=== PATIENT | female | born 1940 | race Caucasian/White ===

== ENCOUNTER 2020-09-10 12:27 | Outpatient (CLI) | payer OTHER, SELFPAY ==
--- NOTE | 2020-09-11 11:50 | WPDPFTINT ---
PFT Interpretation This is a pulmonary function test with pre and post-bronchodilator spirometry, plethysmography and diffusing capacity. The test was performed and results interpreted in accordance with the 2019 and 2005 ATS/ERS Task Force guidelines respectively using the Baron/Polzac reference equations. Findings: Spirometry: There is decreased maximal expiratory airflow at low lung volumes. The contour of the inspiratory flow tracing is normal. The pre bronchodilator FVC is 1.53 L, 70% predicted. The pre bronchodilator FEV1 is 1.11 L, 77% predicted. The FEV1: FVC ratio 73%. The post bronchodilator FVC is 1.55 L, representing 1% increase. The post bronchodilator FEV1 is 1.12 L, representing no change. Plethysmography the total lung capacity is 3.37 L, 82% predicted. Functional residual capacity is 2.03 L, 129% predicted. The residual volume is 1.77 L, 99% predicted. Diffusion capacity: The absolute diffusion capacity is 9.8, 43% predicted. The diffusing capacity corrected for alveolar volume is 4.02, 121% predicted. Impression: There is a mild obstructive abnormality with a normal FEV1 and without significant improvement after inhaling a single dose of albuterol. Hyperinflation is present is demonstrated by the increase in functional residual capacity and is consistent with an obstructive abnormality. The absolute diffusing capacity is moderately decreased but increased when corrected for alveolar volume. There are no prior studies for comparison
== END 2020-09-10 12:28 | disposition home or self-care (01) ==
PROVIDERS: PCP Family Medicine Adolescent Medicine; Visit Provider Family Medicine Adolescent Medicine
DX: R06.09 Other forms of dyspnea (principal); R06.02 Shortness of breath; R94.2 Abnormal results of pulmonary function studies
CPT/HCPCS: 94060; 94726; 94729

== ENCOUNTER → 2020-10-19 00:48 | Outpatient (CLI) | payer OTHER, SELFPAY ==
[2020-10-19 18:53] LABS: SARS-CoV-2 RNA PCR Negative
== END ==
PROVIDERS: PCP Family Medicine Adolescent Medicine; Visit Provider Specialist
DX: Z01.812 Encounter for preprocedural laboratory examination (principal); Z20.822 Contact with and (suspected) exposure to COVID-19
CPT/HCPCS: C9803; U0003; U0005

== ENCOUNTER 2020-10-23 00:50 | Day surgery (SDC) | payer OTHER, SELFPAY ==
[2020-10-22 16:30] VITALS: BMI 47.7
[2020-10-23] VITALS (12 sets, daily range): BP systolic 104–156; BP diastolic 47–78; PULSE 65–89; RESP 14–24; TEMP 36.1–36.5; O2SAT 92–98; BMI 49.4
--- NOTE | ~2020-10-23 | XR_ITS ---
EXAMINATION: XR chest 2V DATE: 10/24/2020 09:02 INDICATION: Pacer placement. TECHNIQUE: Frontal and lateral views of the chest were obtained. COMPARISON: Chest single view 10/23/2020 FINDINGS: The chest demonstrates clear lungs without pneumonia, pleural effusion, or pneumothorax. Th e heart size is normal. There is a left chest pacer with lead in right ventricle. IMPRESSION: 1. No acute cardiopulmonary disease. Reviewed, dictated and finalized at location A.
--- NOTE | ~2020-10-23 | XR_ITS ---
EXAMINATION: XR chest 1V portable EXAM DATE: 10/23/2020 11:50 INDICATION: Pacemaker insertion. TECHNIQUE: Portable AP frontal chest x-ray was obtained. Comparison is made to prior examination from 02/17/2019. FINDINGS: There is single lead pacemaker/AICD device seen with tip projecting over the expected locat ion of right ventricle. The cardiomediastinal silhouette is prominent but magnified on this AP techni que. There is aortic arteriosclerosis. No confluent consolidation, pneumothorax or pleural effusion s uspected. Left basilar granuloma. There are bony degenerative changes. IMPRESSION: No acute cardiopulmonary findings. Reviewed, dictated and finalized at location A.
--- NOTE | 2020-10-23 08:30 | ECG_ITS ---
Measurements Intervals [place] Rate: 82 P: ME: 0 QRS: -45 QRSD: 126 T: 82 QT: 405 QTc: 473 Interpretive Statements ATRIAL FIBRILLATION LEFT ANTERIOR FASCICULAR BLOCK NONSPECIFIC ST & T-WAVE ABNORMALITY- HIGH LATERAL LEADS BASELINE WANDER- I, AVR, AVL, AVF ABNORMAL ECG Electronically Signed On 10-23-2020 9:03:50 CDT by Eugene Rivas D.O.
[2020-10-23 09:00] LABS: Basophils Absolute Auto 0.1 K/mm3 (0.0-0.1); Basophils Percent Auto 0.7 % (0.2-1.2); Eosinophils Absolute Auto 0.2 K/mm3 (0-0.3); Eosinophils Percent Auto 2.3 % (0-4.4); Hematocrit 42.5 % (37.0-47.0); Hemoglobin 13.8 g/dL (12.0-15.0); Immature Granulocyte Absolute 0.02 K/mm3 (0.00-0.031); Immature Granulocyte Percent A 0.3 % (0-0.5); Lymphocytes Absolute Auto 2.53 K/mm3 (0.9-3.2); Lymphocytes Percent Auto 34.8 % (18.3-44.2); Mean Corpuscular HGB Conc 32.5 g/dl (32-36); Mean Corpuscular Hemoglobin 30.9 pg (26-34); Mean Corpuscular Volume 95.3 fl (80-100); Monocytes Absolute Auto 0.8 K/mm3 (0.1-0.6); Monocytes Percent Auto 10.3 % (2.6-8.5); Neutrophils Absolute Auto 3.7 K/mm3 (1.3-6.7); Neutrophils Percent Auto 51.6 % (45.5-73.1); Platelet Count Result 208 k/mm3 (150-375); Red Blood Count 4.46 M/mm3 (4.2-5.4); Red Cell Distribution Width 13.8 % (11.5-14.5); White Blood Count 7.3 K/mm3 (4.5-10.0)
[2020-10-23 09:10] LABS: INR 0.9; Prothrombin Time 13.1 Seconds (11.1-14.7)
[2020-10-23 09:11] LABS: Anion Gap 7 mmol/L (8-16); Blood Urea Nitrogen 23 mg/dL (7-17); Carbon Dioxide 26 mmol/L (22-30); Chloride 106 mmol/L (98-107); Estimated CRCL calculation 36 ml/min; Estimated Glomerular Filt Rate 39; Glucose 123 mg/dL (65-105); Potassium 4.4 mmol/L (3.4-5.0); Sodium 139 mmol/L (137-145)
--- NOTE | 2020-10-23 10:05 | WPDMODSED ---
Moderate Sedation Note-Pt Data Patient Data Diagnosis: Chronic atrial fibrillation with slow ventricular response Present Complaint: this is an 80-year-old woman with chronic atrial fibrillation who has been having intermittent syncopal episodes. She has been found on monitoring to have slow ventricular response with 5-6 second asystolic pauses corresponding with symptoms. Procedure to be performed/Plan: Permanent pacemaker implantation Allergies Allergy/AdvReac Type Severity Reaction Status Date / Time No Known Allergies Allergy Verified 10/22/20 16:56 Home Medications Medication Instructions Recorded Confirmed Type apixaban [Eliquis] 5 mg PO BID 10/22/20 10/22/20 History gabapentin 1,200 mg PO HS 10/22/20 10/22/20 History insulin glargine [Lantus Solostar 24 unit SUBCUT QA 10/22/20 10/22/20 History U-100 Insulin] losartan 100 mg PO DAILY 10/22/20 10/22/20 History pravastatin 20 mg PO QA 10/22/20 10/22/20 History tiotropium bromide [Spiriva 2.5 mcg INHALATION DAILY 10/22/20 10/22/20 History Respimat] zolpidem 10 mg PO HS 10/22/20 10/22/20 History Sedation/Anesthesia: No previous sedation/anesthesia problems (including family history). [facility] Social History Social History (Updated 10/22/20 @ 16:55 by Joanne Plata RN) Years smoked: 15 Smoking status: Former smoker Tobacco type: cigarettes Mod Sed Physical Exam Physical Exam Pre Procedural Exam: Normal: Neck, Throat, Airway, Lungs, Heart Rate, Neuro Exam and Extremities and Variation: Appearance ( anxious obese elderly lady), Heart Size ( PMI not palpable) and Heart Rhythm ( irregularly irregular) Hours since solid foods: 12 Hours since liquid intake: 12 Internal Medicine - PN: Obj Da Vital Signs Vital Signs: Vital Signs - 24 hr 10/23/20 08:58 Temperature 36.5 C Pulse Rate 74 Respiratory Rate 16 Blood Pressure 156/74 H Pulse Oximetry 95 Labs CBC & Chem 7: 10/23/20 08:55 10/23/20 08:55 Labs: Laboratory Results - last 24 hr 10/23/20 10/23/20 10/23/20 08:55 08:55 08:55 WBC 7.3 RBC 4.46 Hgb 13.8 Hct 42.5 MCV 95.3 MCH 30.9 MCHC 32.5 RDW 13.8 Plt Count 208 MPV 10.0 Immature Gran % (Auto) 0.3 Neut % (Auto) 51.6 Lymph % (Auto) 34.8 [place] % (Auto) 10.3 H Eos % (Auto) 2.3 Baso % (Auto) 0.7 Lymph # (Auto) 2.53 [place] # (Auto) 0.8 H Eos # (Auto) 0.2 Baso # (Auto) 0.1 Abs Immat Gran (auto) 0.02 Absolute Neuts (auto) 3.7 Absolute Nucleated RBC 0.0 Nucleated RBC % 0.0 PT 13.1 INR 0.9 Sodium 139 Potassium 4.4 Chloride 106 Carbon Dioxide 26 Anion Gap 7 L BUN 23 H Creatinine 1.30 H Estim Creat Clear Calc 36 Estimated GFR 39 L Glucose 123 H Calcium 9.0 ASA Classification/Sedation ASA Classification/Sedation ASA Class: II Emergent: No Risks: Risks, benefits and alternatives explained and patient/family accepted plan for sedation. Patient re-evaluated immediately prior to sedation.
[2020-10-23] MEDS: SODIUM CHLORIDE 0.9% IV 1,000 ML 50 ML IV CONT (11:10)
--- NOTE | 2020-10-23 11:10 | ECG_ITS ---
Measurements Intervals [place] Rate: 64 P: [place]: 0 QRS: -45 QRSD: 119 T: 67 QT: 412 QTc: 425 Interpretive Statements ELECTRONIC VENTRICULAR PACEMAKER WITH INHIBITION UNDERLYING ATRIAL FIBRILLATION LEFT ANTERIOR FASCICULAR BLOCK BASELINE ARTIFACT- I, II, III, AVR, AVL, AVF NO FURTHER INTERPRETATION IS POSSIBLE ABNORMAL ECG Electronically Signed On 10-23-2020 11:56:11 CDT by Eugene Rivas D.O.
--- NOTE | 2020-10-23 11:14 | WPDCARDPROC ---
Cardiac Cath Procedure Note Date of procedure:: 10/23/20 Performing physician:: Chilango Gunderson MD Indication:: symptomatic bradycardia with AFib and slow ventricular response Brief clinical history:: this is an 80-year-old woman who has chronic atrial fibrillation. She has a slow ventricular response and recent started to experience syncopal episodes. Monitoring as an outpatient has demonstrated asystolic pauses between 5 and 6 seconds. Pacemaker implantation was thusly recommended. Anticoagulation has been stopped 5 days ago. Procedure Procedure performed:: Implantation of permanent pacemaker Sedation/Medication given:: Versed 2 mg case start time 10:34 a.m. case end time 11:07 a.m. sedation provided by Nathalia Plata RN, trained observer Access site:: left subclavian vein Estimated blood loss:: 20 cc Procedure note:: patient was brought to the cardiac catheterization lab in postabsorptive state. The left anterior chest wall was prepped and draped in the usual fashion. Anesthesia was provided with 1% lidocaine infiltrated below the left clavicle. Following that an incision was made about 2 in long inferior to the clavicle. After this electrocautery was used to provide cutaneous hemostasis. The the subcutaneous tissue was then using sharp and blunt dissection and a blunt dissection was used to create a pacemaker pocket along the fascial plane inferior to the incision. After this attention was turned to venous access. Under fluoroscopic guidance the left subclavian vein was punctured and the guidewire was advanced into the venous circulation into the level right atrium. A 6 Y[place]ut pacemaker stay safe sheath device was used to access the vein the guidewire and dilator were removed. The pacemaker lead mentioned below is then advanced into the venous circulation to the level of the right atrium. The Sheath was peeled away. After this I removed the stylet from the lead and for used a 3 cc syringe to formed J-tip stylet. This was used then to steer the lead through the right ventricle out to the PA position. A straight stylet was placed into the lead was withdrawn and placed easily into the right ventricular apical position. Appropriate R-waves were sensed and after this the lead was fixed into position by deploying the fixation screw. After this pacing and sensing performance was documented using the analyzer. A 10 volts stimulus failed to show any evidence of extracardiac stimulation. After this the lead was sutured to the base of the pocket using the suture sleeve at 2 0 silk ties. After this the pacemaker generator was connected to the leads using the torque wrench the entire assembly was placed into the newly created pocket. Lastly the pocket was closed in layers using 3 0 Vicryl in an interrupted fashion for the subcutaneous tissue and I used 2 layers of 4 0 Vicryl for the subcutaneous subcuticular tissue. After this the wound was dressed with an Aquacel dressing the patient was taken to the holding area with the left arm in an immobilizer. Bed rest and postop antibiotics were ordered. Procedure was uncomplicated and well tolerated. Findings:: Patient received a Biotronik single-chamber VVI pacemaker model number [id number], [place] SR-T lower rate limit set at 60 upper rhythm at 1:20 a.m. pacing mode VVI / CLS. The ventricular lead is a Biotronik screw-in bipolar lead model 300261, Solia S 53. R-waves are sensed at 12.5 mV threshold 0.6 volts at 0.4 milliseconds pacing impedance 741 Ohms Conclusion:: 1. uncomplicated well tolerated implantation of permanent single-chamber cardiac pacing system for treatment of symptomatic bradycardia in this 80-year-old lady with chronic atrial fibrillation. Chilango Gunderson MD [facility]
--- NOTE | 2020-10-23 12:30 | ADMGEN ---
This patient, Eliza Dueñas, was admitted to [facility]. Patient/family oriented to hospital policies and general routines including ID bracelet, bed and alarms, visiting hours, pain management, procedures, bathroom and other care routines, personal items, smoking policy, room service/diet, and visiting hours. Information on how to activate the Rapid Response Team has been discussed. Patient/Family are encouraged to report perceived risks to care and to ask questions if they do not understand what they are told or what they should do.
--- NOTE | 2020-10-23 12:35 | SUR.PHASEII ---
1230-pt moved to PCS charting
[2020-10-23] MEDS: GABAPENTIN 400 MG CAPSULE 1200 MG PO (21:35)
[2020-10-23] MEDS: ZOLPIDEM TARTRATE (*CRX) 5 MG TABLET 10 MG PO (21:35)
[2020-10-24] VITALS (8 sets, daily range): BP systolic 137–147; BP diastolic 49–78; PULSE 68–93; RESP 18–20; TEMP 36.2–36.3; O2SAT 91–96
[2020-10-24 08:39] LABS: Glucose Point of Care 116 (65-105)
--- NOTE | 2020-10-24 08:45 | PC.NURSE ---
DR. HADLEY HERE TO SEE PT. OK TO GET 2 VIEW CXR MORNING POST PPM NOW. RADIOLOGY NOTIFIED.
--- NOTE | 2020-10-24 09:15 | PC.NURSE ---
RETURNS FROM 2 VIEW CXR NOW. VOIDED PER TOILET. STEADY GAIT W/ CANE. RETURNED TO CHAIR AT BEDSIDE. BREAKFAST SERVED. VOICES NO C/O. ARM IMMOBILIZER ON L. ARM. REVIEWED ACTIVITY/MOVEMENT RESTRICTIONS POST PPM W/ PT. VOICED UNDERSTANDING.
[2020-10-24] MEDS: INSULIN GLARGINE (*BKC) 100 UNITS/ML 24 UNITS SUB-Q (09:37)
--- NOTE | 2020-10-24 10:49 | PM.PNCARD ---
Progress Note: A&P Assessment and Plan (1) Sick sinus syndrome: Code(s): I49.5 - Sick sinus syndrome Status: Acute Assessment and Plan: Continue home medical therapy. Status post pacemaker (2) S/P cardiac pacemaker procedure: Code(s): Z95.0 - Presence of cardiac pacemaker Status: Acute Assessment and Plan: Normal device function on interrogation this morning. Chest x-ray with RV lead in satisfactory position, no pneumothorax or acute issue. Outpatient follow-up as scheduled. Post pacemaker precautions discussed. See discharge instructions. Discharge home today in stable and improved condition. 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 (4) Atrial fibrillation: Code(s): I48.91 - Unspecified atrial fibrillation Status: Acute Assessment and Plan: Persistent. Resume systemic anticoagulation per Dr. Gunderson recommendation post pacemaker implantation in 4-5 days to reduce bleeding complication risk. Subjective Date/time seen: Date of service: 10/24/20 10:49 Follow-up for status post pacemaker implantation for sick sinus syndrome, syncope Patient feels much better today. No complaints. Denies significant pain. No chest pain, palpitations, no shortness of breath. Chest x-ray stable, no pneumothorax, RV lead appropriate position, pacemaker interrogation normal device function no issues. She is intermittently V paced on telemetry, atrial fibrillation. Review of Systems Review of Systems: All systems reviewed & are unremarkable except as noted in HPI and below Constitutional: Constitutional: Reports as per HPI and Reports no additional constitutional complaints Eyes: Eyes: Reports as per HPI and Reports no additional eye complaints ENT: Reports system reviewed and no additional complaints, except as documented and Reports as per HPI Cardiovascular: Cardiovascular: Reports as per HPI and Reports no additional cardiovascular complaints Respiratory: Respiratory: Reports as per HPI and Reports no additional respiratory complaints Gastrointestinal: Gastrointestinal: Reports as per HPI and Reports no additional gastrointestinal complaints Genitourinary: Genitourinary: Reports no additional female genitourinary complaints and Reports as per HPI Musculoskeletal: Musculoskeletal: Reports no additional musculoskeletal complaints and Reports as per HPI Integumentary/Breasts: Skin/Breast: Reports system reviewed and no additional complaints, except as docu and Reports as per HPI Neurologic: Reports system reviewed and no additional complaints, except as documented and Reports as per HPI Psychiatric: Psychiatric: Reports no additional psychiatric complaints and Reports as per HPI Endocrine: Endocrine: Reports no additional endocrine complaints and Reports as per HPI Hematologic/Lymphatic: Hematologic/Lymphatic: Reports no additional hematologic/lymphatic complaints and Reports as per HPI Allergic/Immunologic: Allergic/Immunologic: Reports no additional allergic/immunologic complaints and Reports as per HPI Exam Narrative: Exam Narrative: General: Well developed, alert and oriented x3. No apparent distress, comfortable, pleasant, and cooperative. Head: atraumatic, normocephalic Eyes: EOM intact, sclerae anicteric, conjunctivae unremarkable Ears/Nose: external inspection of ears and nose were grossly normal Mouth/Throat: oral mucosa pink and moist Neck: supple, normal range of motion, no jugular venous distention or carotid bruits, thyroid nonpalpable, trachea midline. Cardiac: Irregular rate and rhythm, normal S1-S2, no murmurs, clicks, gallops, or rubs. Lungs: Clear to auscultation bilaterally, no rales, wheezes, or rhonchi. Abdomen: Soft, nontender, nondistended, positive bowel
--- NOTE | 2020-10-24 11:01 | PM.DS ---
DS: Admitting Diagnosis Admitting Diagnosis Admitting Diagnosis: Sick sinus syndrome, syncope, atrial fibrillation DS: Discharge Diagnosis Discharge Diagnosis (1) Sick sinus syndrome: Code(s): I49.5 - Sick sinus syndrome Status: Acute Assessment and Plan: Continue home medical therapy. Status post pacemaker (2) S/P cardiac pacemaker procedure: Code(s): Z95.0 - Presence of cardiac pacemaker Status: Acute Assessment and Plan: Normal device function on interrogation this morning. Chest x-ray with RV lead in satisfactory position, no pneumothorax or acute issue. Outpatient follow-up as scheduled. Post pacemaker precautions discussed. See discharge instructions. Discharge home today in stable and improved condition. 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 (4) Atrial fibrillation: Code(s): I48.91 - Unspecified atrial fibrillation Status: Acute Assessment and Plan: Persistent. Resume systemic anticoagulation per Dr. Gunderson recommendation post pacemaker implantation in 4-5 days to reduce bleeding complication risk. DS: Summary Hospital Course Reason for hospitalization: Pacemaker implantation, elective Hospital Course: Patient admitted as an outpatient with episodes of syncope and near-syncope associated with pathologic pauses, tachycardia bradycardia syndrome referred for pacemaker implantation. Patient was observed overnight with pacemaker interrogation and chest x-ray all revealing stable device function and stable lead placement without pneumothorax or other complication. Patient had no complaints was doing well at time of discharge. Status at Discharge Cognitive/behavioral status at discharge: Competent Functional status at discharge: independent ambulation Overall status at discharge: patient is progressing back to baseline Time Spent with Patient Time attestation: Total time spent providing and/or coordinating discharge services: 38 Time spent: Greater than 30 minutes Exam Narrative: Exam Narrative: General: Well developed, alert and oriented x3. No apparent distress, comfortable, pleasant, and cooperative. Head: atraumatic, normocephalic Eyes: EOM intact, sclerae anicteric, conjunctivae unremarkable Ears/Nose: external inspection of ears and nose were grossly normal Mouth/Throat: oral mucosa pink and moist Neck: supple, normal range of motion, no jugular venous distention or carotid bruits, thyroid nonpalpable, trachea midline. Cardiac: Irregular rate and rhythm, normal S1-S2, no murmurs, clicks, gallops, or rubs. Lungs: Clear to auscultation bilaterally, no rales, wheezes, or rhonchi. Abdomen: Soft, nontender, nondistended, positive bowel sounds throughout. No appreciable hepatosplenomegaly, no rebound guarding or rigidity noted. Abdominal aorta nonpalpable, no appreciable bruits. Extremities: Trace to 1+ LE edema, clubbing, and or cyanosis. Extremities warm and well perfused. Skin: Warm and dry without ecchymoses, rashes, and/or petechiae. -left anterior chest wall bandage in place. No obvious hematoma, tenderness or bleeding noted. Musculoskeletal: Muscle strength and tone intact throughout without obvious deformities. Vascular: Carotid upstrokes 2+ bilaterally, radial pulses 2+ bilaterally, dorsalis pedis pulses 2+ bilaterally, posterior tibialis pulses palpable bilaterally. Neurologic: Cranial nerves 2-12 grossly intact, examination grossly nonfocal Pscyhiatric: Mood calm and appropriate. DS: Data Data Completed and Pending Labs on day of discharge: Labs from last 24 hours 10/24/20 08:34 POC Capillary Glucose 116 H Discharge Plan Discharge Attending physician on discharge: Chilango Gunderson [facility]
[2020-10-24] MEDS: PRAVASTATIN SODIUM 20 MG TABLET PO (11:39)
[2020-10-24] MEDS: LOSARTAN POTASSIUM 100 MG TABLET PO (11:39)
--- NOTE | 2020-10-24 12:50 | PC.NURSE ---
REVIEWED DISCHARGE INSTRUCTIONS WITH PT. AND DAUGHTER IN LAW. QUESTIONS ANSWERED. VOICED UNDERSTANDING OF ALL. DISCHARGED HOME, OUT VIA WC TO TO FAMILY CAR W/ ALL PERSONAL BELONGINGS AND DISCHARGE PACKET AND ALL PACEMAKER INFORMATION AND BEDSIDE MONITOR. ARM IMMOBILIZER IS ON L. ARM. CANE IS IN HAND. DENIES PAIN. NO DISTRESS NOTED. NO C/O VOICED.
== END 2020-10-24 12:45 | disposition home or self-care (01) ==
LOC: ANHCATHLAB 08:35 → ANHCPC 13:50 → ANHIMU 10-24 13:07
PROVIDERS: PCP Family Medicine Adolescent Medicine; Visit Provider Specialist
PROC: 0JH604Z Insertion of Pacemaker, Single Chamber into Chest Subcutaneous Tissue and Fascia, Open Approach (ICD-10-PCS; CPT 33210; principal; 2020-10-23 10:00)
DX: I48.0 Paroxysmal atrial fibrillation (principal); I49.5 Sick sinus syndrome; Z79.01 Long term (current) use of anticoagulants; I10 Essential (primary) hypertension; E78.00 Pure hypercholesterolemia, unspecified; E66.01 Morbid (severe) obesity due to excess calories; Z68.42 Body mass index [BMI] 45.0-49.9, adult; R55 Syncope and collapse; E11.9 Type 2 diabetes mellitus without complications; R06.00 Dyspnea, unspecified; M19.90 Unspecified osteoarthritis, unspecified site; Z79.4 Long term (current) use of insulin; R53.81 Other malaise; R53.83 Other fatigue; I34.0 Nonrheumatic mitral (valve) insufficiency; G47.33 Obstructive sleep apnea (adult) (pediatric); I27.20 Pulmonary hypertension, unspecified; E78.5 Hyperlipidemia, unspecified
CPT/HCPCS: 33207; 36415; 71045; 71046; 80048; 82948; 85025; 85610; 93005; 94640; A9270; C1779; C1786; C9803; J0690; J1815; J2250; J3010; J7030; J7040; U0003; U0005

== ENCOUNTER → 2022-03-26 11:28 | Outpatient (CLI) | payer OTHER, SELFPAY ==
--- NOTE | ~2022-03-26 | XR_ITS ---
XR chest 2V 03/26/2022 11:52 Indication: Shortness of breath Procedure: PA and lateral views of the chest Comparison: 10/24/2020 Findings: Pacemaker lead in the right ventricle. Cardiomegaly. There is pulmonary vascular indistinct ness, compatible with mild interstitial edema. No significant effusion or pneumothorax. No acute osse ous abnormality. Impression: 1: Cardiomegaly with mild interstitial edema. Reviewed, dictated and finalized at location B. Impression: 1: Cardiomegaly with mild interstitial edema.
== END ==
PROVIDERS: Visit Provider Physician Assistant
DX: R06.02 Shortness of breath (principal); I51.7 Cardiomegaly; J84.9 Interstitial pulmonary disease, unspecified
CPT/HCPCS: 71046

== ENCOUNTER → 2022-05-20 09:46 | Outpatient (CLI) | payer OTHER, SELFPAY ==
--- NOTE | ~2022-05-20 | XR_ITS ---
EXAM: XR lumbar spine 2-3V DATE: 05/20/2022 10:02 HISTORY: no injury lbp for 2 weeks . COMPARISON: None available. FINDINGS: 5 nonrib-bearing lumbar-type vertebral bodies. Pedicles intact. 3 mm retrolisthesis at L2- 3 and L3-4. Vertebral body heights preserved. Multilevel severe disc space narrowing and osteophytosi s, including large bridging osteophytes. Vacuum phenomenon at L2-3 and L3-4. L5-S1 fusion.. Multileve l facet sclerosis and hypertrophy, with interspinous narrowing. No fracture or dislocation. IMPRESSION: Multilevel severe degenerative disc disease. Multilevel severe facet arthropathy and inte rspinous impingement. Reviewed, dictated and finalized at location K. IMPRESSION: Multilevel severe degenerative disc disease. Multilevel severe face t arthropathy and interspinous impingement.
== END ==
PROVIDERS: PCP Family Medicine Adolescent Medicine; Visit Provider Family Medicine Adolescent Medicine
DX: M51.36 Other intervertebral disc degeneration, lumbar region (principal)
CPT/HCPCS: 72100

== ENCOUNTER 2022-10-07 09:33 | Outpatient (CLI) | payer OTHER, SELFPAY ==
--- NOTE | 2022-10-07 11:00 | NEURO_ITS ---
Impression: Patient reports a history of numbness in both hands. # Bilateral Carpal Tunnel Syndrome. 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 # Needle/EMG exam not requested. # Clinical correlation recommended. Motor Nerve Conduction Upper Extremities Median Nerve Conduction Velocity (m/sec) Terminal Latency (msec) Response Voltage(mV) Elbow-Wrist Wrist Elbow Wrist Right 26 4.3 2 3 Left 41 8.1 3 3 Ulnar Nerve Conduction Velocity (m/sec) Terminal Latency (msec) Response Voltage(mV) Above Elbow Below Elbow Wrist Above Elbow Below Elbow Wrist Right 44 50 2.5 7 6 7 Left 46 54 2.6 6 6 7 F-Wave Latency Median (ms) Ulnar (ms) Right 28.3 28.7 Left 28.3 28.6 Sensory Nerve Conduction Upper Extremities Median Nerve Stimulation Terminal Latency (msec) Wrist/Digit Response Voltage (uV) Wrist Right 6.6/6.7 34/12 Left 7.2/6.2 6/16 Ulnar Nerve Stimulation Terminal Latency (msec) Wrist/Digit Response Voltage (uV) Wrist Right 2.4 39 Left 2.8 19 Radial Nerve Terminal Latency (msec) Response Voltage(mV) Right 1.8 39 Left 2.0 15 MTDD
== END 2022-10-07 09:34 | disposition home or self-care (01) ==
LOC: ANHNEURO 09:34
PROVIDERS: PCP Family Medicine Adolescent Medicine; Visit Provider Family Medicine Adolescent Medicine
DX: G56.03 Carpal tunnel syndrome, bilateral upper limbs (principal); G56.23 Lesion of ulnar nerve, bilateral upper limbs
CPT/HCPCS: 95911

== ENCOUNTER 2023-01-27 01:45 | Day surgery (SDC) | payer OTHER, SELFPAY ==
--- NOTE | 2023-01-14 12:48 | PC.NURSE ---
Report to the Outpatient Waiting Room, entrance under the green pavilion located off [facility], at time _1000 on date _01/27/23 . Planned Procedure Time: __1100 . Time changes happen often and if your time is changed the preop area will call you the afternoon before. - You and your visitor will be asked to self-screen and do not enter if you have any COVID symptoms. - A mask is optional within the hospital at this time. Patients may have clear liquids (water, carbonated beverages, clear teas, apple juice) until 3 hours prior to surgery with a maximum of 20 ounces. - No food from midnight until time of surgery - Infants may have breast milk until 4 hours before surgery, infant formula 6 hours prior to surgery. - Children will be allowed to drink immediately following surgery. If applicable, please bring a bottle or sippy cup to assist with drinking. Juice, water, soda, and popsicles are readily available. For infants on formula, please bring formula the day of surgery. Pacifiers are allowed. LIGHT BREAKFAST Take the following medications with a SIP of water the morning of surgery: ___ALL ROUTINE MORNING MEDICATIONS DO NOT STOP ANY OF YOUR OTHER PRESCRIPTION MEDICATIONS PRIOR TO SURGERY ?EXCEPT THE FOLLOWING Medications to discontinue per physician Date to take last dose Please no make-up, nail new zealander, hairspray, perfume, deodorant, or body powder the day of surgery. No jewelry (including any body piercings) or valuables the day of surgery, leave them at home. Please take a shower or bath the night before, or the morning of, surgery with an antibacterial soap. Wear comfortable, loose fitting clothing. Children are encouraged to wear pajamas. - Jewelry must be removed prior to entering the operating room. Rings and piercings that are not removed may be cut off. - The hospital will not accept responsibility for valuables. - Please leave all valuables, including medications, at home the day of surgery. If you are going home after surgery, a licensed petrol tanker driver must drive you home. - NO public transportation without another adult if you receive anesthesia. - We recommend that an adult stay with you for 24 hours following discharge. - We also recommend that you do not drive, make important decision, drink alcoholic beverages, or take any drugs that were not prescribed by your health care provider for at least 24 hours after your discharge time. For Pediatric surgeries, we recommend two adults accompany the child home. Follow any additional instructions given to you from your surgeon. If you or anyone in your household have experienced Covid symptoms in the past week, please notify your surgeon or the nurse liaison at the phone number below for possible testing. Telephone instructions given to ___PATIENT and asked if any additional questions and then verbalized understanding. Patient advised to call surgeon office or pre surgery nurse liaison [phone] if any additional questions.
[2023-01-14 12:55] VITALS: BMI 49.6
[2023-01-27 07:08] VITALS: BP 117/59; PULSE 66; RESP 18; TEMP 36.3; O2SAT 93
--- NOTE | 2023-01-27 07:13 | WPDHPUPDATE1 ---
History and Physical Update Update Date/Time: 01/27/23 07:13 History and Physical has been reviewed, including an updated exam of the patient. There are NO changes in the patient's condition. Risks, benefits, and alternatives have been discussed and questions answered. Patient agrees to proceed with procedure.
[2023-01-27 07:49] VITALS: BP 149/65; PULSE 69; RESP 18; O2SAT 92
[2023-01-27 08:00] VITALS: BP 135/64; PULSE 67; RESP 18; O2SAT 94
[2023-01-27] MEDS: LIDO 1%/EPINEPHRINE 1:100,000 50 ML VIAL INFILTRATE (08:04)
[2023-01-27 08:10] VITALS: BP 128/61; PULSE 65; RESP 18; O2SAT 93
[2023-01-27 08:20] VITALS: BP 143/63; PULSE 61; RESP 18; O2SAT 91
[2023-01-27 08:31] VITALS: BP 128/57; PULSE 71; RESP 20; O2SAT 92
--- NOTE | 2023-01-27 11:45 | PM.OP ---
Procedure Note - Brief Procedure Note - Brief Date of procedure: 01/27/23 Bilateral carpal tunnel syndrome Post-op diagnosis: Same Procedure performed: B open carpal tunnel release. Surgeon: Keyshawn Padilla MD Anesthesia: local
--- NOTE | 2023-01-27 20:01 | W.PM.PROC2 ---
Procedure Note - Detailed Date of Procedure 01/27/23 Pre-op Diagnosis Bilateral carpal tunnel syndrome Post-op Diagnosis Same Procedure Performed Bilateral open carpal tunnel release Surgeon Keyshawn Padilla MD Anesthesia Local Description of Procedure The sites were marked on the patient's wrists in the holding area and questions were answered. She was taken to the operating room where she was placed supine on the operating table. The 2 extremities were prepped on separate hand tables. Both sites were marked for incisions. Each was infiltrated with 1% lidocaine with epinephrine. Time was allowed for hemostatic effect. The left side was done 1st with an incision in the palm blunt dissection revealed the palmar aponeurosis and transverse retinaculum which were incised with a 15 blade.. Under 3 point retraction the ligament was divided distally and proximally for complete release. No unusual anatomy was noted. The skin was closed with interrupted 5 0 nylon suture. Attention was turned to the right side the incision was made again as marked the tourniquet was not utilized. The palmar aponeurosis was divided with a 15 blade revealing the transverse retinaculum. The retinaculum was incised opening the canal. The total width of the retinaculum was divided under direct vision. No unusual anatomy was noted. The skin was closed with interrupted 5 0 nylon. The usual bandages were applied to both sides and the patient was discharged home with instructions in wound care and follow-up. The patient was discharged home with a prescription for hydrocodone 5/325 which he family member picked up in my office. Estimated Blood Loss 3 Drains No Packing No Pathology None sent Complications No immediate complications Condition Stable Disposition Same day
== END 2023-01-27 09:21 | disposition home or self-care (01) ==
PROVIDERS: PCP Family Medicine Adolescent Medicine; Visit Provider Plastic Surgery
PROC: (CPT 64721; principal; 2023-01-27 07:30)
DX: G56.03 Carpal tunnel syndrome, bilateral upper limbs (principal); E11.9 Type 2 diabetes mellitus without complications; Z95.0 Presence of cardiac pacemaker
CPT/HCPCS: 64721; A9270

== ENCOUNTER 2023-06-14 12:03 | Inpatient (IN) | payer OTHER, SELFPAY ==
[2023-06-14] VITALS (45 sets, daily range): BP systolic 65–154; BP diastolic 32–128; PULSE 60–94; RESP 16–36; TEMP 36.4–38.1; O2SAT 88–100; BMI 52.4
--- NOTE | ~2023-06-14 | CT_ITS ---
EXAMINATION: CT abdomen pelvis wo con DATE: 06/14/2023 15:12 INDICATION: Hematuria TECHNIQUE: Computed tomography (CT) of the abdomen and pelvis was performed without intravenous contr ast. Automated exposure control and iterative reconstruction technique were employed. The dose-length product was 1631.04 mGy-cm. COMPARISON: None FINDINGS: Mild atelectasis in bilateral lower lobes and lingula. Cardiomegaly with prominent right atrial enlar gement. Cardiac pacemaker pacemaker lead tip near the apex of the right ventricle. Dense mitral annul ar calcification. No pericardial or pleural effusion. Several splenic calcific lesions consistent wit h old granulomatous disease. Diffuse hepatic steatosis with subjective mild hepatomegaly with right h epatic lobe measuring 23.0 cm craniocaudal length. Cholecystectomy clips at the gallbladder fossa. Pa ncreas and bilateral adrenal glands are normal. 3-4 mm at least partially obstructing stone at the ri ght ureterovesicular junction with mild right hydroureteronephrosis and mild periureteral stranding. 1.5 x 1.1 x 0.6 cm stone extending from a calyx of the lower pole of the left kidney to the renal pel vis. No left hydronephrosis or stones along the left ureter. There are few small foci of gas in the l eft renal collecting system and in the bladder. Normal appendix. Prominent diverticulosis with sigmoi d colon predominance. The uterus is not identified and has likely been surgically resected. 2.2 cm le ft adnexal cyst. No free intraperitoneal gas or fluid. No pathologically enlarged abdominal or pelvic lymphadenopathy. Asymmetric fatty atrophy of the right psoas and iliac is muscles. Severe upper lumb ar and moderate lower thoracic spondylosis with bridging osteophytes at multiple levels and fusion ac ross several of the facet joints consistent with diffuse idiopathic skeletal hyperostosis (DISH). IMPRESSION: 1. Bilateral nephrolithiasis with 304 mm at least partially obstructing stone at the right ureteroves icular junction with mild right hydroureteronephrosis and mild periureteral stranding. Correlate with urinalysis to exclude associated urinary tract infection. 2. Diverticulosis. 3. Mild cardiomegaly with right atrial enlargement. 4. Hepatomegaly with diffuse hepatic steatosis. Reviewed, dictated and finalized at location A. DIPPER IMPRESSION: 1. Bilateral nephrolithiasis with 304 mm at least partially obstructing stone a t the right ureterovesicular junction with mild right hydroureteronephrosis and mild periureteral stranding. Correlate with urinalysis to exclude associated u rinary tract infection. 2. Diverticulosis. 3. Mild cardiomegaly with right atrial enlargement. 4. Hepatomegaly with diffuse hepatic steatosis.
--- NOTE | ~2023-06-14 | XR_ITS ---
Portable chest x-ray Comparison: 06/17/2023 Clinical History: COPD exacerbation Findings: There is hazy bibasilar airspace disease, right worse than left, suggestive of pulmonary e baudilio. Cardiomediastinal silhouette is stable, with pacemaker device. Bones and soft tissues are unre markable. Impression: Mild to moderate probable pulmonary edema pattern. Correlate clinically for pneumonia. Reviewed, dictated and finalized at [facility]. FRAME TENDER Impression: Mild to moderate probable pulmonary edema pattern. Correlate clinically for pne umonia.
--- NOTE | ~2023-06-14 | XR_ITS ---
Portable chest x-ray Comparison: 06/14/2023 Clinical History: COPD exacerbation Findings: Possible minimal bibasilar interstitial pulmonary edema. Probable minimal right pleural ef fusion. Cardiomediastinal silhouette is stable, with pacemaker device. Bones and soft tissues are un remarkable. Impression: Suspected minimal bibasilar pulmonary edema and minimal right pleural effusion. Stable cardiomegaly with pacemaker device. Reviewed, dictated and finalized at location . PING OPERATOR Impression: Suspected minimal bibasilar pulmonary edema and minimal right pleural effusion. Stable cardiomegaly with pacemaker device.
--- NOTE | ~2023-06-14 | XR_ITS ---
Portable chest x-ray Comparison: 06/20/2023 Clinical History: CHF Findings: Minimal right pleural effusion present. Mild pulmonary edema pattern present. Cardiomedia stinal silhouette is stable, with pacemaker device. Bones and soft tissues are unremarkable. Impression: Mild pulmonary edema pattern with minimal right pleural effusion. Reviewed, dictated and finalized at [facility]. O CERTIFIED NETWORK PROFESSIONAL Impression: Mild pulmonary edema pattern with minimal right pleural effusion.
--- NOTE | ~2023-06-14 | CT_ITS ---
EXAMINATION: CT abdomen pelvis wo con DATE: 06/21/2023 17:54 INDICATION: Generalized abdominal pain TECHNIQUE: Computed tomography (CT) of the abdomen and pelvis was performed without intravenous contr ast. Automated exposure control and iterative reconstruction technique were employed. The dose-length product was 1474.61 mGy-cm. COMPARISON: 06/20/2023 FINDINGS: Small bilateral pleural effusions, right greater than left with dependent compressive atelectasis in bilateral lower lobes. There are some patchy groundglass opacities in the right middle and lower lobe s which could represent additional atelectasis, pulmonary edema or pneumonia. Mild thyromegaly. Ather osclerotic coronary artery calcification. Mitral annular calcification. Cardiac pacemaker lead tip at the right ventricular apex area no pericardial effusion. Cholecystectomy clips the gallbladder fossa . Liver, pancreas, bilateral adrenal glands are normal. A few splenic calcification consistent with o ld granulomatous disease. Likely age-related mild bilateral renal atrophy. Right internal ureteral st ent with loops formed in the right renal pelvis and in the bladder. The small stone previously seen a t the right ureterovesicular junction is no longer visualized and has likely been extracted. No green e in a stone present a lower pole calyx of the left kidney extending to the renal pelvis measuring 1. 7 cm maximal length. No hydronephrosis. There is sigmoid predominant diverticulosis without adjacent inflammatory change to suggest diverticulitis. No bowel obstruction. Normal appendix. Anteverted and bilateral adnexa are unremarkable. There is increased deep tendon body wall edema as well as mild anthony ma in the presacral/perirectal fat which is new since the prior study. No free intraperitoneal gas or fluid. No pathologically enlarged abdominal or pelvic lymphadenopathy. Asymmetric fatty atrophy of t he right psoas and iliac is muscles. Severe upper lumbar and moderate lower thoracic spondylosis with bridging osteophytes at multiple levels and fusion across several of the facet joints consistent wit h diffuse idiopathic skeletal hyperostosis (DISH). IMPRESSION: 1. Previously seen right ureterovesicular junction stone is no longer visualized and has likely passe d or been extracted with placement of a right internal ureteral stent which is in expected position. 2. Unchanged 1.7 cm nonobstructing left renal stone. 3. New small bilateral pleural effusions and increasing dependent body wall edema and edema in the pr esacral/perirectal fat. 4. A few patchy groundglass opacities in the right middle and lower lobes which could represent atele ctasis, mild pulmonary edema or pneumonia. 5. Cardiomegaly. 6. Diverticulosis. Reviewed, dictated and finalized at location A. NERY OPERATOR HELPER CRACKING UNIT IMPRESSION: 1. Previously seen right ureterovesicular junction stone is no longer visualize d and has likely passed or been extracted with placement of a right internal ur eteral stent which is in expected position. 2. Unchanged 1.7 cm nonobstructing left renal stone. 3. New small bilateral pleural effusions and increasing dependent body wall anthony ma and edema in the presacral/perirectal fat. 4. A few patchy groundglass opacities in the right middle and lower lobes which could represent atelectasis, mild pulmonary edema or pneumonia. 5. Cardiomegaly. 6. Diverticulosis.
--- NOTE | ~2023-06-14 | XR_ITS ---
EXAMINATION: XR abdomen obstructive series DATE: 06/20/2023 12:17 INDICATION: Abdominal distention. TECHNIQUE: Upright and supine views of the abdomen on 3 radiographs were obtained. COMPARISON: CT abdomen and pelvis 06/14/2023 FINDINGS: There are no dilated loops of bowel. No free intraperitoneal gas. There is a right internal ureteral stent in expected position. There is a pacer wire in ventricle. Cardiomegaly is noted. IMPRESSION: 1. Nonobstructive bowel gas pattern. Reviewed, dictated and finalized at location A. WARE MANAGER
--- NOTE | ~2023-06-14 | US_ITS ---
Renal-Bladder ultrasound Clinical History: Chronic kidney disease Technique: Real-time sonographic imaging of the kidneys was performed. Findings: The right kidney measures 13.3 cm in length and the left kidney measures 13.1 cm. There is no hydronephrosis or renal calculus identified. Renal cortical echogenicity is within normal limits. No renal mass lesion is identified. Urinary bladder is collapsed around a Figueredo catheter, limiting evaluation. Impression: Unremarkable ultrasound of the kidneys. Reviewed, dictated and finalized at location . POLISHER Impression: Unremarkable ultrasound of the kidneys.
--- NOTE | ~2023-06-14 | US_ITS ---
Limited Abdominal Sonogram: Real-time sonographic imaging of the right upper quadrant was performed. Clinical History: Abnormal LFTs Findings: The liver appears echogenic, with no evidence of mass lesion or bile duct dilatation. Main portal vein demonstrates normal direction of flow. The gallbladder is absent, compatible prior jose c cystectomy. The common bile duct measures 3 mm. The visualized pancreas, aorta, and IVC are unremark able. Visualized right kidney is unremarkable. Impression: Diffuse fatty infiltration of liver. Status post cholecystectomy. Reviewed, dictated and finalized at location M. LOPMENT COACH Impression: Diffuse fatty infiltration of liver. Status post cholecystectomy.
--- NOTE | ~2023-06-14 | XR_ITS ---
EXAMINATION: XR chest 1V portable Exam Date/Time: 06/14/2023 20:42 ERECTING CRANE OPERATOR HISTORY: hypoxia s/p cysto Comparison: 06/14/2023. RESULT: Lines, tubes, and devices: Left chest pacer with intact lead. Lungs and pleura: Mild diffuse reticular opacities. Cardiomediastinal silhouette: Stable. Mitral annulus calcification Other: No acute osseous or upper abdominal finding. IMPRESSION: Mild interstitial edema. Reviewed, dictated and finalized at location K. TING CRANE OPERATOR IMPRESSION: Mild interstitial edema.
--- NOTE | ~2023-06-14 | XR_ITS ---
Portable chest x-ray Comparison: 06/16/2023 Clinical History: COPD exacerbation Findings: Possible mild central congestive change. Probable minimal pleural effusions. Cardiomedias tinal silhouette is stable, with pacemaker device. Bones and soft tissues are unremarkable. Impression: Mild central congestive change and minimal pleural effusions. Stable cardiomegaly with pacemaker device. Reviewed, dictated and finalized at location . ITY CONTROL LAB TECHNICIAN Impression: Mild central congestive change and minimal pleural effusions. Stable cardiomegaly with pacemaker device.
--- NOTE | ~2023-06-14 | XR_ITS ---
EXAMINATION: XR retrograde pyelo w/stent RT DATE: 06/14/2023 18:10 MILL HAND PLATE MILL INDICATION: RT RETRO WITH STENT . TECHNIQUE: 3 fluoroscopic images of the right abdomen and pelvis were obtained during right retrograd e pyelography with stent placement performed by the surgeon. I was not present in the operating room. Fluoroscopy exposure time was 13.2 seconds. Air Kerma 9.85 mGy. DAP [id number] mGym2. COMPARISON: CT abdomen and pelvis, same date FINDINGS: Injected versus retained contrast in the right collecting system revealing mild right hydronephrosis. Post stent deployment the proximal coil projects over the right renal pelvis and the distal coil is excluded from the [id number]. IMPRESSION: Fluoroscopic documentation of right retrograde pyelography with stent placement. Please refer to the operative note for complete procedural details . Reviewed, dictated and finalized at location K. HAND PLATE MILL IMPRESSION: Fluoroscopic documentation of right retrograde pyelography with stent placement . Please refer to the operative note for complete procedural details .
--- NOTE | ~2023-06-14 | XR_ITS ---
EXAMINATION: XR chest 1V portable DATE: 06/20/2023 12:17 INDICATION: Hypoxia. TECHNIQUE: A single frontal view of the chest was obtained. COMPARISON: Chest single view at 5:34 AM FINDINGS: The patient is rotated to her left. There is a diffuse interstitial pattern, consistent mil d pulmonary edema. There is a small right pleural effusion. No pneumothorax. Cardiomegaly is noted. T here is a left chest pacer with lead in right ventricle. IMPRESSION: 1. Mild pulmonary edema. 2. Small right pleural effusion. 2. Cardiomegaly. Reviewed, dictated and finalized at location A. GY CONSERVATION ENGINEER
--- NOTE | ~2023-06-14 | XR_ITS ---
EXAMINATION: XR chest 1V portable DATE: 06/19/2023 06:13 INDICATION: Chronic obstructive pulmonary disease exacerbation. TECHNIQUE: A single frontal view of the chest was obtained. COMPARISON: Chest one view 06/18/2023, CT abdomen and pelvis 06/14/2023 FINDINGS: Tor B-lines are noted, consistent with mild pulmonary edema. No pleural effusion or pneu mothorax. Cardiomegaly is noted. There is a left chest pacer with lead in right ventricle. IMPRESSION: 1. Mild pulmonary edema. 2. Cardiomegaly. Reviewed, dictated and finalized at location A. NESS PROCESS ASSOCIATE
--- NOTE | ~2023-06-14 | XR_ITS ---
EXAMINATION: XR chest 1V portable DATE: 06/20/2023 05:54 INDICATION: Chronic obstructive pulmonary disease exacerbation. TECHNIQUE: A single frontal view of the chest was obtained. COMPARISON: Chest single view 06/19/2023, CT abdomen and pelvis 06/14/2023 FINDINGS: There are mild airspace opacities in the mid and lower lung zones. No pleural effusion or p neumothorax. Cardiomegaly is noted. There is a left chest pacer with lead in right ventricle. IMPRESSION: 1. Worsened airspace opacities in the mid and lower lung zones, consistent with pulmonary edema or le ss likely pneumonia. 2. Cardiomegaly. Reviewed, dictated and finalized at location E. HAUL CHAIN FEEDER IMPRESSION: 1. Worsened airspace opacities in the mid and lower lung zones, consistent with pulmonary edema or less likely pneumonia. 2. Cardiomegaly.
--- NOTE | ~2023-06-14 | XR_ITS ---
EXAMINATION: XR chest 2V DATE: 06/14/2023 12:41 INDICATION: Weakness and shortness of breath TECHNIQUE: Frontal and lateral views of the chest are obtained COMPARISON: 03/26/2022 FINDINGS: There are minimal airspace opacities of the lung bases. No pleural effusion or pneumothorax . Cardiomegaly is noted. There is calcification of the mitral annulus. A single lead cardiac pacemake r of the left chest wall ends with lead in expected position. There is moderate thoracic spondylosis. IMPRESSION: 1. Minimal bibasilar airspace opacities, consistent with atelectasis versus pneumonia. Reviewed, dictated and finalized at location B. TAL DEVELOPER IMPRESSION: 1. Minimal bibasilar airspace opacities, consistent with atelectasis versus pne umonia.
--- NOTE | 2023-06-14 12:07 | ECG_ITS ---
Measurements Intervals [place] Rate: 75 P: WI: 0 QRS: 263 QRSD: 173 T: 64 QT: 462 QTc: 518 Interpretive Statements ELECTRONIC VENTRICULAR PACEMAKER BASELINE ARTIFACT- I, II, AVR NO FURTHER INTERPRETATION IS POSSIBLE ATYPICAL ECG COMPARED TO ECG 10/23/2020 11:27:15 NO SIGNIFICANT CHANGES Electronically Signed On 06-14-2023 13:08:23 [employer] by Eugene Rivas D.O.
[2023-06-14 12:24] LABS: Hematocrit 42.3 % (37.0-47.0); Hemoglobin 13.1 g/dL (12.0-15.0); Mean Corpuscular Hemoglobin 31.6 pg (26-34); Mean Corpuscular Volume 101.9 fl (80-100); Mean Platelet Volume 11.2 fl (7.4-10.4); Platelet Count Result 200 k/mm3 (150-375); Red Blood Count 4.15 M/mm3 (4.2-5.4); Red Cell Distribution Width 14.3 % (11.5-14.5); White Blood Count 19.8 K/mm3 (4.5-10.0)
[2023-06-14 12:39] LABS: Albumin Level 3.5 g/dL (3.5-5.1); Alkaline Phosphatase 57 U/L (38-126); Anion Gap 13 mmol/L (8-16); Aspartate Amino Transferase 41 U/L (14-36); Band Neutrophils Percent 26 % (0-6); Bilirubin,Total 1.3 mg/dL (0.2-1.3); Blood Urea Nitrogen 33 mg/dL (7-17); Calcium 8.5 mg/dL (8.4-10.2); Carbon Dioxide 18 mmol/L (22-30); Chloride 104 mmol/L (98-107); Estimated CRCL calculation 16 ml/min; Estimated Glomerular Filt Rate 15; Glucose 127 mg/dL (65-110); Lymphocytes Absolute Manual 1.18 K/mm3 (1.1-4.5); Monocytes Absolute Manual 0.59 K/mm3 (0.1-0.90); Monocytes Percent Manual 3 % (3-9); Neutrophils Absolute Manual 18.01 K/mm3 (1.7-7.2); Neutrophils Percent Manual 65 % (46-73); Platelet Estimate Adequate (Adequate); Potassium 4.2 mmol/L (3.4-5.0); Sodium 135 mmol/L (137-145); Total Cells Counted 100
[2023-06-14 12:40] LABS: Anisocytosis 1+ (NORMAL); Ovalocytes 1+ (NORMAL); Schistocytes None Seen (NORMAL)
[2023-06-14 12:45] LABS: Alanine Aminotransferase 36 U/L (6-35)
[2023-06-14 13:32] LABS: INR 1.5; Lactic Acid Reflex 5.2 mmol/L (0.7-2.0); Prothrombin Time 19.2 Seconds (11.1-14.7)
[2023-06-14 13:33] LABS: Partial Thromboplastin Time 32.1 SECONDS (22.3-36.8)
[2023-06-14 13:34] LABS: CRP 7.3 mg/dL (<1.0)
--- NOTE | 2023-06-14 13:56 | ED.SOB ---
HPI - SOB/Dyspnea General Chief Complaint: Shortness of Breath/Dyspnea Stated Complaint: low o2 Time Seen by Provider: 06/14/23 12:18 History of Present Illness HPI Narrative: Today patient is a 83-year-old female who presents ER with weakness and low oxygen. Patient woke up this morning was too weak to get out of bed. EMS arrived and patient was hypoxic. Patient denies any prodrome of runny nose or sore throat or productive cough. She has had no dyspnea. She has been without urinary frequency urgency or dysuria. She has no abdominal pain or nausea or vomiting. She was surprised by her exhaustion when she called EMS. Related Data Allergies Allergy/AdvReac Type Severity Reaction Status Date / Time No Known Allergies Allergy Verified 06/14/23 12:14 Review of Systems Review of Systems: All systems reviewed & are unremarkable except as noted in HPI and below Constitutional: Constitutional: Denies chills, Reports fatigue, Denies fever(s) and Reports weakness ENT: Reports system reviewed and no additional complaints, except as documented Cardiovascular: Cardiovascular: Reports no additional cardiovascular complaints Respiratory: Respiratory: Reports no additional respiratory complaints Gastrointestinal: Gastrointestinal: Reports no additional gastrointestinal complaints Genitourinary: Genitourinary: Reports no additional female genitourinary complaints Musculoskeletal: Musculoskeletal: Reports no additional musculoskeletal complaints FORMERLY [facility] Past Medical History Medical History (Updated 06/14/23 @ 19:31 by Cuong Grijalva MD) Chronic kidney disease, stage 3a Mixed hyperlipidemia Morbid (severe) obesity due to excess calories Pacemaker (~10/2020) Paroxysmal atrial fibrillation Pulmonary hypertension Sick sinus syndrome Type 2 diabetes mellitus with diabetic chronic kidney disease Surgical History Surgical History History of cholecystectomy History of total knee arthroplasty 2010 Left, 2014 right Family History Family History Father Hepatic cancer Mother Acute myocardial infarction Heart disease Sibling Asthma Grandparent Carcinoma of colon Colon polyp Son Heart disease Other Diabetes mellitus Social History Social History Smoking packs per day: 2 Smoking cigarettes per day: 40.0 Years smoked: 10 Smoking pack-years: 20.00 Smoking status: Former smoker Tobacco type: cigarettes Second hand tobacco smoke exposure: No Smoking end date: 08/09/89 Alcohol intake: never Substance use: never Substance use type: does not use Lack of Transportation: No Lack of Food: Never True Current Housing: I Have Housing Concerned About Future Housing: No Difficulty Paying Gas/Electric Bills: No Difficulty Paying for Meds: No Currently Unemployed: No Education: High School Diploma/GED Difficulty w/ Childcare or Family Care: No Living arrangements: alone Occupation/Education: retired Gender identity (if verbalized by the patient): Female Spiritual care concerns: No Agree to blood products: Yes Exam Narrative: GENERAL: Well-appearing, morbidly obese, and in no acute distress. HEAD: Normocephalic, atraumatic. ENT: Mucous membranes moist. NECK: Supple. CHEST: Clear to auscultation. No respiratory distress. HEART: Regular rate and rhythm. Normal peripheral pulses. ABDOMEN: Soft, nontender, nondistended. EXTREMITIES: Normal range of motion. 2+ edema. SKIN: Warm, dry, no rash. NEURO: Alert and oriented x3. PSYCH: Normal mood and affect. Course Course Emergency Course: Patient with severe sepsis. She is keenly alert and oriented and is in no distress. She has been reasonably fluid responsive. Urine with a lot of blood. Patient admitted to the hospitalist service. Discussed froilan
[2023-06-14 14:09] LABS: Appearance Urine Turbid (Clear); Bacteria Urine 4+ /hpf; Bilirubin Urine Negative (Negative); Color Urine Red (Yellow); Glucose Urine UA Negative (Negative); Ketones Urine Negative (Negative); Leukocyte Esterase Ur 3+ LEU/UL (Negative); Need Manual Microscopic Reviewed; Nitrate Urine Positive (Negative); Protein Urine 1+ mg/dL (Negative); RBC Urine >100 /hpf (0-2); Specific Grav Ur 1.019 (1.001-1.035); Squamous Epithelial Cell Urine Many /hpf (Few); Urobilinogen Urine 0.2 mg/dL (<2.0); WBC Urine >100 /hpf
[2023-06-14 14:11] LABS: Blood Urine 3+ (Negative)
[2023-06-14 14:12] LABS: Add Urine Microscopic? YES
[2023-06-14 14:13] LABS: Base Excess ABG -5.2 mEq/l (+/-2.0); Carboxyhemoglobin 0.7 % THb (0-2.0); Device NASAL CANNULA; Fractional Inspired Oxygen 36 %; HCO3 ABG 18.1 mEq/l (22.0-26.0); Methemoglobin ABG 0.2 %THb (0-1.5); Modified Allen's Test Pass; Oxygen Content ABG 17.4 %vol (16.0-22.0); Oxygen Saturation ABG 97.1 % (95.0-100.0); Oxyhemoglobin 95.5 % THb (90.0-100.0); PCO2 ABG 29.2 mmHg (35.0-45.0); PO2 ABG 89.8 mmHg (80.0-100.0); PO2 FiO2 Ratio Arterial Blood 2.49 %; Reduced Hemoglobin 3.6 %THb (0-5.0); Site Drawn RIGHT RADIAL; Total Hemoglobin 12.9 g/dL (12.0-18.0); pH ABG 7.411 (7.350-7.450)
[2023-06-14] MEDS: AZITHROMYCIN 500 MG/NS 250 ML 500 MG/250 ML BAG 250 MG IVPB (14:41)
[2023-06-14] MEDS: SODIUM CHLORIDE 0.9% IV 1,000 ML 125 ML IV CONT (15:55)
[2023-06-14 16:18] LABS: Reflex Lactic Acid Yes or No Add Lactic
--- NOTE | 2023-06-14 16:56 | WPDURCON ---
Assessment and Plan Assessment and plan (1) Ureteral stone: Code(s): N20.1 - Calculus of ureter Status: Acute (2) Sepsis: Code(s): A41.9 - Sepsis, unspecified organism Status: Acute Plan She be taken to the operating room tonight for cystoscopy and right ureteral stent placement. My partner will do this procedure. I have discussed with her and her daughter. She understands risks of bleeding, infection, inability to place the stent. She understands we will not be manipulating the stone. She will be admitted postoperatively for broad-spectrum antibiotics. This can be tailored based on urine culture. She will need 14 days of antibiotics. She will need outpatient definitive stone management. Urology Consult Note HPI Date Seen: 06/14/23 Primary Care Provider: Pako Munson MD Consult Narrative Narrative: Eliza Dueñas is a 83 year old female with no prior history of stone disease. She states she has been feeling not herself and been feeling weak for several days now. This morning she was unable to get out of bed because of weakness. This prompted a trip to the emergency room. She was found to have an elevated lactate of 5.2. She was found have an elevated white blood cell count over 19. She was found have an abnormal urinalysis. Her creatinine is 3. she has had low blood pressure while in the emergency room. It is now improved. She had a CT scan which shows a distal right ureteral stone. The nurses tell me her urine is quite cloudy. She has no symptoms of dysuria. She has no fevers. She has no particular flank pain. She does show sides of early sepsis with an obstructing ureteral stone. We will plan on placing a stent tonight Review of Systems Review of Systems: All systems reviewed & are unremarkable except as noted in HPI and below PMFSH Past Medical History Medical History Pacemaker (~10/2020) Surgical History Surgical History History of cholecystectomy History of total knee arthroplasty 2010 Left, 2013 right Family History Family History Father Hepatic cancer Mother Acute myocardial infarction Heart disease Sibling Asthma Grandparent Carcinoma of colon Colon polyp Son Heart disease Other Diabetes mellitus Social History Social History Smoking packs per day: 2 Smoking cigarettes per day: 40.0 Years smoked: 10 Smoking pack-years: 20.00 Smoking status: Former smoker Tobacco type: cigarettes Second hand tobacco smoke exposure: No Smoking end date: 08/09/89 Alcohol intake: never Substance use: never Substance use type: does not use Lack of Transportation: No Lack of Food: Never True Current Housing: I Have Housing Concerned About Future Housing: No Difficulty Paying Gas/Electric Bills: No Difficulty Paying for Meds: No Currently Unemployed: No Education: High School Diploma/GED Difficulty w/ Childcare or Family Care: No Living arrangements: alone Occupation/Education: retired Gender identity (if verbalized by the patient): Female Spiritual care concerns: No Agree to blood products: Yes Meds Home Medications and Allergies Home Medications Medication Instructions Recorded Confirmed Type blood sugar diagnostic #100 ea 04/08/22 04/22/23 Rx lancets (Microlet Lancet) #100 ea 04/08/22 04/22/23 Rx blood sugar diagnostic (Contour #100 ea 10/25/22 04/22/23 Rx Next Test Strips) blood-glucose meter #1 ea 12/16/22 04/22/23 Rx apixaban 5 mg tablet (Eliquis) 5 mg PO BID #60 tabs 01/04/23 04/22/23 Rx furosemide 40 mg tablet 40 mg PO QAM #90 tabs 01/17/23 04/22/23 Rx insulin glargine-yfgn 100 unit/mL 30 unit (0.3 mL) subcut DAILY #27 01/21/23 04/22/23 Rx (3 mL) subcutaneous pe
--- NOTE | 2023-06-14 17:32 | WPDANESEPPF ---
Anes - Initial Pre Proc Eval Procedure: Operation Date: 06/14/23 17:15 Proposed Procedures p Cysto, RPG, Stone Ext, Stent Placement(Right) - Carlos Manuel Coronel MD Date/Time: 06/14/23 17:32 Pre Op Diagnosis: low o2 Patient Data Age: 83 Gender: F Height: 1.57 m Weight: 123.2 kg Last Vital Signs Temp 36.4 C 06/14/23 11:57 Pulse 69 06/14/23 15:39 Resp 23 H 06/14/23 15:39 BP 95/46 L 06/14/23 15:39 Pulse Ox 100 06/14/23 15:39 O2 Del Method Nasal Cannula 06/14/23 12:13 O2 Flow Rate 4 06/14/23 12:13 Allergies Allergy/AdvReac Type Severity Reaction Status Date / Time No Known Allergies Allergy Verified 06/14/23 12:14 Home Medications Medication Instructions Recorded Confirmed Type blood sugar diagnostic #100 ea 04/08/22 04/22/23 Rx lancets (Microlet Lancet) #100 ea 04/08/22 04/22/23 Rx blood sugar diagnostic (Contour #100 ea 10/25/22 04/22/23 Rx Next Test Strips) blood-glucose meter #1 ea 12/16/22 04/22/23 Rx apixaban 5 mg tablet (Eliquis) 5 mg PO BID #60 tabs 01/04/23 04/22/23 Rx furosemide 40 mg tablet 40 mg PO QAM #90 tabs 01/17/23 04/22/23 Rx insulin glargine-yfgn 100 unit/mL 30 unit (0.3 mL) subcut DAILY #27 01/21/23 04/22/23 Rx (3 mL) subcutaneous pen (Semglee mL (insulin glargine-yfgn) Pen) losartan 100 mg tablet See Rx Instructions .Route 01/22/23 04/22/23 Rx .COMPLEX #90 tabs tiotropium 2.5 mcg-olodaterol 2.5 2 puff inhalation DAILY #4 grams 02/08/23 04/22/23 Rx mcg/actuation mist for inhalation (Stiolto Respimat) linagliptin 5 mg tablet (Tradjenta) See Rx Instructions .Route 02/17/23 04/22/23 Rx .COMPLEX #30 tabs pen needle, diabetic 31 gauge x #100 ea 04/05/23 04/22/23 Rx 3/16 (BD Ultra-Fine Mini Pen Needle) gabapentin 300 mg capsule 1,200 mg PO HS #120 caps 05/03/23 Rx zolpidem 10 mg tablet 10 mg PO QHS #30 tabs 05/03/23 Rx sertraline 50 mg tablet 50 mg PO DAILY #90 tabs 05/17/23 Rx pravastatin 20 mg tablet 20 mg PO QAM #90 tabs 06/11/23 Rx Laboratory Tests 06/14/23 06/14/23 06/14/23 12:12 13:13 13:39 WBC 19.8 H K/mm3 (4.5-10.0) RBC 4.15 L M/mm3 (4.2-5.4) Hgb 13.1 g/dL (12.0-15.0) Hct 42.3 % (37.0-47.0) MCV 101.9 H fl (80-100) MCH 31.6 pg (26-34) MCHC 31.0 L g/dl (32-36) RDW 14.3 % (11.5-14.5) Plt Count 200 k/mm3 (150-375) MPV 11.2 H fl (7.4-10.4) Immature Gran % (Auto) Not Reportable Neut % (Auto) Not Reportable Lymph % (Auto) Not Reportable [place] % (Auto) Not Reportable Eos % (Auto) Not Reportable Baso % (Auto) Not Reportable Lymph # (Auto) Not Reportable [place] # (Auto) Not Reportable Eos # (Auto) Not Reportable Baso # (Auto) Not Reportable Abs Immat Gran (auto) Not Reportable Absolute Neuts (auto) Not Reportable Absolute Nucleated RBC Not Reportable Total Counted 100 Neutrophils % (Manual) 65 % (46-73) Band Neutrophils % 26 H % (0-6) Lymphocytes % (Manual) 6.0 L % (18-44) Monocytes % (Manual) 3 % (3-9) Nucleated RBC % Not Reportable Abs Neuts (Manual) 18.01 H K/mm3 (1.7-7.2) Abs Lymphs (Manual) 1.18 K/mm3 (1.1-4.5) Abs Monocytes (Manual) 0.59 K/mm3 (0.1-0.90) Platelet Estimate Adequate (Adequate) Anisocytosis 1+ (NORMAL) Ovalocytes 1+ (NORMAL) Schistocytes None seen (NORMAL) PT 19.2 H Seconds (11.1-14.7) INR 1.5 APTT 32.1 SECONDS (22.3-36.8) Puncture Site ABG pH ABG pCO2 ABG pO2 ABG PO2/FiO2 Ratio ABG HCO3 ABG O2 Saturation ABG O2 Content ABG Base Excess
--- NOTE | 2023-06-14 18:02 | WPDHPUPDATE1 ---
History and Physical Update Update Date/Time: 06/14/23 18:02 History and Physical has been reviewed, including an updated exam of the patient. There are NO changes in the patient's condition. Risks, benefits, and alternatives have been discussed and questions answered. Patient agrees to proceed with procedure.
--- NOTE | 2023-06-14 18:03 | W.PM.PROC2 ---
Procedure Note - Detailed Date of Procedure 06/14/23 Pre-op Diagnosis Right ureteral calculus Post-op Diagnosis Same Procedure Performed Cystoscopy, right retrograde pyelogram, right ureteral stent Surgeon Marcello Andrade MD Anesthesia General Indications 5mm right distal ureteral stone in setting of sepsis Findings 5mm right distal ureteral stone 4.8Fr variable length stent placed, no string Return of pus after stent placement 16Fr valle placed Description of Procedure Prior to the operation an informed consent was obtained.? The patient was brought back to the operative suite and a detailed timeout was performed.? Anesthesia was induced without complication.? The patient was administered IV antibiotics in the prophylactic form.? The patient was positioned in the dorsal lithotomy position with close attention to all pressure points and was prepped and draped in sterile fashion. We began the case using a rigid cystoscope to gain access into the bladder under direct visualization per urethra. Cystoscopy was unremarkable. We turned our attention to the right ureteral orifice and cannulated it using a 5 Polish open-ended ureteral catheter and sensor wire.? We radiologically confirmed the wire to pass up into the renal pelvis before advancing the ureteral catheter up to get an estimated measurement for our stent size as well as performing a retrograde pyelogram to better delineate the renal pelvis. With our wire in place, we placed a 4.8Fr variable length double-J ureteral stent with no string. Copious pus drained upon stent placement We confirmed excellent position fluoroscopically.? The patient's bladder was emptied by placing an indwelling valle at the conclusion of the case and he tolerated the procedure well. PLAN: -PACU, floor -Continue valle until no fevers >101 for 24h -Patient will eventually need outpatient stone treatment This note was created with the assistance of voice-recognition software and may contain phonetic errors. Complications No immediate complications Condition Stable Disposition PACU
[2023-06-14 18:44] LABS: Glucose Point of Care 108 mg/dl (65-105)
[2023-06-14 19:23] LABS: Alveolar/Arterial O2 Gradient 627.5 mmHg; Base Excess ABG -14.9 mEq/l (+/-2.0); Fractional Inspired Oxygen 100 %; Oxygen Content ABG 12.1 %vol (16.0-22.0); PCO2 ABG 43.9 mmHg (35.0-45.0); PO2 FiO2 Ratio Arterial Blood 0.42 %; Total Hemoglobin 14.2 g/dL (12.0-18.0)
[2023-06-14 19:24] LABS: PO2 ABG 41.6 mmHg (80.0-100.0); pH ABG 7.122 (7.350-7.450)
[2023-06-14 19:25] LABS: Device NON-REBREATHER MASK; Modified Allen's Test Pass; Oxygen Saturation ABG 61.4 % (95.0-100.0); Oxyhemoglobin 60.7 % THb (90.0-100.0); Site Drawn LEFT RADIAL
[2023-06-14] MEDS: LACTATED RINGERS 1,000 ML 30 ML IV CONT (19:41)
[2023-06-14 20:12] LABS: Hematocrit 43.3 % (37.0-47.0); Hemoglobin 12.8 g/dL (12.0-15.0); Mean Corpuscular HGB Conc 29.6 g/dl (32-36); Mean Corpuscular Hemoglobin 31.1 pg (26-34); Mean Corpuscular Volume 105.4 fl (80-100); Mean Platelet Volume 11.7 fl (7.4-10.4); Platelet Count Result 179 k/mm3 (150-375); Red Blood Count 4.11 M/mm3 (4.2-5.4); Red Cell Distribution Width 14.6 % (11.5-14.5)
[2023-06-14 20:45] LABS: Band Neutrophils Percent 23 % (0-6); Lymphocytes Absolute Manual 0.84 K/mm3 (1.1-4.5); Monocytes Absolute Manual 0.12 K/mm3 (0.1-0.90); Monocytes Percent Manual 2 % (3-9); Neutrophils Absolute Manual 5.04 K/mm3 (1.7-7.2); Neutrophils Percent Manual 61 % (46-73); Platelet Estimate Adequate (Adequate); Schistocytes None Seen (NORMAL); Total Cells Counted 100
[2023-06-14 20:46] LABS: Hypochromasia 1+ (NORMAL)
[2023-06-14 20:47] LABS: Anisocytosis 1+ (NORMAL)
--- NOTE | 2023-06-14 20:56 | PM.IMHP ---
H&P: HPI History of Present Illness Date/Time: 06/14/23 19:45 Chief Complaint: Weakness. Narrative: This is a pleasant 83-year-old female with history of type 2 diabetes mellitus, chronic kidney disease, hypertension, hyperlipidemia, paroxysmal atrial fibrillation, sick sinus syndrome status post permanent pacemaker insertion, and obstructive sleep apnea on CPAP who presented to the emergency department via EMS from home for evaluation of weakness. The patient provides the following history; her sister provides additional information with the patient's permission. She had take it with her sister the other day and yesterday complained of an upset stomach for which she was taking Pepto-Bismol. She also mentioned having some mild back pain at that time but nothing significant. The patient called her sister this morning and told her that she was very weak and was having a hard time even getting herself up to the side of the bed. Sister came over to check on her at which time she seemed to be more short of breath from baseline, generally weak, and unwell. Emergency services were summoned and on EMS arrival her SpO2 was 88% on room air. She did not really have any other complaints on arrival to the ER and remarks that her symptoms seem to come on quite suddenly. She denies fever, chills, sweats, headache, sinus congestion, sore throat, cough, chest pain, cough, vomiting, diarrhea, and dysuria. In the ED: She was afebrile on arrival with blood pressures as low as 74/61. She was given 30 mL/kg bolus of normal saline with improvement in her blood pressures. Her labs were significant for WBC count of 19.8 with 26% bands, sodium 135, carbon dioxide 18, BUN 33, creatinine 3.00, lactic acid 5.2, AST 41, ALT 36, CRP 7.3. Urine was grossly bloody with positive nitrates, 3+ leukocyte esterase, greater than 100 RBC and WBC, and 4+ bacteria. Chest x-ray showed minimal bibasilar airspace opacities consistent with atelectasis versus pneumonia. CT of the abdomen and pelvis showed bilateral nephrolithiasis with a 3 to 4 mm at least partially obstructing stone at the right ureterovesicular junction with mild right hydroureteronephrosis and mild periureteral stranding. She was taken to the OR for cystoscopy and right ureteral stent placement. In PACU she developed a low-grade fever of 100.6? F and her blood pressures have been intermittently soft, in the 80s to 90s systolic. She seemed to be in respiratory distress and was tachypneic and she was started on BiPAP after an ABG showed a pH of 7.122, pCO2 43.9, bicarb 14.0. The patient was re-evaluated several times in PACU and the decision was made to send her to the ICU for close monitoring. Upon arrival to the ICU she looks much better and was more awake and following commands. Her respiratory rate has slowed down and her blood gas improved to a pH of 7.341, pCO2 30.7, bicarb 16.2. She has no pain at this time and in fact her only complaint is that of a dry mouth and she is asking to remove the BiPAP for a period of time in order to have some water. Review of Systems Review of Systems: Twelve systems were reviewed and are negative except for as per HPI. FORMERLY [facility] Past Medical History Medical History (Updated 06/14/23 @ 23:07 by Rocío Hickman PA-C) Chronic anticoagulation Chronic kidney disease, stage 3a Hepatic steatosis (06/2023) CT 07/01 Insulin dependent type 2 diabetes mellitus Mixed hyperlipidemia Morbid (severe) obesity due to excess calories Obstructive sleep apnea on CPAP Paroxysmal atrial fibrillation Pulmonary hypertension Sick sinus syndrome Surgical History Surgical History (Updated 06/14/23 @ 22:20 by Rocío Hickman PA-C) History of cholecystectomy History of permanent cardiac pacemaker placement (10/2020) History of total knee arthroplasty 2010 Left, 2013 right Family History Family History Father Hepatic cancer Mother Acute myocar
[2023-06-14 21:08] LABS: Albumin Level 3.3 g/dL (3.5-5.1); Alkaline Phosphatase 83 U/L (38-126); Anion Gap 14 mmol/L (8-16); Aspartate Amino Transferase 61 U/L (14-36); Bilirubin,Total 1.5 mg/dL (0.2-1.3); Blood Urea Nitrogen 32 mg/dL (7-17); Calcium 7.3 mg/dL (8.4-10.2); Carbon Dioxide 17 mmol/L (22-30); Chloride 108 mmol/L (98-107); Creatine Kinase 926 U/L (30-135); Estimated CRCL calculation 16 ml/min; Estimated Glomerular Filt Rate 15; Glucose 109 mg/dL (65-110); Lactic Acid Reflex 5.9 mmol/L (0.7-2.0); Potassium 5.2 mmol/L (3.4-5.0); Sodium 139 mmol/L (137-145)
[2023-06-14 21:11] LABS: NT Pro B Type Natriuretic Pept 13100 pg/mL (19.9-100)
[2023-06-14 21:16] LABS: Alanine Aminotransferase 43 U/L (6-35)
[2023-06-14 21:23] LABS: Alveolar/Arterial O2 Gradient 180.4 mmHg; Base Excess ABG -8.3 mEq/l (+/-2.0); Carboxyhemoglobin 0.3 % THb (0-2.0); Fractional Inspired Oxygen 100 %; HCO3 ABG 16.2 mEq/l (22.0-26.0); Methemoglobin ABG 0.6 %THb (0-1.5); Oxygen Content ABG 19.2 %vol (16.0-22.0); Oxygen Saturation ABG 99.9 % (95.0-100.0); Oxyhemoglobin 98.2 % THb (90.0-100.0); PCO2 ABG 30.7 mmHg (35.0-45.0); PO2 ABG 501.9 mmHg (80.0-100.0); PO2 FiO2 Ratio Arterial Blood 5.02 %; Reduced Hemoglobin 0.9 %THb (0-5.0); Total Hemoglobin 12.9 g/dL (12.0-18.0); pH ABG 7.341 (7.350-7.450)
[2023-06-14 21:25] LABS: Device NON-INVASIVE VENT; Non-Invasive Expiratory Pressure 6 CMH2O; Non-Invasive Inspiratory Pressure 12 CMH2O; Non-Invasive Vent Rate 18 /MIN; Site Drawn RIGHT BRACHIAL
--- NOTE | 2023-06-14 21:30 | ADMGEN ---
This patient, Eliza Dueñas, was admitted to Intensive Care Unit-5. Patient/family oriented to hospital policies and general routines including ID bracelet, bed and alarms, visiting hours, pain management, procedures, bathroom and other care routines, personal items, smoking policy, room service/diet, and visiting hours. Information on how to activate the Rapid Response Team has been discussed. Patient/Family are encouraged to report perceived risks to care and to ask questions if they do not understand what they are told or what they should do. brought from OR on continuous bipap pt able to respond to simple questions. place on monitor valle irrigasted pink and bloody fluid noted no clots
--- NOTE | 2023-06-14 23:21 | P.PCNBED_ITS ---
Procedures Central Line Placement Right Femoral: Central Line Date: 06/14/23 Central Line Time: 22:30 Consent: I have discussed with the patient and/or surrogate, the non-emergent placement of a central venous catheter, including its clinical necessity/indication and associated potential risks and complications. The patient and/or surrogate understand(s) and acknowledge(s) the need to proceed with central venous catheter insertion as an important element of the patient's clinical management. Time Out Performed: Yes Patient Position: supine Patient placed on monitor/pulse ox: Yes Provider Prep: mask, sterile gown, sterile gloves, Max. sterile barrier precautions, cap and hand hygiene with conventional soap/water or alcohol based hand rub Central line prep: 2% Chlorhexidine scrub Local anesthesia used: lidocaine 1% Amount of anesthesia used (ml): 5 Sterile US Technique with sterile gel/sterile probe covers: Yes Central line lumen inserted: triple Tanzanian: 7 Length (cm): 20 Post Procedure: sutured in place, good blood return, all ports aspirated, flushed, capped, transparent dressing, antimicrobial product and aseptic technique maintained throughout procedure Post procedure x-ray: other (n/a with femoral placement) Patient tolerated procedure: well Complications: none
[2023-06-15] VITALS (35 sets, daily range): BP systolic 75–125; BP diastolic 28–91; PULSE 66–82; RESP 15–30; TEMP 36.3–37.2; O2SAT 94–100
[2023-06-15 00:19] LABS: Hemoglobin A1C 6.8 % (<5.7)
[2023-06-15] MEDS: MEROPENEM 1 GM/NS 100 ML 1 GM/100 ML BAG IVPB ×2 (00:27→11:46)
[2023-06-15] MEDS: LACTATED RINGERS 1,000 ML 75 ML IV CONT (00:27)
[2023-06-15] MEDS: APIXABAN 5 MG TABLET PO ×3 (00:27→16:55)
[2023-06-15] MEDS: NOREPINEPHRINE 8 MG/D5W 250 ML 8 MG/250 ML BAG 9.38 MG IV CONT (01:35)
[2023-06-15 05:34] LABS: Alveolar/Arterial O2 Gradient 172.4 mmHg; Base Excess ABG -10.5 mEq/l (+/-2.0); Carboxyhemoglobin 0.3 % THb (0-2.0); Fractional Inspired Oxygen 50 %; Methemoglobin ABG 0.4 %THb (0-1.5); Oxygen Content ABG 18.6 %vol (16.0-22.0); Oxygen Saturation ABG 98.7 % (95.0-100.0); Oxyhemoglobin 97.6 % THb (90.0-100.0); PCO2 ABG 32.1 mmHg (35.0-45.0); PO2 FiO2 Ratio Arterial Blood 2.96 %; Reduced Hemoglobin 1.7 %THb (0-5.0); Total Hemoglobin 13.4 g/dL (12.0-18.0)
[2023-06-15 05:36] LABS: Device NON-INVASIVE VENT; Site Drawn RIGHT BRACHIAL; pH ABG 7.286 (7.350-7.450)
[2023-06-15 05:37] LABS: Non-Invasive Expiratory Pressure 6 CMH2O; Non-Invasive Inspiratory Pressure 12 CMH2O; Non-Invasive Vent Rate 18 /MIN
[2023-06-15 05:38] LABS: Hematocrit 40.9 % (37.0-47.0); Hemoglobin 12.2 g/dL (12.0-15.0); Mean Corpuscular HGB Conc 29.8 g/dl (32-36); Mean Corpuscular Hemoglobin 31.2 pg (26-34); Mean Corpuscular Volume 104.6 fl (80-100); Mean Platelet Volume 11.5 fl (7.4-10.4); Platelet Count Result 198 k/mm3 (150-375); Red Blood Count 3.91 M/mm3 (4.2-5.4); Red Cell Distribution Width 14.9 % (11.5-14.5); White Blood Count 32.6 K/mm3 (4.5-10.0)
[2023-06-15 05:54] LABS: Alanine Aminotransferase 53 U/L (6-35); Albumin Level 3.2 g/dL (3.5-5.1); Alkaline Phosphatase 56 U/L (38-126); Anion Gap 14 mmol/L (8-16); Aspartate Amino Transferase 83 U/L (14-36); Bilirubin,Total 1.6 mg/dL (0.2-1.3); Blood Urea Nitrogen 37 mg/dL (7-17); Calcium 7.5 mg/dL (8.4-10.2); Carbon Dioxide 16 mmol/L (22-30); Chloride 107 mmol/L (98-107); Creatine Kinase 878 U/L (30-135); Estimated CRCL calculation 14 ml/min; Estimated Glomerular Filt Rate 13; Glucose 121 mg/dL (65-110); Magnesium 1.2 mg/dL (1.6-2.3); Potassium 4.8 mmol/L (3.4-5.0); Sodium 137 mmol/L (137-145)
[2023-06-15 06:02] LABS: Lactic Acid Reflex 4.4 mmol/L (0.7-2.0)
[2023-06-15] MEDS: SODIUM BICARBONATE 8.4% 150 MEQ in DEXTROSE 5% 1,000 ML 950 ML 75 MEQ IV CONT ×2 (06:07→20:05)
[2023-06-15] MEDS: SODIUM BICARBONATE 8.4% 50 MEQ/50 ML SYRINGE (06:08)
[2023-06-15 06:25] LABS: Band Neutrophils Percent 37 % (0-6); Lymphocytes Percent Manual 4 % (18-44); Monocytes Percent Manual 4 % (3-9); Neutrophils Absolute Manual 29.01 K/mm3 (1.7-7.2); Neutrophils Percent Manual 52 % (46-73); Total Cells Counted 100
[2023-06-15 06:26] LABS: Metamyelocytes Percent 2 %; Myelocytes Percent 1 %; Platelet Estimate Adequate (Adequate)
[2023-06-15 06:27] LABS: Macrocytosis 1+ (NORMAL); Schistocytes None Seen (NORMAL)
[2023-06-15] MEDS: CENTRAL LINE FLUSH 10 ML IV PUSH ×3 (07:06→20:51)
[2023-06-15] MEDS: UMECLIDINIUM/VILANTEROL 62.5-25 MCG ELLIPTA 1 PUFF INHALATION (07:21)
--- NOTE | 2023-06-15 07:57 | WPDANESPN ---
Anes - Prog Note Post-Op Date/Time: 06/15/23 07:57 Cardiovascular status: other (Patient remains on Levophed gtt) Respiratory status: normal Airway patency: baseline Mental status: baseline Post-Op hydration status: normal Vital Signs: Last Vital Signs Temp 36.6 C 06/15/23 06:00 Pulse 70 06/15/23 07:20 Resp 27 H 06/15/23 07:20 BP 89/66 L 06/15/23 06:00 Pulse Ox 100 06/15/23 07:20 O2 Del Method BiPAP 06/15/23 07:20 O2 Flow Rate 15 06/14/23 19:15 FiO2 50 06/15/23 04:00 Pain Score (VAS): 0 I/O: Intake & Output 06/14/23 06/14/23 06/15/23 15:59 23:59 07:59 Intake Total 3300 900 200 Output Total 121 20 Balance 3300 779 180 Laboratory Tests 06/15/23 05:31 06/15/23 05:31 06/14/23 06/14/23 06/14/23 12:12 13:13 13:39 WBC 19.8 H RBC 4.15 L Hgb 13.1 Hct 42.3 MCV 101.9 H MCH 31.6 MCHC 31.0 L RDW 14.3 Plt Count 200 MPV 11.2 H Immature Gran % (Auto) Not Reportable Neut % (Auto) Not Reportable Lymph % (Auto) Not Reportable Garden % (Auto) Not Reportable Eos % (Auto) Not Reportable Baso % (Auto) Not Reportable Lymph # (Auto) Not Reportable Garden # (Auto) Not Reportable Eos # (Auto) Not Reportable Baso # (Auto) Not Reportable Abs Immat Gran (auto) Not Reportable Absolute Neuts (auto) Not Reportable Absolute Nucleated RBC Not Reportable Total Counted 100 Neutrophils % (Manual) 65 Band Neutrophils % 26 H Lymphocytes % (Manual) 6.0 L Monocytes % (Manual) 3 Metamyelocytes % Myelocytes % Nucleated RBC % Not Reportable Abs Neuts (Manual) 18.01 H Abs Lymphs (Manual) 1.18 Abs Monocytes (Manual) 0.59 Platelet Estimate Adequate Hypochromasia Anisocytosis 1+ Macrocytosis Ovalocytes 1+ Schistocytes None seen PT 19.2 H INR 1.5 APTT 32.1 Puncture Site ABG pH ABG pCO2 ABG pO2 ABG PO2/FiO2 Ratio ABG HCO3 ABG O2 Saturation ABG O2 Content ABG Base Excess A-a Gradient Oxyhemoglobin Carboxyhemoglobin Methemoglobin Reduced Hemoglobin Total Hemoglobin O2 Delivery Device O2 Liters/Min Vent Rate FiO2 Expiratory Pressure Inspiratory Pressure Sodium 135 L Potassium 4.2 Chloride 104 Carbon Dioxide 18 L Anion Gap 13 BUN 33 H D Creatinine 3.00 H Estim Creat Clear Calc 16 Estimated GFR 15 L Glucose 127 H POC Capillary Glucose Hemoglobin A1c Lactic Acid 5.2 H* Calcium 8.5 Magnesium Total Bilirubin 1.3 AST 41 H ALT 36 H Alkaline Phosphatase 57 Total Creatine Kinase C-Reactive Protein 7.3 H NT-Pro-B Natriuret Pep Total Protein 7.0 Albumin 3.5 TSH (Reflex) Urine Color Red H Urine Appearance Turbid H Urine pH 5.0 Ur Specific [place] 1.019 Urine Protein 1+ H Urine Glucose (UA) Negative Urine Ketones Negative Ur Blood (Man) 3+ H Urine Nitrate Positive H Urine Bilirubin Negative Urine Urobilinogen 0.2 Add Ur Microanalysis Reviewed Leukocyte Esterase Rfl 3+ H Urine RBC >100 H Urine WBC >100 H Ur Squamous Epith Cells Many H Urine Bacteria 4+ H Urine Casts 3-5 Urine Eosinophils Ur Random Creatinine Ur Random Sodium Ur Random Potassium Ur Random Chloride U Random Chloride/Creat Urine Creatinine 06/14/23 06/14/23 06/14/23 13:56 18:41 19:04 WBC RBC Hgb Hct MCV MCH MCHC RDW Plt Count MPV Immature Gran % (Auto) Neut % (Auto) Lymph % (Auto) Garden % (Auto) Eos % (Auto) Baso % (Auto) Lymph # (Auto) Garden # (Auto) Eos # (Auto) Baso # (Auto) Abs Immat Gran (auto) Absolute Neuts (auto) Absolute Nucleated RBC Total Counted Neutrophils % (Manual) Band Neutrophils % Lymphocytes % (Manual) Monocytes % (Manual) Metamyelocytes % Myelocytes %
[2023-06-15] MEDS: ALBUMIN HUMAN 25% 25 GM/100 ML 100 ML IVPB ×3 (08:30→19:56)
[2023-06-15] MEDS: MAGNESIUM SULF 2 GM/WATER 50ML 2 GM/50 ML BAG IVPB (08:30)
[2023-06-15] MEDS: FAMOTIDINE 20 MG/2 ML VIAL IV PUSH ×2 (08:31→20:05)
[2023-06-15 08:33] LABS: Creatinine Urine 66.5 mg/dL
[2023-06-15 08:34] LABS: Potassium Urine Random 16.5 meq/L; Sodium Urine Random 124 meq/L
[2023-06-15 08:34] LABS: Reflex Lactic Acid Yes or No Add Lactic
[2023-06-15 08:49] LABS: Eosinophil Urine None Seen % (None Seen); Urine Eos QC 2nd Tech Confirmed
--- NOTE | 2023-06-15 09:20 | P.CONNP_ITS ---
Assessment and Plan Assessment and plan (1) HARMONY (acute kidney injury): Code(s): N17.9 - Acute kidney failure, unspecified Status: Acute Assessment and Plan: * multifactorial ATN: * hypotension/hemodynamic instability/shock * obstruction * infection/sepsis (UTI/bacteremia...etc) * diuretic use + ARB therapy prior to admission * pre-renal factors * s/p adequate/aggressive IVFs * on vasopressor therapy * on bicarb fluids * remains at risk for GYM ATTENDANT/dialysis * follow repeat labs and UOP (2) Stage 3b chronic kidney disease: Code(s): N18.32 - Chronic kidney disease, stage 3b Status: Acute Assessment and Plan: * baseline creatinine ~ 1.25 - 1.3mg/dl for the last few years * presumably due to diabetes, hypertension, vascular disease, and age (3) Septic shock: Code(s): A41.9 - Sepsis, unspecified organism; R65.21 - Severe sepsis with septic shock Status: Acute Assessment and Plan: * as noted by fever, hypotension, leukocytosis, and HARMONY * central line in place - on vasopressor therapy * blood cultures with GNB * urine culture pending * on antibiotics * follow trend of hemodynamics (4) Ureteral stone: Code(s): N20.1 - Calculus of ureter Status: Acute Assessment and Plan: * CT scan on admission showed right ureteral stone with mild hydronephrosis * s/p rght retrograde pyelogram, right ureteral stent placement (on 06/14/23) * Urology following (5) Urinary tract infection: Code(s): N39.0 - Urinary tract infection, site not specified Status: Acute Assessment and Plan: * admission UA highly suggestive * urine culture pending * on antibiotics (6) Chronic obstructive pulmonary disease, unspecified: Code(s): J44.9 - Chronic obstructive pulmonary disease, unspecified Status: Chronic Assessment and Plan: * known history * complicated by known SUNNY as well * continue BiPAP intermittent with high-flow therapy (7) Insulin dependent type 2 diabetes mellitus: Code(s): E11.9 - Type 2 diabetes mellitus without complications; Z79.4 - prison (current) use of insulin Status: Chronic Assessment and Plan: * follow accu-cheks * glycemic control per hospitalists/intensivisits Long extensive discussion (> 20 minutes) with the patient as well as her extended family at bedside regarding the above acute medical issues and problems including her renal dysfunction/ renal failure and the hope that ongoing supportive therapy that has already be instituted will eventually improve her overall clinical condition including her renal dysfunction/ renal failure. The patient and her family appeared to voice understanding with regard to the current treatment plan/therapy. Case discussed with Dr. Triana as well. I will continue follow patient with you while she remains hospitalized make further recommendations as needed. Thank you for allowing me to participate in care this patient. History of Present Illness Reason for Consult Consult date: 06/15/23 Reason for consult: acute renal failure (on chronic kidney disease) Chief Complaint Chief complaint: low o2 History of Present Illness Narrative: The patient is an 83-year-old female with a past medical history as outlined below who presented to [facility] Emergency Room with complaints of shortness of breath and generalized weakness. A great majority of the history is obtained from review of the electronic medical records as well as discussion with
--- NOTE | 2023-06-15 09:20 | PM.CNNEP ---
Assessment and Plan Assessment and plan (1) HARMONY (acute kidney injury): Code(s): N17.9 - Acute kidney failure, unspecified Status: Acute Assessment and Plan: multifactorial ATN: hypotension/hemodynamic instability/shock obstruction infection/sepsis (UTI/bacteremia...etc) diuretic use + ARB therapy prior to admission pre-renal factors s/p adequate/aggressive IVFs on vasopressor therapy on bicarb fluids remains at risk for COUNTER CUTTER/dialysis follow repeat labs and UOP (2) Stage 3b chronic kidney disease: Code(s): N18.32 - Chronic kidney disease, stage 3b Status: Acute Assessment and Plan: baseline creatinine ~ 1.25 - 1.3mg/dl for the last few years presumably due to diabetes, hypertension, vascular disease, and age (3) Septic shock: Code(s): A41.9 - Sepsis, unspecified organism; R65.21 - Severe sepsis with septic shock Status: Acute Assessment and Plan: as noted by fever, hypotension, leukocytosis, and HARMONY central line in place - on vasopressor therapy blood cultures with GNB urine culture pending on antibiotics follow trend of hemodynamics (4) Ureteral stone: Code(s): N20.1 - Calculus of ureter Status: Acute Assessment and Plan: CT scan on admission showed right ureteral stone with mild hydronephrosis s/p rght retrograde pyelogram, right ureteral stent placement (on 06/14/23) Urology following (5) Urinary tract infection: Code(s): N39.0 - Urinary tract infection, site not specified Status: Acute Assessment and Plan: admission UA highly suggestive urine culture pending on antibiotics (6) Chronic obstructive pulmonary disease, unspecified: Code(s): J44.9 - Chronic obstructive pulmonary disease, unspecified Status: Chronic Assessment and Plan: known history complicated by known SUNNY as well continue BiPAP intermittent with high-flow therapy (7) Insulin dependent type 2 diabetes mellitus: Code(s): E11.9 - Type 2 diabetes mellitus without complications; Z79.4 - half-way (current) use of insulin Status: Chronic Assessment and Plan: follow accu-cheks glycemic control per hospitalists/intensivisits Long extensive discussion (> 20 minutes) with the patient as well as her extended family at bedside regarding the above acute medical issues and problems including her renal dysfunction/ renal failure and the hope that ongoing supportive therapy that has already be instituted will eventually improve her overall clinical condition including her renal dysfunction/ renal failure. The patient and her family appeared to voice understanding with regard to the current treatment plan/therapy. Case discussed with Dr. Triana as well. I will continue follow patient with you while she remains hospitalized make further recommendations as needed. Thank you for allowing me to participate in care this patient. History of Present Illness Reason for Consult Consult date: 06/15/23 Reason for consult: acute renal failure (on chronic kidney disease) Chief Complaint Chief complaint: low o2 History of Present Illness Narrative: The patient is an 83-year-old female with a past medical history as outlined below who presented to [facility] Emergency Room with complaints of shortness of breath and generalized weakness. A great majority of the history is obtained from review of the electronic medical records as well as discussion with the physician/nurses involved in the patient's care due the patient's current medical condition. The patient apparently called her sister on the day of admission as she reported that she was extremely weak and having a difficult time getting out of bed in general. Her sister came over to check on her at which time she noted the patient seen more short of breath than usual in association with her generalized weakness. As this was a sign
[2023-06-15 10:31] LABS: MRSA (PCR) NOT DETECTED (NOT DETECTE)
[2023-06-15 11:16] LABS: Lactic Acid 3.6 mmol/L (0.7-2.0)
[2023-06-15] MEDS: NOREPINEPHRINE 8 MG/D5W 250 ML 8 MG/250 ML BAG 22.5 MG IV CONT (11:45)
[2023-06-15 12:50] LABS: Glucose Point of Care 207 mg/dl (65-105)
[2023-06-15] MEDS: IPRATROPIUM BR 0.02% INH SOLN 0.5 MG/2.5 ML VIAL INHALATION ×2 (13:01→19:42)
[2023-06-15] MEDS: ALBUTEROL SULFATE NEB 2.5 MG/3 ML INH INHALATION ×2 (13:01→19:42)
--- NOTE | 2023-06-15 13:05 | WPDCNINT ---
Assessment and Plan Assessment and plan (1) Septic shock: Code(s): A41.9 - Sepsis, unspecified organism; R65.21 - Severe sepsis with septic shock Status: Acute Assessment and Plan: patient presented with generalized weakening, lethargy, was found to be febrile, hypotensive in the ER CT scan showed right ureteral stone with mild hydronephrosis, - 06/14: status post Right retrograde pyelogram, right ureteral stent secondary to distal right ureteral stone. - acute kidney injury, hypotension - central line was inserted in the ICU and patient was started on Levophed - maintain mean arterial pressures > 65 mmHg for adequate end organ perfusion - 06/14/2023 Blood cultures: Positive for Gram-negative bacilli / bottles - 06/14/2023 urine cultures: Pending - patient on meropenem and vancomycin (06/15) - in the ER patient received ceftriaxone and azithromycin x1 dose (2) Bacteremia: Code(s): R78.81 - Bacteremia Status: Acute Assessment and Plan: as above (3) Acute renal failure superimposed on stage 3a chronic kidney disease: Code(s): N17.9 - Acute kidney failure, unspecified; N18.31 - Chronic kidney disease, stage 3a Status: Acute Assessment and Plan: patient with acute on chronic renal failure, likely related hypotension, UTI, septic shock/infection, ATN, obstruction. Patient also Lasix, losartan at home which could also be a factor. - baseline creatinine 1.25-1.30 - Patient received adequate IV fluids - continue vasopressor - started on bicarb infusion - albumin for intravascular volume expansion - continue to monitor urine output, renal function electrolytes. - Nephrology has been consulted and appreciate their input - 06/15/2023: Renal ultrasound was unremarkable (4) Chronic obstructive pulmonary disease, unspecified: Code(s): J44.9 - Chronic obstructive pulmonary disease, unspecified Status: Acute Assessment and Plan: continue BiPAP intermittent with high-flow therapy (5) Obstructive sleep apnea (adult) (pediatric): Code(s): G47.33 - Obstructive sleep apnea (adult) (pediatric) Status: Acute Assessment and Plan: continue BiPAP at night, (6) Ureteral stone: Code(s): N20.1 - Calculus of ureter Status: Acute Assessment and Plan: 06/14: status post Right retrograde pyelogram, right ureteral stent secondary to distal right ureteral stone. 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 This critical care time included obtaining a history; examining the patient; pulse oximetry; ordering and review of studies; arranging urgent treatment with development of a management plan; evaluation of patient's response to treatment; frequent reassessment; and discussions with other providers. It was exclusive of separately billable procedures and treating other patients and teaching time. Please see Assessment and Plan section and the rest of the note for further information on patient assessment and treatment This dictation may have been done utilizing a voice recognition system. Attempts have been made to co
[2023-06-15] MEDS: PANTOPRAZOLE SODIUM IV 40 MG VIAL IV PUSH (14:14)
[2023-06-15 16:44] LABS: Glucose Point of Care 215 mg/dl (65-105)
[2023-06-15] MEDS: INSULIN ASPART (*BKC) 100 UNITS/ML SUB-Q (16:55)
[2023-06-15] MEDS: ACETAMINOPHEN 325 MG TABLET 650 MG PO (16:55)
[2023-06-15 20:58] LABS: Glucose Point of Care 197 mg/dl (65-105)
[2023-06-16] VITALS (33 sets, daily range): BP systolic 90–122; BP diastolic 56–75; PULSE 65–78; RESP 17–27; TEMP 36.2–37; O2SAT 95–100
--- NOTE | 2023-06-16 | ECHO_ITS ---
Patient Info Name: Eliza Dueñas Age: 83 years : 1940 Gender: Female Ht: 61 in Wt: 277 lbs BSA: 2.41 m2 HR: 66 bpm BP: 90 / 56 mmHg Heart Rhythm: Paced Technical Quality: Good Exam Date: 06/16/2023 9:02 AM Exam Location: Echo Lab Patient Status: Inpatient Admit Date: 06/14/2023 Staff Ordering Physician: Lisandra Nicole MD Gauge And Instrument Inspector: Velma Castro RDCS Attending Provider: Marcello Andrade MD Referring Physician: Bonnie CASTRO; Exam Type: CA echo dop color flow w con Study Info Indications - septic shock, pulmonary hypertension Complete two-dimensional, color flow and Doppler transthoracic echocardiogram is performed with contrast to opacify the left ventricle and to improve the deliniation of the left ventricle endocardial borders. Contrast/Agitated Saline Contrast/Ag. Saline: Definity Amount: 3.00 ml Summary 1. Left ventricular chamber dimension is normal. 2. Left ventricular systolic function is normal, estimated at 60-65%. 3. There is moderately increased left ventricular wall thickness. 4. Left ventricular septal wall motion is abnormal with septal motion related to pacing. 5. The left ventricular diastolic function is abnormal. 6. Left atrial chamber dimension is moderately enlarged. 7. Right atrial chamber dimension is severely enlarged. 8. There is borderline mild aortic valve stenosis with a peak velocity of 135.17 cm/s, mean gradient of 3 mmHg, and aortic valve area of 1.90 cm2. 9. There is mild aortic valve regurgitation. 10. There is mild to moderate mitral valve regurgitation. 11. There is severe tricuspid valve regurgitation. 12. Moderate pulmonary hypertension, estimated pulmonary arterial systolic pressure is 54 mmHg. 13. Normal inferior vena cava with no collapse upon inspiration consistent with elevated right atrial pressure, 10 mmHg. Left Ventricle Left ventricular chamber dimension is normal. Left ventricular systolic function is normal, estimated at 60-65%. There is moderately increased left ventricular wall thickness. Left ventricular septal wall motion is abnormal with septal motion related to pacing. The left ventricular diastolic function is abnormal. Right Ventricle Right ventricular chamber dimension is mildly enlarged. Right ventricular systolic function is normal. Linear artifact in right ventricle suggestive of catheter(s), pacemaker lead(s), or ICD lead(s). Left Atria Left atrial chamber dimension is moderately enlarged. Right Atria Right atrial chamber dimension is severely enlarged. Linear artifact in the right atrium suggestive of catheter(s), pacemaker lead(s), or ICD lead(s). Aortic Valve There is borderline mild aortic valve stenosis with a peak velocity of 135.17 cm/s, mean gradient of 3 mmHg, and aortic valve area of 1.90 cm2. The aortic valve is not well visualized. There is mild aortic valve regurgitation. Pulmonic Valve The pulmonic valve is not well visualized. There is mild pulmonic regurgitation. Mitral Valve The mitral valve has thickened leaflets. There is no mitral valve stenosis. There is mild to moderate mitral valve regurgitation. The mitral valve annulus is severely calcified. Tricuspid Valve The tricuspid valve leaflets are normal. There is severe tricuspid valve regurgitation. Moderate pulmonary hypertension, estimated pulmonary arterial systolic pressure is 54 mmHg. Pericardium/Pleural The pericardium appears normal. There is small pericardial effusion. Inferior Vena Cava Normal inferior vena cava with no collapse upon i
[2023-06-16] MEDS: MEROPENEM 1 GM/NS 100 ML 1 GM/100 ML BAG IVPB ×2 (00:13→12:09)
[2023-06-16] MEDS: IPRATROPIUM BR 0.02% INH SOLN 0.5 MG/2.5 ML VIAL INHALATION ×4 (01:23→20:16)
[2023-06-16] MEDS: ALBUTEROL SULFATE NEB 2.5 MG/3 ML INH INHALATION ×4 (01:24→20:16)
[2023-06-16] MEDS: ALBUMIN HUMAN 25% 25 GM/100 ML 100 ML IVPB ×4 (02:33→20:10)
[2023-06-16 05:33] LABS: Hematocrit 30.8 % (37.0-47.0); Hemoglobin 9.6 g/dL (12.0-15.0); Mean Corpuscular HGB Conc 31.2 g/dl (32-36); Mean Corpuscular Hemoglobin 31.7 pg (26-34); Mean Corpuscular Volume 101.7 fl (80-100); Mean Platelet Volume 11.6 fl (7.4-10.4); Platelet Count Result 111 k/mm3 (150-375); Red Blood Count 3.03 M/mm3 (4.2-5.4); Red Cell Distribution Width 14.9 % (11.5-14.5); White Blood Count 15.3 K/mm3 (4.5-10.0)
[2023-06-16] MEDS: ONDANSETRON INJ 4 MG/2 ML VIAL IV PUSH ×2 (05:49→08:10)
[2023-06-16] MEDS: CENTRAL LINE FLUSH 10 ML IV PUSH ×3 (05:49→20:14)
[2023-06-16 05:50] LABS: Alanine Aminotransferase 76 U/L (6-35); Albumin Level 3.6 g/dL (3.5-5.1); Alkaline Phosphatase 46 U/L (38-126); Anion Gap 10 mmol/L (8-16); Aspartate Amino Transferase 97 U/L (14-36); Bilirubin,Total 1.3 mg/dL (0.2-1.3); Blood Urea Nitrogen 45 mg/dL (7-17); Calcium 7.1 mg/dL (8.4-10.2); Carbon Dioxide 25 mmol/L (22-30); Chloride 100 mmol/L (98-107); Estimated CRCL calculation 13 ml/min; Estimated Glomerular Filt Rate 12; Glucose 199 mg/dL (65-110); Lipase 28 U/L (23-300); Magnesium 1.7 mg/dL (1.6-2.3); Phosphorus 4.5 mg/dL (2.5-4.5); Sodium 135 mmol/L (137-145)
[2023-06-16 05:55] LABS: Creatine Kinase 399 U/L (30-135)
[2023-06-16 06:36] LABS: CRP 34.6 mg/dL (<1.0)
[2023-06-16 07:43] LABS: Band Neutrophils Percent 17 % (0-6); Lymphocytes Absolute Manual 0.61 K/mm3 (1.1-4.5); Monocytes Absolute Manual 0.76 K/mm3 (0.1-0.90); Monocytes Percent Manual 5 % (3-9); Neutrophils Absolute Manual 13.92 K/mm3 (1.7-7.2); Neutrophils Percent Manual 74 % (46-73); Total Cells Counted 100
[2023-06-16 07:48] LABS: Ovalocytes 1+ (NORMAL)
[2023-06-16] MEDS: UMECLIDINIUM/VILANTEROL 62.5-25 MCG ELLIPTA 1 PUFF INHALATION (07:48)
[2023-06-16 07:49] LABS: Glucose Point of Care 183 mg/dl (65-105)
[2023-06-16 07:51] LABS: Burr Cells 1+ (NORMAL); Schistocytes None Seen (NORMAL)
[2023-06-16] MEDS: CALCIUM GLUC 2,000 MG/NS 100ML 2,000 MG/100 ML BAG 100 MG IVPB (08:02)
[2023-06-16] MEDS: APIXABAN 5 MG TABLET PO ×2 (08:03→18:21)
[2023-06-16] MEDS: MAGNESIUM SULF 2 GM/WATER 50ML 2 GM/50 ML BAG IVPB (08:03)
[2023-06-16] MEDS: PANTOPRAZOLE SODIUM IV 40 MG VIAL IV PUSH (08:03)
--- NOTE | 2023-06-16 08:38 | WPDINTPN ---
Progress Note: A&P Assessment and Plan (1) Septic shock: Code(s): A41.9 - Sepsis, unspecified organism; R65.21 - Severe sepsis with septic shock Status: Acute Assessment and Plan: patient presented with generalized weakening, lethargy, was found to be febrile, hypotensive in the ER CT scan showed right ureteral stone with mild hydronephrosis, - 06/14: status post Right retrograde pyelogram, right ureteral stent secondary to distal right ureteral stone. - acute kidney injury, hypotension - central line was inserted in the ICU and patient was started on Levophed -wean Levophed to maintain mean arterial pressures > 65 mmHg for adequate end organ perfusion - 06/14/2023 Blood cultures: Positive for Gram-negative bacilli 09/10 bottles - 06/14/2023 urine cultures: E coli with sensitivities pending - patient on meropenem and vancomycin (06/15) - in the ER patient received ceftriaxone and azithromycin x1 dose (2) Bacteremia: Code(s): R78.81 - Bacteremia Status: Acute Assessment and Plan: as above (3) Acute renal failure superimposed on stage 3a chronic kidney disease: Code(s): N17.9 - Acute kidney failure, unspecified; N18.31 - Chronic kidney disease, stage 3a Status: Acute Assessment and Plan: patient with acute on chronic renal failure, likely related hypotension, UTI, septic shock/infection, ATN, obstruction. Patient also Lasix, losartan at home which could also be a factor. - baseline creatinine 1.25-1.30 - Patient received adequate IV fluids - continue vasopressor -discontinue bicarb infusion - albumin for intravascular volume expansion - continue to monitor urine output, renal function electrolytes. - Nephrology has been consulted and appreciate their input - 06/15/2023: Renal ultrasound was unremarkable -minimal urine output, creatinine increasing, discussed with Nephrology, will try Lasix 60 mg IV x1 as patient is 6100 mL in positive fluid balance (4) Chronic obstructive pulmonary disease, unspecified: Code(s): J44.9 - Chronic obstructive pulmonary disease, unspecified Status: Acute Assessment and Plan: continue BiPAP intermittent with high-flow therapy (5) Obstructive sleep apnea (adult) (pediatric): Code(s): G47.33 - Obstructive sleep apnea (adult) (pediatric) Status: Acute Assessment and Plan: continue BiPAP at night, (6) Ureteral stone: Code(s): N20.1 - Calculus of ureter Status: Acute Assessment and Plan: 06/14: status post Right retrograde pyelogram, right ureteral stent secondary to distal right ureteral stone. - urology following the patient (7) Urinary tract infection: Code(s): N39.0 - Urinary tract infection, site not specified Status: Acute Assessment and Plan: treatment as above (8) Insulin dependent type 2 diabetes mellitus: Code(s): E11.9 - Type 2 diabetes mellitus without complications; Z79.4 - USP (current) use of insulin Status: Acute Assessment and Plan: continue sliding scale insulin and Accu-Cheks Plan DVT prophylaxis: Eliquis Stress ulcer prophylaxis: Protonix Nutrition: heart healthy diet Code Status: do not resuscitate Critical Care Time Spent: 35 minutes Due to a high probability of clinically significant, life threatening deterioration, the patient required my highest level of preparedness to intervene emergently and I personally spent this critical care time directly and personally managing the patient. This critical care time included obtaining a history; examining the patient; pulse oximetry; ordering and review of studies; arranging urgent treatment with development of a management plan; evaluation of patient's response to treatment; frequent reassessment; and discussions with other providers. It was exclusive of separately billable procedures and treating other patients and teaching time. Please see Assessment and Plan section
[2023-06-16] MEDS: FUROSEMIDE INJ 100 MG/10 ML VIAL 60 MG IV PUSH (09:10)
--- NOTE | 2023-06-16 09:15 | P.PNNP_ITS ---
Progress Note: A&P Assessment and Plan (1) HARMONY (acute kidney injury): Code(s): N17.9 - Acute kidney failure, unspecified Status: Acute Assessment and Plan: * due tomultifactorial ATN: * hypotension/hemodynamic instability/shock * obstruction * infection/sepsis (UTI/bacteremia...etc) * diuretic use + ARB therapy prior to admission * pre-renal factors * s/p adequate/aggressive IVFs * on vasopressor therapy * discussed with intensivisit -- trial of IV diuretics today given evidence of fluid overload * remains at risk for TRAFFIC OFFICER/dialysis * follow repeat labs and UOP (2) Stage 3b chronic kidney disease: Code(s): N18.32 - Chronic kidney disease, stage 3b Status: Acute Assessment and Plan: * baseline creatinine ~ 1.25 - 1.3mg/dl for the last few years * presumably due to diabetes, hypertension, vascular disease, and age (3) Septic shock: Code(s): A41.9 - Sepsis, unspecified organism; R65.21 - Severe sepsis with septic shock Status: Acute Assessment and Plan: * as noted by fever, hypotension, leukocytosis, and HARMONY * central line in place - on vasopressor therapy * blood cultures with GNB * urine culture pending * on antibiotics * follow trend of hemodynamics (4) Ureteral stone: Code(s): N20.1 - Calculus of ureter Status: Acute Assessment and Plan: * CT scan on admission showed right ureteral stone with mild hydronephrosis * s/p rght retrograde pyelogram, right ureteral stent placement (on 06/14/23) * Urology following (5) Urinary tract infection: Code(s): N39.0 - Urinary tract infection, site not specified Status: Acute Assessment and Plan: * admission UA highly suggestive * urine culture with E. 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 Subjective Date/time seen: 06/16/23 09:15 Interval history: Follow-up for acute kidney injury/acute renal failure on chronic kidney disease. Renal function without any significant improvement in association with decreased urine output; still requiring vasopressor support to maintain BP/MAP; respirat ory status relatively stable of BiPAP therapy; blood/urine culture results noted; no other issues/events overnight or earlier this morning. Exam Narrative: General: elderly but WD/WN female in NAD Heart: normal S1 and S2; no rub Lungs: coarse breath sounds Abdomen: soft, nontender, nondistended, positive bowel sounds Extremities: no cyanosis or clubbing; 1+ edema Skin: warm and dry Objective Data Vital Signs Vital Signs: Vital Signs Temp Pulse Resp BP Pulse Ox O2 Del Method O2 Flow Rate 06/16/23 08:00 74 23 H 98 BiPAP 06/16/23 08:00 67 06/16/23 08:34 74 23 H 98 BiPAP 06/16/23 08:00 98.3 F 67
--- NOTE | 2023-06-16 09:15 | PM.PNNEP ---
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 follow repeat labs and UOP (2) Stage 3b chronic kidney disease: Code(s): N18.32 - Chronic kidney disease, stage 3b Status: Acute Assessment and Plan: baseline creatinine ~ 1.25 - 1.3mg/dl for the last few years presumably due to diabetes, hypertension, vascular disease, and age (3) Septic shock: Code(s): A41.9 - Sepsis, unspecified organism; R65.21 - Severe sepsis with septic shock Status: Acute Assessment and Plan: as noted by fever, hypotension, leukocytosis, and HARMONY central line in place - on vasopressor therapy blood cultures with GNB urine culture pending on antibiotics follow trend of hemodynamics (4) Ureteral stone: Code(s): N20.1 - Calculus of ureter Status: Acute Assessment and Plan: CT scan on admission showed right ureteral stone with mild hydronephrosis s/p rght retrograde pyelogram, right ureteral stent placement (on 06/14/23) Urology following (5) Urinary tract infection: Code(s): N39.0 - Urinary tract infection, site not specified Status: Acute Assessment and Plan: admission UA highly suggestive urine culture with E. coli on antibiotics (6) Chronic obstructive pulmonary disease, unspecified: Code(s): J44.9 - Chronic obstructive pulmonary disease, unspecified Status: Chronic Assessment and Plan: known history complicated by known SUNNY as well continue BiPAP intermittent with high-flow therapy (7) Insulin dependent type 2 diabetes mellitus: Code(s): E11.9 - Type 2 diabetes mellitus without complications; Z79.4 - correction (current) use of insulin Status: Chronic Assessment and Plan: follow accu-cheks glycemic control per hospitalists/intensivisits Will continue to follow. Subjective Date/time seen: 06/16/23 09:15 Interval history: Follow-up for acute kidney injury/acute renal failure on chronic kidney disease. Renal function without any significant improvement in association with decreased urine output; still requiring vasopressor support to maintain BP/MAP; respiratory status relatively stable of BiPAP therapy; blood/urine culture results noted; no other issues/events overnight or earlier this morning. Exam Narrative: General: elderly but WD/WN female in NAD Heart: normal S1 and S2; no rub Lungs: coarse breath sounds Abdomen: soft, nontender, nondistended, positive bowel sounds Extremities: no cyanosis or clubbing; 1+ edema Skin: warm and dry Objective Data Vital Signs Vital Signs: Vital Signs Temp Pulse Resp BP Pulse Ox O2 Del Method O2 Flow Rate 06/16/23 08:00 74 23 H 98 BiPAP 06/16/23 08:00 67 06/16/23 08:34 74 23 H 98 BiPAP 06/16/23 08:00 98.3 F 67 25 H 100/65 97 06/16/23 08:04 67 18 06/16/23 07:55 66 20 99 High Flow Therapy with Na 40 06/16/23 07:48 66 20 06/16/23 06:00 65 06/16/23 06:00 65 20 90/56 L 97 06/16/23 05:00 74 24 H 100 BiPAP 06/16/23 05:04 68 105/58 L 06/16/23 04:00 67 06/16/23 04:30 68 115/71 06/16/23 01:00 99 High Flow Nasal Cannula 40 06/16/23 04:00 97.1 F L 69 20 115/71 99 06/16/23 04:00 98 BiPAP 06/16/23 04:36 98.6 F 70 22 H 105/67 99 06/16/23 04:00 98.6 F 78 22 H 115/71 98 06/16/23 04:00 68 115/71 11/0
[2023-06-16] MEDS: PERFLUTREN LIPID MICROSPHERES 1.5 ML VIAL DILUTED TO 10 ML TOTAL VOLUME IV PUSH (09:23)
--- NOTE | 2023-06-16 11:11 | PCFNICU ---
ICU Rounding Note: Pt current nutrition is DBCC/Heart Healthy. Nutrition recommendation: Ensure compact BID Last recorded weight is 126 kg Bowel Motility: +BM reported 06/14 Labs Reviewed: Glu 199, Cr 3.6,GFR 12, BUN 45, Na 135 Meds Noted:Lasix, Eliquis, Levophed Skin: WNL Additional Notes: Patient remains on a heart healthy diet. Oral intake has been poor, 10% reported. Spoke with patient today regarding diet supplements. Will recommend Ensure compact BID providing an additional 220 kcals and 9 gms protein. PO intake encouraged. Agree with diet orders. Following daily in ICU rounds.
[2023-06-16 11:55] LABS: Glucose Point of Care 183 mg/dl (65-105)
--- NOTE | 2023-06-16 15:33 | WPDUROPN2 ---
Progress Note: A&P Assessment and Plan (1) Bacteremia: Code(s): R78.81 - Bacteremia Status: Acute Assessment and Plan: Continue Meropenem (2) Septic shock: Code(s): A41.9 - Sepsis, unspecified organism; R65.21 - Severe sepsis with septic shock Status: Acute (3) Urinary tract infection: Code(s): N39.0 - Urinary tract infection, site not specified Status: Acute (4) Right ureteral stone: Code(s): N20.1 - Calculus of ureter Status: Acute Assessment and Plan: Will need ureteroscopy with stone removal and stent exchange once patient is more stable and infection has resolved. Tolerating stent at this time, keep valle in for I&O purposes and remove when no longer needed for a voiding trial. Subjective Subjective Date/Time Seen: 06/16/23 15:33 Post Op day: 2 Interval history: Patient is s/p Cystoscopy, right retrograde pyelogram, right ureteral stent She remains in ICU, but is slightly responsive to loud stimulus and to touch. Urine and blood cultures grew E-Coli, she is on cutlure sensitive MEropenem. Urine is dark but draining to gravity in valle. Review of Systems Review of Systems: ROS unobtainable: Yes unobtainable due to medical condition Exam Const: General: comfortable Resp: Effort & Inspection: respiratory distress GI: GI Palp: Yes Soft to palpation and No Tenderness to palpation present (GI) : General: Yes no CVA tenderness Urinary Catheter: Urinary Catheter: patent and draining and urine dark Extrem: Right lower extremity: no edema Left lower extremity: no edema Objective Data Vital Signs Vital Signs: Vital Signs - 24 hr 06/15/23 16:40 06/15/23 16:00 06/15/23 16:00 Temperature 98.5 F Pulse Rate 70 74 74 Respiratory Rate 26 H 28 H Blood Pressure 110/69 Pulse Oximetry 100 100 Oxygen Delivery BiPAP Oxygen Flow Rate Fraction of Inspired Oxygen 06/15/23 16:00 06/15/23 18:00 06/15/23 18:00 Temperature Pulse Rate 70 68 70 Respiratory Rate 26 H 26 H Blood Pressure 100/46 L Pulse Oximetry 100 98 Oxygen Delivery BiPAP Oxygen Flow Rate Fraction of Inspired Oxygen 40 06/15/23 17:00 06/15/23 18:00 06/15/23 19:42 Temperature Pulse Rate 70 70 70 Respiratory Rate 22 H Blood Pressure 100/46 L 100/46 L Pulse Oximetry Oxygen Delivery Oxygen Flow Rate Fraction of Inspired Oxygen 06/15/23 19:47 06/15/23 20:56 06/15/23 20:00 Temperature Pulse Rate 70 72 Respiratory Rate 18 22 H Blood Pressure 107/65 Pulse Oximetry 100 Oxygen Delivery High Flow Therapy with Na Oxygen Flow Rate 40 Fraction of Inspired Oxygen 40 06/15/23 20:00 06/15/23 22:00 06/15/23 20:00 Temperature Pulse Rate 67 69 67 Respiratory Rate 24 H 24 H 24 H Blood Pressure 106/52 L 97/74 L 106/52 L Pulse Oximetry 94 99 100 Oxygen Delivery Oxygen Flow Rate Fraction of Inspired Oxygen 06/15/23 22:00 06/15/23 20:00 06/15/23 22:00 Temperature Pulse Rate 69 66 69 Respiratory Rate 26 H Blood Pressure 118/72 Pulse Oximetry 96 Oxygen Delivery Oxygen Flow Rate Fraction of Inspired Oxygen 06/15/23 22:30 06/15/23 22:30 06/15/23 23:30 Temperature Pulse Rate 72 Respiratory Rate 22 H Blood Pressure 116/68 Pulse Oximetry 100 100 Oxygen Delivery BiPAP BiPAP Oxygen Flow Rate Fraction of Inspired Oxygen 40 06/16/23 00:00 06/16/23 00:00 06/16/23 00:45 Temperature 97.3 F L Pulse Rate 66 66 Respiratory Rate 18 Blood Pressure 97/70 L 110/64 Pulse Oximetry 100 100 Oxygen Delivery BiPAP Oxygen Flow Rate Fraction of Inspired Oxygen 35 06/16/23 01:24 06/16/23 01:48 06/16/23 02:00 Temperature Pulse Rate 68 70 69 Respiratory Rate 17 18 27 H Blood Pressure 114/67 Pulse Oximetry 99 Oxygen Delivery Oxygen Flow Rate Fraction of Inspired Oxygen 06/16/23 02:32 06/16/23 00:00 06/16/23 02:00 Temperature
[2023-06-16 17:06] LABS: Glucose Point of Care 150 mg/dl (65-105)
--- NOTE | 2023-06-16 20:01 | PM.IMPN ---
Progress Note: A&P Assessment and Plan (1) Septic shock: Code(s): A41.9 - Sepsis, unspecified organism; R65.21 - Severe sepsis with septic shock Status: Acute Assessment and Plan: Patient presented with generalized weakening, lethargy, was found to be febrile, hypotensive in the ER. UA c/w UTI. CT scan showed right ureteral stone with mild hydronephrosis. HARMONY. HoTN -06/14: status post Right retrograde pyelogram, right ureteral stent secondary to distal right ureteral stone. -central line was inserted in the ICU and patient was started on Levophed -BCx 06/14: EColi 2/2 bottles with sensitivities pending -UCx 06/14: E coli that is amaral-sensitive. WBC peaked at 33K, bands 37% but better today at 15K with bandemia of 17% - in the ER patient received ceftriaxone and azithromycin x1 dose but changed to meropenem and vancomycin (06/15) Continue IV abx and wean when able Pressors weaned off today. (2) Bacteremia: Code(s): R78.81 - Bacteremia Status: Acute Assessment and Plan: As above (3) Acute renal failure superimposed on stage 3a chronic kidney disease: Code(s): N17.9 - Acute kidney failure, unspecified; N18.31 - Chronic kidney disease, stage 3a Status: Acute Assessment and Plan: Patient with acute on chronic renal failure likely related to HoTN, UTI, obstructive process, ATN, septic shock/infection and medications. Patient on Lasix, losartan at home which could also be a factor. - baseline creatinine 1.25-1.30; Cr 3.0 on admission and worse today at 3.6 -06/15/2023: Renal ultrasound was unremarkable -Patient received adequate IV fluids -Was on bicarb infusion but weaned off now -Albumin for intravascular volume expansion -Lasix once on 06/16 - continue to monitor urine output, renal function electrolytes. - Nephrology has been consulted and appreciate their input Monitor urine output, renal function and electrolytes (4) Chronic obstructive pulmonary disease, unspecified: Code(s): J44.9 - Chronic obstructive pulmonary disease, unspecified Status: Acute Assessment and Plan: Stable. Continue BiPAP intermittent with high-flow therapy (5) Obstructive sleep apnea (adult) (pediatric): Code(s): G47.33 - Obstructive sleep apnea (adult) (pediatric) Status: Acute Assessment and Plan: Continue BiPAP at night (6) Ureteral stone: Code(s): N20.1 - Calculus of ureter Status: Acute Assessment and Plan: Patient presents with obstructing renal stone. -06/14: status post Right retrograde pyelogram, right ureteral stent secondary to distal right ureteral stone. - urology following and appreciate their input (7) Urinary tract infection: Code(s): N39.0 - Urinary tract infection, site not specified Status: Acute Assessment and Plan: As above. (8) Insulin dependent type 2 diabetes mellitus: Code(s): E11.9 - Type 2 diabetes mellitus without complications; Z79.4 - [facility] (current) use of insulin Status: Acute Assessment and Plan: A1c 6.8. The patient's blood glucose was reviewed on 06/16 Glucose remains well controlled. Continue AccuCheks covering with sliding scale. Hypoglycemia protocol available as needed. Continue current medications. Plan DVT prophylaxis: Eliquis Stress ulcer prophylaxis: Protonix Nutrition: heart healthy diet Code Status: do not resuscitate Subjective Date/time seen: 06/16/23 20:01 Interval history: 83yo female with DM, CKD, HTN, SUNNY, PM for SSS and pAFib here for weakness and found to have septic shock, HARMONY and infected obstructing renal stone s/p cystoscopy, right retrograde pyelogram, right ureteral stent secondary to distal right ureteral stone.? Assuming care. Chart reviewed. Slight nausea. Denies CP. Some SOB. Minimal cough. No back pain. Exam Narrative: AF 97.8 122/75 66 21 99% bipap Gen - NARD lying semirecumben
[2023-06-16 20:21] LABS: Glucose Point of Care 139 mg/dl (65-105)
[2023-06-17] VITALS (27 sets, daily range): BP systolic 113–132; BP diastolic 59–79; PULSE 64–81; RESP 19–25; TEMP 36.1–36.9; O2SAT 95–99
[2023-06-17] MEDS: MEROPENEM 1 GM/NS 100 ML 1 GM/100 ML BAG IVPB (00:24)
[2023-06-17] MEDS: ALBUTEROL SULFATE NEB 2.5 MG/3 ML INH INHALATION ×4 (01:52→20:28)
[2023-06-17] MEDS: IPRATROPIUM BR 0.02% INH SOLN 0.5 MG/2.5 ML VIAL INHALATION ×4 (01:53→20:28)
[2023-06-17 05:26] LABS: Basophils Percent Auto 0.4 % (0.2-1.2); Eosinophils Absolute Auto 0.1 K/mm3 (0-0.3); Hematocrit 31.5 % (37.0-47.0); Hemoglobin 9.7 g/dL (12.0-15.0); Immature Granulocyte Absolute 0.08 K/mm3 (0.00-0.031); Immature Granulocyte Percent A 0.8 % (0-0.5); Immature Platelet Fraction Pct 9.7 % (0.9-11.2); Lymphocytes Absolute Auto 0.69 K/mm3 (0.9-3.2); Lymphocytes Percent Auto 7.2 % (18.3-44.2); Mean Corpuscular HGB Conc 30.8 g/dl (32-36); Mean Corpuscular Hemoglobin 31.3 pg (26-34); Mean Corpuscular Volume 101.6 fl (80-100); Mean Platelet Volume 11.8 fl (7.4-10.4); Monocytes Absolute Auto 0.4 K/mm3 (0.1-0.6); Monocytes Percent Auto 4.6 % (2.6-8.5); Neutrophils Absolute Auto 8.2 K/mm3 (1.3-6.7); Platelet Count Result 96 k/mm3 (150-375); Red Cell Distribution Width 14.7 % (11.5-14.5); White Blood Count 9.6 K/mm3 (4.5-10.0)
[2023-06-17 05:31] LABS: Lactic Acid Reflex 1.8 mmol/L (0.7-2.0)
[2023-06-17 05:35] LABS: Alanine Aminotransferase 124 U/L (6-35); Albumin Level 3.7 g/dL (3.5-5.1); Alkaline Phosphatase 54 U/L (38-126); Anion Gap 10 mmol/L (8-16); Aspartate Amino Transferase 139 U/L (14-36); Bilirubin,Total 1.1 mg/dL (0.2-1.3); Blood Urea Nitrogen 54 mg/dL (7-17); Calcium 7.9 mg/dL (8.4-10.2); Carbon Dioxide 26 mmol/L (22-30); Chloride 99 mmol/L (98-107); Creatine Kinase 107 U/L (30-135); Estimated CRCL calculation 14 ml/min; Estimated Glomerular Filt Rate 13; Glucose 135 mg/dL (65-110); Potassium 4.1 mmol/L (3.4-5.0); Sodium 135 mmol/L (137-145)
[2023-06-17 05:46] LABS: CRP 23.6 mg/dL (<1.0)
[2023-06-17] MEDS: CENTRAL LINE FLUSH 10 ML IV PUSH ×3 (05:49→23:06)
[2023-06-17 06:20] LABS: Hepatitis B Surface Anti Res Negative
[2023-06-17] MEDS: UMECLIDINIUM/VILANTEROL 62.5-25 MCG ELLIPTA 1 PUFF INHALATION (07:52)
[2023-06-17 07:54] LABS: Glucose Point of Care 136 mg/dl (65-105)
[2023-06-17 08:32] LABS: Hepatitis B Surface Antigen Negative (Negative)
[2023-06-17 08:44] LABS: HAV RESULT Negative (Negative); Hepatitis B Core IgM Result Negative (Negative)
[2023-06-17 08:50] LABS: Hepatitis C Virus Antibody Negative (Negative)
[2023-06-17] MEDS: APIXABAN 5 MG TABLET PO ×2 (08:56→17:11)
[2023-06-17] MEDS: PANTOPRAZOLE SODIUM IV 40 MG VIAL IV PUSH (08:57)
--- NOTE | 2023-06-17 09:18 | P.PNNP_ITS ---
Progress Note: A&P Assessment and Plan (1) HARMONY (acute kidney injury): Code(s): N17.9 - Acute kidney failure, unspecified Status: Acute Assessment and Plan: * due tomultifactorial ATN: * hypotension/hemodynamic instability/shock * obstruction * infection/sepsis (UTI/bacteremia...etc) * diuretic use + ARB therapy prior to admission * pre-renal factors * s/p adequate/aggressive IVFs * off vasopressor therapy * discussed with bushwalking guide -- IV diuretics x 1 today again given evidence of fluid overload * follow repeat labs and UOP (2) Stage 3b chronic kidney disease: Code(s): N18.32 - Chronic kidney disease, stage 3b Status: Acute Assessment and Plan: * baseline creatinine ~ 1.25 - 1.3mg/dl for the last few years * presumably due to diabetes, hypertension, vascular disease, and age (3) Septic shock: Code(s): A41.9 - Sepsis, unspecified organism; R65.21 - Severe sepsis with septic shock Status: Acute Assessment and Plan: * as noted by fever, hypotension, leukocytosis, and HARMONY * off vasopressor therapy * suspect urosepsis: * blood and urine cultures with E.coli * on antibiotics * follow trend of hemodynamics (4) Ureteral stone: Code(s): N20.1 - Calculus of ureter Status: Acute Assessment and Plan: * CT scan on admission showed right ureteral stone with mild hydronephrosis * s/p rght retrograde pyelogram, right ureteral stent placement (on 06/14/23) * Urology following (5) Urinary tract infection: Code(s): N39.0 - Urinary tract infection, site not specified Status: Acute Assessment and Plan: * admission UA highly suggestive * urine culture with E. coli * on antibiotics (6) Chronic obstructive pulmonary disease, unspecified: Code(s): J44.9 - Chronic obstructive pulmonary disease, unspecified Status: Chronic Assessment and Plan: * known history * complicated by known SUNNY as well * continue BiPAP intermittent with high-flow therapy (7) Insulin dependent type 2 diabetes mellitus: Code(s): E11.9 - Type 2 diabetes mellitus without complications; Z79.4 - [facility] (current) use of insulin Status: Chronic Assessment and Plan: * follow accu-cheks * glycemic control per hospitalists/intensivisits Will continue to follow. Subjective Date/time seen: 06/17/23 09:18 Interval history: Follow-up for acute kidney injury/acute renal failure on chronic kidney disease. Reasonable response to IV diuretics yesterday with regard to urine output; respiratory status and mentation continue to be slowly improving as well; able to be weaned off vasopressor therapy with relative stability in hemodynamics; no apparent distress noted at the time of my visit. Exam Narrative: General: elderly but WD/WN female in NAD Heart: normal S1 and S2; no rub Lungs: coarse breath sounds Abdomen: soft, nontender, nondistended, positive bowel sounds Extremities: no cyanosis or clubbing; 1+ edema Skin: warm and intact Objective Data Vital Signs Vital Signs: Vital Signs Temp Pulse Resp BP Pulse Ox O2 Del Method O2 Flow Rate 06/17/23 08:00 66 25 H 98 High Flow Therapy with Na 35 06/17/23 08:00 98.2 F 67 25 H 125/71 98 06/17/23 08:00 67 06/17/23 08:12 66 25 H 06/17/23 07:55
--- NOTE | 2023-06-17 09:18 | PM.PNNEP ---
Progress Note: A&P Assessment and Plan (1) HARMONY (acute kidney injury): Code(s): N17.9 - Acute kidney failure, unspecified Status: Acute Assessment and Plan: due tomultifactorial ATN: hypotension/hemodynamic instability/shock obstruction infection/sepsis (UTI/bacteremia...etc) diuretic use + ARB therapy prior to admission pre-renal factors s/p adequate/aggressive IVFs off vasopressor therapy discussed with rock picker -- IV diuretics x 1 today again given evidence of fluid overload follow repeat labs and UOP (2) Stage 3b chronic kidney disease: Code(s): N18.32 - Chronic kidney disease, stage 3b Status: Acute Assessment and Plan: baseline creatinine ~ 1.25 - 1.3mg/dl for the last few years presumably due to diabetes, hypertension, vascular disease, and age (3) Septic shock: Code(s): A41.9 - Sepsis, unspecified organism; R65.21 - Severe sepsis with septic shock Status: Acute Assessment and Plan: as noted by fever, hypotension, leukocytosis, and HARMONY off vasopressor therapy suspect urosepsis: blood and urine cultures with E.coli on antibiotics follow trend of hemodynamics (4) Ureteral stone: Code(s): N20.1 - Calculus of ureter Status: Acute Assessment and Plan: CT scan on admission showed right ureteral stone with mild hydronephrosis s/p rght retrograde pyelogram, right ureteral stent placement (on 06/14/23) Urology following (5) Urinary tract infection: Code(s): N39.0 - Urinary tract infection, site not specified Status: Acute Assessment and Plan: admission UA highly suggestive urine culture with E. coli on antibiotics (6) Chronic obstructive pulmonary disease, unspecified: Code(s): J44.9 - Chronic obstructive pulmonary disease, unspecified Status: Chronic Assessment and Plan: known history complicated by known SUNNY as well continue BiPAP intermittent with high-flow therapy (7) Insulin dependent type 2 diabetes mellitus: Code(s): E11.9 - Type 2 diabetes mellitus without complications; Z79.4 - [employer] (current) use of insulin Status: Chronic Assessment and Plan: follow accu-cheks glycemic control per hospitalists/intensivisits Will continue to follow. Subjective Date/time seen: 06/17/23 09:18 Interval history: Follow-up for acute kidney injury/acute renal failure on chronic kidney disease. Reasonable response to IV diuretics yesterday with regard to urine output; respiratory status and mentation continue to be slowly improving as well; able to be weaned off vasopressor therapy with relative stability in hemodynamics; no apparent distress noted at the time of my visit. Exam Narrative: General: elderly but WD/WN female in NAD Heart: normal S1 and S2; no rub Lungs: coarse breath sounds Abdomen: soft, nontender, nondistended, positive bowel sounds Extremities: no cyanosis or clubbing; 1+ edema Skin: warm and intact Objective Data Vital Signs Vital Signs: Vital Signs Temp Pulse Resp BP Pulse Ox O2 Del Method O2 Flow Rate 06/17/23 08:00 66 25 H 98 High Flow Therapy with Na 35 06/17/23 08:00 98.2 F 67 25 H 125/71 98 06/17/23 08:00 67 06/17/23 08:12 66 25 H 06/17/23 07:55 70 23 H 06/17/23 07:53 70 23 H 95 High Flow Therapy with Na 40 06/17/23 06:00 67 06/17/23 06:00 97.0 F L 67 20 129/74 99 06/17/23 05:18 67 22 H 99 BiPAP 06/17/23 02:05 68 22 H 98 BiPAP 06/17/23 04:00 99 BiPAP 06/17/23 04:00 66 21 H 129/72 99 06/17/23 04:00 66 06/17/23 02:00 68 06/17/23 00:00 66 06/17/23 02:00 97.6 F 68 19 126/75 99 06/17/23 00:00 97.6 F 65 129/79 99 06/17/23 00:00 96 BiPAP 06/16/23 23:15 66 24 H 97 BiPAP 06/17/23 01:53 66 25 H 06/16/23 22:00 66 06/16/23 20
[2023-06-17 09:58] LABS: Hepatitis B Surface Antigen Negative (Negative)
[2023-06-17] MEDS: FUROSEMIDE INJ 100 MG/10 ML VIAL 60 MG IV PUSH (10:05)
--- NOTE | 2023-06-17 11:37 | PCFNICU ---
ICU Rounding Note: Pt current nutrition is Heart Healthy/DBCC with Ensure compact BID. Last recorded weight is 132 kg, down from 126 on admit. Bowel Motility: +BM reported 06/16 Labs Reviewed:Glu 135, Cr 3.3,BUN 54, GFR 13, Na 135 Meds Noted:Lasix, Eliquis, Meropenem, Protonix Skin: WNL Additional Notes: Patient remains on a heart healthy/DBCC diet. Oral Intake remains poor, 25% of meals. Diet supplements added 06/17 of Ensure Compact BID providing an additional 220 kcals and 9 gms protein. PO intake encouraged. Following daily in ICU rounds.
[2023-06-17 11:55] LABS: Glucose Point of Care 171 mg/dl (65-105)
--- NOTE | 2023-06-17 12:19 | WPDINTPN ---
Progress Note: A&P Assessment and Plan (1) Septic shock: Code(s): A41.9 - Sepsis, unspecified organism; R65.21 - Severe sepsis with septic shock Status: Acute Assessment and Plan: patient presented with generalized weakening, lethargy, was found to be febrile, hypotensive in the ER CT scan showed right ureteral stone with mild hydronephrosis, - 06/14: status post Right retrograde pyelogram, right ureteral stent secondary to distal right ureteral stone. - acute kidney injury, hypotension - central line was inserted in the ICU and patient was started on Levophed -wean Levophed to maintain mean arterial pressures > 65 mmHg for adequate end organ perfusion - 06/14/2023 Blood cultures: E coli, pansensitive - 06/14/2023 urine cultures: E coli, pansensitive -will switch meropenem to ceftriaxone (06/17) -DC meropenem (06/16). Vancomycin discontinued on (06/15) - 06/17: Chest x-ray this morning: Mild central congestive change and minimal pleural effusions. Stable cardiomegaly with pacemaker device. (2) Bacteremia: Code(s): R78.81 - Bacteremia Status: Acute Assessment and Plan: as above (3) Acute renal failure superimposed on stage 3a chronic kidney disease: Code(s): N17.9 - Acute kidney failure, unspecified; N18.31 - Chronic kidney disease, stage 3a Status: Acute Assessment and Plan: patient with acute on chronic renal failure, likely related hypotension, UTI, septic shock/infection, ATN, obstruction. Patient also Lasix, losartan at home which could also be a factor. - baseline creatinine 1.25-1.30 - Patient received adequate IV flui -Off vasopressor -discontinue bicarb infusion -status post albumin for intravascular volume expansion - continue to monitor urine output, renal function electrolytes. - Nephrology has been consulted and appreciate their input - 06/15/2023: Renal ultrasound was unremarkable -06/16: minimal urine output, creatinine increasing, discussed with Nephrology, will try Lasix 60 mg IV x1 as patient is 6100 mL in positive fluid balance 06/17: Urine output has picked up, discussed with Nephrology, will try Lasix 60 mg IV x1 again as patient still in positive fluid balance (4) Chronic obstructive pulmonary disease, unspecified: Code(s): J44.9 - Chronic obstructive pulmonary disease, unspecified Status: Acute Assessment and Plan: continue BiPAP intermittent with high-flow therapy -and through the (5) Obstructive sleep apnea (adult) (pediatric): Code(s): G47.33 - Obstructive sleep apnea (adult) (pediatric) Status: Acute Assessment and Plan: continue BiPAP at night, (6) Ureteral stone: Code(s): N20.1 - Calculus of ureter Status: Acute Assessment and Plan: 06/14: status post Right retrograde pyelogram, right ureteral stent secondary to distal right ureteral stone. - urology following the patient (7) Urinary tract infection: Code(s): N39.0 - Urinary tract infection, site not specified Status: Acute Assessment and Plan: treatment as above (8) Insulin dependent type 2 diabetes mellitus: Code(s): E11.9 - Type 2 diabetes mellitus without complications; Z79.4 - terminal carman (current) use of insulin Status: Acute Assessment and Plan: continue sliding scale insulin and Accu-Cheks Plan DVT prophylaxis: Eliquis Stress ulcer prophylaxis: Protonix Nutrition: heart healthy diet Code Status: do not resuscitate Critical Care Time Spent: 32 minutes Discussed with patient at the son at bedside and updated on patient's condition and plan of care. I also discussed with 2 daughters were yet during rounds. The aware that patient is off pressors, kidney functions have normalized, have ordered PT/OT, Due to a high probability of clinically significant, life threatening deterioration, the patient required my highest level of preparedness to intervene emergently and I pe
[2023-06-17] MEDS: cefTRIAXone 2 GM/NS 100 ML 2 GM/100 ML BAG IVPB (12:53)
[2023-06-17 16:15] LABS: Glucose Point of Care 184 mg/dl (65-105)
--- NOTE | 2023-06-17 17:36 | PM.IMPN ---
Progress Note: A&P Assessment and Plan (1) Septic shock: Code(s): A41.9 - Sepsis, unspecified organism; R65.21 - Severe sepsis with septic shock Status: Acute Assessment and Plan: Patient presented with generalized weakening, lethargy, was found to be febrile, hypotensive in the ER. UA c/w UTI. CT scan showed right ureteral stone with mild hydronephrosis. HARMONY. HoTN -06/14: status post Right retrograde pyelogram, right ureteral stent secondary to distal right ureteral stone. -central line was inserted in the ICU and patient was started on Levophed -BCx 06/14: EColi 2/2 bottles that are pansensitive -UCx 06/14: E coli that is pansensitive. Pressors weaned off 06/16 WBC peaked at 33K, bands 37% but better today with normal WBC - in the ER patient received ceftriaxone and azithromycin x1 dose but changed to meropenem and vancomycin (06/15) Abx changed to Rocephin today. Continue IV abx (2) Bacteremia: Code(s): R78.81 - Bacteremia Status: Acute Assessment and Plan: As above (3) Acute renal failure superimposed on stage 3a chronic kidney disease: Code(s): N17.9 - Acute kidney failure, unspecified; N18.31 - Chronic kidney disease, stage 3a Status: Acute Assessment and Plan: Patient with acute on chronic renal failure likely related to HoTN, UTI, obstructive process, ATN, septic shock/infection and medications. Patient was on Lasix, losartan at home which could also be a factor. - baseline creatinine 1.25-1.30; Cr 3.0 on admission and better today at 3.3 -06/15/2023: Renal ultrasound was unremarkable -Patient received adequate IV fluids -Was on bicarb infusion but weaned off now -Albumin was for intravascular volume expansion but off now -Lasix once on 06/16 and 06/17 -UOP better Nephrology consulted and appreciate their input Monitor urine output, renal function and electrolytes (4) Chronic obstructive pulmonary disease, unspecified: Code(s): J44.9 - Chronic obstructive pulmonary disease, unspecified Status: Acute Assessment and Plan: Stable. Continue BiPAP at night and with naps o/w O2 via nasal cannula. Wean off O2 as toelrated (5) Obstructive sleep apnea (adult) (pediatric): Code(s): G47.33 - Obstructive sleep apnea (adult) (pediatric) Status: Acute Assessment and Plan: Continue BiPAP at night and with naps (6) Ureteral stone: Code(s): N20.1 - Calculus of ureter Status: Acute Assessment and Plan: Patient presents with obstructing renal stone. -06/14: status post Right retrograde pyelogram, right ureteral stent secondary to distal right ureteral stone. Still having bloody urine Hgb dropping 13.1->12.2->9.6->9.7 Hold Eliquis if continues to drop Urology following and appreciate their input (7) Urinary tract infection: Code(s): N39.0 - Urinary tract infection, site not specified Status: Acute Assessment and Plan: As above. (8) Insulin dependent type 2 diabetes mellitus: Code(s): E11.9 - Type 2 diabetes mellitus without complications; Z79.4 - terminal operator (current) use of insulin Status: Acute Assessment and Plan: A1c 6.8. The patient's blood glucose was reviewed on 06/17 Glucose remains well controlled. Continue AccuCheks covering with sliding scale. Hypoglycemia protocol available as needed. Continue to follow Plan DVT prophylaxis: Eliquis Stress ulcer prophylaxis: Protonix Nutrition: heart healthy, diabetic diet Code Status: do not resuscitate Disp - PT/OT. okay to remove femoral line to allow for patient to be up Subjective Date/time seen: 06/17/23 17:36 Interval history: 83yo female with DM, CKD, HTN, SUNNY, PM for SSS and pAFib here for weakness and found to have septic shock, HARMONY and infected obstructing renal stone s/p cystoscopy, right retrograde pyelogram, right ureteral stent secondary to distal right ureteral stone.? No SOB o
[2023-06-17] MEDS: INSULIN ASPART (*BKC) 100 UNITS/ML SUB-Q (23:06)
[2023-06-17 23:13] LABS: Glucose Point of Care 213 mg/dl (65-105)
[2023-06-18] VITALS (21 sets, daily range): BP systolic 126–138; BP diastolic 52–78; PULSE 65–98; RESP 15–25; TEMP 36.2–36.8; O2SAT 90–99
[2023-06-18] MEDS: IPRATROPIUM BR 0.02% INH SOLN 0.5 MG/2.5 ML VIAL INHALATION ×4 (02:35→19:51)
[2023-06-18] MEDS: ALBUTEROL SULFATE NEB 2.5 MG/3 ML INH INHALATION ×4 (02:35→19:50)
[2023-06-18 03:34] LABS: Basophils Percent Auto 0.5 % (0.2-1.2); Eosinophils Absolute Auto 0.2 K/mm3 (0-0.3); Eosinophils Percent Auto 2.3 % (0-4.4); Hematocrit 34.2 % (37.0-47.0); Hemoglobin 10.6 g/dL (12.0-15.0); Immature Granulocyte Absolute 0.05 K/mm3 (0.00-0.031); Immature Granulocyte Percent A 0.6 % (0-0.5); Immature Platelet Fraction Pct 8.5 % (0.9-11.2); Lymphocytes Absolute Auto 1.17 K/mm3 (0.9-3.2); Lymphocytes Percent Auto 14.8 % (18.3-44.2); Mean Corpuscular Hemoglobin 30.9 pg (26-34); Mean Corpuscular Volume 99.7 fl (80-100); Mean Platelet Volume 11.8 fl (7.4-10.4); Monocytes Absolute Auto 0.8 K/mm3 (0.1-0.6); Monocytes Percent Auto 10.1 % (2.6-8.5); Neutrophils Absolute Auto 5.7 K/mm3 (1.3-6.7); Neutrophils Percent Auto 71.7 % (45.5-73.1); Platelet Count Result 97 k/mm3 (150-375); Red Blood Count 3.43 M/mm3 (4.2-5.4); Red Cell Distribution Width 14.6 % (11.5-14.5); White Blood Count 7.9 K/mm3 (4.5-10.0)
[2023-06-18 03:45] LABS: Lactic Acid Reflex 1.4 mmol/L (0.7-2.0)
[2023-06-18 03:52] LABS: Alanine Aminotransferase 97 U/L (6-35); Albumin Level 3.7 g/dL (3.5-5.1); Alkaline Phosphatase 57 U/L (38-126); Anion Gap 12 mmol/L (8-16); Aspartate Amino Transferase 59 U/L (14-36); Blood Urea Nitrogen 59 mg/dL (7-17); Calcium 8.3 mg/dL (8.4-10.2); Carbon Dioxide 25 mmol/L (22-30); Chloride 99 mmol/L (98-107); Creatine Kinase 49 U/L (30-135); Estimated CRCL calculation 18 ml/min; Estimated Glomerular Filt Rate 17; Glucose 188 mg/dL (65-110); Magnesium 1.9 mg/dL (1.6-2.3); Phosphorus 4.3 mg/dL (2.5-4.5); Potassium 3.8 mmol/L (3.4-5.0); Sodium 136 mmol/L (137-145)
[2023-06-18 04:12] LABS: Anisocytosis 1+ (NORMAL); Platelet Estimate Decreased (Adequate)
[2023-06-18 04:13] LABS: Poikilocytosis 1+ (NORMAL); Schistocytes None Seen (NORMAL)
[2023-06-18] MEDS: CENTRAL LINE FLUSH 10 ML IV PUSH (05:34)
[2023-06-18 07:59] LABS: Glucose Point of Care 148 mg/dl (65-105)
[2023-06-18] MEDS: APIXABAN 2.5 MG TABLET PO ×2 (08:43→20:53)
[2023-06-18] MEDS: cefTRIAXone 2 GM/NS 100 ML 2 GM/100 ML BAG IVPB (08:46)
[2023-06-18] MEDS: PANTOPRAZOLE SODIUM IV 40 MG VIAL IV PUSH (08:46)
[2023-06-18] MEDS: UMECLIDINIUM/VILANTEROL 62.5-25 MCG ELLIPTA 1 PUFF INHALATION (08:57)
--- NOTE | 2023-06-18 09:32 | P.PNNP_ITS ---
Progress Note: A&P Assessment and Plan (1) HARMONY (acute kidney injury): Code(s): N17.9 - Acute kidney failure, unspecified Status: Acute Assessment and Plan: * slow improvement * due to multifactorial ATN: * hypotension/hemodynamic instability/shock * obstruction * infection/sepsis (UTI/bacteremia...etc) * diuretic use + ARB therapy prior to admission * pre-renal factors * s/p adequate/aggressive IVFs * off vasopressor therapy * PRN IV diuretic therapy * follow repeat labs and UOP (2) Stage 3b chronic kidney disease: Code(s): N18.32 - Chronic kidney disease, stage 3b Status: Acute Assessment and Plan: * baseline creatinine ~ 1.25 - 1.3mg/dl for the last few years * presumably due to diabetes, hypertension, vascular disease, and age (3) Septic shock: Code(s): A41.9 - Sepsis, unspecified organism; R65.21 - Severe sepsis with septic shock Status: Acute Assessment and Plan: * as noted by fever, hypotension, leukocytosis, and HARMONY * off vasopressor therapy * suspect urosepsis: * blood and urine cultures with E.coli * on antibiotics * follow trend of hemodynamics (4) Ureteral stone: Code(s): N20.1 - Calculus of ureter Status: Acute Assessment and Plan: * CT scan on admission showed right ureteral stone with mild hydronephrosis * s/p rght retrograde pyelogram, right ureteral stent placement (on 06/14/23) * Urology following (5) Urinary tract infection: Code(s): N39.0 - Urinary tract infection, site not specified Status: Acute Assessment and Plan: * admission UA highly suggestive * urine culture with E. coli * on antibiotics (6) Chronic obstructive pulmonary disease, unspecified: Code(s): J44.9 - Chronic obstructive pulmonary disease, unspecified Status: Chronic Assessment and Plan: * known history * complicated by known SUNNY as well * continue BiPAP intermittent with high-flow therapy (7) Insulin dependent type 2 diabetes mellitus: Code(s): E11.9 - Type 2 diabetes mellitus without complications; Z79.4 - [facility] (current) use of insulin Status: Chronic Assessment and Plan: * follow accu-cheks * glycemic control per hospitalists Will continue to follow. Subjective Date/time seen: 06/18/23 09:32 Interval history: Follow-up for acute kidney injury/acute renal failure on chronic kidney disease. Transferred out of ICU yesterday; respiratory status as well as renal function appear to be improving; good urine output in response to IV lasix yesterday; no apparent distress noted; no issues/evetns overnight or earlier this morning. Exam Narrative: General: elderly but WD/WN female in NAD Heart: normal S1 and S2; no rub Lungs: coarse breath sounds Abdomen: soft, nontender, nondistended, positive bowel sounds Extremities: no cyanosis or clubbing; 1+ edema Skin: warm and intact Objective Data Vital Signs Vital Signs: Vital Signs Temp Pulse Resp BP Pulse Ox O2 Del Method O2 Flow Rate 06/18/23 09:23 95 Nasal Cannula 2 06/18/23 09:11 70 25 H 06/18/23 08:58 73 25 H 06/18/23 07:51 98.0 F 76 25 H 130/67 98 06/18/23 05:41 97.1 F L 71 21 H 134/78 99 06/18/23 02:50 71 23 H 06/18/23 02:35 68 23 H 98 BiPAP
--- NOTE | 2023-06-18 09:32 | PM.PNNEP ---
Progress Note: A&P Assessment and Plan (1) HARMONY (acute kidney injury): Code(s): N17.9 - Acute kidney failure, unspecified Status: Acute Assessment and Plan: slow improvement due to multifactorial ATN: hypotension/hemodynamic instability/shock obstruction infection/sepsis (UTI/bacteremia...etc) diuretic use + ARB therapy prior to admission pre-renal factors s/p adequate/aggressive IVFs off vasopressor therapy PRN IV diuretic therapy follow repeat labs and UOP (2) Stage 3b chronic kidney disease: Code(s): N18.32 - Chronic kidney disease, stage 3b Status: Acute Assessment and Plan: baseline creatinine ~ 1.25 - 1.3mg/dl for the last few years presumably due to diabetes, hypertension, vascular disease, and age (3) Septic shock: Code(s): A41.9 - Sepsis, unspecified organism; R65.21 - Severe sepsis with septic shock Status: Acute Assessment and Plan: as noted by fever, hypotension, leukocytosis, and HARMONY off vasopressor therapy suspect urosepsis: blood and urine cultures with E.coli on antibiotics follow trend of hemodynamics (4) Ureteral stone: Code(s): N20.1 - Calculus of ureter Status: Acute Assessment and Plan: CT scan on admission showed right ureteral stone with mild hydronephrosis s/p rght retrograde pyelogram, right ureteral stent placement (on 06/14/23) Urology following (5) Urinary tract infection: Code(s): N39.0 - Urinary tract infection, site not specified Status: Acute Assessment and Plan: admission UA highly suggestive urine culture with E. coli on antibiotics (6) Chronic obstructive pulmonary disease, unspecified: Code(s): J44.9 - Chronic obstructive pulmonary disease, unspecified Status: Chronic Assessment and Plan: known history complicated by known SUNNY as well continue BiPAP intermittent with high-flow therapy (7) Insulin dependent type 2 diabetes mellitus: Code(s): E11.9 - Type 2 diabetes mellitus without complications; Z79.4 - [facility] (current) use of insulin Status: Chronic Assessment and Plan: follow accu-cheks glycemic control per hospitalists Will continue to follow. Subjective Date/time seen: 06/18/23 09:32 Interval history: Follow-up for acute kidney injury/acute renal failure on chronic kidney disease. Transferred out of ICU yesterday; respiratory status as well as renal function appear to be improving; good urine output in response to IV lasix yesterday; no apparent distress noted; no issues/evetns overnight or earlier this morning. Exam Narrative: General: elderly but WD/WN female in NAD Heart: normal S1 and S2; no rub Lungs: coarse breath sounds Abdomen: soft, nontender, nondistended, positive bowel sounds Extremities: no cyanosis or clubbing; 1+ edema Skin: warm and intact Objective Data Vital Signs Vital Signs: Vital Signs Temp Pulse Resp BP Pulse Ox O2 Del Method O2 Flow Rate 06/18/23 09:23 95 Nasal Cannula 2 06/18/23 09:11 70 25 H 06/18/23 08:58 73 25 H 06/18/23 07:51 98.0 F 76 25 H 130/67 98 06/18/23 05:41 97.1 F L 71 21 H 134/78 99 06/18/23 02:50 71 23 H 06/18/23 02:35 68 23 H 98 BiPAP 06/17/23 20:44 81 24 H 06/17/23 23:30 73 22 H 99 BiPAP 06/18/23 02:36 68 23 H 06/17/23 20:00 96 Nasal Cannula 2 06/17/23 23:09 97.9 F 70 25 H 113/63 96 06/17/23 20:30 97 Nasal Cannula 2 06/17/23 20:30 79 24 H 06/17/23 18:00 69 06/17/23 16:00 67 22 H 99 Nasal Cannula 2 06/17/23 16:00 97.4 F L 67 22 H 116/70 99 06/17/23 16:00 67 06/17/23 14:00 72 24 H 132/78 96 06/17/23 14:00 72 06/17/23 13:34 67 22 H 06/17/23 12:00 65 24 H 96 Nasal Cannula 2 06/17/23 13:12 65 24 H 06/17/23 13:11 67 24 H 96 Nasal
[2023-06-18 11:44] LABS: Glucose Point of Care 169 mg/dl (65-105)
--- NOTE | 2023-06-18 11:58 | IVDEFINITY ---
Prior to administration of IV Definity the patient was educated on the risks and benefits of the imaging enhancing agent including potential adverse side effects. The patient verbalized understanding. Allergies were verified. No exclusion criteria were identified and at least one of the following inclusion criteria were met: 1) physician request, 2) patient technically difficult to image (per the [place] [employer] guidelines of two or more segments not discernable within the apical view), or 3) questionable left ventricular function. ?
--- NOTE | 2023-06-18 12:03 | PM.IMPN ---
Progress Note: A&P Assessment and Plan (1) Septic shock: Code(s): A41.9 - Sepsis, unspecified organism; R65.21 - Severe sepsis with septic shock Status: Acute Assessment and Plan: Patient presented with generalized weakening, lethargy, was found to be febrile, hypotensive in the ER. UA c/w UTI. CT scan showed right ureteral stone with mild hydronephrosis. HARMONY. HoTN -06/14: status post right retrograde pyelogram, right ureteral stent secondary to distal right ureteral stone. -central line was inserted in the ICU and patient was started on Levophed -BCx 06/14: EColi 2/2 bottles that are pansensitive -UCx 06/14: E coli that is pansensitive. Pressors weaned off 06/16 WBC peaked at 33K, bands 37% but WBC now normal - in the ER patient received ceftriaxone and azithromycin x1 dose but changed to meropenem and vancomycin (06/15) Abx changed to Rocephin 06/18 Continue abx but can downgrade to oral (2) Bacteremia: Code(s): R78.81 - Bacteremia Status: Acute Assessment and Plan: As above (3) Acute renal failure superimposed on stage 3a chronic kidney disease: Code(s): N17.9 - Acute kidney failure, unspecified; N18.31 - Chronic kidney disease, stage 3a Status: Acute Assessment and Plan: Patient with acute on chronic renal failure likely related to HoTN, UTI, obstructive process, ATN, septic shock/infection and medications. Patient was on Lasix, losartan at home which could also be a factor. - baseline creatinine 1.25-1.30; Cr 3.0 on admission and better today at 2.7 -06/15/2023: Renal ultrasound was unremarkable -Patient received adequate IV fluids -Was on bicarb infusion but weaned off now -Albumin was for intravascular volume expansion but off now -Lasix once on 06/16 and 06/17 -UOP: 1700mL yesterday and 900mL so far today. Nephrology consulted and appreciate their input Monitor urine output, renal function and electrolytes Rinse bladder (4) Chronic obstructive pulmonary disease, unspecified: Code(s): J44.9 - Chronic obstructive pulmonary disease, unspecified Status: Acute Assessment and Plan: Stable. Continue BiPAP at night and with naps o/w O2 via nasal cannula. Wean off O2 as tolerated (5) Obstructive sleep apnea (adult) (pediatric): Code(s): G47.33 - Obstructive sleep apnea (adult) (pediatric) Status: Acute Assessment and Plan: Continue BiPAP at night and with naps (6) Ureteral stone: Code(s): N20.1 - Calculus of ureter Status: Acute Assessment and Plan: Patient presents with obstructing renal stone. -06/14: status post Right retrograde pyelogram, right ureteral stent secondary to distal right ureteral stone. Still having bloody urine Hgb dropping 13.1->12.2->9.6->9.7->10.6 Figueredo rinsed with small clots but flowing well. Urology informed. Appreciate their input (7) Urinary tract infection: Code(s): N39.0 - Urinary tract infection, site not specified Status: Acute Assessment and Plan: As above. 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 The patient's blood glucose was reviewed on 06/18 Glucose remains well controlled. Continue AccuCheks covering with sliding scale. Hypoglycemia protocol available as needed. Continue to follow Plan DVT prophylaxis: Eliquis renally adjusted Stress ulcer prophylaxis: Protonix Nutrition: heart healthy, diabetic diet Code Status: do not resuscitate Disp - PT/OT. Subjective Date/time seen: 06/18/23 12:03 Interval history: 83yo female with DM, CKD, HTN, SUNNY, PM for SSS and pAFib here for weakness and found to have septic shock, HARMONY and infected obstructing renal stone s/p cystoscopy, right retrograde pyelogram, right ureteral stent secondary to distal rig
[2023-06-18 13:00] LABS: Chloride Rand Ur 103 mmol/L (32-290); Chloride/Creatinine Rand Ur 158 (38-318); Creatinine Random Urine 65 mg/dL (20-275)
--- NOTE | 2023-06-18 14:14 | WPDUROPN2 ---
Progress Note: A&P Assessment and Plan (1) Septic shock: Code(s): A41.9 - Sepsis, unspecified organism; R65.21 - Severe sepsis with septic shock Status: Acute (2) Urinary tract infection: Code(s): N39.0 - Urinary tract infection, site not specified Status: Acute (3) Right ureteral stone: Code(s): N20.1 - Calculus of ureter Status: Acute Plan -continue antibiotics. -plan repeat urine culture prior to discharge from the hospital -she will need ureteroscopy with stone removal and stent exchange when he clinically improved. This can be completed prior to discharge or likely as outpatient. -hematuria as expected. Keep valle in for I&O purposes and remove when no longer needed for a voiding trial. Subjective Subjective Date/Time Seen: 06/18/23 14:14 Interval history: No acute distress. Patient feeling better Exam Narrative: Patient is awake and alert. No acute distress. Breathing is unlabored. Her urine is pink the Valle catheter Objective Data Vital Signs Vital Signs: Vital Signs - 24 hr 06/17/23 16:00 06/17/23 16:00 06/17/23 16:00 Temperature 36.3 C L Pulse Rate 67 67 67 Respiratory Rate 22 H 22 H Blood Pressure 116/70 Pulse Oximetry 99 99 Oxygen Delivery Nasal Cannula Oxygen Flow Rate 2 06/17/23 18:00 06/17/23 20:30 06/17/23 20:30 Temperature Pulse Rate 69 79 Respiratory Rate 24 H Blood Pressure Pulse Oximetry 97 Oxygen Delivery Nasal Cannula Oxygen Flow Rate 2 06/17/23 23:09 06/17/23 20:00 06/18/23 02:36 Temperature 36.6 C Pulse Rate 70 68 Respiratory Rate 25 H 23 H Blood Pressure 113/63 Pulse Oximetry 96 96 Oxygen Delivery Nasal Cannula Oxygen Flow Rate 2 06/17/23 23:30 06/17/23 20:44 06/18/23 02:35 Temperature Pulse Rate 73 81 68 Respiratory Rate 22 H 24 H 23 H Blood Pressure Pulse Oximetry 99 98 Oxygen Delivery BiPAP BiPAP Oxygen Flow Rate 06/18/23 02:50 06/18/23 05:41 06/18/23 07:51 Temperature 36.2 C L 36.7 C Pulse Rate 71 71 76 Respiratory Rate 23 H 21 H 25 H Blood Pressure 134/78 130/67 Pulse Oximetry 99 98 Oxygen Delivery Oxygen Flow Rate 06/18/23 08:58 06/18/23 09:11 06/18/23 09:53 Temperature Pulse Rate 73 70 Respiratory Rate 25 H 25 H Blood Pressure Pulse Oximetry 95 Oxygen Delivery Nasal Cannula Oxygen Flow Rate 2 06/18/23 08:00 06/18/23 13:48 06/18/23 13:50 Temperature Pulse Rate 70 98 Respiratory Rate 15 22 H Blood Pressure Pulse Oximetry 96 95 Oxygen Delivery Nasal Cannula Nasal Cannula Oxygen Flow Rate 2 2 06/18/23 14:03 Temperature Pulse Rate 68 Respiratory Rate 20 Blood Pressure Pulse Oximetry Oxygen Delivery Oxygen Flow Rate Intake/Output Intake/Output: Intake & Output 06/15/23 06/16/23 06/17/23 06/18/23 23:59 23:59 23:59 23:59 Intake Total 2740 1010 520 720 Output Total 343 988 5952 900 Balance 2595 510 -1180 -180 Meds/Results Medications: Active Medications Generic Name Dose Route Start Last Admin Trade Name Freq PRN Reason Stop Dose Admin Acetaminophen 650 mg 06/14/23 14:40 06/15/23 16:55 Acetaminophen 325 Mg Tablet PO 650 mg Q4H PRN Administration Mild Pain (1-3) or Fever Albuterol 2.5 mg 06/15/23 14:00 06/18/23 13:48 Albuterol Sulfate Neb 2.5 Mg/3 Ml Inh INHALATION 2.5 mg Q6HRT HUNTER Administration Amoxicillin/Clavulanate Potassium 1 tablet 06/19/23 06:00 Amoxicillin/Clavulanate K 500-125 Mg Tab PO 06/27/23 22:01 Q8HR HUNTER Apixaban 2.5 mg 06/18/23 09:00 06/18/23 08:43 Apixaban 2.5 Mg Tablet PO 2.5 mg Q12HR HUNTER Administration Dextrose 12.5 gm 06/14/23 23:16 Dextrose 50% 25 Gm/50 Ml Syringe IV PUSH PRN PRN Hypoglycemia Protocol Glucagon 1 mg 06/14/23 23:16 Glucagon For Inj 1 Mg Vial IM PRN PRN Hypoglycemia Protocol Glucose 15 gm 06/14/23 23:16 Glucose Oral Gel 15 Gm Of Gl
[2023-06-18 16:48] LABS: Glucose Point of Care 168 mg/dl (65-105)
[2023-06-18] MEDS: ACETAMINOPHEN 325 MG TABLET 650 MG PO (19:41)
--- NOTE | 2023-06-18 20:15 | PC.NURSE ---
This patient, Eliza Dueñas, was transferred to [facility] on 06/18/23 at 2015. Personal belongings sent with patient. Report given to SYDNIE Pérez. Appropriate documentation sent with patient.
--- NOTE | 2023-06-18 20:41 | PC.NURSE ---
Patient arrived on unit at 2030 hrs from ICU with family and oriented to the room no signs of distress at this time and patient verbalized understanding.
[2023-06-18 21:18] LABS: Glucose Point of Care 171 mg/dl (65-105)
[2023-06-19] VITALS (14 sets, daily range): BP systolic 122–141; BP diastolic 60–69; PULSE 63–78; RESP 16–22; TEMP 36.4–36.6; O2SAT 92–97; BMI 10.0
[2023-06-19] MEDS: IPRATROPIUM BR 0.02% INH SOLN 0.5 MG/2.5 ML VIAL INHALATION ×4 (02:35→20:02)
[2023-06-19] MEDS: ALBUTEROL SULFATE NEB 2.5 MG/3 ML INH INHALATION ×4 (02:35→20:02)
[2023-06-19 05:13] LABS: Basophils Absolute Auto 0.1 K/mm3 (0.0-0.1); Basophils Percent Auto 0.7 % (0.2-1.2); Eosinophils Absolute Auto 0.3 K/mm3 (0-0.3); Eosinophils Percent Auto 4.1 % (0-4.4); Hematocrit 34.3 % (37.0-47.0); Hemoglobin 10.5 g/dL (12.0-15.0); Immature Granulocyte Absolute 0.16 K/mm3 (0.00-0.031); Immature Granulocyte Percent A 2.2 % (0-0.5); Immature Platelet Fraction Pct 7.7 % (0.9-11.2); Lymphocytes Absolute Auto 1.06 K/mm3 (0.9-3.2); Lymphocytes Percent Auto 14.4 % (18.3-44.2); Mean Corpuscular HGB Conc 30.6 g/dl (32-36); Mean Corpuscular Volume 101.2 fl (80-100); Mean Platelet Volume 11.9 fl (7.4-10.4); Monocytes Absolute Auto 0.8 K/mm3 (0.1-0.6); Monocytes Percent Auto 11.3 % (2.6-8.5); Neutrophils Percent Auto 67.3 % (45.5-73.1); Platelet Count Result 105 k/mm3 (150-375); Red Blood Count 3.39 M/mm3 (4.2-5.4); Red Cell Distribution Width 14.6 % (11.5-14.5); White Blood Count 7.4 K/mm3 (4.5-10.0)
[2023-06-19 05:29] LABS: Alanine Aminotransferase 67 U/L (6-35); Albumin Level 3.6 g/dL (3.5-5.1); Alkaline Phosphatase 55 U/L (38-126); Anion Gap 12 mmol/L (8-16); Aspartate Amino Transferase 39 U/L (14-36); Blood Urea Nitrogen 59 mg/dL (7-17); Calcium 8.4 mg/dL (8.4-10.2); Carbon Dioxide 26 mmol/L (22-30); Chloride 99 mmol/L (98-107); Creatine Kinase 45 U/L (30-135); Estimated CRCL calculation 22 ml/min; Estimated Glomerular Filt Rate 21; Glucose 182 mg/dL (65-110); Magnesium 1.8 mg/dL (1.6-2.3); Phosphorus 4.2 mg/dL (2.5-4.5); Potassium 3.5 mmol/L (3.4-5.0); Sodium 137 mmol/L (137-145)
[2023-06-19] MEDS: AMOXICILLIN/CLAVULANATE K 500-125 MG TAB 1 TABLET PO ×3 (06:03→20:22)
[2023-06-19] MEDS: UMECLIDINIUM/VILANTEROL 62.5-25 MCG ELLIPTA 1 PUFF INHALATION (06:21)
[2023-06-19 08:11] LABS: Glucose Point of Care 182 mg/dl (65-105)
[2023-06-19] MEDS: BUMETANIDE INJ 1 MG/4 ML VIAL 0.5 MG IV PUSH (11:03)
[2023-06-19] MEDS: PANTOPRAZOLE 40 MG TABLET PO (11:04)
[2023-06-19] MEDS: APIXABAN 2.5 MG TABLET PO ×2 (11:04→20:22)
[2023-06-19 11:54] LABS: Glucose Point of Care 187 mg/dl (65-105)
--- NOTE | 2023-06-19 12:37 | P.PNNP_ITS ---
Progress Note: A&P Assessment and Plan (1) HARMONY (acute kidney injury): Code(s): N17.9 - Acute kidney failure, unspecified Status: Acute Assessment and Plan: * slow and steady improvement * due to multifactorial ATN: * hypotension/hemodynamic instability/shock * obstruction * infection/sepsis (UTI/bacteremia...etc) * diuretic use + ARB therapy prior to admission * pre-renal factors * s/p adequate/aggressive IVFs * off vasopressor therapy * PRN IV diuretic therapy * follow repeat labs and UOP (2) Stage 3b chronic kidney disease: Code(s): N18.32 - Chronic kidney disease, stage 3b Status: Acute Assessment and Plan: * baseline creatinine ~ 1.25 - 1.3mg/dl for the last few years * presumably due to diabetes, hypertension, vascular disease, and age (3) Septic shock: Code(s): A41.9 - Sepsis, unspecified organism; R65.21 - Severe sepsis with septic shock Status: Acute Assessment and Plan: * as noted by fever, hypotension, leukocytosis, and HARMONY * off vasopressor therapy * suspect urosepsis: * blood and urine cultures with E.coli * on antibiotics * follow trend of hemodynamics (4) Ureteral stone: Code(s): N20.1 - Calculus of ureter Status: Acute Assessment and Plan: * CT scan on admission showed right ureteral stone with mild hydronephrosis * s/p rght retrograde pyelogram, right ureteral stent placement (on 06/14/23) * Urology following (5) Urinary tract infection: Code(s): N39.0 - Urinary tract infection, site not specified Status: Acute Assessment and Plan: * admission UA highly suggestive * urine culture with E. 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 Plan IV bumex today Subjective Date/time seen: 06/19/23 12:37 Interval history: Follow-up for acute kidney injury/acute renal failure on chronic kidney disease. Respiratory status continues to improve if not stabilize along with renal function as noted by good urine output (albeit in response to diuretics) with downtrending creatinine; only complaint is feeling bloated and denies any shortness of breath or chest pain; trying to ambulate/move around in the room to see if this helps her feel better; no issues/events overnight or earlier this morning. Exam Narrative: General: elderly but WD/WN female in NAD Heart: normal S1 and S2; no rub Lungs: coarse breath sounds Abdomen: soft, nontender, nondistended, positive bowel sounds Extremities: no cyanosis or clubbing; 1+ edema Skin: no rash Objective Data Vital Signs Vital Signs: Vital Signs Temp Pulse Resp BP Pulse Ox O2 Del Method O2 Flow Rate 06/19/23 12:00 97.9 F 70 20 130/68 93 06/19/23 10:55 Room Air 06/19/23 06:22 74 20 92 Room
--- NOTE | 2023-06-19 12:37 | PM.PNNEP ---
Progress Note: A&P Assessment and Plan (1) HARMONY (acute kidney injury): Code(s): N17.9 - Acute kidney failure, unspecified Status: Acute Assessment and Plan: slow and steady improvement due to multifactorial ATN: hypotension/hemodynamic instability/shock obstruction infection/sepsis (UTI/bacteremia...etc) diuretic use + ARB therapy prior to admission pre-renal factors s/p adequate/aggressive IVFs off vasopressor therapy PRN IV diuretic therapy follow repeat labs and UOP (2) Stage 3b chronic kidney disease: Code(s): N18.32 - Chronic kidney disease, stage 3b Status: Acute Assessment and Plan: baseline creatinine ~ 1.25 - 1.3mg/dl for the last few years presumably due to diabetes, hypertension, vascular disease, and age (3) Septic shock: Code(s): A41.9 - Sepsis, unspecified organism; R65.21 - Severe sepsis with septic shock Status: Acute Assessment and Plan: as noted by fever, hypotension, leukocytosis, and HARMONY off vasopressor therapy suspect urosepsis: blood and urine cultures with E.coli on antibiotics follow trend of hemodynamics (4) Ureteral stone: Code(s): N20.1 - Calculus of ureter Status: Acute Assessment and Plan: CT scan on admission showed right ureteral stone with mild hydronephrosis s/p rght retrograde pyelogram, right ureteral stent placement (on 06/14/23) Urology following (5) Urinary tract infection: Code(s): N39.0 - Urinary tract infection, site not specified Status: Acute Assessment and Plan: admission UA highly suggestive urine culture with E. coli on antibiotics (6) Chronic obstructive pulmonary disease, unspecified: Code(s): J44.9 - Chronic obstructive pulmonary disease, unspecified Status: Chronic Assessment and Plan: known history complicated by known SUNNY as well continue BiPAP intermittent with high-flow therapy (7) Insulin dependent type 2 diabetes mellitus: Code(s): E11.9 - Type 2 diabetes mellitus without complications; Z79.4 - [facility] (current) use of insulin Status: Chronic Assessment and Plan: follow accu-cheks glycemic control per hospitalists Will continue to follow. Plan IV bumex today Subjective Date/time seen: 06/19/23 12:37 Interval history: Follow-up for acute kidney injury/acute renal failure on chronic kidney disease. Respiratory status continues to improve if not stabilize along with renal function as noted by good urine output (albeit in response to diuretics) with downtrending creatinine; only complaint is feeling bloated and denies any shortness of breath or chest pain; trying to ambulate/move around in the room to see if this helps her feel better; no issues/events overnight or earlier this morning. Exam Narrative: General: elderly but WD/WN female in NAD Heart: normal S1 and S2; no rub Lungs: coarse breath sounds Abdomen: soft, nontender, nondistended, positive bowel sounds Extremities: no cyanosis or clubbing; 1+ edema Skin: no rash Objective Data Vital Signs Vital Signs: Vital Signs Temp Pulse Resp BP Pulse Ox O2 Del Method O2 Flow Rate 06/19/23 12:00 97.9 F 70 20 130/68 93 06/19/23 10:55 Room Air 06/19/23 06:22 74 20 92 Room Air 06/19/23 06:22 72 22 H 06/19/23 04:44 97.6 F 76 16 122/60 92 06/19/23 02:48 74 22 H 06/18/23 23:15 70 23 H 98 BiPAP 06/19/23 02:38 72 22 H 06/19/23 02:37 72 22 H 97 BiPAP 06/18/23 20:43 Room Air 06/18/23 20:56 97.8 F 66 16 138/52 L 90 06/18/23 20:08 70 20 06/18/23 19:45 95 Nasal Cannula 1 06/18/23 19:58 68 20 94 Room Air 06/18/23 19:57 69 20 06/18/23 19:56 65 20 95 Nasal Cannula 1 06/18/23 16:00 98.3 F 68 22 H 126/62 95 Intake/Output Intake/Output: Intake & Output 06/16/2306/17
--- NOTE | 2023-06-19 14:09 | PM.IMPN ---
Progress Note: A&P Assessment and Plan (1) Septic shock: Code(s): A41.9 - Sepsis, unspecified organism; R65.21 - Severe sepsis with septic shock Status: Acute Assessment and Plan: Patient presented with generalized weakening, lethargy, was found to be febrile, hypotensive in the ER. UA c/w UTI. CT scan showed right ureteral stone with mild hydronephrosis. HARMONY. HoTN -06/14: status post right retrograde pyelogram, right ureteral stent secondary to distal right ureteral stone. -central line was inserted in the ICU and patient was started on Levophed -BCx 06/14: EColi 2/2 bottles that are pansensitive -UCx 06/14: E coli that is pansensitive. Pressors weaned off 06/16 WBC peaked at 33K, bands 37% but WBC now normal - in the ER patient received ceftriaxone and azithromycin x1 dose but changed to meropenem and vancomycin (06/15) Abx changed to Rocephin 06/18 and now on oral Augmentin. Continue abx to complete a course (2) Bacteremia: Code(s): R78.81 - Bacteremia Status: Acute Assessment and Plan: As above (3) Acute renal failure superimposed on stage 3a chronic kidney disease: Code(s): N17.9 - Acute kidney failure, unspecified; N18.31 - Chronic kidney disease, stage 3a Status: Acute Assessment and Plan: Patient with acute on chronic renal failure likely related to HoTN, UTI, obstructive process, ATN, septic shock/infection and medications. Patient was on Lasix, losartan at home which could also be a factor. - baseline creatinine 1.25-1.30; Cr up to 3.6. -06/15/2023: Renal ultrasound was unremarkable -Patient received adequate IV fluids -Was on bicarb infusion but weaned off now -Albumin was for intravascular volume expansion but off now -Lasix once on 06/16 and 06/17 -UOP: 1650mL yesterday and 600mL so far today. Cr trending down 3.3->2.7->2.2 Nephrology consulted and appreciate their input Monitor urine output, renal function and electrolytes Bloating may be blader spasm vs constipation. Remove Figueredo tomorrow. Add miralax (4) Chronic obstructive pulmonary disease, unspecified: Code(s): J44.9 - Chronic obstructive pulmonary disease, unspecified Status: Acute Assessment and Plan: Stable. Continue BiPAP at night and with naps Wean off O2 as tolerated Add IS (5) Obstructive sleep apnea (adult) (pediatric): Code(s): G47.33 - Obstructive sleep apnea (adult) (pediatric) Status: Acute Assessment and Plan: Continue BiPAP at night and with naps (6) Ureteral stone: Code(s): N20.1 - Calculus of ureter Status: Acute Assessment and Plan: Patient presents with obstructing renal stone. -06/14: status post right retrograde pyelogram, right ureteral stent secondary to distal right ureteral stone. Urine clearing Hgb: 13.1->12.2->9.6->9.7->10.6->10.5 Urology following and appreciate their input Remove Figueredo in am (7) Urinary tract infection: Code(s): N39.0 - Urinary tract infection, site not specified Status: Acute Assessment and Plan: As above. 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 The patient's blood glucose was reviewed on 06/19 Glucose remains well controlled. Continue AccuCheks covering with sliding scale. Hypoglycemia protocol available as needed. Continue to follow Plan DVT prophylaxis: Eliquis renally adjusted Stress ulcer prophylaxis: Protonix Nutrition: heart healthy, diabetic diet Code Status: do not resuscitate Disp - PT/OT. Subjective Date/time seen: 06/19/23 14:09 Interval history: 83yo female with DM, CKD, HTN, SUNNY, PM for SSS and pAFib here for weakness and found to have septic shock, HARMONY and infected obstructing renal stone s/p cystoscopy, right retrograde pyelogram, right ur
[2023-06-19] MEDS: polyethylene glycoL 3350 17 GM POWD.PACK PO (15:54)
[2023-06-19 17:15] LABS: Glucose Point of Care 161 mg/dl (65-105)
[2023-06-19 20:42] LABS: Glucose Point of Care 168 mg/dl (65-105)
[2023-06-20] VITALS (13 sets, daily range): BP systolic 111–149; BP diastolic 46–89; PULSE 60–74; RESP 18–22; TEMP 36.2–36.5; O2SAT 92–96
[2023-06-20] MEDS: ALBUTEROL SULFATE NEB 2.5 MG/3 ML INH INHALATION ×3 (02:02→15:16)
[2023-06-20] MEDS: IPRATROPIUM BR 0.02% INH SOLN 0.5 MG/2.5 ML VIAL INHALATION ×3 (02:02→15:16)
[2023-06-20] MEDS: AMOXICILLIN/CLAVULANATE K 500-125 MG TAB 1 TABLET PO (05:22)
[2023-06-20 05:59] LABS: Basophils Absolute Auto 0.1 K/mm3 (0.0-0.1); Basophils Percent Auto 0.7 % (0.2-1.2); Eosinophils Absolute Auto 0.3 K/mm3 (0-0.3); Eosinophils Percent Auto 3.9 % (0-4.4); Hematocrit 34.4 % (37.0-47.0); Hemoglobin 10.5 g/dL (12.0-15.0); Immature Granulocyte Absolute 0.32 K/mm3 (0.00-0.031); Immature Granulocyte Percent A 4.6 % (0-0.5); Lymphocytes Absolute Auto 1.17 K/mm3 (0.9-3.2); Lymphocytes Percent Auto 16.8 % (18.3-44.2); Mean Corpuscular HGB Conc 30.5 g/dl (32-36); Mean Corpuscular Hemoglobin 30.8 pg (26-34); Mean Corpuscular Volume 100.9 fl (80-100); Mean Platelet Volume 11.6 fl (7.4-10.4); Monocytes Absolute Auto 0.7 K/mm3 (0.1-0.6); Monocytes Percent Auto 10.6 % (2.6-8.5); Neutrophils Absolute Auto 4.4 K/mm3 (1.3-6.7); Neutrophils Percent Auto 63.4 % (45.5-73.1); Platelet Count Result 132 k/mm3 (150-375); Red Blood Count 3.41 M/mm3 (4.2-5.4); Red Cell Distribution Width 14.6 % (11.5-14.5)
[2023-06-20 06:08] LABS: Albumin Level 3.7 g/dL (3.5-5.1); Anion Gap 11 mmol/L (8-16); Blood Urea Nitrogen 51 mg/dL (7-17); Calcium 8.8 mg/dL (8.4-10.2); Carbon Dioxide 27 mmol/L (22-30); Chloride 100 mmol/L (98-107); Estimated CRCL calculation 31 ml/min; Estimated Glomerular Filt Rate 33; Glucose 161 mg/dL (65-110); Magnesium 1.6 mg/dL (1.6-2.3); Phosphorus 3.7 mg/dL (2.5-4.5); Potassium 3.5 mmol/L (3.4-5.0); Sodium 138 mmol/L (137-145)
[2023-06-20 08:04] LABS: Glucose Point of Care 158 mg/dl (65-105)
[2023-06-20] MEDS: PRAVASTATIN SODIUM 20 MG TABLET PO (09:51)
[2023-06-20] MEDS: APIXABAN 5 MG TABLET PO ×2 (09:51→20:23)
[2023-06-20] MEDS: AMOXICILLIN/CLAVULANATE K 875-125 MG TAB 1 TABLET PO ×2 (09:51→20:23)
[2023-06-20] MEDS: polyethylene glycoL 3350 17 GM POWD.PACK PO (09:51)
[2023-06-20] MEDS: PANTOPRAZOLE 40 MG TABLET PO (09:51)
[2023-06-20] MEDS: POTASSIUM CHLORIDE 20 MEQ ER TABLET PO (09:52)
[2023-06-20] MEDS: FUROSEMIDE INJ 40 MG/4 ML VIAL IV PUSH (09:52)
[2023-06-20] MEDS: UMECLIDINIUM/VILANTEROL 62.5-25 MCG ELLIPTA 1 PUFF INHALATION (10:04)
--- NOTE | 2023-06-20 10:16 | PM.IMPN ---
Progress Note: A&P Assessment and Plan (1) Septic shock: Code(s): A41.9 - Sepsis, unspecified organism; R65.21 - Severe sepsis with septic shock Status: Acute Assessment and Plan: Patient presented with generalized weakening, lethargy, was found to be febrile, hypotensive in the ER. UA c/w UTI. CT scan showed right ureteral stone with mild hydronephrosis. HARMONY. HoTN -06/14: status post right retrograde pyelogram, right ureteral stent secondary to distal right ureteral stone. -central line was inserted in the ICU and patient was started on Levophed -BCx 06/14: EColi 2/2 bottles that are pansensitive -UCx 06/14: E coli that is pansensitive. Pressors weaned off 06/16 WBC peaked at 33K, bands 37% but WBC now normal - in the ER patient received ceftriaxone and azithromycin x1 dose but changed to meropenem and vancomycin (06/15) Abx changed to Rocephin 06/18 and now on oral Augmentin (advance dose since renal function better). Continue abx to complete a course (2) Bacteremia: Code(s): R78.81 - Bacteremia Status: Acute Assessment and Plan: As above (3) Acute renal failure superimposed on stage 3a chronic kidney disease: Code(s): N17.9 - Acute kidney failure, unspecified; N18.31 - Chronic kidney disease, stage 3a Status: Acute Assessment and Plan: Patient with acute on chronic renal failure likely related to HoTN, UTI, obstructive process, ATN, septic shock/infection and medications. Patient was on Lasix, losartan at home which could also be a factor. - baseline creatinine 1.25-1.30; Cr up to 3.6. -06/15/2023: Renal ultrasound was unremarkable -Patient received adequate IV fluids -Was on bicarb infusion but weaned off now -Albumin was for intravascular volume expansion but off now -Lasix once on 06/16 and 06/17 -UOP: 1650mL yesterday and 600mL so far today. Cr trending down 3.3->2.7->2.2->1.5 Nephrology consulted and appreciate their input Monitor urine output, renal function and electrolytes Bloating may be blader spasm vs constipation. Symptoms better and having BMs but more distended today. Check KUB (4) Chronic obstructive pulmonary disease, unspecified: Code(s): J44.9 - Chronic obstructive pulmonary disease, unspecified Status: Acute Assessment and Plan: Stable. Continue BiPAP at night and with naps CXR showing worsening airspace opacities in the mid and lower lung guzman c/w edema but consider atelectasis from distended abd Check KUB. Lasix IV once. Wean off O2 as tolerated (5) Obstructive sleep apnea (adult) (pediatric): Code(s): G47.33 - Obstructive sleep apnea (adult) (pediatric) Status: Acute Assessment and Plan: Continue BiPAP at night and with naps (6) Ureteral stone: Code(s): N20.1 - Calculus of ureter Status: Acute Assessment and Plan: Patient presents with obstructing renal stone. -06/14: status post right retrograde pyelogram, right ureteral stent secondary to distal right ureteral stone. Urine clearing Hgb: 13.1->10.6 and stable Urology following and appreciate their input Remove Figueredo today (7) Urinary tract infection: Code(s): N39.0 - Urinary tract infection, site not specified Status: Acute Assessment and Plan: As above. 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 The patient's blood glucose was reviewed on 06/20 Glucose remains well controlled. Continue AccuCheks covering with sliding scale. Hypoglycemia protocol available as needed. Continue to follow Plan DVT prophylaxis: Eliquis Stress ulcer prophylaxis: Protonix Nutrition: heart healthy, diabetic diet Code Status: do not resuscitate Disp - PT/OT. SNF planned Subjective Date/time seen: 06/20/23 10:16 Interv
[2023-06-20 11:52] LABS: Hepatitis B Core Ab Total Nonreactive (Nonreactive)
[2023-06-20 11:54] LABS: Glucose Point of Care 188 mg/dl (65-105)
--- NOTE | 2023-06-20 13:11 | PM.PNNEP ---
Progress Note: A&P Assessment and Plan (1) HARMONY (acute kidney injury): Code(s): N17.9 - Acute kidney failure, unspecified Status: Acute Assessment and Plan: slow and steady improvement due to multifactorial ATN: hypotension/hemodynamic instability/shock obstruction infection/sepsis (UTI/bacteremia...etc) diuretic use + ARB therapy prior to admission pre-renal factors s/p adequate/aggressive IVFs off vasopressor therapy PRN IV diuretic therapy follow repeat labs and UOP (2) Stage 3b chronic kidney disease: Code(s): N18.32 - Chronic kidney disease, stage 3b Status: Acute Assessment and Plan: baseline creatinine ~ 1.25 - 1.3mg/dl for the last few years presumably due to diabetes, hypertension, vascular disease, and age (3) Septic shock: Code(s): A41.9 - Sepsis, unspecified organism; R65.21 - Severe sepsis with septic shock Status: Acute Assessment and Plan: as noted by fever, hypotension, leukocytosis, and HARMONY off vasopressor therapy suspect urosepsis: blood and urine cultures with E.coli on antibiotics follow trend of hemodynamics (4) Ureteral stone: Code(s): N20.1 - Calculus of ureter Status: Acute Assessment and Plan: CT scan on admission showed right ureteral stone with mild hydronephrosis s/p rght retrograde pyelogram, right ureteral stent placement (on 06/14/23) Urology following (5) Urinary tract infection: Code(s): N39.0 - Urinary tract infection, site not specified Status: Acute Assessment and Plan: admission UA highly suggestive urine culture with E. coli on antibiotics (6) Chronic obstructive pulmonary disease, unspecified: Code(s): J44.9 - Chronic obstructive pulmonary disease, unspecified Status: Chronic Assessment and Plan: known history complicated by known SUNNY as well continue BiPAP intermittent with high-flow therapy (7) Insulin dependent type 2 diabetes mellitus: Code(s): E11.9 - Type 2 diabetes mellitus without complications; Z79.4 - skilled nursing (current) use of insulin Status: Chronic Assessment and Plan: follow accu-cheks glycemic control per hospitalists Will continue to follow. Plan IV bumex today Subjective Date/time seen: 06/20/23 13:11 Interval history: Follow-up for acute kidney injury/acute renal failure on chronic kidney disease. Reports feeling less bloated today; renal function continues to improve in association with good urine output as well; breathing/respiratory status slowly gettin better also; no acute distress noted; no other issues/events overnight or earlier today. Exam Narrative: General: elderly but WD/WN female in NAD Heart: normal S1 and S2; no rub Lungs: coarse breath sounds Abdomen: soft, nontender, nondistended, positive bowel sounds Extremities: no cyanosis or clubbing; trace - 1+ edema Skin: no nodules Objective Data Vital Signs Vital Signs: Vital Signs Temp Pulse Resp BP Pulse Ox O2 Del Method O2 Flow Rate 06/20/23 13:00 97.3 F L 71 22 H 149/73 H 96 06/20/23 10:06 74 20 93 Room Air 06/20/23 10:05 70 18 06/20/23 09:32 69 22 H 149/46 H 92 06/20/23 03:39 97.7 F 69 18 111/89 92 06/20/23 02:18 62 18 06/20/23 02:04 60 18 06/19/23 20:18 66 18 06/19/23 22:55 78 20 95 BiPAP 06/19/23 20:25 93 Nasal Cannula 1 06/19/23 20:24 97.6 F 65 20 141/69 H 95 06/19/23 20:06 93 Nasal Cannula 1 06/19/23 20:04 63 18 06/19/23 16:40 71 20 06/19/23 16:20 66 20 Intake/Output Intake/Output: Intake & Output 06/17/23 06/18/23 06/19/23 06/20/23 23:59 23:59 23:59 23:59 Intake Total 520 1420 880 570 Output Total 1700 1650 600 650 Balance -1180 -230 280 -80 Meds/Results Medications: Active Medications Generic Name Dose Route Start Last Admin
--- NOTE | 2023-06-20 13:11 | P.PNNP_ITS ---
Progress Note: A&P Assessment and Plan (1) HARMONY (acute kidney injury): Code(s): N17.9 - Acute kidney failure, unspecified Status: Acute Assessment and Plan: * slow and steady improvement * due to multifactorial ATN: * hypotension/hemodynamic instability/shock * obstruction * infection/sepsis (UTI/bacteremia...etc) * diuretic use + ARB therapy prior to admission * pre-renal factors * s/p adequate/aggressive IVFs * off vasopressor therapy * PRN IV diuretic therapy * follow repeat labs and UOP (2) Stage 3b chronic kidney disease: Code(s): N18.32 - Chronic kidney disease, stage 3b Status: Acute Assessment and Plan: * baseline creatinine ~ 1.25 - 1.3mg/dl for the last few years * presumably due to diabetes, hypertension, vascular disease, and age (3) Septic shock: Code(s): A41.9 - Sepsis, unspecified organism; R65.21 - Severe sepsis with septic shock Status: Acute Assessment and Plan: * as noted by fever, hypotension, leukocytosis, and HARMONY * off vasopressor therapy * suspect urosepsis: * blood and urine cultures with E.coli * on antibiotics * follow trend of hemodynamics (4) Ureteral stone: Code(s): N20.1 - Calculus of ureter Status: Acute Assessment and Plan: * CT scan on admission showed right ureteral stone with mild hydronephrosis * s/p rght retrograde pyelogram, right ureteral stent placement (on 06/14/23) * Urology following (5) Urinary tract infection: Code(s): N39.0 - Urinary tract infection, site not specified Status: Acute Assessment and Plan: * admission UA highly suggestive * urine culture with E. 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 Plan IV bumex today Subjective Date/time seen: 06/20/23 13:11 Interval history: Follow-up for acute kidney injury/acute renal failure on chronic kidney disease. Reports feeling less bloated today; renal function continues to improve in association with good urine output as well; breathing/respiratory status slowly gettin better also; no acute distress noted; no other issues/events overnight or earlier today. Exam Narrative: General: elderly but WD/WN female in NAD Heart: normal S1 and S2; no rub Lungs: coarse breath sounds Abdomen: soft, nontender, nondistended, positive bowel sounds Extremities: no cyanosis or clubbing; trace - 1+ edema Skin: no nodules Objective Data Vital Signs Vital Signs: Vital Signs Temp Pulse Resp BP Pulse Ox O2 Del Method O2 Flow Rate 06/20/23 13:00 97.3 F L 71 22 H 149/73 H 96 06/20/23 10:06 74 20 93 Room Air 06/20/23 10:05 70 18 06/20/23 09:32 69 22 H 149/46 H 92 06/20/23 03:39 97.7 F 69 18 111/89 92
[2023-06-20 16:55] LABS: Glucose Point of Care 161 mg/dl (65-105)
[2023-06-20] MEDS: ACETAMINOPHEN 325 MG TABLET 650 MG PO (20:23)
[2023-06-20] MEDS: GABAPENTIN 300 MG CAPSULE PO (20:23)
[2023-06-20 22:39] LABS: Glucose Point of Care 160 mg/dl (65-105)
[2023-06-21 05:01] VITALS: BP 145/49; PULSE 68; RESP 16; TEMP 36.7; O2SAT 97
--- NOTE | 2023-06-21 05:12 | PCRCNOTE ---
Patient refused her 1999 and 199 updraft treatments, along with the bipap due to her having severe abdominal pain. She stated, I just can not do it.
[2023-06-21 05:48] LABS: Basophils Absolute Auto 0.1 K/mm3 (0.0-0.1); Basophils Percent Auto 0.7 % (0.2-1.2); Eosinophils Absolute Auto 0.3 K/mm3 (0-0.3); Eosinophils Percent Auto 4.3 % (0-4.4); Hematocrit 35.8 % (37.0-47.0); Hemoglobin 10.9 g/dL (12.0-15.0); Immature Granulocyte Absolute 0.15 K/mm3 (0.00-0.031); Lymphocytes Absolute Auto 1.49 K/mm3 (0.9-3.2); Lymphocytes Percent Auto 19.5 % (18.3-44.2); Mean Corpuscular HGB Conc 30.4 g/dl (32-36); Mean Corpuscular Hemoglobin 30.6 pg (26-34); Mean Corpuscular Volume 100.6 fl (80-100); Monocytes Absolute Auto 0.6 K/mm3 (0.1-0.6); Monocytes Percent Auto 8.1 % (2.6-8.5); Neutrophils Percent Auto 65.4 % (45.5-73.1); Platelet Count Result 172 k/mm3 (150-375); Red Blood Count 3.56 M/mm3 (4.2-5.4); Red Cell Distribution Width 14.5 % (11.5-14.5); White Blood Count 7.6 K/mm3 (4.5-10.0)
[2023-06-21 06:02] LABS: Albumin Level 3.6 g/dL (3.5-5.1); Anion Gap 11 mmol/L (8-16); Blood Urea Nitrogen 42 mg/dL (7-17); Carbon Dioxide 30 mmol/L (22-30); Chloride 98 mmol/L (98-107); Estimated CRCL calculation 36 ml/min; Estimated Glomerular Filt Rate 39; Glucose 153 mg/dL (65-110); Magnesium 1.4 mg/dL (1.6-2.3); Phosphorus 3.3 mg/dL (2.5-4.5); Potassium 3.6 mmol/L (3.4-5.0); Sodium 139 mmol/L (137-145)
[2023-06-21 07:16] LABS: Platelet Estimate Adequate (Adequate)
[2023-06-21 07:19] LABS: Burr Cells 1+ (NORMAL); Hypochromasia 1+ (NORMAL)
[2023-06-21 07:20] LABS: Schistocytes None Seen (NORMAL); Target Cells 1+ (NORMAL)
[2023-06-21 08:00] VITALS: BP 124/54; PULSE 66; RESP 18; TEMP 36.5; O2SAT 94
[2023-06-21 08:08] LABS: Glucose Point of Care 161 mg/dl (65-105)
[2023-06-21] MEDS: MAGNESIUM SULF 2 GM/WATER 50ML 2 GM/50 ML BAG IVPB (08:58)
[2023-06-21] MEDS: AMOXICILLIN/CLAVULANATE K 875-125 MG TAB 1 TABLET PO ×2 (08:58→21:00)
[2023-06-21] MEDS: APIXABAN 5 MG TABLET PO ×2 (08:58→21:00)
[2023-06-21] MEDS: PRAVASTATIN SODIUM 20 MG TABLET PO (08:58)
[2023-06-21] MEDS: POTASSIUM CHLORIDE 20 MEQ ER TABLET PO (08:58)
[2023-06-21] MEDS: FUROSEMIDE 40 MG TABLET PO (08:58)
[2023-06-21] MEDS: PANTOPRAZOLE 40 MG TABLET PO (08:58)
[2023-06-21] MEDS: polyethylene glycoL 3350 17 GM POWD.PACK PO (08:58)
[2023-06-21 09:40] VITALS: PULSE 67; RESP 20; O2SAT 94
--- NOTE | 2023-06-21 11:04 | PM.PNNEP ---
Progress Note: A&P Assessment and Plan (1) HARMONY (acute kidney injury): Code(s): N17.9 - Acute kidney failure, unspecified Status: Acute Assessment and Plan: slow and steady improvement if not back to baseline due to multifactorial ATN: hypotension/hemodynamic instability/shock obstruction infection/sepsis (UTI/bacteremia...etc) diuretic use + ARB therapy prior to admission pre-renal factors s/p adequate/aggressive IVFs off vasopressor therapy PRN IV diuretic therapy based on volume status follow repeat labs and UOP (2) Stage 3b chronic kidney disease: Code(s): N18.32 - Chronic kidney disease, stage 3b Status: Acute Assessment and Plan: baseline creatinine ~ 1.25 - 1.3mg/dl for the last few years presumably due to diabetes, hypertension, vascular disease, and age (3) Septic shock: Code(s): A41.9 - Sepsis, unspecified organism; R65.21 - Severe sepsis with septic shock Status: Acute Assessment and Plan: as noted by fever, hypotension, leukocytosis, and HARMONY off vasopressor therapy suspect urosepsis: blood and urine cultures with E.coli on antibiotics follow trend of hemodynamics (4) Ureteral stone: Code(s): N20.1 - Calculus of ureter Status: Acute Assessment and Plan: CT scan on admission showed right ureteral stone with mild hydronephrosis s/p rght retrograde pyelogram, right ureteral stent placement (on 06/14/23) Urology following (5) Urinary tract infection: Code(s): N39.0 - Urinary tract infection, site not specified Status: Acute Assessment and Plan: admission UA highly suggestive urine culture with E. coli on antibiotics (6) Chronic obstructive pulmonary disease, unspecified: Code(s): J44.9 - Chronic obstructive pulmonary disease, unspecified Status: Chronic Assessment and Plan: known history complicated by known SUNNY as well continue BiPAP intermittent with high-flow therapy (7) Insulin dependent type 2 diabetes mellitus: Code(s): E11.9 - Type 2 diabetes mellitus without complications; Z79.4 - [facility] (current) use of insulin Status: Chronic Assessment and Plan: follow accu-cheks glycemic control per hospitalists Will continue to follow. Subjective Date/time seen: 06/21/23 11:04 Interval history: Follow-up for acute kidney injury/acute renal failure on chronic kidney disease. Feels bloated once again and does not feel as well as yesterday but difficult for her to elaborate more on this issue; urinating okay since valle removed; breathing appears stable as well; no issues/events overnight or earlier this morning. Exam Narrative: General: elderly but WD/WN female in NAD Heart: normal S1 and S2; no rub Lungs: coarse breath sounds Abdomen: soft, nontender, nondistended, positive bowel sounds Extremities: no cyanosis or clubbing; trace - 1+ edema Skin: warm and intact Objective Data Vital Signs Vital Signs: Vital Signs Temp Pulse Resp BP Pulse Ox O2 Del Method O2 Flow Rate 06/21/23 11:15 94 Nasal Cannula 3 06/21/23 09:40 67 20 94 Nasal Cannula 2 06/21/23 08:00 97.7 F 66 18 124/54 L 94 06/21/23 05:01 98.1 F 68 16 145/49 H 97 06/20/23 20:00 66 20 92 Room Air 06/20/23 20:13 97.2 F L 66 20 111/85 92 06/20/23 17:00 Room Air 06/20/23 15:27 71 18 06/20/23 15:15 68 18 Intake/Output Intake/Output: Intake & Output 06/18/23 06/19/23 06/20/23 06/21/23 23:59 23:59 23:59 23:59 Intake Total 1420 880 810 740 Output Total 0570 810 6971 850 Balance -230 280 -790 -110 Meds/Results Medications: Active Medications Generic Name Dose Route Start Last Admin Trade Name Carlosq PRN Reason Stop Dose Admin Acetaminophen 650 mg 06/14/23 14:40 06/20/23 20:23 Acetaminophen 325 Mg Tablet PO 650 mg Q4H PRN Administration Mi
--- NOTE | 2023-06-21 11:04 | P.PNNP_ITS ---
Progress Note: A&P Assessment and Plan (1) HARMONY (acute kidney injury): Code(s): N17.9 - Acute kidney failure, unspecified Status: Acute Assessment and Plan: * slow and steady improvement if not back to baseline * due to multifactorial ATN: * hypotension/hemodynamic instability/shock * obstruction * infection/sepsis (UTI/bacteremia...etc) * diuretic use + ARB therapy prior to admission * pre-renal factors * s/p adequate/aggressive IVFs * off vasopressor therapy * PRN IV diuretic therapy based on volume status * follow repeat labs and UOP (2) Stage 3b chronic kidney disease: Code(s): N18.32 - Chronic kidney disease, stage 3b Status: Acute Assessment and Plan: * baseline creatinine ~ 1.25 - 1.3mg/dl for the last few years * presumably due to diabetes, hypertension, vascular disease, and age (3) Septic shock: Code(s): A41.9 - Sepsis, unspecified organism; R65.21 - Severe sepsis with septic shock Status: Acute Assessment and Plan: * as noted by fever, hypotension, leukocytosis, and HARMONY * off vasopressor therapy * suspect urosepsis: * blood and urine cultures with E.coli * on antibiotics * follow trend of hemodynamics (4) Ureteral stone: Code(s): N20.1 - Calculus of ureter Status: Acute Assessment and Plan: * CT scan on admission showed right ureteral stone with mild hydronephrosis * s/p rght retrograde pyelogram, right ureteral stent placement (on 06/14/23) * Urology following (5) Urinary tract infection: Code(s): N39.0 - Urinary tract infection, site not specified Status: Acute Assessment and Plan: * admission UA highly suggestive * urine culture with E. 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 Subjective Date/time seen: 06/21/23 11:04 Interval history: Follow-up for acute kidney injury/acute renal failure on chronic kidney disease. Feels bloated once again and does not feel as well as yesterday but difficult for her to elaborate more on this issue; urinating okay since valle removed; breathing appears stable as well; no issues/events overnight or earlier this morning. Exam Narrative: General: elderly but WD/WN female in NAD Heart: normal S1 and S2; no rub Lungs: coarse breath sounds Abdomen: soft, nontender, nondistended, positive bowel sounds Extremities: no cyanosis or clubbing; trace - 1+ edema Skin: warm and intact Objective Data Vital Signs Vital Signs: Vital Signs Temp Pulse Resp BP Pulse Ox O2 Del Method O2 Flow Rate 06/21/23 11:15 94 Nasal Cannula 3 06/21/23 09:40 67 20 94 Nasal Cannula 2 06/21/23 08:00 97.7 F 66 18 124/54 L 94 06/21/23 05:01 98.1 F 68 16 145/49 H 97 06/20/23 20:00 66 20 92 Room
--- NOTE | 2023-06-21 11:12 | PCPTNOTE ---
Patient refused treatment this session due to just getting back to bed with nursing and wanted to rest at this time.
[2023-06-21 11:15] VITALS: O2SAT 94
--- NOTE | 2023-06-21 11:22 | PC.NURSE ---
Patient care and medication administration performed by Marisol Roberson Student Nurse/[facility] under direct supervision of [place] instructor or nursing staff. Patient assessment reviewed and agree with same.
[2023-06-21 12:17] LABS: Glucose Point of Care 181 mg/dl (65-105)
[2023-06-21 16:02] VITALS: BP 149/64; PULSE 78; RESP 18; TEMP 36.3; O2SAT 96
--- NOTE | 2023-06-21 16:26 | PM.IMPN ---
Progress Note: A&P Assessment and Plan (1) Abdominal pain: Code(s): R10.9 - Unspecified abdominal pain Status: Acute Assessment and Plan: Bloating may be blader spasm vs constipation. Having BMs now and Figueredo out. KUB showing normal bowel gas pattern. LFTs normal 06/19. Check lipase. Check CT A/P. Repeat LFTs in am (2) Septic shock: Code(s): A41.9 - Sepsis, unspecified organism; R65.21 - Severe sepsis with septic shock Status: Acute Assessment and Plan: Patient presented with generalized weakening, lethargy, was found to be febrile, hypotensive in the ER. UA c/w UTI. CT scan showed right ureteral stone with mild hydronephrosis. HARMONY. HoTN -06/14: status post right retrograde pyelogram, right ureteral stent secondary to distal right ureteral stone. -central line was inserted in the ICU and patient was started on Levophed -BCx 06/14: EColi 2/2 bottles that are pansensitive -UCx 06/14: E coli that is pansensitive. Pressors weaned off 06/16 WBC peaked at 33K, bands 37% but WBC now normal - in the ER patient received ceftriaxone and azithromycin x1 dose but changed to meropenem and vancomycin (06/15) Abx changed to Rocephin 06/18 and now on oral Augmentin (advance dose since renal function better). Continue abx to complete a course (3) Bacteremia: Code(s): R78.81 - Bacteremia Status: Acute Assessment and Plan: As above (4) Acute renal failure superimposed on stage 3a chronic kidney disease: Code(s): N17.9 - Acute kidney failure, unspecified; N18.31 - Chronic kidney disease, stage 3a Status: Acute Assessment and Plan: Patient with acute on chronic renal failure likely related to HoTN, UTI, obstructive process, ATN, septic shock/infection and medications. Patient was on Lasix, losartan at home which could also be a factor. - baseline creatinine 1.25-1.30; Cr up to 3.6. -06/15/2023: Renal ultrasound was unremarkable -Patient received adequate IV fluids -Was on bicarb infusion but weaned off now -Albumin was for intravascular volume expansion but off now -Lasix once on 06/16 and 11/9 -UOP: 1650mL yesterday and 600mL so far today. Cr trending down 3.3->1.3 Nephrology consulted and appreciate their input Monitor urine output, renal function and electrolytes (5) Chronic obstructive pulmonary disease, unspecified: Code(s): J44.9 - Chronic obstructive pulmonary disease, unspecified Status: Acute Assessment and Plan: Stable. Continue BiPAP at night and with naps CXR showing worsening airspace opacities in the mid and lower lung guzman c/w edema but consider atelectasis from distended abd Check KUB. Lasix IV once and then resumed on her oral lasix Wean off O2 as tolerated (6) Obstructive sleep apnea (adult) (pediatric): Code(s): G47.33 - Obstructive sleep apnea (adult) (pediatric) Status: Acute Assessment and Plan: Continue BiPAP at night and with naps (7) Ureteral stone: Code(s): N20.1 - Calculus of ureter Status: Acute Assessment and Plan: Patient presents with obstructing renal stone. -06/14: status post right retrograde pyelogram, right ureteral stent secondary to distal right ureteral stone. Urine clearing Hgb: 13.1->10.6 and stable Urology following and appreciate their input Figueredo out now (8) Urinary tract infection: Code(s): N39.0 - Urinary tract infection, site not specified Status: Acute Assessment and Plan: As above. (9) Insulin dependent type 2 diabetes mellitus: Code(s): E11.9 - Type 2 diabetes mellitus without complications; Z79.4 - long-term (current) use of insulin Status: Acute Assessment and Plan: A1c 6.8. The patient's blood glucose was reviewed on 06/21 Glucose remains well controlled. Continue AccuCheks covering with sliding scale. Hypoglycemia protocol available as needed. Continue to follow (10) Paroxysmal at
[2023-06-21 17:03] LABS: Glucose Point of Care 179 mg/dl (65-105)
[2023-06-21 17:17] LABS: Lipase 191 U/L (23-300)
[2023-06-21 20:21] VITALS: BP 164/66; PULSE 71; RESP 20; TEMP 36.6; O2SAT 97
[2023-06-21] MEDS: GABAPENTIN 300 MG CAPSULE PO (21:00)
[2023-06-21 21:06] LABS: Glucose Point of Care 154 mg/dl (65-105)
[2023-06-21 21:08] LABS: Glucose Point of Care 148 mg/dl (65-105)
[2023-06-22] VITALS (12 sets, daily range): BP systolic 119–153; BP diastolic 44–58; PULSE 70–79; RESP 18–24; TEMP 36.2–36.8; O2SAT 94–99
[2023-06-22 06:12] LABS: Basophils Absolute Auto 0.1 K/mm3 (0.0-0.1); Basophils Percent Auto 0.6 % (0.2-1.2); Eosinophils Absolute Auto 0.4 K/mm3 (0-0.3); Hematocrit 35.8 % (37.0-47.0); Hemoglobin 11.1 g/dL (12.0-15.0); Immature Granulocyte Absolute 0.08 K/mm3 (0.00-0.031); Immature Granulocyte Percent A 0.9 % (0-0.5); Lymphocytes Absolute Auto 1.39 K/mm3 (0.9-3.2); Mean Corpuscular Hemoglobin 31.2 pg (26-34); Mean Corpuscular Volume 100.6 fl (80-100); Mean Platelet Volume 11.1 fl (7.4-10.4); Monocytes Absolute Auto 0.6 K/mm3 (0.1-0.6); Monocytes Percent Auto 6.4 % (2.6-8.5); Neutrophils Absolute Auto 6.3 K/mm3 (1.3-6.7); Neutrophils Percent Auto 72.1 % (45.5-73.1); Platelet Count Result 210 k/mm3 (150-375); Red Blood Count 3.56 M/mm3 (4.2-5.4); Red Cell Distribution Width 14.4 % (11.5-14.5); White Blood Count 8.7 K/mm3 (4.5-10.0)
[2023-06-22 06:39] LABS: Alanine Aminotransferase 53 U/L (6-35); Albumin Level 3.5 g/dL (3.5-5.1); Alkaline Phosphatase 49 U/L (38-126); Anion Gap 9 mmol/L (8-16); Aspartate Amino Transferase 51 U/L (14-36); Bilirubin,Total 1.6 mg/dL (0.2-1.3); Blood Urea Nitrogen 37 mg/dL (7-17); Calcium 8.7 mg/dL (8.4-10.2); Carbon Dioxide 33 mmol/L (22-30); Chloride 96 mmol/L (98-107); Estimated CRCL calculation 42 ml/min; Estimated Glomerular Filt Rate 47; Glucose 168 mg/dL (65-110); Magnesium 1.7 mg/dL (1.6-2.3); Phosphorus 3.3 mg/dL (2.5-4.5); Potassium 4.1 mmol/L (3.4-5.0); Sodium 138 mmol/L (137-145)
[2023-06-22 07:58] LABS: Glucose Point of Care 153 mg/dl (65-105)
[2023-06-22] MEDS: IPRATROPIUM BR 0.02% INH SOLN 0.5 MG/2.5 ML VIAL INHALATION ×3 (08:10→20:16)
[2023-06-22] MEDS: ALBUTEROL SULFATE NEB 2.5 MG/3 ML INH INHALATION ×3 (08:10→20:15)
[2023-06-22] MEDS: UMECLIDINIUM/VILANTEROL 62.5-25 MCG ELLIPTA 1 PUFF INHALATION (08:11)
[2023-06-22] MEDS: polyethylene glycoL 3350 17 GM POWD.PACK PO (08:23)
[2023-06-22] MEDS: FUROSEMIDE INJ 40 MG/4 ML VIAL IV PUSH ×2 (08:23→17:22)
[2023-06-22] MEDS: APIXABAN 5 MG TABLET PO ×2 (08:23→20:47)
[2023-06-22] MEDS: PRAVASTATIN SODIUM 20 MG TABLET PO (08:23)
[2023-06-22] MEDS: PANTOPRAZOLE 40 MG TABLET PO (08:23)
[2023-06-22] MEDS: AMOXICILLIN/CLAVULANATE K 875-125 MG TAB 1 TABLET PO ×2 (08:23→20:47)
[2023-06-22 08:50] LABS: Platelet Estimate Adequate (Adequate)
[2023-06-22 08:51] LABS: Burr Cells 1+ (NORMAL); Ovalocytes 1+ (NORMAL); Schistocytes None Seen (NORMAL)
--- NOTE | 2023-06-22 10:59 | PM.IMPN ---
Progress Note: A&P Assessment and Plan (1) Abdominal pain: Code(s): R10.9 - Unspecified abdominal pain Status: Acute Assessment and Plan: Bloating may be blader spasm vs constipation. Having BMs now. Figueredo out and voiding well. KUB showing normal bowel gas pattern. LFTs about the same. Lipase normal. CT A/P Right UVJ stone not seen. She has small bilateral pleural effusions and increasing dependent body wall edema. Also with possible mild pulmonary edema. Suspect her bloating related to mild fluid overload. Lasix IV started with improvement. (2) Septic shock: Code(s): A41.9 - Sepsis, unspecified organism; R65.21 - Severe sepsis with septic shock Status: Acute Assessment and Plan: Patient presented with generalized weakening, lethargy, was found to be febrile, hypotensive in the ER. UA c/w UTI. CT scan showed right ureteral stone with mild hydronephrosis. HARMONY. HoTN -06/14: status post right retrograde pyelogram, right ureteral stent secondary to distal right ureteral stone. -central line was inserted in the ICU and patient was started on Levophed -BCx 06/14: EColi 2/2 bottles that are pansensitive -UCx 06/14: E coli that is pansensitive. Pressors weaned off 06/16 WBC peaked at 33K, bands 37% but WBC now normal - in the ER patient received ceftriaxone and azithromycin x1 dose but changed to meropenem and vancomycin (06/15) Abx changed to Rocephin 06/18 and now on oral Augmentin (advance dose since renal function better). Continue abx to complete a course (3) Bacteremia: Code(s): R78.81 - Bacteremia Status: Acute Assessment and Plan: As above (4) Acute renal failure superimposed on stage 3a chronic kidney disease: Code(s): N17.9 - Acute kidney failure, unspecified; N18.31 - Chronic kidney disease, stage 3a Status: Acute Assessment and Plan: Patient with acute on chronic renal failure likely related to HoTN, UTI, obstructive process, ATN, septic shock/infection and medications. Patient was on Lasix, losartan at home which could also be a factor. - baseline creatinine 1.25-1.30; Cr up to 3.6. -06/15/2023: Renal ultrasound was unremarkable -Patient received adequate IV fluids -Was on bicarb infusion but weaned off now -Albumin was for intravascular volume expansion but off now -Lasix once on 06/16 and 06/17 Cr trending down 3.3->1.1 Nephrology consulted and appreciate their input Monitor urine output, renal function and electrolytes (5) Chronic obstructive pulmonary disease, unspecified: Code(s): J44.9 - Chronic obstructive pulmonary disease, unspecified Status: Acute Assessment and Plan: Stable. Continue BiPAP at night and with naps CXR showing worsening airspace opacities in the mid and lower lung guzman c/w edema but consider atelectasis from distended abd As above. Lasix IV resumed Wean off O2 as tolerated (6) Obstructive sleep apnea (adult) (pediatric): Code(s): G47.33 - Obstructive sleep apnea (adult) (pediatric) Status: Acute Assessment and Plan: Continue BiPAP at night and with naps (7) Ureteral stone: Code(s): N20.1 - Calculus of ureter Status: Acute Assessment and Plan: Patient presents with obstructing renal stone. -06/14: status post right retrograde pyelogram, right ureteral stent secondary to distal right ureteral stone. Urine clearing CT scan showing right UVJ stone is no longer visualized and unchanged 1.7cm nonobstructing left renal stone Hgb: 13.1->11 and stable Urology following and appreciate their input Figueredo out now (8) Urinary tract infection: Code(s): N39.0 - Urinary tract infection, site not specified Status: Acute Assessment and Plan: As above. (9) Insulin dependent type 2 diabetes mellitus: Code(s): E11.9 - Type 2 diabetes mellitus without complications; Z79.4 - manager long term care (current) use of insulin Status: Acute
--- NOTE | 2023-06-22 11:19 | P.PNNP_ITS ---
Progress Note: A&P Assessment and Plan (1) HARMONY (acute kidney injury): Code(s): N17.9 - Acute kidney failure, unspecified Status: Acute Assessment and Plan: * slow and steady improvement if not back to baseline * due to multifactorial ATN: * hypotension/hemodynamic instability/shock * obstruction * infection/sepsis (UTI/bacteremia...etc) * diuretic use + ARB therapy prior to admission * pre-renal factors * s/p adequate/aggressive IVFs * off vasopressor therapy * diuretic therapy based on volume status * follow repeat labs and UOP (2) Stage 3b chronic kidney disease: Code(s): N18.32 - Chronic kidney disease, stage 3b Status: Acute Assessment and Plan: * baseline creatinine ~ 1.25 - 1.3mg/dl for the last few years * presumably due to diabetes, hypertension, vascular disease, and age (3) Septic shock: Code(s): A41.9 - Sepsis, unspecified organism; R65.21 - Severe sepsis with septic shock Status: Acute Assessment and Plan: * as noted by fever, hypotension, leukocytosis, and HARMONY * off vasopressor therapy * suspect urosepsis: * blood and urine cultures with E.coli * on antibiotics * follow trend of hemodynamics (4) Ureteral stone: Code(s): N20.1 - Calculus of ureter Status: Acute Assessment and Plan: * CT scan on admission showed right ureteral stone with mild hydronephrosis * s/p rght retrograde pyelogram, right ureteral stent placement (on 06/14/23) * Urology following (5) Urinary tract infection: Code(s): N39.0 - Urinary tract infection, site not specified Status: Acute Assessment and Plan: * admission UA highly suggestive * urine culture with E. 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 Subjective Date/time seen: 06/22/23 11:19 Interval history: Follow-up for acute kidney injury/acute renal failure on chronic kidney disease. Recent imaging with evidence of volume overload so switched to scheduled IV diuretic therapy with improvement in symptoms; no other acute issues/events overnight or earlier today; no apparent distress voiced at the time of my visit. Exam Narrative: General: elderly but WD/WN female in NAD Heart: normal S1 and S2; no rub Lungs: coarse breath sounds Abdomen: soft, nontender, nondistended, positive bowel sounds Extremities: no cyanosis or clubbing; trace edema Skin: no rash or nodules Objective Data Vital Signs Vital Signs: Vital Signs Temp Pulse Resp BP Pulse Ox O2 Del Method O2 Flow Rate 06/22/23 11:17 94 Nasal Cannula 2 06/22/23 09:59 94 Nasal Cannula 2 06/22/23 08:24 73 20 06/22/23 08:10 72 20 06/22/23 08:10 94 Nasal Cannula 2 06/22/23 04:07 98.2 F 75 20 153/58 H 97
--- NOTE | 2023-06-22 11:19 | PM.PNNEP ---
Progress Note: A&P Assessment and Plan (1) HARMONY (acute kidney injury): Code(s): N17.9 - Acute kidney failure, unspecified Status: Acute Assessment and Plan: slow and steady improvement if not back to baseline due to multifactorial ATN: hypotension/hemodynamic instability/shock obstruction infection/sepsis (UTI/bacteremia...etc) diuretic use + ARB therapy prior to admission pre-renal factors s/p adequate/aggressive IVFs off vasopressor therapy diuretic therapy based on volume status follow repeat labs and UOP (2) Stage 3b chronic kidney disease: Code(s): N18.32 - Chronic kidney disease, stage 3b Status: Acute Assessment and Plan: baseline creatinine ~ 1.25 - 1.3mg/dl for the last few years presumably due to diabetes, hypertension, vascular disease, and age (3) Septic shock: Code(s): A41.9 - Sepsis, unspecified organism; R65.21 - Severe sepsis with septic shock Status: Acute Assessment and Plan: as noted by fever, hypotension, leukocytosis, and HARMONY off vasopressor therapy suspect urosepsis: blood and urine cultures with E.coli on antibiotics follow trend of hemodynamics (4) Ureteral stone: Code(s): N20.1 - Calculus of ureter Status: Acute Assessment and Plan: CT scan on admission showed right ureteral stone with mild hydronephrosis s/p rght retrograde pyelogram, right ureteral stent placement (on 06/14/23) Urology following (5) Urinary tract infection: Code(s): N39.0 - Urinary tract infection, site not specified Status: Acute Assessment and Plan: admission UA highly suggestive urine culture with E. 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 Subjective Date/time seen: 06/22/23 11:19 Interval history: Follow-up for acute kidney injury/acute renal failure on chronic kidney disease. Recent imaging with evidence of volume overload so switched to scheduled IV diuretic therapy with improvement in symptoms; no other acute issues/events overnight or earlier today; no apparent distress voiced at the time of my visit. Exam Narrative: General: elderly but WD/WN female in NAD Heart: normal S1 and S2; no rub Lungs: coarse breath sounds Abdomen: soft, nontender, nondistended, positive bowel sounds Extremities: no cyanosis or clubbing; trace edema Skin: no rash or nodules Objective Data Vital Signs Vital Signs: Vital Signs Temp Pulse Resp BP Pulse Ox O2 Del Method O2 Flow Rate 06/22/23 11:17 94 Nasal Cannula 2 06/22/23 09:59 94 Nasal Cannula 2 06/22/23 08:24 73 20 06/22/23 08:10 72 20 06/22/23 08:10 94 Nasal Cannula 2 06/22/23 04:07 98.2 F 75 20 153/58 H 97 06/21/23 21:00 Nasal Cannula 2 06/21/23 20:21 97.8 F 71 20 164/66 H 97 06/21/23 16:02 97.3 F L 78 18 149/64 H 96 Intake/Output Intake/Output: Intake & Output 06/19/23 06/20/23 06/21/23 06/22/23 23:59 23:59 23:59 23:59 Intake Total 626 010 4243 1020 Output Total 600 1600 1450 600 Balance 280 -790 -160 420 Meds/Results Medications: Active Medications Generic Name Dose Route Start Last Admin Trade Name Freq PRN Reason Stop Dose Admin Acetaminophen 650 mg 06/14/23 14:40 06/20/23 20:23 Acetaminophen 325 Mg Tablet PO 650 mg Q4H PRN Administration Mild Pain (1-3) o
[2023-06-22 11:54] LABS: Glucose Point of Care 167 mg/dl (65-105)
--- NOTE | 2023-06-22 14:34 | PC.NURSE ---
On 06/22/23, the student, [Rubia Dumas], provided care and completed [facility] documentation on this patient. I have reviewed the student's documentation and agree with the findings.
[2023-06-22 17:17] LABS: Glucose Point of Care 212 mg/dl (65-105)
[2023-06-22] MEDS: INSULIN ASPART (*BKC) 100 UNITS/ML SUB-Q (17:24)
[2023-06-22 20:19] LABS: Glucose Point of Care 155 mg/dl (65-105)
[2023-06-22] MEDS: GABAPENTIN 300 MG CAPSULE PO (20:47)
[2023-06-23] VITALS (7 sets, daily range): BP systolic 171; BP diastolic 63; PULSE 69–81; RESP 18–20; TEMP 36.1; O2SAT 94–97
[2023-06-23] MEDS: IPRATROPIUM BR 0.02% INH SOLN 0.5 MG/2.5 ML VIAL INHALATION ×2 (01:25→08:32)
[2023-06-23] MEDS: ALBUTEROL SULFATE NEB 2.5 MG/3 ML INH INHALATION ×2 (01:25→08:32)
[2023-06-23 06:33] LABS: Anion Gap 11 mmol/L (8-16); Blood Urea Nitrogen 34 mg/dL (7-17); Calcium 8.4 mg/dL (8.4-10.2); Carbon Dioxide 33 mmol/L (22-30); Chloride 95 mmol/L (98-107); Estimated CRCL calculation 41 ml/min; Estimated Glomerular Filt Rate 47; Glucose 153 mg/dL (65-110); Potassium 3.5 mmol/L (3.4-5.0); Sodium 139 mmol/L (137-145)
[2023-06-23 08:01] LABS: Glucose Point of Care 151 mg/dl (65-105)
[2023-06-23] MEDS: UMECLIDINIUM/VILANTEROL 62.5-25 MCG ELLIPTA 1 PUFF INHALATION (08:32)
--- NOTE | 2023-06-23 09:30 | P.DS_ITS ---
DS: Admitting Diagnosis Discharge Date 06/23/23 Admitting Diagnosis weakness DS: Discharge Diagnosis Discharge Diagnosis (1) Abdominal pain: Code(s): R10.9 - Unspecified abdominal pain Status: Acute Assessment and Plan: Bloating may be blader spasm vs constipation. Having BMs now. Figueredo out and voiding well. KUB showing normal bowel gas pattern. LFTs about the same. Lipase normal. CT A/P Right UVJ stone not seen. She has small bilateral pleural effusions and increasing dependent body wall edema. Also with possible mild pulmonary edema. Suspect her bloating related to mild fluid overload. Lasix IV started with improvement. (2) Septic shock: Code(s): A41.9 - Sepsis, unspecified organism; R65.21 - Severe sepsis with septic shock Status: Acute Assessment and Plan: Patient presented with generalized weakening, lethargy, was found to be febrile, hypotensive in the ER. UA c/w UTI. CT scan showed right ureteral stone with mild hydronephrosis. HARMONY. HoTN -06/14: status post right retrograde pyelogram, right ureteral stent secondary to distal right ureteral stone. -central line was inserted in the ICU and patient was started on Levophed -BCx 06/14: EColi 2/2 bottles that are pansensitive -UCx 06/14: E coli that is pansensitive. Pressors weaned off 06/16 WBC peaked at 33K, bands 37% but WBC now normal - in the ER patient received ceftriaxone and azithromycin x1 dose but changed to meropenem and vancomycin (06/15) Abx changed to Rocephin 06/18 and now on oral Augmentin (advance dose since renal function better). Continue abx to complete a course (3) Bacteremia: Code(s): R78.81 - Bacteremia Status: Acute Assessment and Plan: As above (4) Acute renal failure superimposed on stage 3a chronic kidney disease: Code(s): N17.9 - Acute kidney failure, unspecified; N18.31 - Chronic kidney disease, stage 3a Status: Acute Assessment and Plan: Patient with acute on chronic renal failure likely related to HoTN, UTI, obstructive process, ATN, septic shock/infection and medications. Patient was on Lasix, losartan at home which could also be a factor. - baseline creatinine 1.25-1.30; Cr up to 3.6. -06/15/2023: Renal ultrasound was unremarkable -Patient received adequate IV fluids -Was on bicarb infusion but weaned off now -Albumin was for intravascular volume expansion but off now -Lasix once on 06/16 and 06/17 Cr trending down 3.3->1.1 Nephrology consulted and appreciate their input Monitor urine output, renal function and electrolytes (5) Chronic obstructive pulmonary disease, unspecified: Code(s): J44.9 - Chronic obstructive pulmonary disease, unspecified Status: Acute Assessment and Plan: Stable. Continue BiPAP at night and with naps CXR showing worsening airspace opacities in the mid and lower lung guzman c/w edema but consider atelectasis from distended abd As above. Lasix IV resumed Wean off O2 as tolerated (6) Obstructive sleep apnea (adult) (pediatric): Code(s): G47.33 - Obstructive sleep apnea (adult) (pediatric) Status: Acute Assessment and Plan: Continue BiPAP at night and with naps (7) Ureteral stone: Code(s): N20.1 - Calculus of ureter Status: Acute Assessment and Plan: Patient presents with obstructing renal stone. -06/14: status post right retrograde pyelogram, right ureteral stent secondary to distal right ureteral stone. Urine clearing CT scan showing right UVJ stone is no longer visualize
[2023-06-23] MEDS: AMOXICILLIN/CLAVULANATE K 875-125 MG TAB 1 TABLET PO (09:31)
[2023-06-23] MEDS: FUROSEMIDE INJ 40 MG/4 ML VIAL IV PUSH (09:32)
[2023-06-23] MEDS: PANTOPRAZOLE 40 MG TABLET PO (09:32)
[2023-06-23] MEDS: APIXABAN 5 MG TABLET PO (09:32)
[2023-06-23] MEDS: PRAVASTATIN SODIUM 20 MG TABLET PO (09:32)
[2023-06-23 11:26] LABS: Glucose Point of Care 196 mg/dl (65-105)
[2023-06-23 12:21] LABS: SARS-CoV-2 RNA PCR Negative (Negative)
== END 2023-06-23 13:40 | DRG 853 ==
LOC: ANHED 13:57 → ANHSURGERY 19:31 → ANHICU 06-15 01:23 → ANH2MED 06-23 09:29 → ANHED 06-24 10:53 → ANHSURGERY 06-24 10:53 → ANH2MED 06-24 10:53 → ANHICU 06-24 10:53
PROVIDERS: Internal Medicine; Internal Medicine Nephrology; Nurse Anesthetist, Certified Registered; Physician Assistant; Urology; Admitting Provider Student in an Organized Health Care Education/Training Program; Emergency Provider Emergency Medicine; PCP Family Medicine Adolescent Medicine; Visit Provider Student in an Organized Health Care Education/Training Program
PROC: 0T768DZ Dilation of Right Ureter with Intraluminal Device, Via Natural or Artificial Opening Endoscopic (ICD-10-PCS; CPT 52352; principal; 2023-06-14 17:15)
DX: A41.51 Sepsis due to Escherichia coli [E. coli] (principal); J96.01 Acute respiratory failure with hypoxia; R65.21 Severe sepsis with septic shock; N17.0 Acute kidney failure with tubular necrosis; N13.6 Pyonephrosis; Z68.43 Body mass index [BMI] 50.0-59.9, adult; N39.0 Urinary tract infection, site not specified; N20.1 Calculus of ureter; B96.20 Unspecified Escherichia coli [E. coli] as the cause of diseases classified elsewhere; R14.0 Abdominal distension (gaseous); D69.6 Thrombocytopenia, unspecified; E11.22 Type 2 diabetes mellitus with diabetic chronic kidney disease; E66.01 Morbid (severe) obesity due to excess calories; E78.2 Mixed hyperlipidemia; G47.33 Obstructive sleep apnea (adult) (pediatric); I48.0 Paroxysmal atrial fibrillation; I12.9 Hypertensive chronic kidney disease with stage 1 through stage 4 chronic kidney disease, or unspecified chronic kidney disease; I95.9 Hypotension, unspecified; I27.20 Pulmonary hypertension, unspecified; I49.5 Sick sinus syndrome; J44.9 Chronic obstructive pulmonary disease, unspecified; N18.31 Chronic kidney disease, stage 3a; Z95.0 Presence of cardiac pacemaker; Z11.52 Encounter for screening for COVID-19; Z79.01 Long term (current) use of anticoagulants; Z90.49 Acquired absence of other specified parts of digestive tract; Z96.653 Presence of artificial knee joint, bilateral; Z87.891 Personal history of nicotine dependence; Z99.89 Dependence on other enabling machines and devices; Z79.4 Long term (current) use of insulin; Z66 Do not resuscitate
CPT/HCPCS: 36415; 36600; 71045; 71046; 74019; 74176; 74420; 76705; 76775; 80048; 80053; 80069; 80074; 80076; 81001; 82375; 82436; 82550; 82570; 82805; 82948; 83036; 83050; 83605; 83690; 83735; 83880; 84100; 84133; 84300; 84443; 85025; 85055; 85610; 85730; 85999; 86140; 86704; 86706; 87040; 87077; 87086; 87088; 87186; 87340; 87635; 87641; 93005; 94002; 94003; 94640; 94660; 96365; 96367; 97110; 97116; 97161; 97165; 97530; 97535; 99285; A9270; C1751; C1758; C1769; C2617; C8929; C9113; J0456; J0613; J0696; J1815; J1940; J2185; J2371; J2405; J2704; J3370; J3475; J7030; J7070; J7120; P9047; Q9957; Q9966

== ENCOUNTER 2023-07-07 15:53 | Inpatient (IN) | payer OTHER, SELFPAY ==
[2023-07-07] VITALS (9 sets, daily range): BP systolic 99–143; BP diastolic 38–85; PULSE 66–77; RESP 18–32; TEMP 36.7–38.1; O2SAT 86–99; BMI 51.1
--- NOTE | ~2023-07-07 | XR_ITS ---
EXAMINATION: XR chest 1V portable DATE: 07/11/2023 06:24 INDICATION: Shortness of breath TECHNIQUE: frontal view of the chest was obtained. COMPARISON: Chest radiograph dated 07/07/2023 FINDINGS: Left lung is clear. Asymmetric diffuse hazy opacity throughout the right hemithorax relative to the l eft due to at least in part to artifact of some leftward rotation of the patient. Pulmonary vascular congestion with increased perihilar predominant opacities in the right lung which could represent asy mmetric pulmonary edema or pneumonia. Persistent blunting at the right costophrenic angle suggesting small right pleural effusion. No pneumothorax or left-sided pleural effusion. Mild cardiomegaly with dense mitral annular calcification. Tip of a single cardiac pacemaker lead at the apex of the right ventricle. IMPRESSION: 1. Perihilar predominant airspace opacities in the right lung are suspicious for pneumonia with diffe rential including asymmetric pulmonary edema. 2. Small right pleural effusion. Reviewed, dictated and finalized at location A. THCARE ASSOCIATE IMPRESSION: 1. Perihilar predominant airspace opacities in the right lung are suspicious fo r pneumonia with differential including asymmetric pulmonary edema. 2. Small right pleural effusion.
--- NOTE | ~2023-07-07 | XR_ITS ---
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 RESULT: Lines, tubes, and devices: Left chest pacer with intact lead. Lungs and pleura: Diffuse reticulonodular opacities. Minimal right costophrenic angle blunting. Cardiomediastinal silhouette: Stable. Mitral calcifications. Other: No acute osseous or upper abdominal finding. IMPRESSION: Pulmonary opacities may represent initial edema or respiratory bronchiolitis. Small right pleural eff usion versus chronic pleural blunting. Reviewed, dictated and finalized at location K. IN LOOSE END FINDER IMPRESSION: Pulmonary opacities may represent initial edema or respiratory bronchiolitis. S mall right pleural effusion versus chronic pleural blunting.
--- NOTE | ~2023-07-07 | US_ITS ---
US renal BI 07/10/2023 17:54 Procedure: High-resolution real-time ultrasound of the kidneys and bladder Indication: Hematuria Comparison: CT dated 06/21/2023 Findings: Right renal echotexture is normal without hydronephrosis, mass or stone. Right kidney measu res 11.9 cm. Left kidney is obscured by overlying bowel gas. There is an echogenic focus in the lower pole measuring 1.6 x 0.7 cm, consistent with stone seen on prior CT abdomen dated 06/21/2023. Diffic ult to evaluate for hydronephrosis. Bladder is unremarkable. Impression: 1: Left nephrolithiasis. Limited evaluation of left kidney. Reviewed, dictated and finalized at location A. NERSHIP MARKETING MANAGER Impression: 1: Left nephrolithiasis. Limited evaluation of left kidney.
--- NOTE | 2023-07-07 15:55 | ECG_ITS ---
Measurements Intervals [place] Rate: 73 P: [place]: 0 QRS: -85 QRSD: 170 T: 85 QT: 427 QTc: 472 Interpretive Statements ELECTRONIC VENTRICULAR PACEMAKER BASELINE ARTIFACT- I, II, III, AVR, V3 NO FURTHER INTERPRETATION IS POSSIBLE ATYPICAL ECG COMPARED TO ECG 06/14/2023 12:21:32 NO SIGNIFICANT CHANGES Electronically Signed On 07-07-2023 16:24:54 [employer]ACHER [employer]AMA by Eugene Rivas D.O.
--- NOTE | 2023-07-07 16:19 | ED.SOB ---
HPI - SOB/Dyspnea General Chief Complaint: Shortness of Breath/Dyspnea Stated Complaint: COVID +, Fever Time Seen by Provider: 07/07/23 16:03 History of Present Illness HPI Narrative: Patient is an 83-year-old female with history of pacemaker in place, heart failure, diabetes here with shortness of breath. Patient states that she began having symptoms yesterday. She notes that they are progressing, associated with a cough and fever. She is unsure of why she ended up in the hospital. She does not use any oxygen at home. She does note that she had had some ongoing chronic diarrhea but this seems to have improved after her doctor at the facility prescribe her something for the diarrhea. No nausea or vomiting, no chest pain. Related Data Home Medications Medication Instructions Recorded Confirmed linagliptin 5 mg tablet (Tradjenta) 5 mg PO DAILY 06/14/23 06/28/23 losartan 100 mg tablet 100 mg PO DAILY 06/14/23 06/28/23 tiotropium 2.5 mcg-olodaterol 2.5 2 puff inhalation DAILY 06/14/23 06/28/23 mcg/actuation mist for inhalation (Stiolto Respimat) zolpidem 10 mg tablet 5 mg PO HS 06/14/23 06/28/23 Allergies Allergy/AdvReac Type Severity Reaction Status Date / Time No Known Allergies Allergy Verified 07/07/23 16:24 Review of Systems Review of Systems: All systems reviewed & are unremarkable except as noted in HPI and below PMFSH Past Medical History Medical History (Updated 07/07/23 @ 17:50 by Yokasta Wilson MD) Chronic anticoagulation Chronic kidney disease, stage 3a Hepatic steatosis (06/2023) CT 07/01 Insulin dependent type 2 diabetes mellitus Mixed hyperlipidemia Morbid (severe) obesity due to excess calories Obstructive sleep apnea on CPAP Paroxysmal atrial fibrillation Pulmonary hypertension Sick sinus syndrome Surgical History Surgical History (Updated 06/14/23 @ 22:20 by Rocío Hickman PA-C) History of cholecystectomy History of permanent cardiac pacemaker placement (10/2020) History of total knee arthroplasty 2010 Left, 2013 right Family History Family History Father Hepatic cancer Mother Acute myocardial infarction Heart disease Sibling Asthma Grandparent Carcinoma of colon Colon polyp Son Heart disease Other Diabetes mellitus Social History Social History (Updated 06/14/23 @ 22:29 by Rocío Hickman PA-C) Social History: Surrogate medical decision maker: Bobbi Teran and Dave Dueñas, children. Code status: Do not resuscitate however patient would consider temporary mechanical ventilation or central line placement during the day (06/14/2023). Smoking packs per day: 2 Smoking cigarettes per day: 40.0 Years smoked: 10 Smoking pack-years: 20.00 Smoking status: Never smoker Tobacco type: cigarettes Second hand tobacco smoke exposure: No Smoking end date: 08/09/89 Alcohol intake: former Substance use: never Substance use type: does not use Lack of Transportation: No Lack of Food: Never True Current Housing: I Have Housing Concerned About Future Housing: No Difficulty Paying Gas/Electric Bills: No Difficulty Paying for Meds: No Currently Unemployed: No Education: High School Diploma/GED Difficulty w/ Childcare or Family Care: No Living arrangements: alone 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re concerns: No Agree to blood products: Yes Exam Narrative: GENERAL: Ill appearing, well-nourished, and in mild distress. HEAD: Normocephalic, atraumatic. EYES: PERRLA and EOMI. ENT: Nares clear. Mucous membranes dry. NECK: Supple. CHEST: Coarse rhonchi present bilaterally. Tachypneic. HEART: Regular rate and rhythm. Normal peripheral pulses. ABDOMEN: Soft, nontender, nondistended. EXTREMITIES: Normal range of motion. Bilateral lower extremity pitting edema appreciated. SKIN: Warm to touch, dry NEURO: No focal deficits. Alert and oriented x2.
[2023-07-07 16:21] LABS: Basophils Percent Auto 0.3 % (0.2-1.2); Eosinophils Absolute Auto 0.1 K/mm3 (0-0.3); Hematocrit 32.4 % (37.0-47.0); Hemoglobin 9.8 g/dL (12.0-15.0); Immature Granulocyte Absolute 0.04 K/mm3 (0.00-0.031); Immature Granulocyte Percent A 0.6 % (0-0.5); Lymphocytes Absolute Auto 0.87 K/mm3 (0.9-3.2); Lymphocytes Percent Auto 12.4 % (18.3-44.2); Mean Corpuscular HGB Conc 30.2 g/dl (32-36); Mean Corpuscular Hemoglobin 30.3 pg (26-34); Mean Corpuscular Volume 100.3 fl (80-100); Mean Platelet Volume 10.4 fl (7.4-10.4); Monocytes Absolute Auto 0.6 K/mm3 (0.1-0.6); Monocytes Percent Auto 8.2 % (2.6-8.5); Neutrophils Absolute Auto 5.4 K/mm3 (1.3-6.7); Neutrophils Percent Auto 76.5 % (45.5-73.1); Platelet Count Result 250 k/mm3 (150-375); Red Blood Count 3.23 M/mm3 (4.2-5.4); Red Cell Distribution Width 14.9 % (11.5-14.5)
[2023-07-07 16:29] LABS: Alanine Aminotransferase 17 U/L (6-35); Albumin Level 3.7 g/dL (3.5-5.1); Alkaline Phosphatase 53 U/L (38-126); Anion Gap 8 mmol/L (8-16); Aspartate Amino Transferase 27 U/L (14-36); Bilirubin,Total 0.9 mg/dL (0.2-1.3); Blood Urea Nitrogen 20 mg/dL (7-17); Calcium 8.7 mg/dL (8.4-10.2); Carbon Dioxide 33 mmol/L (22-30); Chloride 95 mmol/L (98-107); Estimated CRCL calculation 39 ml/min; Estimated Glomerular Filt Rate 43; Glucose 113 mg/dL (65-110); Potassium 4.6 mmol/L (3.4-5.0); Sodium 136 mmol/L (137-145)
[2023-07-07 16:48] LABS: INR 1.4; Prothrombin Time 18.2 Seconds (11.1-14.7)
[2023-07-07 16:49] LABS: Partial Thromboplastin Time 37.4 SECONDS (22.3-36.8)
[2023-07-07] MEDS: ACETAMINOPHEN 500 MG TABLET 1000 MG PO (16:58)
[2023-07-07 16:59] LABS: NT Pro B Type Natriuretic Pept 2820 pg/mL (19.9-100); Troponin I 0.018 ng/mL (0.000-0.034)
[2023-07-07 17:09] LABS: Influenza A QL RT-PCR Positive (Negative); Influenza B QL RT-PCR Negative (Negative); RSV RNA, RT-PCR Negative (Negative); SARS-CoV-2 RNA PCR Positive (Negative)
[2023-07-07 17:11] LABS: Appearance Urine Cloudy (Clear); Bacteria Urine 1+ /hpf; Bilirubin Urine Negative (Negative); Blood Urine 3+ (Negative); Color Urine Yellow (Yellow); Glucose Urine UA Negative (Negative); Ketones Urine Negative (Negative); Leukocyte Esterase Ur 3+ LEU/UL (Negative); Nitrate Urine Positive (Negative); Protein Urine 1+ mg/dL (Negative); RBC Urine >100 /hpf (0-2); Specific Grav Ur 1.011 (1.001-1.035); Squamous Epithelial Cell Urine None seen /hpf (Few); Urobilinogen Urine 0.2 mg/dL (<2.0); WBC Urine >100 /hpf; pH Urine 5.5 (5.0-9.0)
[2023-07-07] MEDS: ONDANSETRON INJ 4 MG/2 ML VIAL IV PUSH (17:11)
[2023-07-07 17:33] LABS: Add Urine Microscopic? YES
[2023-07-07] MEDS: cefTRIAXone 2 GM/NS 100 ML 2 GM/100 ML BAG IVPB (18:20)
--- NOTE | 2023-07-07 19:33 | PC.NURSE ---
Brigitte Dueñas's phone number [phone].
[2023-07-07 20:05] LABS: Troponin I 0.027 ng/mL (0.000-0.034)
--- NOTE | 2023-07-07 20:48 | PM.IMHP ---
H&P: HPI History of Present Illness Date/Time: 07/07/23 20:48 Chief Complaint: sob Narrative: This is an 83-year-old female past medical history significant for atrial fibrillation, rate controlled anticoagulated, insulin-dependent diabetes mellitus, peripheral diabetic neuropathy, dyslipidemia, heart failure with preserved ejection fraction, chronic kidney disease, hepatic steatosis, obstructive sleep apnea on CPAP, sick sinus syndrome status post pacemaker placement. Patient presents to the emergency room due to shortness of breath, body aches and pains, chills, fevers, poor appetite. Preliminary workup was significant for patient tested positive for COVID-19 A chest x-ray showed lung opacities. Patient has been admitted for further evaluation management and treatment. EXAMINATION:? XR chest 1V portable Exam Date/Time:? 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 Comparison:? 06/22/2023. RESULT: Lines, tubes, and devices:? Left chest pacer with intact lead. Lungs and pleura:? Diffuse reticulonodular opacities. Minimal right costophrenic angle blunting. Cardiomediastinal silhouette:? Stable. Mitral calcifications. Other:? No acute osseous or upper abdominal finding. ? IMPRESSION: Pulmonary opacities may represent initial edema or respiratory bronchiolitis. Small right pleural effusion versus chronic pleural blunting. Review of Systems Review of Systems: sob Constitutional: Constitutional: Reports chills, Reports malaise, Reports poor appetite and Reports weakness Eyes: Eyes: Denies change in vision ENT: Denies dysphagia and Denies odynophagia Cardiovascular: Cardiovascular: Denies chest pain, Denies radiating jaw, neck or arm pain and Denies palpitations Respiratory: Respiratory: Reports cough, Reports excessive phlegm production and Reports dyspnea Gastrointestinal: Gastrointestinal: Denies abdominal pain, Denies dyspepsia, Denies heartburn, Reports diarrhea, Denies nausea and Denies vomiting Genitourinary: Genitourinary: Denies dysuria Musculoskeletal: Musculoskeletal: Reports muscle weakness Integumentary/Breasts: Skin/Breast: Denies rash Neurologic: Denies focal weakness and Denies Sensory deficit (Neuro) Endocrine: Endocrine: Denies cold intolerance, Denies fatigue, Denies flushing, Denies heat intolerance, Denies polyphagia, Denies polydipsia and Denies palpitations Hematologic/Lymphatic: Hematologic/Lymphatic: Reports no additional hematologic/lymphatic complaints and Reports as per HPI Allergic/Immunologic: Allergic/Immunologic: Reports no additional allergic/immunologic complaints and Reports as per HPI [facility] Past Medical History Medical History (Updated 07/08/23 @ 15:37 by Sidney Patricia APRN) Chronic anticoagulation Chronic kidney disease, stage 3a Hepatic steatosis (06/2023) CT 07/01 Insulin dependent type 2 diabetes mellitus Mixed hyperlipidemia Morbid (severe) obesity due to excess calories Obstructive sleep apnea on CPAP Paroxysmal atrial fibrillation Pulmonary hypertension Sick sinus syndrome Surgical History Surgical History (Updated 06/14/23 @ 22:20 by Rocío Hickman PA-C) History of cholecystectomy History of permanent cardiac pacemaker placement (10/2020) History of total knee arthroplasty 2010 Left, 2014 right Family History Family History Father Hepatic cancer Mother Acute myocardial infarction Heart disease Sibling Asthma Grandparent Carcinoma of colon Colon polyp Son Heart disease Other Diabetes mellitus Social History Social History (Updated 06/14/23 @ 22:29 by Rocío Hickman PA-C) Social History: Surrogate medical decision maker: Bobbi Teran and Dave Dueñas, children. Code status: Do not resuscitate however patient would consider temporary mechanical ventilation or central line placement during the day (06/14/2023). Kit
--- NOTE | 2023-07-07 21:13 | ADMGEN ---
This patient, Eliza Dueñas, was admitted to Medical Room 253-01. Patient/family oriented to hospital policies and general routines including ID bracelet, bed and alarms, visiting hours, pain management, procedures, bathroom and other care routines, personal items, smoking policy, room service/diet, and visiting hours. Information on how to activate the Rapid Response Team has been discussed. Patient/Family are encouraged to report perceived risks to care and to ask questions if they do not understand what they are told or what they should do.
[2023-07-07 23:46] LABS: Troponin I 0.024 ng/mL (0.000-0.034)
[2023-07-08] VITALS (11 sets, daily range): BP systolic 119–142; BP diastolic 50–70; PULSE 64–80; RESP 14–22; TEMP 36.3–36.4; O2SAT 94–97
--- NOTE | 2023-07-08 07:28 | PM.IMPN ---
Progress Note: A&P Assessment and Plan (1) Influenza A: Code(s): J10.1 - Influenza due to other identified influenza virus with other respiratory manifestations Status: Acute Assessment and Plan: 07/08: Hypoxia 2/2 flu a - start tamiflu. Empirically continue cap abx - more concerned for atypical organisms as no discrete consolidation on xr - check procal in am - consider early discontinuation if warranted on abx therapy. Doxy instead of zithromycin 2/2 qtc 472 and concurrent zofran. (2) Hypoxia: Code(s): R09.02 - Hypoxemia Status: Acute Assessment and Plan: 07/08: Stable on 4L subjectively feeling improved. (3) Acute UTI: Code(s): N39.0 - Urinary tract infection, site not specified Status: Acute Assessment and Plan: 07/08: Markedly suspicious UA with recent urological intervention with stent. Culture is pending and will await those results, currently on rocephin. (4) Paroxysmal atrial fibrillation: Code(s): I48.0 - Paroxysmal atrial fibrillation Status: Acute Assessment and Plan: 07/08: Paced rhythm. Stable. (5) Nephrolithiasis: Code(s): N20.0 - Calculus of kidney Status: Acute Assessment and Plan: 07/08: Recent instrumentation - right ureteral stent - known 1.7cm left nephrolithiasis. Markedly infected appearing urine with notable leuks, rbc, bacteria, nitrites. Check renal u/s ensure no hydronephrosis - consider advanced imaging will defer to urology consultation d/t the recent interventions. (6) Chronic kidney disease due to diabetes mellitus: Code(s): E11.22 - Type 2 diabetes mellitus with diabetic chronic kidney disease Status: Acute Assessment and Plan: 07/08: GFR 41, improved from her last admission. (7) Type 2 diabetes mellitus with diabetic chronic kidney disease: Code(s): E11.22 - Type 2 diabetes mellitus with diabetic chronic kidney disease Status: Acute Assessment and Plan: 07/08: Cont. home regimen. Add in correction insulin. A1C in the am. 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 eliquis, hx atrial fibrillation. (9) Acute respiratory failure: Code(s): J96.00 - Acute respiratory failure, unspecified whether with hypoxia or hypercapnia Status: Acute (10) Pulmonary hypertension: Code(s): I27.20 - Pulmonary hypertension, unspecified Status: Acute Assessment and Plan: 07/08: Moderate pulm htn, 54mmhg. (11) Morbid (severe) obesity due to excess calories: Code(s): E66.01 - Morbid (severe) obesity due to excess calories Status: Acute (12) (HFpEF) heart failure with preserved ejection fraction: Code(s): I50.30 - Unspecified diastolic (congestive) heart failure Status: Acute Assessment and Plan: 07/08: Reviewed recent echo - diastolic hf, normal ef. Cont. lasix - noted elevation in bnp but does not appear markedly hypervolemic on exam. Plan Diet: CCDD. Activity: As tolerated. Analgesia: Tylenol VTE prophylaxis: Full anticoagulation. Glycemic control: Lantus, correction insulin. Disposition: Expect 24-48 hours of further management. Time Spent With Patient Time with patient: Greater than 35 minutes Subjective Date/time seen: 07/08/23 07:28 Interval history: Eliza Dueñas is an 83 year old female who presented with acute hypoxic respiratory failure secondary to influenza A infection. Symptoms started two days prior with fever and chills. She had vomiting, a small amount, x one on 07/07/23. She has hx of pulmonary hypertension. She recently had covid, about 12 days ago, and was cleared from that isolation prior to admission. She has hx atrial fib with pacemaker in place and is anticoagulated on eliquis. She was given a dose of rocephin in the ED and C
[2023-07-08 08:33] LABS: Glucose Point of Care 144 mg/dl (65-105)
[2023-07-08] MEDS: FLUTICASONE PROPIONATE 0.05% NA SPR 16 GM BTL (*BKC) 1 SPRAY NASAL ×2 (10:39→18:05)
[2023-07-08] MEDS: APIXABAN 5 MG TABLET PO ×2 (10:39→18:04)
[2023-07-08] MEDS: FUROSEMIDE 40 MG TABLET PO (10:39)
[2023-07-08] MEDS: DOXYCYCLINE HYCLATE 100 MG TABLET PO ×2 (10:39→21:22)
[2023-07-08] MEDS: SPIRONOLACTONE 25 MG TABLET PO ×2 (10:39→18:04)
[2023-07-08] MEDS: OSELTAMIVIR PHOSPHATE 75 MG CAPSULE PO ×2 (10:39→21:21)
[2023-07-08] MEDS: PRAVASTATIN SODIUM 20 MG TABLET PO (10:39)
[2023-07-08] MEDS: AZELASTINE HCL NASAL 0.1% 137 MCG/SPR 30 ML BTL 1 SPRAY NASAL ×2 (10:40→21:21)
[2023-07-08] MEDS: INSULIN GLARGINE (*BKC) 100 UNITS/ML 20 UNITS SUB-Q (10:51)
[2023-07-08 12:16] LABS: Glucose Point of Care 166 mg/dl (65-105)
[2023-07-08 17:21] LABS: Glucose Point of Care 159 mg/dl (65-105)
--- NOTE | 2023-07-08 17:34 | WPDURCON ---
Assessment and Plan Assessment and plan (1) Nephrolithiasis: Code(s): N20.0 - Calculus of kidney Status: Acute Assessment and Plan: We will plan left ESWL along with cysto and right stent removed simultaneously when she has recuperated sufficiently. There is no need for earlier intervention prior to that. Her indwelling stent should not be a cause for recurrent infections and attention to the left renal stone is not urgent given the fact it is nonobstructive Urology Consult Note HPI Date Seen: 07/08/23 Requesting Physician: Ruby Monae MD Primary Care Provider: Pako Munson MD Consult Narrative Narrative: Eliza Dueñas is a 83 year old female Known to our practice after presenting with a an obstructing right distal ureteral calculus and obstructive right pyelonephritis approximately 10 days ago. After stay in the critical care unit she was eventually discharged but readmitted with generalized weakness and shortness of breath. Urine suggest a recurrent urinary tract infection. Imaging demonstrates a right ureteral stent to be in position within unchanged 10 mm nonobstructing stone in her left renal pelvis. She denies fever or hematuria Review of Systems Review of Systems: All systems reviewed & are unremarkable except as noted in HPI and below PMFSH Past Medical History Medical History (Updated 07/08/23 @ 15:37 by Sidney Patricia APRN) Chronic anticoagulation Chronic kidney disease, stage 3a Hepatic steatosis (06/2023) CT 07/01 Insulin dependent type 2 diabetes mellitus Mixed hyperlipidemia Morbid (severe) obesity due to excess calories Obstructive sleep apnea on CPAP Paroxysmal atrial fibrillation Pulmonary hypertension Sick sinus syndrome Surgical History Surgical History (Updated 06/14/23 @ 22:20 by Roíco Hickman PA-C) History of cholecystectomy History of permanent cardiac pacemaker placement (10/2020) History of total knee arthroplasty 2010 Left, 2014 right Family History Family History Father Hepatic cancer Mother Acute myocardial infarction Heart disease Sibling Asthma Grandparent Carcinoma of colon Colon polyp Son Heart disease Other Diabetes mellitus Social History Social History (Updated 06/14/23 @ 22:29 by Rocío Hickman PA-C) Social History: Surrogate medical decision maker: Bobbi Teran and Dave Dueñas, ann-marie. Code status: Do not resuscitate however patient would consider temporary mechanical ventilation or central line placement during the day (06/14/2023). Smoking packs per day: 2 Smoking cigarettes per day: 40.0 Years smoked: 10 Smoking pack-years: 20.00 Smoking status: Former smoker Tobacco type: cigarettes Second hand tobacco smoke exposure: No Smoking end date: 08/09/89 Alcohol intake: never Substance use: never Substance use type: does not use Lack of Transportation: No Lack of Food: Never True Current Housing: I Have Housing Concerned About Future Housing: No Difficulty Paying Gas/Electric Bills: No Difficulty Paying for Meds: No Currently Unemployed: No Education: High School Diploma/GED Difficulty w/ Childcare or Family Care: No Living arrangements: alone 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re concerns: No Agree to blood products: Yes Meds Home Medications and Allergies Home Medications Medication Instructions Recorded Confirmed Type apixaban 5 mg tablet (Eliquis) 5 mg PO BID #60 tabs 01/04/23 07/07/23 Rx furosemide 40 mg tablet 40 mg PO QAM #90 tabs 01/17/23 07/07/23 Rx insulin glargine-yfgn 100 unit/mL 30 unit (0.3 mL) subcut DAILY #27 01/21/23 07/07/23 Rx (3 mL) subcutaneous pen (Semglee mL (insulin glargine-yfgn) Pen) gabapentin 300 mg capsule 1,200 mg PO HS #120 caps 05/03/23 07/07/23 Rx pravastatin 20 mg tablet 20 mg PO QAM #90 tabs 06/11/23 07/07/23 Rx tiot
[2023-07-08] MEDS: GABAPENTIN 400 MG CAPSULE 1200 MG PO (21:21)
[2023-07-08 23:00] LABS: Glucose Point of Care 167 mg/dl (65-105)
[2023-07-09] VITALS (10 sets, daily range): BP systolic 123–151; BP diastolic 65–88; PULSE 66–69; RESP 16–20; TEMP 35.5–36.4; O2SAT 95–100
[2023-07-09 06:01] LABS: Hemoglobin 9.5 g/dL (12.0-15.0); Mean Corpuscular HGB Conc 29.7 g/dl (32-36); Mean Corpuscular Volume 100.9 fl (80-100); Mean Platelet Volume 10.6 fl (7.4-10.4); Platelet Count Result 226 k/mm3 (150-375); Red Blood Count 3.17 M/mm3 (4.2-5.4); Red Cell Distribution Width 14.6 % (11.5-14.5); White Blood Count 8.3 K/mm3 (4.5-10.0)
[2023-07-09 06:21] LABS: Alanine Aminotransferase 28 U/L (6-35); Albumin Level 3.4 g/dL (3.5-5.1); Alkaline Phosphatase 52 U/L (38-126); Anion Gap 8 mmol/L (8-16); Aspartate Amino Transferase 39 U/L (14-36); Bilirubin,Total 0.6 mg/dL (0.2-1.3); Blood Urea Nitrogen 29 mg/dL (7-17); Calcium 8.6 mg/dL (8.4-10.2); Carbon Dioxide 32 mmol/L (22-30); Chloride 98 mmol/L (98-107); Estimated CRCL calculation 38 ml/min; Estimated Glomerular Filt Rate 43; Glucose 119 mg/dL (65-110); Magnesium 1.4 mg/dL (1.6-2.3); Potassium 4.3 mmol/L (3.4-5.0); Sodium 138 mmol/L (137-145)
[2023-07-09 06:33] LABS: Procalcitonin 0.1 ng/mL
[2023-07-09 08:37] LABS: Glucose Point of Care 105 mg/dl (65-105)
[2023-07-09] MEDS: DOXYCYCLINE HYCLATE 100 MG TABLET PO ×2 (08:40→20:51)
[2023-07-09] MEDS: APIXABAN 5 MG TABLET PO ×2 (08:40→16:31)
[2023-07-09] MEDS: FUROSEMIDE 40 MG TABLET PO (08:40)
[2023-07-09] MEDS: FLUTICASONE PROPIONATE 0.05% NA SPR 16 GM BTL (*BKC) 1 SPRAY NASAL ×2 (08:41→16:31)
[2023-07-09] MEDS: SPIRONOLACTONE 25 MG TABLET PO ×2 (08:41→16:31)
[2023-07-09] MEDS: AZELASTINE HCL NASAL 0.1% 137 MCG/SPR 30 ML BTL 1 SPRAY NASAL ×2 (08:41→20:50)
[2023-07-09] MEDS: OSELTAMIVIR PHOSPHATE 75 MG CAPSULE PO (08:41)
[2023-07-09] MEDS: PRAVASTATIN SODIUM 20 MG TABLET PO (08:41)
[2023-07-09] MEDS: INSULIN GLARGINE (*BKC) 100 UNITS/ML 20 UNITS SUB-Q (08:42)
[2023-07-09] MEDS: UMECLIDINIUM/VILANTEROL 62.5-25 MCG ELLIPTA 1 PUFF INHALATION (09:01)
[2023-07-09 09:19] LABS: Hemoglobin A1C 6.4 % (<5.7)
--- NOTE | 2023-07-09 11:54 | PM.IMPN ---
Progress Note: A&P Assessment and Plan (1) Urinary tract infection: Code(s): N39.0 - Urinary tract infection, site not specified Status: Acute (2) Chronic respiratory failure with hypoxia: Code(s): J96.11 - Chronic respiratory failure with hypoxia Status: Acute (3) Chronic kidney disease due to diabetes mellitus: Code(s): E11.22 - Type 2 diabetes mellitus with diabetic chronic kidney disease Status: Acute (4) Hepatic steatosis: Onset Date: 06/2023 Code(s): K76.0 - Fatty (change of) liver, not elsewhere classified Status: Acute (5) Paroxysmal atrial fibrillation: Code(s): I48.0 - Paroxysmal atrial fibrillation Status: Acute (6) COVID: Code(s): U07.1 - COVID-19 Status: Acute (7) Sick sinus syndrome: Code(s): I49.5 - Sick sinus syndrome Status: Acute (8) Chronic obstructive pulmonary disease, unspecified: Code(s): J44.9 - Chronic obstructive pulmonary disease, unspecified Status: Acute (9) Presence of cardiac pacemaker: Onset Date: ~10/2020 Code(s): Z95.0 - Presence of cardiac pacemaker Status: Acute Plan 83-year-old female with history of pacemaker for sick sinus syndrome heart failure SUNNY on CPAP paroxysmal atrial fibrillation hypertension hyperlipidemia diabetes presented with shortness of breath. Associated cough and fever. COVID positive influenza positive Hypoxic in low 80s in room air on presentation. Requiring oxygen supplementation. Recent admission for UTI and sepsis status post right ureteral stent placement COVID pneumonia/influenza plus minus bacterial pneumonia. On ceftriaxone and doxycycline. Will switch ceftriaxone to cefepime as urine culture is growing Pseudomonas. UTI with recent stent placement ureteral stent placement. Urine culture growing Pseudomonas. Will change antibiotic to cefepime. Acute hypoxic respiratory influenza and COVID. Her symptomatology has been ongoing for past 7-10 days. Will start Decadron due to hypoxia and COVID infection Acute influenza on Tamiflu Type 2 diabetes on insulin adjust insulin as needed Obstructive sleep apnea on CPAP Paroxysmal atrial fibrillation On chronic anticoagulation with Eliquis Moderate pulmonary hypertension Morbid obesity Congestive heart failure diastolic. Elevated BNP. On Lasix 40 mg daily CKD stage 3 DVT prophylaxis on apixaban Subjective Date/time seen: 07/09/23 11:54 Interval history: Eliza Dueñas is an 83 year old female who presented with acute hypoxic respiratory failure secondary to influenza A infection. Symptoms started two days prior with fever and chills. She had vomiting, a small amount, x one on 07/07/23. She has hx of pulmonary hypertension. She recently had covid, about 12 days ago, and was cleared from that isolation prior to admission. She has hx atrial fib with pacemaker in place and is anticoagulated on eliquis. She was given a dose of rocephin in the ED and CXR shows diffuse reticulonodular opacities which are suspected to be 2/2 bronchiolitis or interstitial edema. 07/08: Remains on 4L which is a new finding for her having not needed O2 in the past. She subjectively feels better. She is not distressed. 07/09; no overn ight events, sob on exertion. legs welling has imrpoved. remains on 4 l oxygen. Review of Systems Review of Systems: All systems reviewed & are unremarkable except as noted in HPI and below Exam Narrative: GENERAL APPEARANCE: Appears to be in no acute distress. HEAD: normocephalic atraumatic EYES: PERRL, EOMI. Vision grossly intact. ENT: Hearing grossly intact, no nasal discharge NECK: Neck supple, trachea midline. CARDIAC: Rhythm is regular. No murmurs, rubs, or gallops. No cyanosis or pallor. Extremities are warm and well perfused. LUNGS: Coarse breath sounds right midlung. Bilateral bases diminished with mild coarse sounds. Respirations even and unlabored. ABDOMEN: B
[2023-07-09] MEDS: CEFEPIME 1 GM/NS 50 ML 1 GM/50 ML BAG IVPB ×2 (12:07→20:51)
[2023-07-09] MEDS: DEXAMETHASONE 2 MG TABLET 6 MG PO (12:07)
[2023-07-09 12:09] LABS: Glucose Point of Care 109 mg/dl (65-105)
[2023-07-09] MEDS: MAGNESIUM SULF 2 GM/WATER 50ML 2 GM/50 ML BAG IVPB (14:28)
[2023-07-09 16:53] LABS: Glucose Point of Care 160 mg/dl (65-105)
[2023-07-09] MEDS: OSELTAMIVIR PHOSPHATE 30 MG CAPSULE PO (20:51)
[2023-07-09] MEDS: GABAPENTIN 400 MG CAPSULE 1200 MG PO (20:51)
[2023-07-10] VITALS (13 sets, daily range): BP systolic 151–152; BP diastolic 67–75; PULSE 66–80; RESP 18–22; TEMP 36.4–37.2; O2SAT 68–100
[2023-07-10 06:03] LABS: Hemoglobin 9.8 g/dL (12.0-15.0); Immature Granulocyte Absolute 0.03 K/mm3 (0.00-0.031); Immature Granulocyte Percent A 0.6 % (0-0.5); Lymphocytes Absolute Auto 0.62 K/mm3 (0.9-3.2); Lymphocytes Percent Auto 11.5 % (18.3-44.2); Mean Corpuscular HGB Conc 30.6 g/dl (32-36); Mean Corpuscular Hemoglobin 30.3 pg (26-34); Mean Corpuscular Volume 99.1 fl (80-100); Mean Platelet Volume 10.9 fl (7.4-10.4); Monocytes Absolute Auto 0.4 K/mm3 (0.1-0.6); Monocytes Percent Auto 8.2 % (2.6-8.5); Neutrophils Absolute Auto 4.3 K/mm3 (1.3-6.7); Neutrophils Percent Auto 79.7 % (45.5-73.1); Platelet Count Result 203 k/mm3 (150-375); Red Blood Count 3.23 M/mm3 (4.2-5.4); Red Cell Distribution Width 14.6 % (11.5-14.5); White Blood Count 5.4 K/mm3 (4.5-10.0)
[2023-07-10 06:19] LABS: Alanine Aminotransferase 25 U/L (6-35); Albumin Level 3.5 g/dL (3.5-5.1); Alkaline Phosphatase 48 U/L (38-126); Anion Gap 7 mmol/L (8-16); Aspartate Amino Transferase 31 U/L (14-36); Bilirubin,Total 0.8 mg/dL (0.2-1.3); Blood Urea Nitrogen 30 mg/dL (7-17); Calcium 8.9 mg/dL (8.4-10.2); Carbon Dioxide 36 mmol/L (22-30); Chloride 95 mmol/L (98-107); Estimated CRCL calculation 41 ml/min; Estimated Glomerular Filt Rate 47; Glucose 150 mg/dL (65-110); Magnesium 1.7 mg/dL (1.6-2.3); Potassium 4.7 mmol/L (3.4-5.0); Sodium 138 mmol/L (137-145)
[2023-07-10] MEDS: UMECLIDINIUM/VILANTEROL 62.5-25 MCG ELLIPTA 1 PUFF INHALATION (08:37)
[2023-07-10 08:50] LABS: Glucose Point of Care 135 mg/dl (65-105)
[2023-07-10] MEDS: DOXYCYCLINE HYCLATE 100 MG TABLET PO ×2 (08:52→20:39)
[2023-07-10] MEDS: SPIRONOLACTONE 25 MG TABLET PO ×2 (08:52→16:08)
[2023-07-10] MEDS: DEXAMETHASONE 2 MG TABLET 6 MG PO (08:52)
[2023-07-10] MEDS: OSELTAMIVIR PHOSPHATE 30 MG CAPSULE PO ×2 (08:52→20:39)
[2023-07-10] MEDS: FLUTICASONE PROPIONATE 0.05% NA SPR 16 GM BTL (*BKC) 1 SPRAY NASAL ×2 (08:53→16:07)
[2023-07-10] MEDS: FUROSEMIDE 40 MG TABLET PO (08:53)
[2023-07-10] MEDS: PRAVASTATIN SODIUM 20 MG TABLET PO (08:53)
[2023-07-10] MEDS: AZELASTINE HCL NASAL 0.1% 137 MCG/SPR 30 ML BTL 1 SPRAY NASAL ×2 (08:53→20:38)
[2023-07-10] MEDS: APIXABAN 5 MG TABLET PO ×2 (08:53→16:07)
[2023-07-10] MEDS: CEFEPIME 1 GM/NS 50 ML 1 GM/50 ML BAG IVPB ×2 (08:53→20:38)
[2023-07-10] MEDS: INSULIN GLARGINE (*BKC) 100 UNITS/ML 20 UNITS SUB-Q (08:53)
[2023-07-10 12:38] LABS: Glucose Point of Care 176 mg/dl (65-105)
--- NOTE | 2023-07-10 15:19 | PM.IMPN ---
Progress Note: A&P Assessment and Plan (1) Urinary tract infection: Code(s): N39.0 - Urinary tract infection, site not specified Status: Acute (2) Chronic respiratory failure with hypoxia: Code(s): J96.11 - Chronic respiratory failure with hypoxia Status: Acute (3) Chronic kidney disease due to diabetes mellitus: Code(s): E11.22 - Type 2 diabetes mellitus with diabetic chronic kidney disease Status: Acute (4) Hepatic steatosis: Onset Date: 06/2023 Code(s): K76.0 - Fatty (change of) liver, not elsewhere classified Status: Acute (5) Paroxysmal atrial fibrillation: Code(s): I48.0 - Paroxysmal atrial fibrillation Status: Acute (6) COVID: Code(s): U07.1 - COVID-19 Status: Acute (7) Sick sinus syndrome: Code(s): I49.5 - Sick sinus syndrome Status: Acute (8) Chronic obstructive pulmonary disease, unspecified: Code(s): J44.9 - Chronic obstructive pulmonary disease, unspecified Status: Acute (9) Presence of cardiac pacemaker: Onset Date: ~10/2020 Code(s): Z95.0 - Presence of cardiac pacemaker Status: Acute Plan 83-year-old female with history of pacemaker for sick sinus syndrome heart failure SUNNY on CPAP paroxysmal atrial fibrillation hypertension hyperlipidemia diabetes presented with shortness of breath. Associated cough and fever. COVID positive influenza positive Hypoxic in low 80s in room air on presentation. Requiring oxygen supplementation. Decadron started 07/09/2023, out of window for remdesivir treatment x1 Recent admission for UTI and sepsis status post right ureteral stent placement COVID pneumonia/influenza plus minus bacterial pneumonia. On ceftriaxone and doxycycline. Will switch ceftriaxone to cefepime as urine culture is growing Pseudomonas. UTI with recent stent placement ureteral stent placement. Urine culture growing Pseudomonas. Will change antibiotic to cefepime. Acute hypoxic respiratory influenza and COVID. Her symptomatology has been ongoing for past 7-10 days. Will start Decadron due to hypoxia and COVID infection Acute influenza on Tamiflu Type 2 diabetes on insulin adjust insulin as needed Obstructive sleep apnea on CPAP Paroxysmal atrial fibrillation On chronic anticoagulation with Eliquis Moderate pulmonary hypertension Morbid obesity Congestive heart failure diastolic. Elevated BNP. On Lasix 40 mg daily, will give a dose of Lasix 20 mg IV CKD stage 3 DVT prophylaxis on apixaban Subjective Date/time seen: 07/10/23 15:19 Interval history: Eliza Dueñas is an 83 year old female who presented with acute hypoxic respiratory failure secondary to influenza A infection. Symptoms started two days prior with fever and chills. She had vomiting, a small amount, x one on 07/07/23. She has hx of pulmonary hypertension. She recently had covid, about 12 days ago, and was cleared from that isolation prior to admission. She has hx atrial fib with pacemaker in place and is anticoagulated on eliquis. She was given a dose of rocephin in the ED and CXR shows diffuse reticulonodular opacities which are suspected to be 2/2 bronchiolitis or interstitial edema. 07/08: Remains on 4L which is a new finding for her having not needed O2 in the past. She subjectively feels better. She is not distressed. 07/09; no overn ight events, sob on exertion. legs welling has imrpoved. remains on 4 l oxygen. 07/10: No overnight events. Oxygen requirement down to 3. Discussed with nursing staff. Feels a bit better today. Still has cough. Review of Systems Review of Systems: All systems reviewed & are unremarkable except as noted in HPI and below Exam Narrative: GENERAL APPEARANCE: Appears to be in no acute distress. HEAD: normocephalic atraumatic EYES: PERRL, EOMI. Vision grossly intact. ENT: Hearing grossly intact, no nasal discharge NECK: Neck supple, trachea midline. CARDIAC: Rhythm
[2023-07-10] MEDS: FUROSEMIDE INJ 40 MG/4 ML VIAL 20 MG IV PUSH (16:07)
[2023-07-10 17:21] LABS: Glucose Point of Care 255 mg/dl (65-105)
[2023-07-10] MEDS: INSULIN ASPART (*BKC) 100 UNITS/ML SUB-Q ×2 (17:25→22:45)
[2023-07-10] MEDS: GABAPENTIN 400 MG CAPSULE 1200 MG PO (20:39)
[2023-07-10 21:36] LABS: Glucose Point of Care 294 mg/dl (65-105)
[2023-07-11] VITALS (12 sets, daily range): BP systolic 148–162; BP diastolic 68–95; PULSE 67–84; RESP 14–22; TEMP 36.2–37; O2SAT 93–99
[2023-07-11 05:37] LABS: Basophils Percent Auto 0.2 % (0.2-1.2); Hematocrit 33.6 % (37.0-47.0); Hemoglobin 10.3 g/dL (12.0-15.0); Immature Granulocyte Absolute 0.04 K/mm3 (0.00-0.031); Immature Granulocyte Percent A 0.8 % (0-0.5); Lymphocytes Absolute Auto 0.86 K/mm3 (0.9-3.2); Lymphocytes Percent Auto 17.3 % (18.3-44.2); Mean Corpuscular HGB Conc 30.7 g/dl (32-36); Mean Corpuscular Hemoglobin 29.9 pg (26-34); Mean Corpuscular Volume 97.4 fl (80-100); Mean Platelet Volume 10.5 fl (7.4-10.4); Monocytes Absolute Auto 0.6 K/mm3 (0.1-0.6); Monocytes Percent Auto 12.1 % (2.6-8.5); Neutrophils Absolute Auto 3.5 K/mm3 (1.3-6.7); Neutrophils Percent Auto 69.6 % (45.5-73.1); Platelet Count Result 203 k/mm3 (150-375); Red Blood Count 3.45 M/mm3 (4.2-5.4); Red Cell Distribution Width 14.3 % (11.5-14.5)
[2023-07-11 05:56] LABS: Alanine Aminotransferase 24 U/L (6-35); Albumin Level 3.6 g/dL (3.5-5.1); Alkaline Phosphatase 44 U/L (38-126); Anion Gap 9 mmol/L (8-16); Aspartate Amino Transferase 29 U/L (14-36); Bilirubin,Total 0.9 mg/dL (0.2-1.3); Blood Urea Nitrogen 41 mg/dL (7-17); Calcium 9.1 mg/dL (8.4-10.2); Carbon Dioxide 37 mmol/L (22-30); Chloride 92 mmol/L (98-107); Estimated CRCL calculation 45 ml/min; Estimated Glomerular Filt Rate 53; Glucose 150 mg/dL (65-110); Magnesium 1.6 mg/dL (1.6-2.3); Potassium 4.6 mmol/L (3.4-5.0); Sodium 138 mmol/L (137-145)
[2023-07-11] MEDS: PRAVASTATIN SODIUM 20 MG TABLET PO (08:47)
[2023-07-11] MEDS: DEXAMETHASONE 2 MG TABLET 6 MG PO (08:47)
[2023-07-11] MEDS: FUROSEMIDE 40 MG TABLET PO (08:47)
[2023-07-11] MEDS: SPIRONOLACTONE 25 MG TABLET PO ×2 (08:47→16:46)
[2023-07-11] MEDS: CEFEPIME 1 GM/NS 50 ML 1 GM/50 ML BAG IVPB ×2 (08:47→20:30)
[2023-07-11] MEDS: OSELTAMIVIR PHOSPHATE 30 MG CAPSULE PO ×2 (08:48→20:29)
[2023-07-11] MEDS: AZELASTINE HCL NASAL 0.1% 137 MCG/SPR 30 ML BTL 1 SPRAY NASAL ×2 (08:48→20:31)
[2023-07-11] MEDS: INSULIN GLARGINE (*BKC) 100 UNITS/ML 20 UNITS SUB-Q (08:48)
[2023-07-11] MEDS: APIXABAN 5 MG TABLET PO ×2 (08:48→16:46)
[2023-07-11] MEDS: DOXYCYCLINE HYCLATE 100 MG TABLET PO ×2 (08:48→20:29)
[2023-07-11] MEDS: FLUTICASONE PROPIONATE 0.05% NA SPR 16 GM BTL (*BKC) 1 SPRAY NASAL ×2 (08:48→16:46)
[2023-07-11 08:50] LABS: Glucose Point of Care 138 mg/dl (65-105)
[2023-07-11] MEDS: UMECLIDINIUM/VILANTEROL 62.5-25 MCG ELLIPTA 1 PUFF INHALATION (09:04)
--- NOTE | 2023-07-11 10:30 | PCPTNOTE ---
07/11 1031 MW - PT services not indicated. Patient PLOF.
[2023-07-11 11:42] LABS: Glucose Point of Care 171 mg/dl (65-105)
--- NOTE | 2023-07-11 16:00 | PM.IMPN ---
Progress Note: A&P Assessment and Plan (1) Urinary tract infection: Code(s): N39.0 - Urinary tract infection, site not specified Status: Acute (2) Chronic respiratory failure with hypoxia: Code(s): J96.11 - Chronic respiratory failure with hypoxia Status: Acute (3) Chronic kidney disease due to diabetes mellitus: Code(s): E11.22 - Type 2 diabetes mellitus with diabetic chronic kidney disease Status: Acute (4) Hepatic steatosis: Onset Date: 06/2023 Code(s): K76.0 - Fatty (change of) liver, not elsewhere classified Status: Acute (5) Paroxysmal atrial fibrillation: Code(s): I48.0 - Paroxysmal atrial fibrillation Status: Acute (6) COVID: Code(s): U07.1 - COVID-19 Status: Acute (7) Sick sinus syndrome: Code(s): I49.5 - Sick sinus syndrome Status: Acute (8) Chronic obstructive pulmonary disease, unspecified: Code(s): J44.9 - Chronic obstructive pulmonary disease, unspecified Status: Acute (9) Presence of cardiac pacemaker: Onset Date: ~10/2020 Code(s): Z95.0 - Presence of cardiac pacemaker Status: Acute Plan 83-year-old female with history of pacemaker for sick sinus syndrome heart failure SUNNY on CPAP paroxysmal atrial fibrillation hypertension hyperlipidemia diabetes presented with shortness of breath. Associated cough and fever. COVID positive influenza positive Hypoxic in low 80s in room air on presentation. Requiring oxygen supplementation. Decadron started 07/09/2023, out of window for remdesivir treatment. Recent admission for UTI and sepsis status post right ureteral stent placement COVID pneumonia/influenza plus minus bacterial pneumonia. On ceftriaxone and doxycycline. Will switch ceftriaxone to cefepime as urine culture is growing Pseudomonas. UTI with recent stent placement ureteral stent placement. Urine culture growing Pseudomonas. Will change antibiotic to cefepime. Acute hypoxic respiratory influenza and COVID. Her symptomatology has been ongoing for past 7-10 days. Started on decadron due to hypoxia and COVID infection Acute influenza on Tamiflu Type 2 diabetes on insulin adjust insulin as needed Obstructive sleep apnea on CPAP Paroxysmal atrial fibrillation On chronic anticoagulation with Eliquis Moderate pulmonary hypertension Morbid obesity Congestive heart failure diastolic. Elevated BNP. On Lasix 40 mg daily, will give a dose of Lasix 20 mg IV. Chest x-ray reviewed. Will give another dose of Lasix today CKD stage 3 DVT prophylaxis on apixaban Subjective Date/time seen: 07/11/23 16:00 Interval history: Eliza Dueñas is an 83 year old female who presented with acute hypoxic respiratory failure secondary to influenza A infection. Symptoms started two days prior with fever and chills. She had vomiting, a small amount, x one on 07/07/23. She has hx of pulmonary hypertension. She recently had covid, about 12 days ago, and was cleared from that isolation prior to admission. She has hx atrial fib with pacemaker in place and is anticoagulated on eliquis. She was given a dose of rocephin in the ED and CXR shows diffuse reticulonodular opacities which are suspected to be 2/2 bronchiolitis or interstitial edema. 07/08: Remains on 4L which is a new finding for her having not needed O2 in the past. She subjectively feels better. She is not distressed. 07/09; no overn ight events, sob on exertion. legs welling has imrpoved. remains on 4 l oxygen. 07/10: No overnight events. Oxygen requirement down to 3. Discussed with nursing staff. Feels a bit better today. Still has cough. 07/16/2023: Feeling much better. Oxygen requirement down to 2 L. Home O2. Chest x-ray reviewed. Review of Systems Review of Systems: All systems reviewed & are unremarkable except as noted in HPI and below Exam Narrative: GENERAL APPEARANCE: Appears to be in no acute distress. HEAD: normocep
[2023-07-11] MEDS: FUROSEMIDE INJ 40 MG/4 ML VIAL IV PUSH (16:46)
[2023-07-11] MEDS: INSULIN ASPART (*BKC) 100 UNITS/ML SUB-Q (16:46)
[2023-07-11 16:57] LABS: Glucose Point of Care 275 mg/dl (65-105)
[2023-07-11] MEDS: GABAPENTIN 400 MG CAPSULE 1200 MG PO (20:29)
[2023-07-11 22:57] LABS: Glucose Point of Care 270 mg/dl (65-105)
[2023-07-12] VITALS (12 sets, daily range): BP systolic 114–131; BP diastolic 53–56; PULSE 68–88; RESP 16–20; TEMP 36.1–37; O2SAT 87–97
[2023-07-12 06:14] LABS: Basophils Percent Auto 0.2 % (0.2-1.2); Hematocrit 33.2 % (37.0-47.0); Hemoglobin 10.3 g/dL (12.0-15.0); Immature Granulocyte Absolute 0.08 K/mm3 (0.00-0.031); Immature Granulocyte Percent A 1.3 % (0-0.5); Lymphocytes Absolute Auto 1.43 K/mm3 (0.9-3.2); Mean Corpuscular Hemoglobin 29.4 pg (26-34); Mean Corpuscular Volume 94.9 fl (80-100); Monocytes Absolute Auto 0.6 K/mm3 (0.1-0.6); Monocytes Percent Auto 10.1 % (2.6-8.5); Neutrophils Absolute Auto 4.1 K/mm3 (1.3-6.7); Neutrophils Percent Auto 65.4 % (45.5-73.1); Platelet Count Result 207 k/mm3 (150-375); White Blood Count 6.2 K/mm3 (4.5-10.0)
[2023-07-12 06:42] LABS: Alanine Aminotransferase 27 U/L (6-35); Albumin Level 3.7 g/dL (3.5-5.1); Alkaline Phosphatase 48 U/L (38-126); Anion Gap 9 mmol/L (8-16); Aspartate Amino Transferase 27 U/L (14-36); Bilirubin,Total 0.9 mg/dL (0.2-1.3); Blood Urea Nitrogen 44 mg/dL (7-17); Calcium 9.1 mg/dL (8.4-10.2); Carbon Dioxide 39 mmol/L (22-30); Chloride 89 mmol/L (98-107); Estimated CRCL calculation 45 ml/min; Estimated Glomerular Filt Rate 53; Glucose 170 mg/dL (65-110); Magnesium 1.4 mg/dL (1.6-2.3); Sodium 137 mmol/L (137-145)
[2023-07-12 08:21] LABS: Glucose Point of Care 140 mg/dl (65-105)
[2023-07-12] MEDS: PRAVASTATIN SODIUM 20 MG TABLET PO (09:35)
[2023-07-12] MEDS: SPIRONOLACTONE 25 MG TABLET PO ×2 (09:35→17:27)
[2023-07-12] MEDS: DOXYCYCLINE HYCLATE 100 MG TABLET PO (09:36)
[2023-07-12] MEDS: OSELTAMIVIR PHOSPHATE 30 MG CAPSULE PO ×2 (09:36→17:53)
[2023-07-12] MEDS: APIXABAN 5 MG TABLET PO ×2 (09:36→17:27)
[2023-07-12] MEDS: FUROSEMIDE 40 MG TABLET PO (09:36)
[2023-07-12] MEDS: FLUTICASONE PROPIONATE 0.05% NA SPR 16 GM BTL (*BKC) 1 SPRAY NASAL (09:37)
[2023-07-12] MEDS: AZELASTINE HCL NASAL 0.1% 137 MCG/SPR 30 ML BTL 1 SPRAY NASAL (09:37)
[2023-07-12] MEDS: CEFEPIME 1 GM/NS 50 ML 1 GM/50 ML BAG IVPB (09:37)
[2023-07-12] MEDS: DEXAMETHASONE 2 MG TABLET 6 MG PO (09:37)
[2023-07-12] MEDS: INSULIN GLARGINE (*BKC) 100 UNITS/ML 24 UNITS SUB-Q (09:38)
[2023-07-12] MEDS: UMECLIDINIUM/VILANTEROL 62.5-25 MCG ELLIPTA 1 PUFF INHALATION (10:04)
[2023-07-12 12:01] LABS: Glucose Point of Care 150 mg/dl (65-105)
--- NOTE | 2023-07-12 14:58 | PM.DS ---
DS: Admitting Diagnosis Discharge Date 07/12/2023 Admitting Diagnosis Shortness of breath DS: Discharge Diagnosis Discharge Diagnosis (1) Urinary tract infection: Code(s): N39.0 - Urinary tract infection, site not specified Status: Acute (2) Chronic respiratory failure with hypoxia: Code(s): J96.11 - Chronic respiratory failure with hypoxia Status: Acute (3) Chronic kidney disease due to diabetes mellitus: Code(s): E11.22 - Type 2 diabetes mellitus with diabetic chronic kidney disease Status: Acute (4) Hepatic steatosis: Onset Date: 06/2023 Code(s): K76.0 - Fatty (change of) liver, not elsewhere classified Status: Acute (5) Paroxysmal atrial fibrillation: Code(s): I48.0 - Paroxysmal atrial fibrillation Status: Acute (6) COVID: Code(s): U07.1 - COVID-19 Status: Acute (7) Sick sinus syndrome: Code(s): I49.5 - Sick sinus syndrome Status: Acute (8) Chronic obstructive pulmonary disease, unspecified: Code(s): J44.9 - Chronic obstructive pulmonary disease, unspecified Status: Acute (9) Presence of cardiac pacemaker: Onset Date: ~10/2020 Code(s): Z95.0 - Presence of cardiac pacemaker Status: Acute DS: Summary Hospital Course Hospital Course: 83-year-old female with history of pacemaker for sick sinus syndrome heart failure SUNNY on CPAP paroxysmal atrial fibrillation hypertension hyperlipidemia diabetes presented with shortness of breath.? Associated cough and fever. COVID positive influenza positive Hypoxic in low 80s in room air on presentation.? Requiring oxygen supplementation.? Decadron started 07/09/2023, out of window for remdesivir treatment. Continue Decadron for 10 days S total. She still required oxygen at the time of discharge. Home oxygen evaluation was done and oxygen was arranged Recent admission for UTI and sepsis status post right ureteral stent placement. Urology was consulted during the hospital stay COVID pneumonia/influenza plus minus bacterial pneumonia.? On ceftriaxone and doxycycline.? Will switch ceftriaxone to cefepime as urine culture is growing Pseudomonas. Will switch to Levaquin at discharge to cover for Pseudomonas she will only need 1 more does on 07/14/2023 UTI with recent stent placement ureteral stent placement.? Urine culture growing Pseudomonas.? Will change antibiotic to cefepime. Acute hypoxic respiratory influenza and COVID.? Her symptomatology has been ongoing for past 7-10 days.? Started on decadron due to hypoxia and COVID infection Acute influenza on Tamiflu finished treatment with Tamiflu Type 2 diabetes on insulin adjust insulin as needed Obstructive sleep apnea on CPAP Paroxysmal atrial fibrillation On chronic anticoagulation with Eliquis Moderate pulmonary hypertension Morbid obesity Congestive heart failure diastolic.? Elevated BNP.? On Lasix 40 mg daily, will give a dose of Lasix 20 mg IV.? Chest x-ray reviewed.? Resume Lasix home dose CKD stage 3 DVT prophylaxis on apixaban Time Spent with Patient Time attestation: Total time spent providing and/or coordinating discharge services: 40 minutes Exam Narrative: GENERAL APPEARANCE: Appears to be in no acute distress. HEAD: normocephalic atraumatic EYES: PERRL, EOMI. Vision grossly intact. ENT: Hearing grossly intact, no nasal discharge NECK: Neck supple, trachea midline. CARDIAC: Rhythm is regular. No murmurs, rubs, or gallops. No cyanosis or pallor. Extremities are warm and well perfused. LUNGS: Coarse breath sounds right midlung. Bilateral bases diminished with mild coarse sounds. Respirations even and unlabored. ABDOMEN: BS positive x 4 quadrants. Soft, nondistended, nontender. No guarding or rebound. MSK: No joint tenderness/swelling, fair strength in all extremities. PERIPHERAL VASCULAR: Peripheral pulses palpable. NEURO: Follows commands. No focal deficits. SKIN: [place] without lesions or eruptions. PSY
--- NOTE | 2023-07-12 16:08 | HOMEO2EVAL ---
Evaluation was performed at [facility] Home Oxygen Evaluation RC: Home Oxygen (O2) Evaluation Start: 07/12/23 14:57 Freq: ONCE Status: Active Protocol: RPE Activity Type Activity Date Activity User E-sign Co-sign Detail Recorded Client Recorded Date Recorded By Document 07/12/23 15:35 PK [email or web address] 07/12/23 16:08 PK Document 07/12/23 15:40 PK [email or web address] 07/12/23 16:08 PK Document 07/12/23 15:45 PK [email or web address] 07/12/23 16:08 [facility] Document 07/12/23 16:00 PK [email or web address] 07/12/23 16:08 PK 07/12/23 07/12/23 07/12/23 15:35 15:40 15:45 Home O2 Evaluation [Oxygen] -Test Phase Resting Exercise Exercise -Oxygen Delivery Room Air Room Air Nasal Cannula -Oxygen Flow Rate (L/min) 1 [Pulse Oximetry] -Pulse Oximetry (90-100 %) 94 87 L 91 [Pulse Rate] -Pulse Rate (60-100 beats/min) 84 81 84 [Evaluation] -Activity Tolerance Good Good [Charges] -Evaluation Charges O2 Evaluation by 07/12/23 16:00 Home O2 Evaluation [Oxygen] -Test Phase Resting -Oxygen Delivery Room Air -Oxygen Flow Rate (L/min) [Pulse Oximetry] -Pulse Oximetry (90-100 %) 94 [Pulse Rate] -Pulse Rate (60-100 beats/min) 88 [Evaluation] -Activity Tolerance [Charges] -Evaluation Charges
--- NOTE | 2023-07-12 16:27 | PCRCNOTE ---
Home O2 eval complete. Patient requires 1 lpm with activity, room air at rest. RN notified. Set up with her current company [employer]
[2023-07-12 16:49] LABS: Glucose Point of Care 266 mg/dl (65-105)
[2023-07-12] MEDS: MAGNESIUM OXIDE 400 MG TABLET PO (17:27)
[2023-07-12] MEDS: levoFLOXacin 750 MG TABLET PO (17:53)
== END 2023-07-12 19:25 | disposition home health service (06) | DRG 193 ==
LOC: ANHED 17:52 → ANH2MED 20:21
PROVIDERS: Nurse Practitioner Family; Admitting Provider Internal Medicine; Emergency Provider Student in an Organized Health Care Education/Training Program; PCP Family Medicine Adolescent Medicine; Visit Provider Internal Medicine
DX: J10.08 Influenza due to other identified influenza virus with other specified pneumonia (principal); J96.01 Acute respiratory failure with hypoxia; U07.1 COVID-19; I50.32 Chronic diastolic (congestive) heart failure; N39.0 Urinary tract infection, site not specified; Z68.43 Body mass index [BMI] 50.0-59.9, adult; J18.9 Pneumonia, unspecified organism; I27.20 Pulmonary hypertension, unspecified; I48.0 Paroxysmal atrial fibrillation; I49.5 Sick sinus syndrome; N18.31 Chronic kidney disease, stage 3a; E11.22 Type 2 diabetes mellitus with diabetic chronic kidney disease; E11.42 Type 2 diabetes mellitus with diabetic polyneuropathy; E78.5 Hyperlipidemia, unspecified; E78.2 Mixed hyperlipidemia; E66.01 Morbid (severe) obesity due to excess calories; K52.9 Noninfective gastroenteritis and colitis, unspecified; K76.0 Fatty (change of) liver, not elsewhere classified; G47.33 Obstructive sleep apnea (adult) (pediatric); Z96.653 Presence of artificial knee joint, bilateral; Z95.0 Presence of cardiac pacemaker; Z79.01 Long term (current) use of anticoagulants; Z87.891 Personal history of nicotine dependence; B96.5 Pseudomonas (aeruginosa) (mallei) (pseudomallei) as the cause of diseases classified elsewhere
CPT/HCPCS: 36415; 71045; 76775; 80053; 81001; 82948; 83036; 83605; 83735; 83880; 84145; 84484; 85025; 85027; 85610; 85730; 86140; 87040; 87077; 87086; 87186; 87637; 93005; 94618; 94640; 96365; 96375; 97161; 97165; 97530; 97535; 99285; A9270; J0692; J0696; J1100; J1815; J1940; J2405; J3475; J8540

== ENCOUNTER 2023-08-01 01:02 | Inpatient (IN) | payer OTHER, SELFPAY ==
[2023-08-01] VITALS (16 sets, daily range): BP systolic 80–114; BP diastolic 27–47; PULSE 64–90; RESP 16–29; TEMP 36.2–37.4; O2SAT 92–98
--- NOTE | ~2023-08-01 | XR_ITS ---
XR chest 1V portable DATE: 08/01/2023 01:38 INDICATION: Fever TECHNIQUE: Portable upright AP chest on 07/28/2023 at 0135 hours COMPARISON: 07/11/2023 portable AP chest at 0537 hours FINDINGS: Single lead left cardiac pacemaker with distal lead tip overlying apex of right ventricle. Mild cardiomegaly. Aortic arch calcification. Prominent mitral annular calcification. Mild pulmonary vascular congestion/redistribution is suggested. There is near resolution of extensive right-sided pulmonary infiltrates since 07/11/2023. IMPRESSION: Mild congestive changes, improved since 07/11/2023 Reviewed, dictated and finalized at location A. [employer]
--- NOTE | 2023-08-01 01:16 | ECG_ITS ---
Measurements Intervals [place] Rate: 75 P: [place]: 0 QRS: 267 QRSD: 203 T: 78 QT: 479 QTc: 536 Interpretive Statements ELECTRONIC VENTRICULAR PACEMAKER POSSIBLE UNDERLYING ATRIAL FIB ABNORMAL RHYTHM ECG COMPARED TO ECG 07/07/2023 15:59:04 NO SIGNIFICANT CHANGES Electronically Signed On 08-01-2023 17:02:17 [employer] by Megan Coker M.D.
--- NOTE | 2023-08-01 01:32 | ED.FEVER ---
HPI - Fever General Chief Complaint: Fever Stated Complaint: FEVER, WEAKNESSS Time Seen by Provider: 08/01/23 01:19 History of Present Illness HPI Narrative: patient is an 83-year-old female who presents emergency department this evening accompanied by family members due to respiratory failure. Patient recently tested positive for COVID and an influenza and then developed a pneumonia. Patient was treated for her pneumonia and family member states that throughout the past 2 weeks she was feeling much better, however, the past 2 days she started to decline again. Today patient was very weak and started to develop a fever. Daughter states that when she was discharged from her most recent admission she was provided with oxygen to use as needed and only needed to use it once throughout the past few weeks. Today, daughter checked her pulse ox and found to be 75% on room air and placed her on oxygen. Patient was then brought to our facility for further evaluation. Patient denies any chest pain, nausea, vomiting, abdominal pain, dysuria, hematuria, constipation, diarrhea, melena or hematochezia. Patient also denies any headaches, dizziness, lightheadedness, blurry visions, focal weakness, numbness and or tingling. There are no other modifying, alleviating, or precipitating factors at this time. Related Data Home Medications Medication Instructions Recorded Confirmed tiotropium 2.5 mcg-olodaterol 2.5 2 puff inhalation DAILY 06/14/23 07/19/23 mcg/actuation mist for inhalation (Stiolto Respimat) linagliptin 5 mg tablet (Tradjenta) 5 mg PO QAM 07/19/23 07/19/23 losartan 100 mg tablet 100 mg PO DAILY 07/19/23 07/19/23 zolpidem 10 mg tablet PO ONCE 07/19/23 07/19/23 Allergies Allergy/AdvReac Type Severity Reaction Status Date / Time No Known Allergies Allergy Verified 07/19/23 13:14 Review of Systems Review of Systems: All systems are reviewed and are negative unless stated otherwise in the HPI. PENDING SALE TO [facility] Past Medical History Medical History Chronic anticoagulation Hepatic steatosis (06/2023) CT 07/01 Insulin dependent type 2 diabetes mellitus Mixed hyperlipidemia Morbid (severe) obesity due to excess calories Obstructive sleep apnea on CPAP Paroxysmal atrial fibrillation Pulmonary hypertension Sick sinus syndrome Surgical History Surgical History History of cholecystectomy History of permanent cardiac pacemaker placement (10/2020) History of total knee arthroplasty 2011 Left, 2014 right Family History Family History Father Hepatic cancer Mother Acute myocardial infarction Heart disease Sibling Asthma Grandparent Carcinoma of colon Colon polyp Son Heart disease Other Diabetes mellitus Social History Social History Social History: Surrogate medical decision maker: Bobbi Teran and Dave Dueñas, children. Code status: Do not resuscitate however patient would consider temporary mechanical ventilation or central line placement during the day (06/14/2023). Smoking packs per day: 2 Smoking cigarettes per day: 40.0 Years smoked: 10 Smoking pack-years: 20.00 Smoking status: Former smoker Tobacco type: cigarettes Second hand tobacco smoke exposure: No Smoking end date: 08/09/89 Alcohol intake: never Substance use: never Substance use type: does not use Lack of Transportation: No Lack of Food: Never True Current Housing: I Have Housing Concerned About Future Housing: No Difficulty Paying Gas/Electric Bills: No Difficulty Paying for Meds: No Currently Unemployed: No Education: High School Diploma/GED Difficulty w/ Childcare or Family Care: No Living arrangements: alone 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re concerns: No Ag
[2023-08-01] MEDS: SODIUM CHLORIDE 0.9% IV 1,000 ML 100 ML IV CONT ×2 (01:57→06:20)
[2023-08-01 02:04] LABS: Basophils Percent Auto 0.4 % (0.2-1.2); Eosinophils Percent Auto 0.3 % (0-4.4); Hematocrit 31.5 % (37.0-47.0); Hemoglobin 9.7 g/dL (12.0-15.0); Immature Granulocyte Absolute 0.07 K/mm3 (0.00-0.031); Immature Granulocyte Percent A 0.6 % (0-0.5); Lymphocytes Absolute Auto 3.02 K/mm3 (0.9-3.2); Lymphocytes Percent Auto 26.6 % (18.3-44.2); Mean Corpuscular HGB Conc 30.8 g/dl (32-36); Mean Corpuscular Hemoglobin 29.8 pg (26-34); Mean Corpuscular Volume 96.6 fl (80-100); Monocytes Absolute Auto 1.2 K/mm3 (0.1-0.6); Monocytes Percent Auto 10.8 % (2.6-8.5); Neutrophils Percent Auto 61.3 % (45.5-73.1); Platelet Count Result 201 k/mm3 (150-375); Red Blood Count 3.26 M/mm3 (4.2-5.4); Red Cell Distribution Width 17.4 % (11.5-14.5); White Blood Count 11.4 K/mm3 (4.5-10.0)
[2023-08-01 02:19] LABS: Lactic Acid Reflex 1.2 mmol/L (0.7-2.0); Prothrombin Time 24.1 Seconds (11.1-14.7)
[2023-08-01 02:20] LABS: Partial Thromboplastin Time 50.4 SECONDS (22.3-36.8)
[2023-08-01 02:40] LABS: Influenza A QL RT-PCR Negative (Negative); Influenza B QL RT-PCR Negative (Negative); SARS-CoV-2 RNA PCR Negative (Negative)
[2023-08-01 03:13] LABS: Alanine Aminotransferase 10 U/L (6-35); Alkaline Phosphatase 55 U/L (38-126); Anion Gap 8 mmol/L (8-16); Aspartate Amino Transferase 21 U/L (14-36); Bilirubin,Total 1.7 mg/dL (0.2-1.3); Blood Urea Nitrogen 37 mg/dL (7-17); CRP 20.4 mg/dL (<1.0); Calcium 8.1 mg/dL (8.4-10.2); Carbon Dioxide 25 mmol/L (22-30); Chloride 99 mmol/L (98-107); Estimated CRCL calculation 22 ml/min; Estimated Glomerular Filt Rate 24; Glucose 126 mg/dL (65-110); Potassium 4.3 mmol/L (3.4-5.0); Sodium 132 mmol/L (137-145)
[2023-08-01 06:01] LABS: Appearance Urine Clear (Clear); Bacteria Urine 3+ /hpf; Bilirubin Urine Negative (Negative); Blood Urine 3+ (Negative); Glucose Urine UA Negative (Negative); Ketones Urine Negative (Negative); Leukocyte Esterase Ur 2+ LEU/UL (Negative); Need Manual Microscopic Reviewed; Nitrate Urine Negative (Negative); Protein Urine 3+ mg/dL (Negative); RBC Urine >100 /hpf (0-2); Specific Grav Ur 1.013 (1.001-1.035); Squamous Epithelial Cell Urine None seen /hpf (Few); Urobilinogen Urine 0.2 mg/dL (<2.0); WBC Clumps Urine Present /HPF; WBC Urine >100 /hpf
[2023-08-01] MEDS: AZITHROMYCIN 500 MG/NS 250 ML 500 MG/250 ML BAG 250 MG IVPB (06:20)
--- NOTE | 2023-08-01 06:24 | ADMGEN ---
This patient, Eliza Dueñas, was admitted to 2 Medical Room 249-01. Patient/family oriented to hospital policies and general routines including ID bracelet, bed and alarms, visiting hours, pain management, procedures, bathroom and other care routines, personal items, smoking policy, room service/diet, and visiting hours. Information on how to activate the Rapid Response Team has been discussed. Patient/Family are encouraged to report perceived risks to care and to ask questions if they do not understand what they are told or what they should do.
[2023-08-01 06:30] LABS: D Dimer 0.71 ug/mL (<0.48)
[2023-08-01 06:31] LABS: Color Urine Dark Yellow (Yellow)
[2023-08-01 06:32] LABS: Add Urine Microscopic? YES
[2023-08-01] MEDS: APIXABAN 5 MG TABLET PO ×2 (10:38→17:27)
--- NOTE | 2023-08-01 12:42 | PM.IMHP ---
H&P: HPI History of Present Illness Date/Time: 08/01/23 12:42 Chief Complaint: fall, shortness of breath Narrative: This is an 83-year-old female with a past medical history of AFib rate controlled on anticoagulation, insulin-dependent diabetes, peripheral neuropathy, dyslipidemia, heart failure with preserved EF, CKD, hepatic steatosis, SUNNY on CPAP, sick sinus syndrome status post pacemaker that presented to ED on 08/01/2023 due to fever, weakness, fall and hallucinations. Patient had recently been admitted for treatment of COVID pneumonia and had been home for 2 weeks and feeling much better. Over the past 2 days she had started to decline again. Patient states that she was in bed and she felt as if she had heard sirens although her son assured her that there was nothing there. She went on to say that while she was in the bathroom she had fallen asleep/ passed out in the bathroom leading to a fall. She states that symptoms began approximately 2 days prior to presentation states that she had some lightheadedness and fever. Patient denies any urinary symptoms. She does have ongoing cough and shortness of breath post last hospitalization of COVID pneumonia. Chest x-ray in the ED showed mild congestive changes that per improved from previous x-ray. She was found to be hypoxic on presentation and was started on 3 L of oxygen. Patient states that after her last hospital stay she did go home on oxygen although she stopped using it approximately 1 week ago. Prior to getting COVID she did not require oxygen. Urine revealed 3+ blood, 2+leukocyte esterase greater than 100 RBCs, greater than 100 wbc's and 3+ bacteria. Patient was started on ceftriaxone and Rocephin. She was also found to have elevated BUN and creatinine of 37/2. Patient does have known kidney disease but creatinine is typically in the low 1s. Patient ended for further treatment of UTI. [facility] Past Medical History Medical History Chronic anticoagulation Hepatic steatosis (06/2023) CT 07/01 Insulin dependent type 2 diabetes mellitus Mixed hyperlipidemia Morbid (severe) obesity due to excess calories Obstructive sleep apnea on CPAP Paroxysmal atrial fibrillation Pulmonary hypertension Sick sinus syndrome Surgical History Surgical History History of cholecystectomy History of permanent cardiac pacemaker placement (10/2020) History of total knee arthroplasty 2010 Left, 2014 right Family History Family History Father Hepatic cancer Mother Acute myocardial infarction Heart disease Sibling Asthma Grandparent Carcinoma of colon Colon polyp Son Heart disease Other Diabetes mellitus Social History Social History Social History: Surrogate medical decision maker: Bobbi Teran and Dave Dueñas, children. Code status: Do not resuscitate however patient would consider temporary mechanical ventilation or central line placement during the day (06/14/2023). Smoking packs per day: 2 Smoking cigarettes per day: 40.0 Years smoked: 10 Smoking pack-years: 20.00 Smoking status: Former smoker Tobacco type: cigarettes Second hand tobacco smoke exposure: No Smoking end date: 08/09/89 Alcohol intake: never Substance use: never Substance use type: does not use Do You Feel Safe in your Home?: Yes Lack of Transportation: No Lack of Food: Never True Current Housing: I Have Housing Concerned About Future Housing: No Difficulty Paying Gas/Electric Bills: No Difficulty Paying for Meds: No Currently Unemployed: No Education: High School Diploma/GED Difficulty w/ Childcare or Family Care: No Living arrangements: alone 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re concerns: No Agree to blood products
[2023-08-01 13:15] LABS: Glucose Point of Care 155 mg/dl (65-105)
[2023-08-01 17:12] LABS: Glucose Point of Care 150 mg/dl (65-105)
[2023-08-01 20:15] LABS: Glucose Point of Care 131 mg/dl (65-105)
[2023-08-01] MEDS: INSULIN GLARGINE (*BKC) 100 UNITS/ML 30 UNITS SUB-Q (20:27)
[2023-08-01] MEDS: GABAPENTIN 300 MG CAPSULE 900 MG PO (20:27)
--- NOTE | 2023-08-01 23:00 | PCRCNOTE ---
Window of time for administration has passed. See next scheduled administration.
[2023-08-02] VITALS (19 sets, daily range): BP systolic 108–123; BP diastolic 43–66; PULSE 64–88; RESP 14–20; TEMP 36.5–36.9; O2SAT 93–98
[2023-08-02] MEDS: IPRATROPIUM BR 0.02% INH SOLN 0.5 MG/2.5 ML VIAL INHALATION ×4 (02:30→20:27)
[2023-08-02] MEDS: ALBUTEROL SULFATE NEB 2.5 MG/3 ML INH INHALATION ×4 (02:30→20:27)
[2023-08-02] MEDS: AZITHROMYCIN 250 MG TABLET 500 MG PO (05:07)
[2023-08-02 05:45] LABS: Hemoglobin 9.2 g/dL (12.0-15.0); Mean Corpuscular HGB Conc 30.7 g/dl (32-36); Mean Corpuscular Hemoglobin 30.1 pg (26-34); Platelet Count Result 205 k/mm3 (150-375); Red Blood Count 3.06 M/mm3 (4.2-5.4); Red Cell Distribution Width 17.4 % (11.5-14.5)
[2023-08-02 06:01] LABS: Alanine Aminotransferase 9 U/L (6-35); Albumin Level 2.7 g/dL (3.5-5.1); Alkaline Phosphatase 54 U/L (38-126); Anion Gap 8 mmol/L (8-16); Aspartate Amino Transferase 23 U/L (14-36); Bilirubin,Total 0.9 mg/dL (0.2-1.3); Blood Urea Nitrogen 39 mg/dL (7-17); Calcium 7.6 mg/dL (8.4-10.2); Carbon Dioxide 25 mmol/L (22-30); Chloride 101 mmol/L (98-107); Estimated CRCL calculation 25 ml/min; Estimated Glomerular Filt Rate 27; Glucose 94 mg/dL (65-110); Sodium 134 mmol/L (137-145)
[2023-08-02] MEDS: UMECLIDINIUM/VILANTEROL 62.5-25 MCG ELLIPTA 1 PUFF INHALATION (08:16)
[2023-08-02 08:24] LABS: Glucose Point of Care 138 mg/dl (65-105)
[2023-08-02] MEDS: APIXABAN 5 MG TABLET PO ×2 (09:13→17:56)
[2023-08-02] MEDS: BENZONATATE 100 MG CAPSULE 200 MG PO (09:13)
[2023-08-02] MEDS: SODIUM CHLORIDE 0.9% IV 1,000 ML 75 ML IV CONT (09:14)
--- NOTE | 2023-08-02 11:17 | PM.IMPN ---
Progress Note: A&P Assessment and Plan (1) Acute UTI: Code(s): N39.0 - Urinary tract infection, site not specified Status: Acute Assessment and Plan: Urine revealed 3+ blood, 2+leukocyte esterase greater than 100 RBCs, greater than 100 wbc's and 3+ bacteria. Rocephin started. Urine culture pending. Adjust antibiotics to culture results. (2) Acute renal failure superimposed on stage 3a chronic kidney disease: Code(s): N17.9 - Acute kidney failure, unspecified; N18.31 - Chronic kidney disease, stage 3a Status: Acute Assessment and Plan: Patient presented with BUN and creatinine of 37/2.0. Likely due to dehydration and UTI. Today BUN and creatinine 39/1.8. Will hold IV fluids for now due to patient having increased crackles difficulty breathing. (3) Hypoxia: Code(s): R09.02 - Hypoxemia Status: Acute Assessment and Plan: on presentation patient was found to have a oxygen saturation of 75% on room air. She was started on 3 L. Wean oxygen to maintain O2 saturation greater than 90. Patient recently use oxygen at home and took herself off of it when her home O2 saturations were high. May need oxygen evaluation at discharge. (4) Insulin dependent type 2 diabetes mellitus: Code(s): E11.9 - Type 2 diabetes mellitus without complications; Z79.4 - intermediate manager (current) use of insulin Status: Chronic Assessment and Plan: Insulin Lispro sliding scale, Accu-checks qAc and HS and Hold oral hypoglycemics Initiate hypoglycemic precautions (5) Paroxysmal atrial fibrillation: Code(s): I48.0 - Paroxysmal atrial fibrillation Status: Acute Assessment and Plan: Patient rate controlled. Patient on Eliquis for this. Subjective Date/time seen: 08/02/23 11:17 Interval history: Patient continues to have ongoing cough. She denies any difficulty breathing or shortness of breath. She remains on 3 L of oxygen. Remind nurse to wean to maintain greater than 90%. Patient denies dysuria, abdominal pain, chest pain, lightheadedness and dizziness. PT and OT orders put in. Exam Narrative: GENERAL: Comfortable, no acute distress HENMT: moist mucous membranes EYES: EOM intact b/l NECK: no lymphadenopathy RESPIRATORY: Diffuse crackles CARDIO: irregular rhythm, rate controlled GI: soft, nontender, bowel sounds present SKIN: no rashes EXTREMITIES: no edema, redness or tenderness Objective Data Vital Signs Vital Signs: Vital Signs - 24 hr 08/01/23 13:57 08/01/23 12:04 08/01/23 16:01 Temperature 97.1 F L Pulse Rate 64 65 65 Respiratory Rate 16 Blood Pressure 114/46 L Pulse Oximetry 98 Oxygen Delivery Oxygen Flow Rate Fraction of Inspired Oxygen 08/01/23 20:39 08/01/23 20:30 08/01/23 20:04 Temperature 97.9 F Pulse Rate 66 67 Respiratory Rate 18 Blood Pressure 107/47 L Pulse Oximetry 98 98 Oxygen Delivery Nasal Cannula Oxygen Flow Rate 3 Fraction of Inspired Oxygen 08/02/23 00:02 08/02/23 04:04 08/02/23 02:30 Temperature Pulse Rate 67 66 86 Respiratory Rate 20 Blood Pressure Pulse Oximetry Oxygen Delivery Oxygen Flow Rate Fraction of Inspired Oxygen 08/02/23 02:30 08/02/23 02:45 08/02/23 05:21 Temperature 98.4 F Pulse Rate 86 88 64 Respiratory Rate 20 18 Blood Pressure 118/50 L Pulse Oximetry 93 96 Oxygen Delivery Nasal Cannula Oxygen Flow Rate 3 Fraction of Inspired Oxygen 32 Intake/Output Intake/Output: Intake & Output 07/30/23 07/31/23 08/01/23 08/02/23 23:59 23:59 23:59 23:59 Intake Total 1480 970 Output Total 200 Balance 1480 770 Meds/Results Medications: Active Medications Generic Name Dose Route Start Last Admin Trade Name Freq PRN Reason Stop Dose Admin Albuterol 2.5 mg 08/01/23 20:00 08/02/23 08:04 Albuterol Sulfate Neb 2.5 Mg/3 Ml Inh INHALATION 2.5
[2023-08-02 12:12] LABS: Glucose Point of Care 128 mg/dl (65-105)
[2023-08-02] MEDS: FUROSEMIDE INJ 40 MG/4 ML VIAL IV PUSH (12:44)
[2023-08-02 16:46] LABS: Glucose Point of Care 136 mg/dl (65-105)
[2023-08-02 20:40] LABS: Glucose Point of Care 156 mg/dl (65-105)
[2023-08-02] MEDS: INSULIN GLARGINE (*BKC) 100 UNITS/ML 30 UNITS SUB-Q (21:39)
[2023-08-02] MEDS: GABAPENTIN 300 MG CAPSULE 900 MG PO (21:40)
[2023-08-02] MEDS: TOLNAFTATE 1% POWDER 45 GM BTL 1 APPLIC TOPICAL (21:40)
[2023-08-03] VITALS (18 sets, daily range): BP systolic 102–125; BP diastolic 33–58; PULSE 67–82; RESP 18–20; TEMP 36.6–37.1; O2SAT 94–97
[2023-08-03] MEDS: BENZONATATE 100 MG CAPSULE 200 MG PO (01:30)
[2023-08-03] MEDS: IPRATROPIUM BR 0.02% INH SOLN 0.5 MG/2.5 ML VIAL INHALATION ×4 (02:19→19:37)
[2023-08-03] MEDS: ALBUTEROL SULFATE NEB 2.5 MG/3 ML INH INHALATION ×4 (02:19→19:37)
[2023-08-03] MEDS: AZITHROMYCIN 250 MG TABLET 500 MG PO (05:14)
[2023-08-03] MEDS: AMPICILLIN 1 GM/NS 50 ML 1 GM/50 ML BAG IVPB (06:22)
[2023-08-03 06:47] LABS: Hematocrit 28.7 % (37.0-47.0); Hemoglobin 8.7 g/dL (12.0-15.0); Mean Corpuscular HGB Conc 30.3 g/dl (32-36); Mean Corpuscular Hemoglobin 29.5 pg (26-34); Mean Corpuscular Volume 97.3 fl (80-100); Mean Platelet Volume 10.2 fl (7.4-10.4); Platelet Count Result 225 k/mm3 (150-375); Red Blood Count 2.95 M/mm3 (4.2-5.4); Red Cell Distribution Width 17.1 % (11.5-14.5); White Blood Count 8.8 K/mm3 (4.5-10.0)
[2023-08-03 06:57] LABS: Alanine Aminotransferase 11 U/L (6-35); Albumin Level 2.6 g/dL (3.5-5.1); Alkaline Phosphatase 50 U/L (38-126); Anion Gap 8 mmol/L (8-16); Aspartate Amino Transferase 25 U/L (14-36); Bilirubin,Total 0.8 mg/dL (0.2-1.3); Blood Urea Nitrogen 38 mg/dL (7-17); Calcium 7.9 mg/dL (8.4-10.2); Carbon Dioxide 24 mmol/L (22-30); Chloride 102 mmol/L (98-107); Estimated CRCL calculation 25 ml/min; Estimated Glomerular Filt Rate 27; Glucose 96 mg/dL (65-110); Potassium 4.3 mmol/L (3.4-5.0); Sodium 134 mmol/L (137-145)
[2023-08-03] MEDS: APIXABAN 5 MG TABLET PO ×2 (08:40→17:02)
[2023-08-03] MEDS: UMECLIDINIUM/VILANTEROL 62.5-25 MCG ELLIPTA 1 PUFF INHALATION (08:46)
[2023-08-03] MEDS: TOLNAFTATE 1% POWDER 45 GM BTL 1 APPLIC TOPICAL ×2 (08:47→21:22)
[2023-08-03 08:48] LABS: Glucose Point of Care 90 mg/dl (65-105)
[2023-08-03 12:14] LABS: Glucose Point of Care 114 mg/dl (65-105)
--- NOTE | 2023-08-03 14:19 | PM.IMPN ---
Progress Note: A&P Assessment and Plan (1) Acute UTI: Code(s): N39.0 - Urinary tract infection, site not specified Status: Acute Assessment and Plan: Urine revealed 3+ blood, 2+leukocyte esterase greater than 100 RBCs, greater than 100 wbc's and 3+ bacteria. Urine culture Positive for VRE Cultures resistant to vancomycin, ampicillin and Macrobid. Called [facility] and they stated that linezolid was sensitive. According to epocrates, linezolid should be given for 14-28 days for VRE infections. Linezolid started on 08/03 at 2100 (2) Acute renal failure superimposed on stage 3a chronic kidney disease: Code(s): N17.9 - Acute kidney failure, unspecified; N18.31 - Chronic kidney disease, stage 3a Status: Acute Assessment and Plan: Patient presented with BUN and creatinine of 37/2.0. Likely due to dehydration and UTI. Today BUN and creatinine 38/1.8. Will hold IV fluids for now due to patient having increased crackles difficulty breathing. (3) Hypoxia: Code(s): R09.02 - Hypoxemia Status: Acute Assessment and Plan: on presentation patient was found to have a oxygen saturation of 75% on room air. She was started on 3 L. Wean oxygen to maintain O2 saturation greater than 90. Patient recently use oxygen at home and took herself off of it when her home O2 saturations were high. May need oxygen evaluation at discharge. (4) Insulin dependent type 2 diabetes mellitus: Code(s): E11.9 - Type 2 diabetes mellitus without complications; Z79.4 - terminal carman (current) use of insulin Status: Chronic Assessment and Plan: Insulin Lispro sliding scale, Accu-checks qAc and HS and Hold oral hypoglycemics Initiate hypoglycemic precautions (5) Paroxysmal atrial fibrillation: Code(s): I48.0 - Paroxysmal atrial fibrillation Status: Acute Assessment and Plan: Patient rate controlled. Patient on Eliquis for this. Subjective Date/time seen: 08/03/23 14:19 Interval history: Patient states she is feeling a bit better today. After discovering her urine cultures antibiotics were changed. Patient had highly resistant VRE and she was started on linezolid. Hopeful that patient's kidney function will improve now that she is on the right antibiotic therapy. She states that she is not having any difficulty breathing, chest pain, nausea vomiting. Exam Narrative: GENERAL: Comfortable, no acute distress HENMT: moist mucous membranes EYES: EOM intact b/l NECK: no lymphadenopathy RESPIRATORY: Diffuse crackles - improved. CARDIO: irregular rhythm, rate controlled GI: soft, nontender, bowel sounds present SKIN: no rashes EXTREMITIES: no edema, redness or tenderness Objective Data Vital Signs Vital Signs: Vital Signs - 24 hr 08/02/23 14:26 08/02/23 16:00 08/02/23 20:29 Temperature Pulse Rate 68 76 Respiratory Rate 20 Blood Pressure Pulse Oximetry 98 Oxygen Delivery Nasal Cannula Oxygen Flow Rate 2 Fraction of Inspired Oxygen 08/02/23 20:28 08/02/23 20:45 08/02/23 21:45 Temperature 97.7 F Pulse Rate 66 65 Respiratory Rate 20 19 Blood Pressure 123/51 L Pulse Oximetry 98 Oxygen Delivery Nasal Cannula Oxygen Flow Rate 2 Fraction of Inspired Oxygen 08/03/23 02:21 08/02/23 20:42 08/03/23 03:40 Temperature 97.9 F Pulse Rate 67 69 74 Respiratory Rate 18 20 19 Blood Pressure 113/41 L Pulse Oximetry 94 Oxygen Delivery Oxygen Flow Rate Fraction of Inspired Oxygen 08/02/23 20:00 08/03/23 00:00 08/03/23 04:00 Temperature Pulse Rate 66 67 72 Respiratory Rate Blood Pressure Pulse Oximetry Oxygen Delivery Oxygen Flow Rate Fraction of Inspired Oxygen 08/03/23 07:30 08/03/23 07:30 08/03/23 07:45 Temperature Pulse Rate 67 69 Respiratory Rate 20 20 Blood Pressure Pulse Oximetry 95 Oxygen Deli
[2023-08-03 17:07] LABS: Glucose Point of Care 123 mg/dl (65-105)
[2023-08-03 20:39] LABS: Glucose Point of Care 150 mg/dl (65-105)
[2023-08-03] MEDS: LINEZOLID 600 MG TABLET PO (21:22)
[2023-08-03] MEDS: INSULIN GLARGINE (*BKC) 100 UNITS/ML 30 UNITS SUB-Q (21:22)
[2023-08-03] MEDS: GABAPENTIN 300 MG CAPSULE 900 MG PO (21:22)
--- NOTE | 2023-08-03 21:34 | PC.NURSE ---
Purewick removed from patient as she is having frequent incontinent stools that contaminate device and increase risk for infection. Patient educated on safe purewick use and verbalized she will call to be cleaned when incontinent.
[2023-08-04] VITALS (18 sets, daily range): BP systolic 113–123; BP diastolic 47–61; PULSE 66–77; RESP 16–20; TEMP 36.5–36.6; O2SAT 86–98
[2023-08-04] MEDS: ALBUTEROL SULFATE NEB 2.5 MG/3 ML INH INHALATION ×4 (02:34→19:39)
[2023-08-04] MEDS: IPRATROPIUM BR 0.02% INH SOLN 0.5 MG/2.5 ML VIAL INHALATION ×4 (02:34→19:39)
[2023-08-04] MEDS: AZITHROMYCIN 250 MG TABLET 500 MG PO (06:03)
[2023-08-04] MEDS: UMECLIDINIUM/VILANTEROL 62.5-25 MCG ELLIPTA 1 PUFF INHALATION (07:16)
[2023-08-04 08:10] LABS: Basophils Percent Auto 0.3 % (0.2-1.2); Eosinophils Absolute Auto 0.3 K/mm3 (0-0.3); Eosinophils Percent Auto 2.7 % (0-4.4); Hematocrit 29.1 % (37.0-47.0); Hemoglobin 8.8 g/dL (12.0-15.0); Immature Granulocyte Absolute 0.07 K/mm3 (0.00-0.031); Immature Granulocyte Percent A 0.6 % (0-0.5); Lymphocytes Absolute Auto 2.94 K/mm3 (0.9-3.2); Lymphocytes Percent Auto 25.7 % (18.3-44.2); Mean Corpuscular HGB Conc 30.2 g/dl (32-36); Mean Corpuscular Hemoglobin 29.5 pg (26-34); Mean Corpuscular Volume 97.7 fl (80-100); Mean Platelet Volume 10.7 fl (7.4-10.4); Monocytes Absolute Auto 1.2 K/mm3 (0.1-0.6); Monocytes Percent Auto 10.1 % (2.6-8.5); Neutrophils Absolute Auto 6.9 K/mm3 (1.3-6.7); Neutrophils Percent Auto 60.6 % (45.5-73.1); Platelet Count Result 254 k/mm3 (150-375); Red Blood Count 2.98 M/mm3 (4.2-5.4); Red Cell Distribution Width 17.1 % (11.5-14.5); White Blood Count 11.5 K/mm3 (4.5-10.0)
[2023-08-04 08:24] LABS: Anion Gap 6 mmol/L (8-16); Blood Urea Nitrogen 35 mg/dL (7-17); Carbon Dioxide 23 mmol/L (22-30); Chloride 103 mmol/L (98-107); Estimated CRCL calculation 30 ml/min; Estimated Glomerular Filt Rate 33; Glucose 83 mg/dL (65-110); Sodium 132 mmol/L (137-145)
[2023-08-04 08:36] LABS: Glucose Point of Care 84 mg/dl (65-105)
[2023-08-04] MEDS: APIXABAN 5 MG TABLET PO ×2 (10:28→18:19)
[2023-08-04] MEDS: TOLNAFTATE 1% POWDER 45 GM BTL 1 APPLIC TOPICAL ×2 (10:31→21:49)
[2023-08-04] MEDS: LINEZOLID 600 MG TABLET PO ×2 (10:34→21:48)
[2023-08-04 12:31] LABS: Glucose Point of Care 108 mg/dl (65-105)
--- NOTE | 2023-08-04 13:01 | PM.IMPN ---
Progress Note: A&P Assessment and Plan (1) Acute UTI: Code(s): N39.0 - Urinary tract infection, site not specified Status: Acute Assessment and Plan: Urine revealed 3+ blood, 2+leukocyte esterase greater than 100 RBCs, greater than 100 wbc's and 3+ bacteria. Urine culture Positive for VRE Cultures resistant to vancomycin, ampicillin and Macrobid. Called [facility] and they stated that linezolid was sensitive. According to epocrates, linezolid should be given for 14-28 days for VRE infections. Linezolid started on 08/03 at 2100 (2) Acute renal failure superimposed on stage 3a chronic kidney disease: Code(s): N17.9 - Acute kidney failure, unspecified; N18.31 - Chronic kidney disease, stage 3a Status: Acute Assessment and Plan: Patient presented with BUN and creatinine of 37/2.0. Likely due to dehydration and UTI. Today BUN and creatinine 35/1.5. Improved, but baseline creatinine 1.0. NS 75 ml/hr, will reassess labs in the morning (3) Hypoxia: Code(s): R09.02 - Hypoxemia Status: Acute Assessment and Plan: on presentation patient was found to have a oxygen saturation of 75% on room air. She was started on 3 L. Wean oxygen to maintain O2 saturation greater than 90. Patient recently use oxygen at home and took herself off of it when her home O2 saturations were high. May need oxygen evaluation at discharge. (4) Insulin dependent type 2 diabetes mellitus: Code(s): E11.9 - Type 2 diabetes mellitus without complications; Z79.4 - terminal carman (current) use of insulin Status: Chronic Assessment and Plan: Insulin Lispro sliding scale, Accu-checks qAc and HS and Hold oral hypoglycemics Initiate hypoglycemic precautions (5) Paroxysmal atrial fibrillation: Code(s): I48.0 - Paroxysmal atrial fibrillation Status: Acute Assessment and Plan: Patient rate controlled. Patient on Eliquis for this. Subjective Date/time seen: 08/04/23 0900 Interval history: 08/03; Patient states she is feeling a bit better today. After discovering her urine cultures antibiotics were changed.? Patient had highly resistant VRE and she was started on linezolid.? Hopeful that patient's kidney function will improve now that she is on the right antibiotic therapy.? She states that she is not having any difficulty breathing, chest pain, nausea vomiting. 08/04; This morning on rounding patient laying supine with eyes closed and appears to be sleeping. Rouses easily to verbal stimuli and is a/ox4. c/o occasional dry cough and urinary incontinence. States she normally is not this incontinent. Denies any hesitancy, urgency, frequency, or dysuria. Lungs clear to auscultation bilaterally. No peripheral edema appreciated. Bilateral pedal and posterior tibial pulses palpable. BUN today 35 with creat. 1.5. Looks like her baseline creatinine is 1.0.Will continue with the NS and linezolid and recheck labs in the morning. Review of Systems Review of Systems: All systems reviewed & are unremarkable except as noted in HPI and below Exam Narrative: Pt is a/o x 4 and appears in no distress. Const: General: comfortable and no acute distress HENMT: Face/Nose/Sinus: Normal nares present Mouth: Yes moist mucous membranes Eyes: General: appearance normal, both eyes and all related structures Sclera: sclerae normal Pupils: Equal, round and reactive pupils present EOM: EOMs intact bilaterally Neck: Neck: supple and no JVD Resp: Effort & Inspection: normal respiratory effort Auscultation: clear to auscultation bilaterally Cardio: Rate: regular rate Rhythm: regular rhythm Other: No murmur, rub, or gallop noted GI: Other: Abdomen flat, soft, and nontender to palpation with bowel sounds present x 4 quadrants Skin: General skin exam: normal color and no rashes or lesions noted Other: Has chronic
[2023-08-04 16:49] LABS: Glucose Point of Care 129 mg/dl (65-105)
[2023-08-04 21:22] LABS: Glucose Point of Care 144 mg/dl (65-105)
[2023-08-04] MEDS: INSULIN GLARGINE (*BKC) 100 UNITS/ML 30 UNITS SUB-Q (21:48)
[2023-08-04] MEDS: GABAPENTIN 300 MG CAPSULE 900 MG PO (21:48)
[2023-08-04] MEDS: BENZONATATE 100 MG CAPSULE 200 MG PO (22:14)
[2023-08-05] MEDS: AZITHROMYCIN 250 MG TABLET 500 MG PO (05:25)
[2023-08-05 05:47] LABS: Basophils Percent Auto 0.4 % (0.2-1.2); Eosinophils Absolute Auto 0.4 K/mm3 (0-0.3); Hematocrit 28.7 % (37.0-47.0); Hemoglobin 8.6 g/dL (12.0-15.0); Immature Granulocyte Absolute 0.08 K/mm3 (0.00-0.031); Immature Granulocyte Percent A 0.8 % (0-0.5); Lymphocytes Absolute Auto 2.12 K/mm3 (0.9-3.2); Lymphocytes Percent Auto 20.6 % (18.3-44.2); Mean Corpuscular Hemoglobin 29.2 pg (26-34); Mean Corpuscular Volume 97.3 fl (80-100); Mean Platelet Volume 10.7 fl (7.4-10.4); Monocytes Absolute Auto 0.8 K/mm3 (0.1-0.6); Monocytes Percent Auto 7.7 % (2.6-8.5); Neutrophils Absolute Auto 6.8 K/mm3 (1.3-6.7); Neutrophils Percent Auto 66.5 % (45.5-73.1); Platelet Count Result 272 k/mm3 (150-375); Red Blood Count 2.95 M/mm3 (4.2-5.4); Red Cell Distribution Width 16.9 % (11.5-14.5); White Blood Count 10.3 K/mm3 (4.5-10.0)
[2023-08-05 05:51] VITALS: BP 123/67; PULSE 67; RESP 16; TEMP 36.8; O2SAT 98
[2023-08-05 05:55] LABS: Anion Gap 6 mmol/L (8-16); Blood Urea Nitrogen 31 mg/dL (7-17); Calcium 8.1 mg/dL (8.4-10.2); Carbon Dioxide 25 mmol/L (22-30); Chloride 101 mmol/L (98-107); Estimated CRCL calculation 34 ml/min; Estimated Glomerular Filt Rate 39; Glucose 82 mg/dL (65-110); Sodium 132 mmol/L (137-145)
[2023-08-05 07:00] VITALS: PULSE 68; RESP 18; O2SAT 94
[2023-08-05] MEDS: UMECLIDINIUM/VILANTEROL 62.5-25 MCG ELLIPTA 1 PUFF INHALATION (07:00)
[2023-08-05] MEDS: ALBUTEROL SULFATE NEB 2.5 MG/3 ML INH INHALATION ×2 (07:00→12:57)
[2023-08-05] MEDS: IPRATROPIUM BR 0.02% INH SOLN 0.5 MG/2.5 ML VIAL INHALATION ×2 (07:00→12:58)
[2023-08-05 07:10] VITALS: PULSE 71; RESP 18
--- NOTE | 2023-08-05 07:43 | PM.DS ---
DS: Admitting Diagnosis Discharge Date 08/05/2023 Admitting Diagnosis Fall Pneumonia Acute cystitis DS: Summary Hospital Course Reason for hospitalization: Fall, pneumonia, acute cystitis Hospital Course: 08/03;? Patient states she is feeling a bit better today. After discovering her urine cultures antibiotics were changed.? Patient had highly resistant VRE and she was started on linezolid.? Hopeful that patient's kidney function will improve now that she is on the right antibiotic therapy.? She states that she is not having any difficulty breathing, chest pain, nausea vomiting. 08/04;? This morning on rounding patient laying supine with eyes closed and appears to be sleeping.? Rouses easily to verbal stimuli and is a/ox4.? c/o occasional dry cough and urinary incontinence. States she normally is not this incontinent.? Denies any hesitancy, urgency, frequency, or dysuria. Lungs clear to auscultation bilaterally.? No peripheral edema appreciated.? Bilateral pedal and posterior tibial pulses palpable. BUN today 35 with creat. 1.5.? Looks like her baseline creatinine is 1.0.Will continue with the NS and linezolid and recheck labs in the morning. 08/05: BUN/creatinine this morning 31/1.3, trending downward. Remains on 1 liter of oxygen, but has oxygen at home from a previous hospitalization. Linezolid will be continued for the VRE in the urine and will cover the pneumonia as well. Will plan to discharge patient home today to receive an additional 14 days of linezolid. Patient's son Dave concerned that patient continues to get urinary tract infections. Discussed with him the importance of keeping patient clean and dry. Son is requesting a chris llift to help get her in and out of the shower. I discussed Medicare guidelines would not allow her to have one paid for as she is able to get up and ambulate. Explained we are planning to send patient home with 2 weeks of antibiotics to cover the VRE bacteria in her urine and the pneumonia. Patient concerned that she may not be able to get up and down on her own. Discussed patient has been working with PT and is doing well standby assist. Patient has remained alert and oriented x4 since admission. Discussed in family was not able to care for her at home we do look at placement. Son states she was in a residential for 12 days and that was when the problems got worse and he did not want to send her back. Status at Discharge Cognitive/behavioral status at discharge: Patient is alert and oriented x4 and appears in no acute distress. Functional status at discharge: uses cane/walker Overall status at discharge: patient is progressing back to baseline Time Spent with Patient Time attestation: Total time spent providing and/or coordinating discharge services: Time spent: Less than 30 minutes Exam Narrative: Patient alert and oriented x4 and appears in no acute distress. Patient has no concerns about going home today. Const: General: comfortable and no acute distress HENMT: Face/Nose/Sinus: Normal nares present Mouth: Yes moist mucous membranes Eyes: General: appearance normal, both eyes and all related structures Sclera: sclerae normal Pupils: Equal, round and reactive pupils present EOM: EOMs intact bilaterally Neck: Neck: supple and no JVD Resp: Effort & Inspection: normal respiratory effort Auscultation: clear to auscultation bilaterally Other: Patient appears in no respiratory distress. Able to speak in complete sentences without difficulty. He says his stream is also appreciated. Respirations nonlabored and regular. Lung sounds are clear and equal bilaterally. Cardio: Rate: regular rate Rhythm: regular rhythm Other: No murmur, rub, gallop appreciated GI: Other: Abdomen flat, soft, nontender to palpation with bowel sounds present x4 quadrants Skin: General skin exam: normal color and no rashes or lesions noted Neuro: Motor exam (neuro): 5/5 motor strength pres
[2023-08-05 08:21] LABS: Glucose Point of Care 80 mg/dl (65-105)
[2023-08-05] MEDS: LINEZOLID 600 MG TABLET PO ×2 (10:45→19:00)
[2023-08-05] MEDS: APIXABAN 5 MG TABLET PO ×2 (10:45→17:45)
[2023-08-05] MEDS: TOLNAFTATE 1% POWDER 45 GM BTL 1 APPLIC TOPICAL (10:45)
[2023-08-05 12:11] LABS: Glucose Point of Care 112 mg/dl (65-105)
[2023-08-05 14:40] VITALS: BP 117/52; PULSE 71; RESP 25; TEMP 36.6; O2SAT 97
--- NOTE | 2023-08-05 15:12 | PCPTNOTE ---
Attempted to see patient for PT, however patient declined due to anticipated discharge.
[2023-08-05 17:05] LABS: Glucose Point of Care 122 mg/dl (65-105)
== END 2023-08-05 19:05 | disposition home health service (06) | DRG 690 ==
LOC: ANHED 05:26 → ANH2MED 05:37
PROVIDERS: Internal Medicine Critical Care Medicine; Physician Assistant; Admitting Provider Internal Medicine; Emergency Provider Emergency Medicine; PCP Family Medicine Adolescent Medicine; Visit Provider Nurse Practitioner Family
DX: N39.0 Urinary tract infection, site not specified (principal); N17.9 Acute kidney failure, unspecified; Z68.42 Body mass index [BMI] 45.0-49.9, adult; Z16.21 Resistance to vancomycin; I48.0 Paroxysmal atrial fibrillation; B95.2 Enterococcus as the cause of diseases classified elsewhere; I49.5 Sick sinus syndrome; I27.20 Pulmonary hypertension, unspecified; N18.31 Chronic kidney disease, stage 3a; E11.22 Type 2 diabetes mellitus with diabetic chronic kidney disease; E78.5 Hyperlipidemia, unspecified; E66.01 Morbid (severe) obesity due to excess calories; K76.0 Fatty (change of) liver, not elsewhere classified; R09.02 Hypoxemia; Z96.653 Presence of artificial knee joint, bilateral; Z20.822 Contact with and (suspected) exposure to COVID-19; Z95.0 Presence of cardiac pacemaker; Z87.891 Personal history of nicotine dependence; Z79.01 Long term (current) use of anticoagulants
CPT/HCPCS: 36415; 71045; 80048; 80053; 81001; 82948; 83605; 85025; 85027; 85380; 85610; 85730; 86140; 87040; 87086; 87147; 87181; 87186; 87636; 93005; 94640; 96360; 96361; 97110; 97161; 97165; 97530; 97535; 99285; A9270; J0290; J0456; J0696; J1815; J1940; J7030

== ENCOUNTER 2023-08-11 10:58 | Emergency (ER) | payer OTHER, SELFPAY ==
[2023-08-11] VITALS (23 sets, daily range): BP systolic 91–113; BP diastolic 43–59; PULSE 75–84; RESP 12–27; TEMP 36.3–36.4; O2SAT 92–100
--- NOTE | ~2023-08-11 | CT_ITS ---
EXAMINATION: CT pelvis wo con DATE: 08/11/2023 13:32 INDICATION: Right buttock decubitus ulcer. TECHNIQUE: High resolution computed tomography (CT) of the pelvis was performed without intravenous c ontrast. Additional sagittal and coronal reconstructions were performed. Automated exposure control a nd iterative reconstruction technique were employed. The dose-length product was 1218.80 mGy-cm. COMPARISON: 06/21/2023 FINDINGS: There is a small region of stranding in the subcutaneous fat. On the right posterior margin of the co ccyx extending caudally along the right side of the inferior gluteal cleft. No evident abscess or sof t tissue gas. No cortical erosion to suggest osteomyelitis. Moderate lower lumbar spondylosis with br idging osteophytes along the margins of the L5-S1 disc space and solid osseous bridging across the bi lateral L4-L5 and L5-S1 facet joints. Right internal ureteral stent in expected position with loops f ormed in the bladder and right renal pelvis. No right-sided hydronephrosis. 1.8 cm staghorn calculus filling one of the calyces and associated infundibulum at the lower pole of the left kidney. There is prominent sigmoid diverticulosis without adjacent inflammatory change to suggest diverticulitis. Th e appendix and visualized small bowel are unremarkable. Bladder, uterus and bilateral adnexa are unre markable. No free intraperitoneal gas or fluid in the pelvis or visualized lower abdomen. Moderate bi lateral hip osteoarthritis. IMPRESSION: 1. There is some stranding in the subcutaneous fat at the inferomedial aspect of the right buttock. N o evident abscess, soft tissue gas or underlying osteomyelitis at the adjacent coccyx. 2. 1.8 cm nonobstructing stone at the lower pole of the left kidney. 3. Right internal ureteral stent in expected position with no hydronephrosis. 4. Diverticulosis. Reviewed, dictated and finalized at location A. [facility] IMPRESSION: 1. There is some stranding in the subcutaneous fat at the inferomedial aspect o f the right buttock. No evident abscess, soft tissue gas or underlying osteomye litis at the adjacent coccyx. 2. 1.8 cm nonobstructing stone at the lower pole of the left kidney. 3. Right internal ureteral stent in expected position with no hydronephrosis. 4. Diverticulosis.
--- NOTE | 2023-08-11 11:22 | PC.NURSE ---
Pt also states that she has been having recurring UTIs and has been on antibiotics and would like to have her urine checked to make sure it is clearing up
[2023-08-11 11:49] LABS: Appearance Urine Turbid (Clear); Color Urine Dark Red (Yellow); Glucose Urine UA Negative (Negative); Ketones Urine 1+ (Negative); Protein Urine 3+ (Negative); pH Urine 5.5 (5.0-8.0)
[2023-08-11 11:50] LABS: Blood Urine 3+ (Negative); Leukocyte Esterase Ur Negative LEU/UL (Negative); Nitrate Urine Negative (Negative)
[2023-08-11 11:51] LABS: Add Urine Microscopic? YES
[2023-08-11 12:00] LABS: Bacteria Urine Rare /hpf; Need Manual Microscopic Need Manual; RBC Urine >100 /hpf (0-2); Squamous Epithelial Cell Urine Occasional /hpf (Few)
[2023-08-11 12:01] LABS: WBC Urine Unable to determine /hpf (0-3)
--- NOTE | 2023-08-11 12:45 | ED.GENADULT ---
HPI - General Adult General Chief complaint: Skin/Abscess/Foreign Body Stated complaint: abcess needing dained Time Seen by Provider: 08/11/23 11:27 Source: patient Mode of arrival: ambulatory Limitations: no limitations History of Present Illness HPI narrative: This is an 83-year-old female who presents to the ED with chief complaint of a sacral wound/ abscess that needs to be drained. She was supposed to go to the doctor's office today but did not make it because she has been feeling globally weak. They did not feel that she would do well trying to get up onto the doctor stable at the PCP office. Denies any focal weakness, numbness, speech change or vision change. She states she has felt generally weak since leaving the hospital she was bed-bound for multiple weeks. Reports pain in the sacral/right buttock area. Denies fevers, chills, nausea, vomiting. Related Data Home Medications Medication Instructions Recorded Confirmed tiotropium 2.5 mcg-olodaterol 2.5 2 puff inhalation DAILY 06/14/23 08/01/23 mcg/actuation mist for inhalation (Stiolto Respimat) losartan 100 mg tablet 100 mg PO DAILY 07/19/23 08/01/23 Allergies Allergy/AdvReac Type Severity Reaction Status Date / Time No Known Allergies Allergy Verified 07/19/23 13:14 Review of Systems Review of Systems: All systems as dictated in HPI [facility] Past Medical History Medical History Chronic anticoagulation Hepatic steatosis (06/2023) CT 07/01 Insulin dependent type 2 diabetes mellitus Mixed hyperlipidemia Morbid (severe) obesity due to excess calories Obstructive sleep apnea on CPAP Paroxysmal atrial fibrillation Pulmonary hypertension Sick sinus syndrome Surgical History Surgical History History of cholecystectomy History of permanent cardiac pacemaker placement (10/2020) History of total knee arthroplasty 2010 Left, 2014 right Family History Family History Father Hepatic cancer Mother Acute myocardial infarction Heart disease Sibling Asthma Grandparent Carcinoma of colon Colon polyp Son Heart disease Other Diabetes mellitus Social History Social History Social History: Surrogate medical decision maker: Bobbi Teran and Dave Dueñas, children. Code status: Do not resuscitate however patient would consider temporary mechanical ventilation or central line placement during the day (06/14/2023). Smoking packs per day: 2 Smoking cigarettes per day: 40.0 Years smoked: 10 Smoking pack-years: 20.00 Smoking status: Former smoker Tobacco type: cigarettes Second hand tobacco smoke exposure: No Smoking end date: 08/09/89 Alcohol intake: never Substance use: never Substance use type: does not use Do You Feel Safe in your Home?: Yes Lack of Transportation: No Lack of Food: Never True Current Housing: I Have Housing Concerned About Future Housing: No Difficulty Paying Gas/Electric Bills: No Difficulty Paying for Meds: No Currently Unemployed: No Education: High School Diploma/GED Difficulty w/ Childcare or Family Care: No Living arrangements: alone 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re concerns: No Agree to blood products: Yes Exam Narrative: GENERAL: Well-appearing, well-nourished, and in no acute distress. HEAD: Normocephalic, atraumatic. EYES: PERRLA and EOMI. ENT: Nares clear, no rhinorrhea or epistaxis. Mucous membranes moist. Oropharynx without tonsillar hypertrophy exudate or other lesions. NECK: Supple. No adenopathy or masses. CHEST: No respiratory distress. Clear to auscultation. No wheezes rales or rhonchi HEART: Regular rate and rhythm. No murmur heard. Normal peripheral pulses. ABDOMEN: Soft, nontender, non
[2023-08-11 13:00] LABS: Basophils Percent Auto 0.6 % (0.2-1.2); Eosinophils Absolute Auto 0.1 K/mm3 (0-0.3); Eosinophils Percent Auto 1.2 % (0-4.4); Hematocrit 32.9 % (37.0-47.0); Hemoglobin 9.8 g/dL (12.0-15.0); Immature Granulocyte Absolute 0.04 K/mm3 (0.00-0.031); Immature Granulocyte Percent A 0.6 % (0-0.5); Lymphocytes Absolute Auto 1.04 K/mm3 (0.9-3.2); Lymphocytes Percent Auto 15.2 % (18.3-44.2); Mean Corpuscular HGB Conc 29.8 g/dl (32-36); Mean Corpuscular Hemoglobin 29.2 pg (26-34); Mean Corpuscular Volume 97.9 fl (80-100); Mean Platelet Volume 9.7 fl (7.4-10.4); Monocytes Absolute Auto 0.3 K/mm3 (0.1-0.6); Monocytes Percent Auto 3.7 % (2.6-8.5); Neutrophils Absolute Auto 5.4 K/mm3 (1.3-6.7); Neutrophils Percent Auto 78.7 % (45.5-73.1); Platelet Count Result 339 k/mm3 (150-375); Red Blood Count 3.36 M/mm3 (4.2-5.4); Red Cell Distribution Width 16.7 % (11.5-14.5); White Blood Count 6.8 K/mm3 (4.5-10.0)
[2023-08-11 13:11] LABS: Alanine Aminotransferase 19 U/L (6-35); Albumin Level 3.3 g/dL (3.5-5.1); Alkaline Phosphatase 54 U/L (38-126); Anion Gap 9 mmol/L (8-16); Aspartate Amino Transferase 34 U/L (14-36); Bilirubin,Total 0.6 mg/dL (0.2-1.3); Blood Urea Nitrogen 46 mg/dL (7-17); Calcium 8.9 mg/dL (8.4-10.2); Carbon Dioxide 24 mmol/L (22-30); Chloride 105 mmol/L (98-107); Estimated CRCL calculation 27 ml/min; Estimated Glomerular Filt Rate 29; Glucose 116 mg/dL (65-110); Potassium 4.2 mmol/L (3.4-5.0); Sodium 138 mmol/L (137-145)
[2023-08-11 13:23] LABS: Hypochromasia 1+ (NORMAL); Platelet Estimate Adequate (Adequate); Schistocytes None Seen (NORMAL)
== END 2023-08-11 16:42 | disposition home or self-care (01) ==
PROVIDERS: Emergency Medicine; Emergency Provider Physician Assistant; PCP Family Medicine Adolescent Medicine
DX: L89.151 Pressure ulcer of sacral region, stage 1 (principal); L03.317 Cellulitis of buttock; E11.9 Type 2 diabetes mellitus without complications; E78.2 Mixed hyperlipidemia; I48.0 Paroxysmal atrial fibrillation; I27.20 Pulmonary hypertension, unspecified; K76.0 Fatty (change of) liver, not elsewhere classified; G47.33 Obstructive sleep apnea (adult) (pediatric); Z95.0 Presence of cardiac pacemaker; E66.01 Morbid (severe) obesity due to excess calories; Z68.41 Body mass index [BMI] 40.0-44.9, adult; Z87.891 Personal history of nicotine dependence; Z79.01 Long term (current) use of anticoagulants; Z79.4 Long term (current) use of insulin; Z79.84 Long term (current) use of oral hypoglycemic drugs; Z79.51 Long term (current) use of inhaled steroids
CPT/HCPCS: 10060; 36415; 72192; 80053; 81001; 85025; 99284

== ENCOUNTER 2023-09-01 13:31 | Inpatient (IN) | payer OTHER, SELFPAY ==
[2023-09-01] VITALS (40 sets, daily range): BP systolic 62–132; BP diastolic 26–108; PULSE 60–84; RESP 13–27; TEMP 36.7; O2SAT 83–100
--- NOTE | ~2023-09-01 | CT_ITS ---
EXAMINATION: CT abdomen pelvis wo con DATE: 09/01/2023 19:46 INDICATION: Weakness. Hypotension. TECHNIQUE: Computed tomography (CT) of the abdomen and pelvis was performed without intravenous contr ast. Automated exposure control and iterative reconstruction technique were employed. The dose-length product was 1409.59 mGy-cm. COMPARISON: CT abdomen and pelvis 06/21/2023 FINDINGS: The visualized portions of the lung bases demonstrate mild atelectasis. There is smooth sep gilberto thickening, consistent mild pulmonary edema. There is mild bronchiectasis bilaterally. There is a trace right pleural effusion. The heart size is normal. No pericardial effusion. There is a pacer wi re in right ventricle. The liver is normal. There are changes of cholecystectomy. Calcifications in t he spleen are consistent with old granulomatous disease. The pancreas, adrenal glands are normal. The re is cortical thinning of the kidneys. There is a right internal ureteral stent in expected position . There is a 1.8 cm stone in left kidney. There is diverticulosis of the colon without evidence of di verticulitis. There are no dilated loops of bowel. The appendix is normal. There is calcified atheros clerosis of the aorta and many of the other arteries. There are no pathologically enlarged lymph node s. There is no free intraperitoneal fluid. There is severe lumbar spondylosis. There are bridging end plate osteophytes at multiple levels in the spine, consistent with diffuse idiopathic skeletal hypero stosis (DISH). IMPRESSION: 1. Right internal ureteral stent in expected position. 2. Nonobstructing left kidney stone. Reviewed, dictated and finalized at location E. ICAL RESEARCH SCIENTIST
--- NOTE | ~2023-09-01 | XR_ITS ---
Portable chest x-ray Comparison: 09/01/2023 Clinical History: Line placement Findings: Right IJ line is in satisfactory position. Lungs are clear, without focal consolidation or pleural effusion. No pneumothorax. Cardiomediastinal silhouette is stable, with pacemaker device. B ones and soft tissues are unremarkable. Impression: Right IJ line in place. Clear lungs. Reviewed, dictated and finalized at location . BER HELPER Impression: Right IJ line in place. Clear lungs.
--- NOTE | ~2023-09-01 | XR_ITS ---
XR chest 1V portable 09/04/2023 22:15 Indication: Dyspnea with wheezing Procedure: AP portable chest Comparison: Comparison to multiple prior studies sequentially, with oldest reviewed study dated 10/2022. Findings: Progression of diffuse bilateral airspace disease, compatible with edema. Small right pleur al effusion. Right IJ central line tip in the SVC. Cardiomegaly. No acute osseous abnormality. Impression: 1: Cardiomegaly with worsening pulmonary edema. Reviewed, dictated and finalized at location A. OCOL OFFICER Impression: 1: Cardiomegaly with worsening pulmonary edema.
--- NOTE | ~2023-09-01 | XR_ITS ---
EXAMINATION: XR chest 1V portable DATE: 09/07/2023 12:51 INDICATION: Shortness of breath. Congestive heart failure. TECHNIQUE: A single frontal view of the chest was obtained. COMPARISON: Chest single view 09/04/2023, CT abdomen and pelvis 09/01/2023 FINDINGS: There is a diffuse interstitial pattern, consistent with mild pulmonary edema. There is mil d atelectasis at the lung bases. There is mild scarring in right lateral costophrenic angle. No pleur al effusion or pneumothorax. Cardiomegaly is noted. There is a left chest pacer with lead in right ve ntricle. A right internal jugular central venous catheter is seen with tip in the superior vena cava. IMPRESSION: 1. Mild pulmonary edema. 2. Cardiomegaly. Reviewed, dictated and finalized at location A. MINER BLASTING
--- NOTE | ~2023-09-01 | XR_ITS ---
XR chest 1V portable 09/01/2023 14:41 Indication: Increased weakness Procedure: AP portable chest Comparison: Comparison to multiple prior studies sequentially, with oldest reviewed study dated 06/09. Findings: Cardiomegaly with interstitial edema. No significant effusion or pneumothorax. Pacemaker le ad tip in the right ventricle. No acute osseous abnormality. Impression: 1: Cardiomegaly with interstitial edema. Reviewed, dictated and finalized at location B. Y CLERK Impression: 1: Cardiomegaly with interstitial edema.
--- NOTE | 2023-09-01 13:54 | ECG_ITS ---
Measurements Intervals [place] Rate: 77 P: CT: 0 QRS: 270 QRSD: 185 T: 80 QT: 464 QTc: 526 Interpretive Statements ELECTRONIC VENTRICULAR PACEMAKER BASELINE ARTIFACT- I, II, AVR, AVL NO FURTHER INTERPRETATION IS POSSIBLE ATYPICAL ECG COMPARED TO ECG 08/01/2023 02:08:41 NO SIGNIFICANT CHANGES Electronically Signed On 09-01-2023 14:45:01 [facility] CENTER DIRECTOR by Eugene Rivas D.O.
--- NOTE | 2023-09-01 13:57 | ED.WEAKNESS ---
HPI - Weakness General Chief complaint: Weakness Stated complaint: low BP, low O2, low BS Time Seen by Provider: 09/01/23 13:56 Source: patient and family (daughter in law) Mode of arrival: ambulatory History of Present Illness HPI Narrative: Pt complains of generalized weakness for a few months, since her discharge from the hospital a few month ago. She is reported to have had a low blood pressure and low O2 as well as low blood sugar today. Blood sugar was in the 90s, she is normally in the 120s. Had home health care present today. Recently placed on a 10mg antidepressant pill by Dr Billingsley (patient's PCP) and home health home care companion thought she might benefit from increasing this dosage. Has been on several rounds of antibiotics for recurrent UTI, including recently linezolid. She is on 1LPM PRN supplemental O2 via [place] for COPD and CHF. Patient is on a long acting insulin 30U QAM (name unknown); last dose was this morning. Denies chest pain. Chronic shortness of breath. No fevers. Concerned for dehydration. She has a history of kidney stone and stent; has an upcoming urology appointment in mid September Related Data Home Medications Medication Instructions Recorded Confirmed tiotropium 2.5 mcg-olodaterol 2.5 2 puff inhalation DAILY 06/14/23 08/25/23 mcg/actuation mist for inhalation (Stiolto Respimat) losartan 100 mg tablet 100 mg PO DAILY 07/19/23 08/25/23 Allergies Allergy/AdvReac Type Severity Reaction Status Date / Time No Known Allergies Allergy Verified 08/25/23 13:46 [facility] Past Medical History Medical History (Updated 09/02/23 @ 01:38 by More Moreno MD) Chronic anticoagulation Heart failure with preserved ejection fraction Hepatic steatosis (06/2023) CT 07/01 Insulin dependent type 2 diabetes mellitus Mixed hyperlipidemia Morbid (severe) obesity due to excess calories Obstructive sleep apnea on CPAP Paroxysmal atrial fibrillation Pulmonary hypertension Sick sinus syndrome Ureteral stone Vancomycin resistant Enterococcus infection Surgical History Surgical History (Updated 09/01/23 @ 23:57 by Rocío Hickman PA-C) History of cholecystectomy History of cystoscopy History of permanent cardiac pacemaker placement (10/2020) History of total knee arthroplasty 2010 Left, 2014 right Family History Family History Father Hepatic cancer Mother Acute myocardial infarction Heart disease Sibling Asthma Grandparent Carcinoma of colon Colon polyp Son Heart disease Other Diabetes mellitus Social History Social History (Updated 09/01/23 @ 23:59 by Rocío Hickman PA-C) Social History: Surrogate medical decision maker: Bobbi Teran and Dave Dueñas, children. Code status: Full code. Smoking packs per day: 2 Smoking cigarettes per day: 40.0 Years smoked: 10 Smoking pack-years: 20.00 Smoking status: Former smoker Tobacco type: cigarettes Second hand tobacco smoke exposure: No Smoking end date: 08/09/89 Alcohol intake: never Substance use: never Substance use type: does not use Do You Feel Safe in your Home?: Yes Lack of Transportation: No Lack of Food: Never True Current Housing: I Have Housing Concerned About Future Housing: No Difficulty Paying Gas/Electric Bills: No Difficulty Paying for Meds: No Currently Unemployed: No Education: High School Diploma/GED Difficulty w/ Childcare or Family Care: No Living arrangements: alone 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re concerns: No Agree to blood products: Yes Exam Const: General: cooperative, comfortable, no acute distress, awake, ill appearing, tired appearing and obese; No acute distress, anxious, combative or diaphoretic HENMT: Head: normal to inspection, normocephalic and atraumatic Ears: hearing grossly normal bilaterally and unable to visualize TM (fully b/l given some cerumen that obscures,
[2023-09-01 14:20] LABS: Basophils Percent Auto 0.5 % (0.2-1.2); Eosinophils Absolute Auto 0.2 K/mm3 (0-0.3); Eosinophils Percent Auto 2.3 % (0-4.4); Hematocrit 26.3 % (37.0-47.0); Hemoglobin 7.6 g/dL (12.0-15.0); Immature Granulocyte Absolute 0.04 K/mm3 (0.00-0.031); Immature Granulocyte Percent A 0.5 % (0-0.5); Lymphocytes Absolute Auto 1.69 K/mm3 (0.9-3.2); Lymphocytes Percent Auto 20.6 % (18.3-44.2); Mean Corpuscular HGB Conc 28.9 g/dl (32-36); Mean Corpuscular Hemoglobin 28.5 pg (26-34); Mean Corpuscular Volume 98.5 fl (80-100); Mean Platelet Volume 10.6 fl (7.4-10.4); Monocytes Absolute Auto 0.7 K/mm3 (0.1-0.6); Monocytes Percent Auto 8.5 % (2.6-8.5); Neutrophils Absolute Auto 5.5 K/mm3 (1.3-6.7); Neutrophils Percent Auto 67.6 % (45.5-73.1); Nucleated Red Blood Cells Perc 0.2 % (0.0-0.2); Platelet Count Result 292 k/mm3 (150-375); Red Blood Count 2.67 M/mm3 (4.2-5.4); Red Cell Distribution Width 19.5 % (11.5-14.5); White Blood Count 8.2 K/mm3 (4.5-10.0)
[2023-09-01] MEDS: SODIUM CHLORIDE 0.9% IV 1,000 ML 999 ML IV CONT ×3 (14:33→20:34)
[2023-09-01 14:40] LABS: Alanine Aminotransferase 15 U/L (6-35); Albumin Level 3.7 g/dL (3.5-5.1); Alkaline Phosphatase 56 U/L (38-126); Anion Gap 11 mmol/L (8-16); Aspartate Amino Transferase 33 U/L (14-36); Bilirubin,Total 0.9 mg/dL (0.2-1.3); Blood Urea Nitrogen 73 mg/dL (7-17); Calcium 8.7 mg/dL (8.4-10.2); Carbon Dioxide 24 mmol/L (22-30); Chloride 103 mmol/L (98-107); Estimated CRCL calculation 15 ml/min; Estimated Glomerular Filt Rate 16; Glucose 114 mg/dL (65-110); Sodium 138 mmol/L (137-145)
[2023-09-01 14:43] LABS: Troponin I 0.021 ng/mL (0.000-0.034)
[2023-09-01 14:58] LABS: Anisocytosis 1+ (NORMAL); Hypochromasia 1+ (NORMAL); Microcytosis 1+ (NORMAL); Ovalocytes 1+ (NORMAL); Platelet Estimate Adequate (Adequate); Schistocytes None Seen (NORMAL)
[2023-09-01] MEDS: CALCIUM GLUCONATE 1,000 MG/10 ML VIAL 1000 MG IV PUSH (15:25)
[2023-09-01] MEDS: DEXTROSE 50% 25 GM/50 ML SYRINGE IV PUSH (15:26)
[2023-09-01] MEDS: INSULIN HUMAN REGULAR (*BKC) 100 UNITS/ML 10 UNITS IV PUSH (15:27)
[2023-09-01 15:38] LABS: Influenza A QL RT-PCR Negative (Negative); Influenza B QL RT-PCR Negative (Negative); RSV RNA, RT-PCR Negative (Negative); SARS-CoV-2 RNA PCR Negative (Negative)
[2023-09-01 16:12] LABS: Appearance Urine Cloudy (Clear); Bacteria Urine None Seen /hpf; Bilirubin Urine Negative (Negative); Blood Urine 3+ (Negative); Color Urine Orange (Yellow); Glucose Urine UA Negative (Negative); Ketones Urine Negative (Negative); Leukocyte Esterase Ur 3+ LEU/UL (Negative); Need Manual Microscopic Reviewed; Nitrate Urine Negative (Negative); Protein Urine 3+ mg/dL (Negative); RBC Urine >100 /hpf (0-2); Specific Grav Ur 1.013 (1.001-1.035); Squamous Epithelial Cell Urine None seen /hpf (Few); Urobilinogen Urine 0.2 mg/dL (<2.0); WBC Urine >100 /hpf
[2023-09-01 16:14] LABS: Add Urine Microscopic? YES
[2023-09-01 17:05] LABS: Potassium 5.4 mmol/L (3.4-5.0)
[2023-09-01] MEDS: SODIUM POLYSTYRENE SULFONONATE 15 GM/60 ML BTL 30 GM PO (17:22)
[2023-09-01] MEDS: ALBUTEROL SULFATE NEB 2.5 MG/3 ML INH 10 MG INHALATION (17:43)
[2023-09-01 20:49] LABS: Anion Gap 10 mmol/L (8-16); Blood Urea Nitrogen 70 mg/dL (7-17); Calcium 8.4 mg/dL (8.4-10.2); Carbon Dioxide 23 mmol/L (22-30); Chloride 107 mmol/L (98-107); Estimated CRCL calculation 17 ml/min; Estimated Glomerular Filt Rate 17; Glucose 109 mg/dL (65-110); Lactic Acid Reflex 1.8 mmol/L (0.7-2.0); Potassium 5.1 mmol/L (3.4-5.0); Sodium 140 mmol/L (137-145)
--- NOTE | 2023-09-01 23:53 | PM.IMHP ---
H&P: HPI History of Present Illness Date/Time: 09/01/23 22:30 Chief Complaint: Weakness. Narrative: This is a very pleasant 83-year-old female with history of kidney stones, chronic kidney disease, hypertension, hyperlipidemia, type 2 diabetes mellitus, paroxysmal atrial fibrillation, sick sinus syndrome status post permanent pacemaker insertion, and obstructive sleep apnea on CPAP who presented to the emergency department for evaluation of weakness. The patient provides the following history. Her son and [id number] provide additional information, with the patient's permission. She is known to myself and the hospitalist service from an admission in June 2023 at which time she was admitted with septic shock due to infected ureteral stone. She had a stent placed at that time which remains in place. She was hospitalized again in July with UTI and pneumonia and she was discharged home on linezolid for VRE urinary tract infection. She has been living with her son and [id number]-glh since that time she has just not been strong enough to go home. She has difficulties getting up and walking and getting to the bathroom due to deconditioning and weakness. She essentially goes to the bathroom in her depends and pads but tries to keep clean and changes those frequently. Her appetite has been very poor and she tells me that food just does not taste or smell good any more. She has not been eating or drinking well for over a month despite family's repeated encouragement. She is now ambulating with a walker and yesterday it is my understanding that she slid out of bed but luckily did not sustain any injuries. She has a rash under the breast and pannus and has some pressure sores on the buttocks. She was seen by her doctor late last week in follow up and he started her on levofloxacin for levofloxacin for a cellulitis region of the right upper inner buttock. Home health came to visit today and they noted that her blood pressure was low and suggested that she be brought to the emergency department. She denies fever, headache, sinus congestion, sore throat, cough, chest pain, shortness a breath, vomiting, diarrhea, and dysuria. She was afebrile on arrival. Blood pressures have been labile but have improved and stabilized since receiving 2 L normal saline. Labs showed an acute on chronic kidney injury with hyperkalemia. Repeat BMP shows improvement of potassium after she received appropriate treatment. She is being admitted in this setting for further treatment and evaluation. Review of Systems Review of Systems: Twelve systems were reviewed and are negative except for as per HPI. FOR[facility]LY [facility] Past Medical History Medical History (Updated 09/02/23 @ 00:10 by Rocío Hickman PA-C) Chronic anticoagulation Heart failure with preserved ejection fraction Hepatic steatosis (06/2023) CT 07/01 Insulin dependent type 2 diabetes mellitus Mixed hyperlipidemia Morbid (severe) obesity due to excess calories Obstructive sleep apnea on CPAP Paroxysmal atrial fibrillation Pulmonary hypertension Sick sinus syndrome Vancomycin resistant Enterococcus infection Surgical History Surgical History (Updated 09/01/23 @ 23:57 by Rocío Hickman PA-C) History of cholecystectomy History of cystoscopy History of permanent cardiac pacemaker placement (10/2020) History of total knee arthroplasty 2010 Left, 2014 right Family History Family History Father Hepatic cancer Mother Acute myocardial infarction Heart disease Sibling Asthma Grandparent Carcinoma of colon Colon polyp Son Heart disease Other Diabetes mellitus Social History Social History (Updated 09/01/23 @ 23:59 by Rocío Hickman PA-C) Social History: Surrogate medical decision maker: Bobbi Teran and Dave Dueñas, children. Code status: Full code. Smoking packs per day: 2 Smoking cigarettes per day: 40.0 Years smoked:
[2023-09-02] VITALS (22 sets, daily range): BP systolic 79–128; BP diastolic 35–84; PULSE 60–79; RESP 15–24; TEMP 36.4–36.7; O2SAT 93–100; BMI 46.4
[2023-09-02] MEDS: LACTATED RINGERS 1,000 ML 125 ML IV CONT (00:02)
[2023-09-02 00:57] LABS: Iron 77 ug/dL (37-170)
[2023-09-02 01:15] LABS: Percent Iron Saturation 28 % (20-50)
[2023-09-02 01:58] LABS: Folic Acid 5.5 ng/mL (2.76->20)
[2023-09-02] MEDS: MEROPENEM 500 MG in SODIUM CHLORIDE 0.9% IV 100 ML 200 ML IVPB (02:14)
--- NOTE | 2023-09-02 03:06 | PM.EVENT ---
Event Note Event Note Event Note: An 83-year-old female presents to the ED for evaluation of generalized weakness, evaluated and found to have HARMONY, hyperkalemia anemia and dehydration which abnormal UA suggestive of UTI. She was admitted and placed on is Rocephin, her blood pressure continued to remain soft despite receiving 4 L bolus of normal saline. At this point patient required pressors and i was consulted for central line placement on transferred to ICU. I consulted the horticulture professor, Aleah Gomez, and discussed patient detail with him, he recommended adding Zyvox studies patient antibiotic regimen oxygen history of VRE and to continue other management.
--- NOTE | 2023-09-02 03:20 | WPDPROCEDUR ---
Procedures Central Line Placement Right IJ: Consent: I have discussed with the patient and/or surrogate, the non-emergent placement of a central venous catheter, including its clinical necessity/indication and associated potential risks and complications. The patient and/or surrogate understand(s) and acknowledge(s) the need to proceed with central venous catheter insertion as an important element of the patient's clinical management. Amount of anesthesia used (ml): 5 Central line lumen inserted: triple Depth of Insertion (cm): 12 Post Procedure: sutured in place, good blood return, all ports aspirated, flushed, capped, transparent dressing and aseptic technique maintained throughout procedure Post procedure x-ray: tip of catheter in good position and no pneumothorax seen Patient tolerated procedure: well
[2023-09-02] MEDS: NOREPINEPHRINE 8 MG/D5W 250 ML 8 MG/250 ML BAG 9.38 MG IV CONT (03:24)
[2023-09-02] MEDS: ACETAMINOPHEN 325 MG TABLET 650 MG PO (03:32)
--- NOTE | 2023-09-02 03:36 | PC.NURSE ---
Pt readjusted in bed. Remains dry.
--- NOTE | 2023-09-02 03:40 | PC.NURSE ---
report received from SYDNIE Olivier
--- NOTE | 2023-09-02 04:29 | ADMGEN ---
This patient, Eliza Dueñas, was admitted to Intensive Care Unit-10 on 09/02/23 at 0405. Patient/family oriented to hospital policies and general routines including ID bracelet, bed and alarms, visiting hours, pain management, procedures, bathroom and other care routines, personal items, smoking policy, room service/diet, and visiting hours. Information on how to activate the Rapid Response Team has been discussed. Patient/Family are encouraged to report perceived risks to care and to ask questions if they do not understand what they are told or what they should do.
[2023-09-02 05:22] LABS: Hematocrit 24.2 % (37.0-47.0); Mean Corpuscular HGB Conc 28.9 g/dl (32-36); Mean Corpuscular Hemoglobin 28.9 pg (26-34); Mean Platelet Volume 10.2 fl (7.4-10.4); Platelet Count Result 295 k/mm3 (150-375); Red Blood Count 2.42 M/mm3 (4.2-5.4); Red Cell Distribution Width 19.6 % (11.5-14.5); White Blood Count 9.8 K/mm3 (4.5-10.0)
[2023-09-02 05:36] LABS: Partial Thromboplastin Time 48.5 SECONDS (22.3-36.8)
[2023-09-02 05:37] LABS: Alanine Aminotransferase 15 U/L (6-35); Alkaline Phosphatase 52 U/L (38-126); Anion Gap 8 mmol/L (8-16); Aspartate Amino Transferase 29 U/L (14-36); Bilirubin,Total 0.8 mg/dL (0.2-1.3); Blood Urea Nitrogen 65 mg/dL (7-17); Calcium 8.2 mg/dL (8.4-10.2); Carbon Dioxide 23 mmol/L (22-30); Chloride 107 mmol/L (98-107); Estimated CRCL calculation 18 ml/min; Estimated Glomerular Filt Rate 19; Glucose 96 mg/dL (65-110); Magnesium 2.1 mg/dL (1.6-2.3); Phosphorus 4.5 mg/dL (2.5-4.5); Potassium 5.1 mmol/L (3.4-5.0); Sodium 138 mmol/L (137-145)
[2023-09-02] MEDS: LINEZOLID 600 MG/300 ML 600 MG/300 ML SOLN 300 MG IVPB ×2 (05:51→20:45)
[2023-09-02 06:35] LABS: MRSA (PCR) NOT DETECTED (NOT DETECTE)
--- NOTE | 2023-09-02 07:27 | WPDURCON ---
Assessment and Plan Assessment and plan (1) History of recurrent UTIs: Code(s): Z87.440 - Personal history of urinary (tract) infections Status: Acute Assessment and Plan: I will plan bedside cystoscopy with removal of her right ureteral stent either today or tomorrow. This is simple, local anesthesia procedure that may help some with diminishing the frequency of recurrent urinary tract infections The large stone in the left kidney would be a significant endeavor. Currently, that stone is not causing obstruction and not an acute problem. When she is medically fit we can consider either left ESWL or ureteroscopy with laser lithotripsy Urology Consult Note HPI Date Seen: 09/02/23 Requesting Physician: Luana Echeverria MD Primary Care Provider: Pako Munson MD Consult Narrative Narrative: Eliza Dueñas is a 83 year old female who is well known to our practice. In early June she presented with a small right distal ureteral stone with obstructive pyelonephritis. Additionally she has a large nonobstructing stone in her left renal pelvis. She has since spontaneously passed a right ureteral stone in his need of her right stent to be removed. She has had appointments in the office which she has been unable to keep because of recurrent urinary tract infections. She is admitted again with generalized weakness of unclear etiology. Imaging shows, again, and indwelling right ureteral stent without right renal or ureteral calculi. She has this large nonobstructing left stone. Review of Systems Cardiovascular: Cardiovascular: Denies chest pain, Denies lightheadedness, Denies palpitations and Denies dyspnea Respiratory: Respiratory: Denies dyspnea Gastrointestinal: Gastrointestinal: Denies diarrhea, Denies nausea and Denies vomiting Genitourinary: Genitourinary: Denies hematuria and Denies dysuria Endocrine: Endocrine: Denies palpitations [facility] Past Medical History Medical History (Updated 09/02/23 @ 01:38 by More Moreno MD) Chronic anticoagulation Heart failure with preserved ejection fraction Hepatic steatosis (06/2023) CT 07/01 Insulin dependent type 2 diabetes mellitus Mixed hyperlipidemia Morbid (severe) obesity due to excess calories Obstructive sleep apnea on CPAP Paroxysmal atrial fibrillation Pulmonary hypertension Sick sinus syndrome Ureteral stone Vancomycin resistant Enterococcus infection Surgical History Surgical History (Updated 09/01/23 @ 23:57 by Rocío Hickman PA-C) History of cholecystectomy History of cystoscopy History of permanent cardiac pacemaker placement (10/2020) History of total knee arthroplasty 2010 Left, 2014 right Family History Family History Father Hepatic cancer Mother Acute myocardial infarction Heart disease Sibling Asthma Grandparent Carcinoma of colon Colon polyp Son Heart disease Other Diabetes mellitus Social History Social History (Updated 09/01/23 @ 23:59 by Rocío Hickman PA-C) Social History: Surrogate medical decision maker: Bobbi Teran and Dave Dueñas, children. Code status: Full code. Smoking packs per day: 2 Smoking cigarettes per day: 40.0 Years smoked: 2.5 Smoking pack-years: 5.00 Smoking status: Former smoker Tobacco type: cigarettes Second hand tobacco smoke exposure: Yes Smoking end date: 08/09/89 Alcohol intake: never Substance use: never Substance use type: does not use Do You Feel Safe in your Home?: Yes Lack of Transportation: No Lack of Food: Never True Current Housing: I Have Housing Concerned About Future Housing: No Difficulty Paying Gas/Electric Bills: No Difficulty Paying for Meds: No Currently Unemployed: No Education: High School Diploma/GED Difficulty w/ Childcare or Family Care: No Living arrangements: alone 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
[2023-09-02 07:35] LABS: Glucose Point of Care 129 mg/dl (65-105)
[2023-09-02] MEDS: SODIUM CHLORIDE 0.9% IV 1,000 ML 50 ML IV CONT (08:14)
[2023-09-02] MEDS: CENTRAL LINE FLUSH 10 ML IV PUSH ×3 (08:15→20:46)
[2023-09-02] MEDS: SODIUM ZIRCONIUM CYCLOSILICATE 10 GM POWD.PACK PO (08:48)
--- NOTE | 2023-09-02 09:15 | WPDCNINT ---
Assessment and Plan Assessment and plan (1) Septic shock: Code(s): A41.9 - Sepsis, unspecified organism; R65.21 - Severe sepsis with septic shock Status: Acute Assessment and Plan: Patient presented from the generalized weakness found to have a recurrent UTI, hypovolemic, acute on chronic kidney disease -received 4 L of IV fluid bolus, so she is adequately fluid-resuscitated -currently on maintenance IV fluids at 50 mL/hour -on Levophed, maintain MAP > 65 mmHg at all times for adequate end organ perfusion -patient on linezolid and meropenem she recently had VRE and Enterococcus in her urine -check lactic acid (2) Acute kidney injury superimposed on CKD: Code(s): N17.9 - Acute kidney failure, unspecified; N18.9 - Chronic kidney disease, unspecified Status: Acute Assessment and Plan: Acute on chronic kidney disease likely related to UTI -appreciate urology evaluation -they will remove her right ureteral stent this admission which could be causing her recurrent urinary tract infections -patient has been adequately fluid-resuscitated -continue some maintenance IV fluids at 50 mL/hour -continue to monitor urine output, renal function and electrolytes -will have Nephrology follow the patient -09/01: CT abdomen pelvis did not show any hydronephrosis, showed right internal ureteral stent in expected position, nonobstructive left kidney stone (3) Acute hyperkalemia: Code(s): E87.5 - Hyperkalemia Status: Acute Assessment and Plan: Acute hyperkalemia related to acute on chronic kidney disease -will treat with Lokelma (4) History of recurrent UTIs: Code(s): Z87.440 - Personal history of urinary (tract) infections Status: Acute Assessment and Plan: History of recurrent UTIs likely to right ureteral stent -Urology following the patient -continue antibiotics as above (5) Insulin dependent type 2 diabetes mellitus: Code(s): E11.9 - Type 2 diabetes mellitus without complications; Z79.4 - 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 (current) use of insulin Status: Chronic Assessment and Plan: Accu-Cheks and sliding scale insulin (6) Anemia: Code(s): D64.9 - Anemia, unspecified Status: Acute Assessment and Plan: Anemia is multifactorial could be related to apixaban, kidney disease, anemia of chronic disease -apixaban currently on hold -normal iron levels TIBC and ferritin level -vitamin B12 and folic acid levels are within normal limits -will obtain stool Hemoccult -will transfuse PRBC as needed Plan DVT prophylaxis: SCDs, hold apixaban secondary to if anemia Stress ulcer prophylaxis: Protonix IV q.12 hours Nutrition: Heart healthy diet, low-sodium diet Code Status: Full code Critical Care Time Spent: 49 minutes Due to a high probability of clinically significant, life threatening deterioration, the patient required my highest level of preparedness to intervene emergently and I personally spent this critical care time directly and personally managing the patient. This critical care time included obtaining a history; examining the patient; pulse oximetry; ordering and review of studies; arranging urgent treatment with development of a management plan; evaluation of patient's response to treatment; frequent reassessment; and discussions with other providers. It was exclusive of separately billable procedures and treating other patients and teaching time. Please see Assessment and Plan section and the rest of the note for further information on patient assessment and treatment This dictation may have been done utilizing a voice recognition system. Attempts have been made to correct errors. However, there may be uncorrected grammatical, spelling, and recognitions errors present. [employer] [place] Consult Note Consult date: 09/02/23 Reason for consult: Septic shock, UTI HPI: Eliza Dueñas is a 83 year old female with past medical history of kidney stones, chronic ki
[2023-09-02 10:27] LABS: Lactic Acid Reflex 0.9 mmol/L (0.7-2.0)
[2023-09-02] MEDS: PANTOPRAZOLE SODIUM IV 40 MG VIAL IV PUSH ×2 (10:42→20:46)
[2023-09-02] MEDS: CEFEPIME 1 GM/NS 50 ML 1 GM/50 ML BAG IVPB (10:44)
[2023-09-02 10:56] LABS: Procalcitonin 0.1 ng/mL
[2023-09-02 11:27] LABS: Glucose Point of Care 266 mg/dl (65-105)
--- NOTE | 2023-09-02 12:10 | PM.CNNEP ---
Assessment and Plan Assessment and plan (1) BRITTANI (acute kidney injury): Code(s): N17.9 - Acute kidney failure, unspecified Status: Acute Assessment and Plan: multifactorial etiology: hypotension/hemodynamic instability/shock pre-renal factors infection/sepsis (UTI) ARB therapy prior to admission pre-renal factors s/p adequate/aggressive IVFs on vasopressor therapy remains at risk for SLACK LINE YARDER/dialysis CT scan without obstruction with ureteral stent in place follow repeat labs and UOP (2) Stage 3b chronic kidney disease: Code(s): N18.32 - Chronic kidney disease, stage 3b Status: Acute Assessment and Plan: baseline creatinine ~ 1.0 - 1.5mg/dl recently; although has been as high as 1.7mg/dl this causes her to fluctuate betweem CKD stage 3A and stage 3B presumably due to diabetes, hypertension, vascular disease, recurrent UTIs, and age (3) Hyperkalemia: Code(s): E87.5 - Hyperkalemia Status: Acute Assessment and Plan: resolving due to BRITTANI/ARF and ouitpatient use of ARB therapy s/p medical management (4) Septic shock: Code(s): A41.9 - Sepsis, unspecified organism; R65.21 - Severe sepsis with septic shock Status: Acute Assessment and Plan: as noted by hypotension, UA suggestive of UTI, BRITTANI on CKD s/p adequate IVF resuscitation on vasopressor therapy to maintain MAP follow culture data on antibiotic therapy (5) History of recurrent UTIs: Code(s): Z87.440 - Personal history of urinary (tract) infections Status: Acute Assessment and Plan: presumably precipitated by presence of right ureteral stent Urology following on antibiotics (6) Anemia: Code(s): D64.9 - Anemia, unspecified Status: Acute Assessment and Plan: due to Brittani, CKD, chronic disease, anticoagulation, and acute illness iron studies along with B12 + folate okay follow H/H PRBC transfusion per protocol (7) Insulin dependent type 2 diabetes mellitus: Code(s): E11.9 - Type 2 diabetes mellitus without complications; 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 Nicole I will continue follow patient with you while she remains hospitalized make further recommendations as deemed necessary. Thank you for allowing me to participate in the care this patient. History of Present Illness Reason for Consult Consult date: 09/02/23 Reason for consult: acute renal failure (on chronic kidney disease) Chief Complaint Chief complaint: Chronic UTIs, Generalized Weakness, Hypotension, A History of Present Illness Narrative: The patient is an 83-year-old female with a past medical history as outlined below who presented to [facility] Emergency room with complaints of generalized weakness and fatigue. The patient has had several hospitalizations since June of 2023 related to recurrent urinary tract infections as well as a previously infected ureteral stone that required stent placement. She has been living with her family due to her deconditioned state and recent hospitalizations. She reports that her appetite has been somewhat poor and she just has no inclination to eat anything as the food does not appear to have any taste or smell good to her. This apparently has been going on for about a month or so despite family's ongoing encouragement for increased nutritional intake. She was seen by home health on the day of admission and it was noted that her blood pressure was on the lower side of normal and it was suggested that she come to the emergency room for further assessment. She gave no other systemic complaints with regard to fevers, chills, headaches, sore throat, cough, nausea, vomiting, diarrhea, or dysuria. Workup and evaluation in the emergency room demonstrat
--- NOTE | 2023-09-02 12:10 | P.CONNP_ITS ---
Assessment and Plan Assessment and plan (1) BRITTANI (acute kidney injury): Code(s): N17.9 - Acute kidney failure, unspecified Status: Acute Assessment and Plan: * multifactorial etiology: * hypotension/hemodynamic instability/shock * pre-renal factors * infection/sepsis (UTI) * ARB therapy prior to admission * pre-renal factors * s/p adequate/aggressive IVFs * on vasopressor therapy * remains at risk for REGRINDER/dialysis * CT scan without obstruction with ureteral stent in place * follow repeat labs and UOP (2) Stage 3b chronic kidney disease: Code(s): N18.32 - Chronic kidney disease, stage 3b Status: Acute Assessment and Plan: * baseline creatinine ~ 1.0 - 1.5mg/dl recently; although has been as high as 1.7mg/dl * this causes her to fluctuate betweem CKD stage 3A and stage 3B * presumably due to diabetes, hypertension, vascular disease, recurrent UTIs, and age (3) Hyperkalemia: Code(s): E87.5 - Hyperkalemia Status: Acute Assessment and Plan: * resolving * due to BRITTANI/ARF and ouitpatient use of ARB therapy * s/p medical management (4) Septic shock: Code(s): A41.9 - Sepsis, unspecified organism; R65.21 - Severe sepsis with septic shock Status: Acute Assessment and Plan: * as noted by hypotension, UA suggestive of UTI, BRITTANI on CKD * s/p adequate IVF resuscitation * on vasopressor therapy to maintain MAP * follow culture data * on antibiotic therapy (5) History of recurrent UTIs: Code(s): Z87.440 - Personal history of urinary (tract) infections Status: Acute Assessment and Plan: * presumably precipitated by presence of right ureteral stent * Urology following * on antibiotics (6) Anemia: Code(s): D64.9 - Anemia, unspecified Status: Acute Assessment and Plan: * due to Brittani, CKD, chronic disease, anticoagulation, and acute illness * iron studies along with B12 + folate okay * follow H/H * PRBC transfusion per protocol (7) Insulin dependent type 2 diabetes mellitus: Code(s): E11.9 - Type 2 diabetes mellitus without complications; Z79.4 - senior care (current) use of insulin Status: Chronic Assessment and Plan: * follow accu-cheks * glycemic control per folder inspector/hospitalists Discussed case with Dr. Nicole I will continue follow patient with you while she remains hospitalized make further recommendations as deemed necessary. Thank you for allowing me to participate in the care this patient. History of Present Illness Reason for Consult Consult date: 09/02/23 Reason for consult: acute renal failure (on chronic kidney disease) Chief Complaint Chief complaint: Chronic UTIs, Generalized Weakness, Hypotension, A History of Present Illness Narrative: The patient is an 83-year-old female with a past medical history as outlined below who presented to [facility] Emergency room with complaints of generalized weakness and fatigue. The patient has had several hospitalizations since June of 2023 related to recurrent urinary tract infections as well as a previously infected ureteral stone that required stent placement. She has been living with her family due to her deconditioned state and recent hospitalizations. She reports that her appetite has been somewhat poor and she just has no inclination to eat anything as the food does not appear to have any taste or smell good to her. This apparently has been going on for about a month or so despite family's ongoin
[2023-09-02] MEDS: INSULIN ASPART (*BKC) 100 UNITS/ML SUB-Q (12:31)
--- NOTE | 2023-09-02 13:50 | W.PM.PROC2 ---
Procedure Note - Detailed Date of Procedure 09/02/23 Pre-op Diagnosis Chronic UTIs, Generalized Weakness, Hypotension, A Post-op Diagnosis Same Procedure Performed Cystoscopy with ureteral stent removal Surgeon Fadi Campuzano MD Anesthesia Local Description of Procedure At the bedside the patient was prepped in a frog-leg position. 2% lidocaine was introduced intraurethrally. Flexible cystoscopy was undertaken with a 16 F flexible cystoscope and her indwelling stent is grasped and removed with ease. Patient tolerated the procedure well Urine Output 220 Complications No immediate complications Condition Stable Disposition PACU
--- NOTE | 2023-09-02 16:27 | WPDGICN ---
Assessment and Plan Assessment and plan (1) Acute on chronic anemia: Code(s): D64.9 - Anemia, unspecified Status: Acute Assessment and Plan: no overt gib patient and daughter at this time prefer conservative approach and if possible no endoscopy of course if obvious bleeding or patient changes her mind then we will always be available if endoscopy is needed (2) Septic shock: Code(s): A41.9 - Sepsis, unspecified organism; R65.21 - Severe sepsis with septic shock Status: Acute Assessment and Plan: better, on abx and weaning off levophed (3) Acute kidney injury superimposed on CKD: Code(s): N17.9 - Acute kidney failure, unspecified; N18.9 - Chronic kidney disease, unspecified Status: Acute (4) Acute hyperkalemia: Code(s): E87.5 - Hyperkalemia Status: Acute Assessment and Plan: treated (5) Insulin dependent type 2 diabetes mellitus: Code(s): E11.9 - Type 2 diabetes mellitus without complications; Z79.4 - bed bug exterminator (current) use of insulin Status: Chronic (6) Chronic anticoagulation: Code(s): Z79.01 - detention (current) use of anticoagulants Status: Acute Assessment and Plan: on hold for now (7) History of recurrent UTIs: Code(s): Z87.440 - Personal history of urinary (tract) infections Status: Acute Assessment and Plan: on abx urology removed stent GI Consult Note Consult date/time: 09/02/23 16:27 Reason for consult: anemia HPI: Eliza Dueñas is a 83 year old female with history of chronic kidney disease (creat 1.3), hypertension, type 2 diabetes, sick sinus syndrome status post permanent pacemaker, obstructive sleep apnea on CPAP, CHF with preserved ejection fraction, hepatic steatosis, pulmonary hypertension, recurrent UTIs with stent in place presented the ED on 09/01/2023 with complaints of generalized weak, low blood pressures and low blood sugars.?She received fluids but blood pressure still low, diagnosed with septic shock and started on Levophed and transferred to the ICU, on abx. Urology removed stent, BP better. Also found to have anemia again but no overt gib (baseline 9 and recently 7). Daughter at bedside, patient thinks that never had colonoscopy. Review of Systems Constitutional: Constitutional: Reports lethargy Eyes: Eyes: Denies blurry vision ENT: Reports Normal hearing present Cardiovascular: Cardiovascular: Denies chest pain Respiratory: Respiratory: Reports dyspnea on exertion Gastrointestinal: Gastrointestinal: Denies abdominal pain Genitourinary: Comments: h/o uti Musculoskeletal: Musculoskeletal: Denies arthralgias Integumentary/Breasts: Skin/Breast: Denies rash Neurologic: Denies vertigo Psychiatric: Psychiatric: Denies behavioral changes [facility] Past Medical History Medical History (Updated 09/02/23 @ 16:31 by Luke Desir MD) Acute on chronic anemia Chronic anticoagulation Heart failure with preserved ejection fraction Hepatic steatosis (06/2023) CT 07/01 Insulin dependent type 2 diabetes mellitus Mixed hyperlipidemia Morbid (severe) obesity due to excess calories Obstructive sleep apnea on CPAP Paroxysmal atrial fibrillation Pulmonary hypertension Sick sinus syndrome Ureteral stone Vancomycin resistant Enterococcus infection Surgical History Surgical History (Updated 09/01/23 @ 23:57 by Rocío Hickman PA-C) History of cholecystectomy History of cystoscopy History of permanent cardiac pacemaker placement (10/2020) History of total knee arthroplasty 2010 Left, 2014 right Family History Family History Father Hepatic cancer Mother Acute myocardial infarction Heart disease Sibling Asthma Grandparent Carcinoma of colon Colon polyp Son Heart disease Other Diabetes mellitus Social History Social History (Updated 09/01/23 @ 23:59 by Kerry
[2023-09-02 16:38] LABS: Glucose Point of Care 129 mg/dl (65-105)
[2023-09-02] MEDS: TOLNAFTATE 1% POWDER 45 GM BTL 1 APPLIC TOPICAL (20:50)
[2023-09-03] VITALS (16 sets, daily range): BP systolic 91–138; BP diastolic 43–98; PULSE 60–81; RESP 16–20; TEMP 36.1–36.8; O2SAT 92–100
[2023-09-03 00:02] LABS: Glucose Point of Care 112 mg/dl (65-105)
[2023-09-03] MEDS: CENTRAL LINE FLUSH 10 ML IV PUSH ×3 (06:13→20:08)
[2023-09-03 06:26] LABS: Basophils Percent Auto 0.4 % (0.2-1.2); Eosinophils Absolute Auto 0.7 K/mm3 (0-0.3); Eosinophils Percent Auto 8.8 % (0-4.4); Hematocrit 24.8 % (37.0-47.0); Hemoglobin 7.2 g/dL (12.0-15.0); Immature Granulocyte Absolute 0.02 K/mm3 (0.00-0.031); Immature Granulocyte Percent A 0.3 % (0-0.5); Lymphocytes Absolute Auto 2.07 K/mm3 (0.9-3.2); Lymphocytes Percent Auto 27.9 % (18.3-44.2); Mean Corpuscular Hemoglobin 28.9 pg (26-34); Mean Corpuscular Volume 99.6 fl (80-100); Mean Platelet Volume 9.8 fl (7.4-10.4); Monocytes Absolute Auto 0.7 K/mm3 (0.1-0.6); Neutrophils Absolute Auto 3.9 K/mm3 (1.3-6.7); Neutrophils Percent Auto 52.6 % (45.5-73.1); Platelet Count Result 257 k/mm3 (150-375); Red Blood Count 2.49 M/mm3 (4.2-5.4); Red Cell Distribution Width 19.4 % (11.5-14.5); White Blood Count 7.4 K/mm3 (4.5-10.0)
[2023-09-03 06:53] LABS: Creatine Kinase 38 U/L (30-135)
[2023-09-03 06:56] LABS: Alanine Aminotransferase 13 U/L (6-35); Albumin Level 2.8 g/dL (3.5-5.1); Alkaline Phosphatase 49 U/L (38-126); Anion Gap 4 mmol/L (8-16); Aspartate Amino Transferase 23 U/L (14-36); Bilirubin,Total 0.7 mg/dL (0.2-1.3); Blood Urea Nitrogen 48 mg/dL (7-17); Calcium 8.2 mg/dL (8.4-10.2); Carbon Dioxide 25 mmol/L (22-30); Chloride 110 mmol/L (98-107); Estimated CRCL calculation 25 ml/min; Estimated Glomerular Filt Rate 29; Glucose 90 mg/dL (65-110); Phosphorus 3.7 mg/dL (2.5-4.5); Potassium 4.6 mmol/L (3.4-5.0); Sodium 139 mmol/L (137-145)
[2023-09-03 07:03] LABS: Creatinine Urine 54.5 mg/dL; Urea Random Urine 562 MG/DL
[2023-09-03 07:05] LABS: Sodium Urine Random 67 meq/L
[2023-09-03 07:26] LABS: Hypochromasia 1+ (NORMAL); Ovalocytes 1+ (NORMAL); Platelet Estimate Adequate (Adequate); Schistocytes None Seen (NORMAL)
[2023-09-03 07:30] LABS: Hepatitis B Surface Antigen Negative (Negative)
[2023-09-03 07:48] LABS: Hepatitis B Surface Anti Res Negative
--- NOTE | 2023-09-03 08:16 | WPDUROPN2 ---
Progress Note: A&P Assessment and Plan (1) History of recurrent UTIs: Code(s): Z87.440 - Personal history of urinary (tract) infections Status: Acute (2) Nephrolithiasis: Code(s): N20.0 - Calculus of kidney Status: Acute Assessment and Plan: No problems following removal of right ureteral stent. Denies any right flank pain. The large stone in her left kidney will be very challenging to take care of. Currently it is nonobstructing and does not pose any emminent risk. At some point, she is medically stable, either ESWL or staged ureteroscopy laser lithotripsy will likely be best option. Subjective Subjective Date/Time Seen: 09/03/23 08:16 Interval history: Comfortable following stent removal Review of Systems Review of Systems: All systems reviewed & are unremarkable except as noted in HPI and below Exam Const: General: no acute distress Resp: Effort & Inspection: normal respiratory effort GI: Inspection: non-distended GI Palp: No abdominal tenderness and No Guarding due to palpation present (GI) Auscultation: normal bowel sounds Objective Data Vital Signs Vital Signs: Vital Signs - 24 hr 09/02/23 10:00 09/02/23 10:57 09/02/23 10:58 Temperature Pulse Rate 75 76 78 Respiratory Rate 18 Blood Pressure 128/57 L 113/84 113/48 L Pulse Oximetry 95 Oxygen Delivery Oxygen Flow Rate 09/02/23 10:00 09/02/23 11:51 09/02/23 12:30 Temperature 97.8 F Pulse Rate 75 77 Respiratory Rate 16 Blood Pressure 126/61 122/58 L Pulse Oximetry 93 Oxygen Delivery Oxygen Flow Rate 09/02/23 12:00 09/02/23 12:00 09/02/23 14:00 Temperature Pulse Rate 76 76 Respiratory Rate Blood Pressure Pulse Oximetry 97 Oxygen Delivery Nasal Cannula Oxygen Flow Rate 2 09/02/23 14:00 09/02/23 14:00 09/02/23 10:00 Temperature Pulse Rate 76 Respiratory Rate 16 Blood Pressure 98/55 L 98/55 L Pulse Oximetry 98 94 Oxygen Delivery Simple Face Mask Oxygen Flow Rate 3 09/02/23 16:00 09/02/23 16:00 09/02/23 16:00 Temperature 98 F Pulse Rate 75 71 Respiratory Rate 19 Blood Pressure 112/77 Pulse Oximetry 100 100 Oxygen Delivery Nasal Cannula Oxygen Flow Rate 2 09/02/23 18:00 09/02/23 18:00 09/02/23 20:45 Temperature Pulse Rate 70 69 72 Respiratory Rate 17 Blood Pressure 79/45 L 122/55 L Pulse Oximetry 95 Oxygen Delivery Oxygen Flow Rate 09/02/23 20:00 09/02/23 20:00 09/02/23 20:00 Temperature 97.6 F Pulse Rate 71 71 Respiratory Rate 24 H Blood Pressure 119/55 L Pulse Oximetry 100 100 Oxygen Delivery Nasal Cannula Oxygen Flow Rate 2 09/03/23 00:00 09/02/23 22:00 09/02/23 22:00 Temperature Pulse Rate 74 74 Respiratory Rate 15 Blood Pressure 105/62 Pulse Oximetry 95 99 Oxygen Delivery Nasal Cannula Oxygen Flow Rate 2 09/03/23 00:00 09/03/23 02:00 09/03/23 00:00 Temperature 97.2 F L Pulse Rate 76 76 73 Respiratory Rate 19 19 Blood Pressure 101/62 102/63 Pulse Oximetry 95 100 Oxygen Delivery Oxygen Flow Rate 09/03/23 02:00 09/03/23 00:00 09/03/23 04:00 Temperature Pulse Rate 76 76 Respiratory Rate Blood Pressure 101/62 Pulse Oximetry 98 Oxygen Delivery Nasal Cannula Oxygen Flow Rate 2 09/03/23 04:00 09/03/23 06:00 09/03/23 06:00 Temperature 97.5 F L Pulse Rate 75 60 60 Respiratory Rate 16 20 Blood Pressure 105/55 L 94/67 L Pulse Oximetry 98 98 Oxygen Delivery Oxygen Flow Rate 09/03/23 04:00 Temperature Pulse Rate 75 Respiratory Rate Blood Pressure Pulse Oximetry Oxygen Delivery Oxygen Flow Rate Intake/Output Intake/Output: Intake & Output 08/31/23 09/01/23 09/02/23 09/03/23 23:59 23:59 23:59 23:59 Intake Total 3050 1540 1000 Output Total 033 095 0193 Balance 2830 1320 -300 Meds/Results Medications: Active Medications Generic Name Dose Route Start Last Adm
[2023-09-03] MEDS: CEFEPIME 1 GM/NS 50 ML 1 GM/50 ML BAG IVPB (08:46)
[2023-09-03] MEDS: PANTOPRAZOLE SODIUM IV 40 MG VIAL IV PUSH ×2 (08:46→20:07)
[2023-09-03] MEDS: TOLNAFTATE 1% POWDER 45 GM BTL 1 APPLIC TOPICAL ×2 (08:47→20:08)
[2023-09-03 08:51] LABS: Eosinophil Urine None Seen % (None Seen); Urine Eos QC 2nd Tech Confirmed
[2023-09-03] MEDS: LINEZOLID 600 MG/300 ML 600 MG/300 ML SOLN 300 MG IVPB (09:35)
--- NOTE | 2023-09-03 10:16 | P.PNNP_ITS ---
Progress Note: A&P Assessment and Plan (1) BRITTANI (acute kidney injury): Code(s): N17.9 - Acute kidney failure, unspecified Status: Acute Assessment and Plan: * improvement noted * multifactorial etiology: * hypotension/hemodynamic instability/shock * pre-renal factors * infection/sepsis (UTI) * ARB therapy prior to admission * pre-renal factors * s/p adequate/aggressive IVFs * off vasopressor therapy * evluation to date: * CT scan without obstruction with ureteral stent in place * urine eletrolyte non-prerenal * urine eosinophils negative * CPK normal * follow repeat labs and UOP (2) Stage 3b chronic kidney disease: Code(s): N18.32 - Chronic kidney disease, stage 3b Status: Acute Assessment and Plan: * baseline creatinine ~ 1.0 - 1.5mg/dl recently; although has been as high as 1.7mg/dl * this causes her to fluctuate betweem CKD stage 3A and stage 3B * presumably due to diabetes, hypertension, vascular disease, recurrent UTIs, and age (3) Hyperkalemia: Code(s): E87.5 - Hyperkalemia Status: Acute Assessment and Plan: * resolving * due to BRITTANI/ARF and ouitpatient use of ARB therapy * s/p medical management (4) Septic shock: Code(s): A41.9 - Sepsis, unspecified organism; R65.21 - Severe sepsis with septic shock Status: Acute Assessment and Plan: * as noted by hypotension, UA suggestive of UTI, BRITTANI on CKD * s/p adequate IVF resuscitation * off vasopressor therapy at this time * follow culture data * on antibiotic therapy (5) History of recurrent UTIs: Code(s): Z87.440 - Personal history of urinary (tract) infections Status: Acute Assessment and Plan: * presumably precipitated by presence of right ureteral stent * Urology following * on antibiotics (6) Anemia: Code(s): D64.9 - Anemia, unspecified Status: Acute Assessment and Plan: * due to Brittani, CKD, chronic disease, anticoagulation, and acute illness * iron studies along with B12 + folate okay * follow H/H * PRBC transfusion per protocol (7) Insulin dependent type 2 diabetes mellitus: Code(s): E11.9 - Type 2 diabetes mellitus without complications; Z79.4 - assisted (current) use of insulin Status: Chronic Assessment and Plan: * follow accu-cheks * glycemic control per traffic rate analyst/hospitalists Will contnue to follow Subjective Date/time seen: 09/03/23 10:16 Interval history: Follow-up for acute kidney injury/acute renal failure on chronic kidney disease. She reports feeling better this morning and in comparison to admission; weaned off vasopressor therapy yesterday evening with relatively stable/soft BP readings noted; inprovement in renal function noted as well; no other acute issues/complaints voiced at the time of my visit. Exam Narrative: General: elderly but WD/WN female in NAD Heart: normal S1 and S2; no rub Lungs: clear anteriorly Abdomen: soft, nontender, nondistended, positive bowel sounds Extremities: no cyanosis or clubbing; trace edema Skin: warm and dry Objective Data Vital Signs Vital Signs: Vital Signs Temp Pulse Resp BP Pulse Ox O2 Del Method O2 Flow Rate 09/03/23 10:00 75 20 95/45 L 98 09/03/23 08:00 75 16 97 Nasal Cannula 2 09/03/23 08:00 97 F L
--- NOTE | 2023-09-03 10:16 | PM.PNNEP ---
Progress Note: A&P Assessment and Plan (1) BRITTANI (acute kidney injury): Code(s): N17.9 - Acute kidney failure, unspecified Status: Acute Assessment and Plan: improvement noted multifactorial etiology: hypotension/hemodynamic instability/shock pre-renal factors infection/sepsis (UTI) ARB therapy prior to admission pre-renal factors s/p adequate/aggressive IVFs off vasopressor therapy evluation to date: CT scan without obstruction with ureteral stent in place urine eletrolyte non-prerenal urine eosinophils negative CPK normal follow repeat labs and UOP (2) Stage 3b chronic kidney disease: Code(s): N18.32 - Chronic kidney disease, stage 3b Status: Acute Assessment and Plan: baseline creatinine ~ 1.0 - 1.5mg/dl recently; although has been as high as 1.7mg/dl this causes her to fluctuate betweem CKD stage 3A and stage 3B presumably due to diabetes, hypertension, vascular disease, recurrent UTIs, and age (3) Hyperkalemia: Code(s): E87.5 - Hyperkalemia Status: Acute Assessment and Plan: resolving due to BRITTANI/ARF and ouitpatient use of ARB therapy s/p medical management (4) Septic shock: Code(s): A41.9 - Sepsis, unspecified organism; R65.21 - Severe sepsis with septic shock Status: Acute Assessment and Plan: as noted by hypotension, UA suggestive of UTI, BRITTANI on CKD s/p adequate IVF resuscitation off vasopressor therapy at this time follow culture data on antibiotic therapy (5) History of recurrent UTIs: Code(s): Z87.440 - Personal history of urinary (tract) infections Status: Acute Assessment and Plan: presumably precipitated by presence of right ureteral stent Urology following on antibiotics (6) Anemia: Code(s): D64.9 - Anemia, unspecified Status: Acute Assessment and Plan: due to Brittani, CKD, chronic disease, anticoagulation, and acute illness iron studies along with B12 + folate okay follow H/H PRBC transfusion per protocol (7) Insulin dependent type 2 diabetes mellitus: Code(s): E11.9 - Type 2 diabetes mellitus without complications; Z79.4 - termite inspector (current) use of insulin Status: Chronic Assessment and Plan: follow accu-cheks glycemic control per carpenter's helper/hospitalists Will contnue to follow Subjective Date/time seen: 09/03/23 10:16 Interval history: Follow-up for acute kidney injury/acute renal failure on chronic kidney disease. She reports feeling better this morning and in comparison to admission; weaned off vasopressor therapy yesterday evening with relatively stable/soft BP readings noted; inprovement in renal function noted as well; no other acute issues/complaints voiced at the time of my visit. Exam Narrative: General: elderly but WD/WN female in NAD Heart: normal S1 and S2; no rub Lungs: clear anteriorly Abdomen: soft, nontender, nondistended, positive bowel sounds Extremities: no cyanosis or clubbing; trace edema Skin: warm and dry Objective Data Vital Signs Vital Signs: Vital Signs Temp Pulse Resp BP Pulse Ox O2 Del Method O2 Flow Rate 09/03/23 10:00 75 20 95/45 L 98 09/03/23 08:00 75 16 97 Nasal Cannula 2 09/03/23 08:00 97 F L 75 16 91/43 L 97 09/03/23 08:00 60 09/03/23 04:00 75 09/03/23 06:00 60 09/03/23 06:00 60 20 94/67 L 98 09/03/23 04:00 97.5 F L 75 16 105/55 L 98 09/03/23 04:00 98 Nasal Cannula 2 09/03/23 00:00 76 101/62 09/03/23 02:00 76 09/03/23 00:00 73 09/03/23 02:00 76 19 102/63 100 09/03/23 00:00 97.2 F L 76 19 101/62 95 09/02/23 22:00 74 09/02/23 22:00 74 15 105/62 99 09/03/23 00:00 95 Nasal Cannula 2 09/02/23 20:00 71 09/02/23 20:00 100 Nasal Cannula 2 09/02/23 20:00 97.6 F 71 24 H 119/55 L 100 01
[2023-09-03 11:39] LABS: Glucose Point of Care 143 mg/dl (65-105)
[2023-09-03] MEDS: ACETAMINOPHEN 325 MG TABLET 650 MG PO (11:44)
--- NOTE | 2023-09-03 13:21 | WPDINTPN ---
Progress Note: A&P Assessment and Plan (1) Septic shock: Code(s): A41.9 - Sepsis, unspecified organism; R65.21 - Severe sepsis with septic shock Status: Acute Assessment and Plan: Patient presented from the generalized weakness found to have a recurrent UTI, hypovolemic, acute on chronic kidney disease -received 4 L of IV fluid bolus, so she is adequately fluid-resuscitated -off maintenance IV fluids -OFF Levophed, -09/01: Blood cultures negative so far -09/01: Urine culture negative -DC Linezolid. -Continue meropenem (09/01) - lactic acid is normal (2) Acute kidney injury superimposed on CKD: Code(s): N17.9 - Acute kidney failure, unspecified; N18.9 - Chronic kidney disease, unspecified Status: Acute Assessment and Plan: Acute on chronic kidney disease likely related to UTI -appreciate urology evaluation -they will remove her right ureteral stent this admission which could be causing her recurrent urinary tract infections -patient has been adequately fluid-resuscitated -off maintenance IV fluids, tolerating p.o. diet -good urine output, creatinine improving -continue to monitor urine output, renal function and electrolytes -will have Nephrology follow the patient -09/01: CT abdomen pelvis did not show any hydronephrosis, showed right internal ureteral stent in expected position, nonobstructive left kidney stone (3) Acute hyperkalemia: Code(s): E87.5 - Hyperkalemia Status: Acute Assessment and Plan: Acute hyperkalemia related to acute on chronic kidney disease, status post Lokelma -hyperkalemia has resolved (4) History of recurrent UTIs: Code(s): Z87.440 - Personal history of urinary (tract) infections Status: Acute Assessment and Plan: History of recurrent UTIs likely to right ureteral stent -Urology removed the stent from the right ureteral stent, patient to follow up with Urology as outpatient -continue antibiotics as above (5) Insulin dependent type 2 diabetes mellitus: Code(s): E11.9 - Type 2 diabetes mellitus without complications; Z79.4 - retirement (current) use of insulin Status: Chronic Assessment and Plan: Accu-Cheks and sliding scale insulin (6) Anemia: Code(s): D64.9 - Anemia, unspecified Status: Acute Assessment and Plan: Anemia is multifactorial could be related to apixaban, kidney disease, anemia of chronic disease -apixaban currently on hold -normal iron levels TIBC and ferritin level -vitamin B12 and folic acid levels are within normal limits -will obtain stool Hemoccult -will transfuse PRBC as needed Plan DVT prophylaxis: SCDs, hold apixaban secondary to if anemia Stress ulcer prophylaxis: Protonix IV q.12 hours Nutrition: Heart healthy diet, low-sodium diet Code Status: Full code Critical Care Time Spent: 33 minutes The discussed with son and [id number] and updated them with patient's condition and plan of care. I answered all the questions. Patient's son would like to meet up with hospice team. I discussed with care coordination and placed a consult for hospice referral Due to a high probability of clinically significant, life threatening deterioration, the patient required my highest level of preparedness to intervene emergently and I personally spent this critical care time directly and personally managing the patient. This critical care time included obtaining a history; examining the patient; pulse oximetry; ordering and review of studies; arranging urgent treatment with development of a management plan; evaluation of patient's response to treatment; frequent reassessment; and discussions with other providers. It was exclusive of separately billable procedures and treating other patients and teaching time. Please see Assessment and Plan section and the rest of the note for further information on patient assessment and treatment This dictation may have been done utilizi
[2023-09-03] MEDS: ALBUMIN HUMAN 25% 25 GM/100 ML 100 ML IVPB ×3 (14:45→23:56)
--- NOTE | 2023-09-03 15:53 | PCPTNOTE ---
Attempted PT evaluation, pt refused. RN aware. Will follow.
[2023-09-03 16:10] LABS: Glucose Point of Care 118 mg/dl (65-105)
--- NOTE | 2023-09-03 18:28 | PM.IMPN ---
Progress Note: A&P Assessment and Plan (1) History of recurrent UTIs: Code(s): Z87.440 - Personal history of urinary (tract) infections Status: Acute (2) Abnormal urinalysis: Code(s): R82.90 - Unspecified abnormal findings in urine Status: Acute (3) Dehydration: Code(s): E86.0 - Dehydration Status: Acute (4) Hypotension: Code(s): I95.9 - Hypotension, unspecified Status: Acute (5) Hyperkalemia: Code(s): E87.5 - Hyperkalemia Status: Acute (6) Anemia: Code(s): D64.9 - Anemia, unspecified Status: Acute Plan A 83-year-old presenting with septic shock likely due to recurrent UTI. 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 Continue to monitor hemoglobin while apixaban is on hold and stool occult is pending. Follow cultures. Levophed discontinued and blood pressure stable SBP in 120s Full code. Guarded.. Subjective Date/time seen: 09/03/23 18:28 Interval history: Patient has no complaints. She denies any abdominal or bladder pain. She denies fever. Review of Systems Review of Systems: All systems reviewed & are unremarkable except as noted in HPI and below (Subjective) Exam Const: General: comfortable and no acute distress Eyes: Pupils: Equal, round and reactive pupils present Neck: Neck: supple Resp: Effort & Inspection: normal respiratory effort Auscultation: clear to auscultation bilaterally Cardio: Rate: regular rate GI: GI Palp: Yes Soft to palpation and No Tenderness to palpation present (GI) Extrem: General: edema (Trace) Objective Data Vital Signs Vital Signs: Vital Signs - 24 hr 09/02/23 20:45 09/02/23 20:00 09/02/23 20:00 Temperature 97.6 F Pulse Rate 72 71 Respiratory Rate 24 H Blood Pressure 122/55 L 119/55 L Pulse Oximetry 100 100 Oxygen Delivery Nasal Cannula Oxygen Flow Rate 2 09/02/23 20:00 09/03/23 00:00 09/02/23 22:00 Temperature Pulse Rate 71 74 Respiratory Rate 15 Blood Pressure 105/62 Pulse Oximetry 95 99 Oxygen Delivery Nasal Cannula Oxygen Flow Rate 2 09/02/23 22:00 09/03/23 00:00 09/03/23 02:00 Temperature 97.2 F L Pulse Rate 74 76 76 Respiratory Rate 19 19 Blood Pressure 101/62 102/63 Pulse Oximetry 95 100 Oxygen Delivery Oxygen Flow Rate 09/03/23 00:00 09/03/23 02:00 09/03/23 00:00 Temperature Pulse Rate 73 76 76 Respiratory Rate Blood Pressure 101/62 Pulse Oximetry Oxygen Delivery Oxygen Flow Rate 09/03/23 04:00 09/03/23 04:00 09/03/23 06:00 Temperature 97.5 F L Pulse Rate 75 60 Respiratory Rate 16 20 Blood Pressure 105/55 L 94/67 L Pulse Oximetry 98 98 98 Oxygen Delivery Nasal Cannula Oxygen Flow Rate 2 09/03/23 06:00 09/03/23 04:00 09/03/23 08:00 Temperature Pulse Rate 60 75 60 Respiratory Rate Blood Pressure Pulse Oximetry Oxygen Delivery Oxygen Flow Rate 09/03/23 08:00 09/03/23 08:00 09/03/23 10:00 Temperature 97 F L Pulse Rate 75 75 73 Respiratory Rate 16 16 Blood Pressure 91/43 L Pulse Oximetry 97 97 Oxygen Delivery Nasal Cannula Oxygen Flow Rate 2 09/03/23 10:00 09/03/23 10:31 09/03/23 10:42 Temperature Pulse Rate 75 Respiratory Rate 20 Blood Pressure 95/45 L Pulse Oximetry 98 96 Oxygen Delivery Nasal Cannula Nasal Cannula Oxygen Flow Rate 2 2 09/03/23 12:00 09/03/23 12:00 09/03/23 12:00 Temperature 97.5 F L Pulse Rate 74 78 78 Respiratory Rate 18 20 Blood Pressure 138/98 H Pulse Oximetry 98 96 Oxygen Delivery Nasal Cannula Oxygen Flow Rate 2 09/03/23 14:00 09/03/23 14:00 09/03/23 16:00 Temperature 98.3 F Pulse Rate 76 76 76 Respiratory Rate 16 16 Blood Pressure 94/77 L 98/49 L Pulse Oximetry 98 100 Oxygen Delivery Oxygen Flow Rate 09/03/23 1
[2023-09-03 20:50] LABS: Glucose Point of Care 114 mg/dl (65-105)
[2023-09-04] VITALS (22 sets, daily range): BP systolic 93–145; BP diastolic 45–79; PULSE 60–76; RESP 18–26; TEMP 36.4–37; O2SAT 90–100
[2023-09-04] MEDS: ALBUMIN HUMAN 25% 25 GM/100 ML 100 ML IVPB ×2 (05:06→12:14)
[2023-09-04] MEDS: CENTRAL LINE FLUSH 10 ML IV PUSH ×3 (05:06→22:44)
[2023-09-04 05:40] LABS: Basophils Absolute Auto 0.1 K/mm3 (0.0-0.1); Basophils Percent Auto 0.7 % (0.2-1.2); Eosinophils Absolute Auto 0.5 K/mm3 (0-0.3); Eosinophils Percent Auto 7.1 % (0-4.4); Hematocrit 24.2 % (37.0-47.0); Immature Granulocyte Absolute 0.02 K/mm3 (0.00-0.031); Immature Granulocyte Percent A 0.3 % (0-0.5); Lymphocytes Percent Auto 23.8 % (18.3-44.2); Mean Corpuscular HGB Conc 27.3 g/dl (32-36); Mean Corpuscular Volume 102.5 fl (80-100); Mean Platelet Volume 10.6 fl (7.4-10.4); Monocytes Absolute Auto 0.6 K/mm3 (0.1-0.6); Monocytes Percent Auto 8.5 % (2.6-8.5); Neutrophils Absolute Auto 4.3 K/mm3 (1.3-6.7); Neutrophils Percent Auto 59.6 % (45.5-73.1); Platelet Count Result 249 k/mm3 (150-375); Red Blood Count 2.36 M/mm3 (4.2-5.4); Red Cell Distribution Width 19.7 % (11.5-14.5); White Blood Count 7.1 K/mm3 (4.5-10.0)
[2023-09-04 05:50] LABS: Hemoglobin 6.6 g/dL (12.0-15.0)
[2023-09-04 05:53] LABS: Alanine Aminotransferase 18 U/L (6-35); Albumin Level 3.5 g/dL (3.5-5.1); Alkaline Phosphatase 51 U/L (38-126); Anion Gap 8 mmol/L (8-16); Aspartate Amino Transferase 31 U/L (14-36); Bilirubin,Total 0.8 mg/dL (0.2-1.3); Blood Urea Nitrogen 38 mg/dL (7-17); Calcium 8.7 mg/dL (8.4-10.2); Carbon Dioxide 24 mmol/L (22-30); Chloride 107 mmol/L (98-107); Estimated CRCL calculation 31 ml/min; Estimated Glomerular Filt Rate 36; Glucose 110 mg/dL (65-110); Phosphorus 2.9 mg/dL (2.5-4.5); Potassium 4.6 mmol/L (3.4-5.0); Sodium 139 mmol/L (137-145)
[2023-09-04 07:58] LABS: IFOB Positive Control Positive; Immunochemical Fecal Occult Bl Positive (N)
--- NOTE | 2023-09-04 08:12 | PCPTNOTE ---
Patient has HgB of 6.6, patient has order for transfusion, will check on patient tomorrow.
[2023-09-04 09:00] LABS: Glucose Point of Care 117 mg/dl (65-105)
[2023-09-04 09:02] LABS: INR 1.4; Prothrombin Time 18.4 Seconds (11.1-14.7)
[2023-09-04 09:03] LABS: Partial Thromboplastin Time 40.1 SECONDS (22.3-36.8)
[2023-09-04] MEDS: SODIUM CHLORIDE 0.9% IV 250 ML 30 ML IV CONT (09:15)
--- NOTE | 2023-09-04 09:18 | WPDINTPN ---
Progress Note: A&P Assessment and Plan (1) Septic shock: Code(s): A41.9 - Sepsis, unspecified organism; R65.21 - Severe sepsis with septic shock Status: Acute Assessment and Plan: Patient presented from the generalized weakness found to have a recurrent UTI, hypovolemic, acute on chronic kidney disease -received 4 L of IV fluid bolus, so she is adequately fluid-resuscitated -off maintenance IV fluids -OFF Levophed, -09/01: Blood cultures negative so far -09/01: Urine culture negative -DC Linezolid. -Continue meropenem (09/01) - lactic acid is normal (2) Acute kidney injury superimposed on CKD: Code(s): N17.9 - Acute kidney failure, unspecified; N18.9 - Chronic kidney disease, unspecified Status: Acute Assessment and Plan: Acute on chronic kidney disease likely related to UTI -appreciate urology evaluation -09/03: right ureteral stent removed by Urology -patient has been adequately fluid-resuscitated -off maintenance IV fluids, tolerating p.o. diet -good urine output, creatinine improving -continue to monitor urine output, renal function and electrolytes -appreciate Nephrology evaluation recommend -09/01: CT abdomen pelvis did not show any hydronephrosis, showed right internal ureteral stent in expected position, nonobstructive left kidney stone (3) Acute hyperkalemia: Code(s): E87.5 - Hyperkalemia Status: Acute Assessment and Plan: Acute hyperkalemia related to acute on chronic kidney disease, status post Lokelma -hyperkalemia has resolved (4) History of recurrent UTIs: Code(s): Z87.440 - Personal history of urinary (tract) infections Status: Acute Assessment and Plan: History of recurrent UTIs likely to right ureteral stent -09/03: Urology removed the stent from the right ureteral stent, patient to follow up with Urology as outpatient -continue antibiotics as above (5) Insulin dependent type 2 diabetes mellitus: Code(s): E11.9 - Type 2 diabetes mellitus without complications; Z79.4 - watermaster (current) use of insulin Status: Chronic Assessment and Plan: Accu-Cheks and sliding scale insulin (6) Anemia: Code(s): D64.9 - Anemia, unspecified Status: Acute Assessment and Plan: Anemia is multifactorial could be related to apixaban, kidney disease, anemia of chronic disease -apixaban currently on hold -normal iron levels TIBC and ferritin level -vitamin B12 and folic acid levels are within normal limits -09/04 stool Hemoccult: Positive -09/04: Patient dropped hemoglobin to 6.6 this morning, will transfuse 1 unit of packed RBCs -09/04: INR is 1.4 this morning Plan DVT prophylaxis: SCDs, hold apixaban secondary to if anemia Stress ulcer prophylaxis: Protonix IV q.12 hours Nutrition: Heart healthy diet, low-sodium diet Code Status: Full code Critical Care Time Spent: 32 minutes The discussed with son and [id number] and updated them with patient's condition and plan of care. I answered all the questions. Patient's son would like to meet up with hospice team. I discussed with care coordination and placed a consult for hospice referral Due to a high probability of clinically significant, life threatening deterioration, the patient required my highest level of preparedness to intervene emergently and I personally spent this critical care time directly and personally managing the patient. This critical care time included obtaining a history; examining the patient; pulse oximetry; ordering and review of studies; arranging urgent treatment with development of a management plan; evaluation of patient's response to treatment; frequent reassessment; and discussions with other providers. It was exclusive of separately billable procedures and treating other patients and teaching time. Please see Assessment and Plan section and the rest of the note for further information on patient assessment and treatment
[2023-09-04] MEDS: CEFEPIME 1 GM/NS 50 ML 1 GM/50 ML BAG IVPB (09:21)
[2023-09-04] MEDS: PANTOPRAZOLE SODIUM IV 40 MG VIAL IV PUSH ×2 (09:21→22:44)
[2023-09-04] MEDS: TOLNAFTATE 1% POWDER 45 GM BTL 1 APPLIC TOPICAL ×2 (09:25→22:44)
[2023-09-04] MEDS: MIDODRINE HCL 2.5 MG TABLET 5 MG PO ×2 (09:28→13:28)
--- NOTE | 2023-09-04 11:55 | PC.NURSE ---
Patient complaining of shortness of breath an nausea, HOB elevated, O2 increased to 5L NC.
[2023-09-04 12:06] LABS: Glucose Point of Care 127 mg/dl (65-105)
[2023-09-04 12:20] LABS: Hematocrit 27.5 % (37.0-47.0); Hemoglobin 8.1 g/dL (12.0-15.0)
[2023-09-04] MEDS: ONDANSETRON INJ 4 MG/2 ML VIAL IV PUSH (13:33)
--- NOTE | 2023-09-04 13:36 | PC.NURSE ---
Patient complaining of SOB and nausea, Zofran IVP given. O2 saturation 94% on 2L NC. No change in auscultation. Dr. Marcus notified. New orders placed per .
[2023-09-04] MEDS: IPRATROPIUM 0.5 MG/ALBUTEROL SULFATE 2.5 MG AMPUL.NEB 3 ML INHALATION (13:49)
[2023-09-04] MEDS: ACETAMINOPHEN 325 MG TABLET 650 MG PO (14:12)
[2023-09-04 16:29] LABS: Glucose Point of Care 148 mg/dl (65-105)
[2023-09-04] MEDS: MIDODRINE HCL 10 MG TABLET PO (17:47)
[2023-09-04 20:34] LABS: Glucose Point of Care 173 mg/dl (65-105)
--- NOTE | 2023-09-04 22:26 | P.PNNP_ITS ---
Progress Note: A&P Assessment and Plan (1) BRITTANI (acute kidney injury): Code(s): N17.9 - Acute kidney failure, unspecified Status: Acute Assessment and Plan: * improvement noted * multifactorial etiology: * hypotension/hemodynamic instability/shock * pre-renal factors * infection/sepsis (UTI) * ARB therapy prior to admission * pre-renal factors * s/p adequate/aggressive IVFs * off vasopressor therapy * evaluation to date: * CT scan without obstruction with ureteral stent in place * urine eletrolyte non-prerenal * urine eosinophils negative * CPK normal * creatinine has improved to 1.4 * off ivfs * volume status looks okay (2) Stage 3b chronic kidney disease: Code(s): N18.32 - Chronic kidney disease, stage 3b Status: Acute Assessment and Plan: * baseline creatinine ~ 1.0 - 1.5mg/dl recently; although has been as high as 1.7mg/dl * this causes her to fluctuate betweem CKD stage 3A and stage 3B * presumably due to diabetes, hypertension, vascular disease, recurrent UTIs, and age (3) Hyperkalemia: Code(s): E87.5 - Hyperkalemia Status: Acute Assessment and Plan: * resolved (4) Septic shock: Code(s): A41.9 - Sepsis, unspecified organism; R65.21 - Severe sepsis with septic shock Status: Acute Assessment and Plan: * as noted by hypotension, UA suggestive of UTI, BRITTANI on CKD * s/p adequate IVF resuscitation * off norepinephrine. * blood and urine cultures negative * on cefipime (5) History of recurrent UTIs: Code(s): Z87.440 - Personal history of urinary (tract) infections Status: Acute Assessment and Plan: * presumably precipitated by presence of right ureteral stent * Urology following * on cefipime (6) Anemia: Code(s): D64.9 - Anemia, unspecified Status: Acute Assessment and Plan: * due to Brittani, CKD, chronic disease, anticoagulation, and acute illness * iron studies along with B12 + folate okay * hb natasha from 6.6 to 8.1 * check tomorrow * PRBC transfusion per protocol (7) Insulin dependent type 2 diabetes mellitus: Code(s): E11.9 - Type 2 diabetes mellitus without complications; Z79.4 - continuous churn buttermaker (current) use of insulin Status: Chronic Assessment and Plan: * follow accu-cheks * glycemic control per master lay out specialist/hospitalists Will contnue to follow Subjective Date/time seen: 09/04/23 22:26 Interval history: daughter in the room pt is alert. feels about the same. aydee. Exam Narrative: General: elderly but WD/WN female in NAD Heart: normal S1 and S2; no rub or gallop Lungs: clear anteriorly Abdomen: soft, nontender, nondistended, positive bowel sounds Extremities: no cyanosis or clubbing; trace edema Skin: no rash Objective Data Vital Signs Vital Signs: Vital Signs - 24 hr 09/04/23 00:00 09/04/23 02:00 09/04/23 00:00 Temperature Pulse Rate 71 75 69 Respiratory Rate 20 18 Blood Pressure 110/48 L 93/45 L Pulse Oximetry 96 90 Oxygen Delivery Oxygen Flow Rate 09/04/23 02:00 09/03/23 23:47 09/03/23 23:57 Temperature 97.7 F Pulse Rate 75 Respiratory Rate Blood Pressure Pulse Oximetry 96 Oxygen Deli
--- NOTE | 2023-09-04 22:26 | PM.PNNEP ---
Progress Note: A&P Assessment and Plan (1) BRITTANI (acute kidney injury): Code(s): N17.9 - Acute kidney failure, unspecified Status: Acute Assessment and Plan: improvement noted multifactorial etiology: hypotension/hemodynamic instability/shock pre-renal factors infection/sepsis (UTI) ARB therapy prior to admission pre-renal factors s/p adequate/aggressive IVFs off vasopressor therapy evaluation to date: CT scan without obstruction with ureteral stent in place urine eletrolyte non-prerenal urine eosinophils negative CPK normal creatinine has improved to 1.4 off ivfs volume status looks okay (2) Stage 3b chronic kidney disease: Code(s): N18.32 - Chronic kidney disease, stage 3b Status: Acute Assessment and Plan: baseline creatinine ~ 1.0 - 1.5mg/dl recently; although has been as high as 1.7mg/dl this causes her to fluctuate betweem CKD stage 3A and stage 3B presumably due to diabetes, hypertension, vascular disease, recurrent UTIs, and age (3) Hyperkalemia: Code(s): E87.5 - Hyperkalemia Status: Acute Assessment and Plan: resolved (4) Septic shock: Code(s): A41.9 - Sepsis, unspecified organism; R65.21 - Severe sepsis with septic shock Status: Acute Assessment and Plan: as noted by hypotension, UA suggestive of UTI, BRITTANI on CKD s/p adequate IVF resuscitation off norepinephrine. blood and urine cultures negative on cefipime (5) History of recurrent UTIs: Code(s): Z87.440 - Personal history of urinary (tract) infections Status: Acute Assessment and Plan: presumably precipitated by presence of right ureteral stent Urology following on cefipime (6) Anemia: Code(s): D64.9 - Anemia, unspecified Status: Acute Assessment and Plan: due to Brittani, CKD, chronic disease, anticoagulation, and acute illness iron studies along with B12 + folate okay hb natasha from 6.6 to 8.1 check tomorrow PRBC transfusion per protocol (7) Insulin dependent type 2 diabetes mellitus: Code(s): E11.9 - Type 2 diabetes mellitus without complications; Z79.4 - watermaster (current) use of insulin Status: Chronic Assessment and Plan: follow accu-cheks glycemic control per animal assistant/hospitalists Will contnue to follow Subjective Date/time seen: 09/04/23 22:26 Interval history: daughter in the room pt is alert. feels about the same. aydee. Exam Narrative: General: elderly but WD/WN female in NAD Heart: normal S1 and S2; no rub or gallop Lungs: clear anteriorly Abdomen: soft, nontender, nondistended, positive bowel sounds Extremities: no cyanosis or clubbing; trace edema Skin: no rash Objective Data Vital Signs Vital Signs: Vital Signs - 24 hr 09/04/23 00:00 09/04/23 02:00 09/04/23 00:00 Temperature Pulse Rate 71 75 69 Respiratory Rate 20 18 Blood Pressure 110/48 L 93/45 L Pulse Oximetry 96 90 Oxygen Delivery Oxygen Flow Rate 09/04/23 02:00 09/03/23 23:47 09/03/23 23:57 Temperature 97.7 F Pulse Rate 75 Respiratory Rate Blood Pressure Pulse Oximetry 96 Oxygen Delivery Nasal Cannula Oxygen Flow Rate 2 09/04/23 04:00 09/04/23 04:00 09/04/23 04:00 Temperature Pulse Rate 71 71 Respiratory Rate 19 Blood Pressure 103/50 L Pulse Oximetry 95 95 Oxygen Delivery Nasal Cannula Oxygen Flow Rate 2 09/04/23 05:07 09/04/23 06:00 09/04/23 06:00 Temperature 97.7 F Pulse Rate 71 71 Respiratory Rate 21 H Blood Pressure 106/52 L Pulse Oximetry 93 Oxygen Delivery Oxygen Flow Rate 09/04/23 09:13 09/04/23 08:00 09/04/23 09:31 Temperature 98.3 F 98.3 F 98.3 F Pulse Rate 68 72 74 Respiratory Rate 22 H 20 22 H Blood Pressure 104/54 L 108/58 L 116/59 L Pulse Oximetry 93 94 93 Oxygen Delivery Oxygen Flow Rate 09/04/23 08:00 09/04/23 08:00 09/04/23 10
[2023-09-05] VITALS (18 sets, daily range): BP systolic 113–160; BP diastolic 60–140; PULSE 66–83; RESP 19–25; TEMP 36.7–37; O2SAT 91–100
[2023-09-05] MEDS: FUROSEMIDE INJ 40 MG/4 ML VIAL 20 MG IV PUSH (01:31)
[2023-09-05] MEDS: CENTRAL LINE FLUSH 10 ML IV PUSH ×3 (06:39→19:44)
[2023-09-05 06:45] LABS: Basophils Absolute Auto 0.1 K/mm3 (0.0-0.1); Basophils Percent Auto 0.6 % (0.2-1.2); Eosinophils Absolute Auto 0.1 K/mm3 (0-0.3); Hematocrit 29.9 % (37.0-47.0); Hemoglobin 8.8 g/dL (12.0-15.0); Immature Granulocyte Absolute 0.05 K/mm3 (0.00-0.031); Immature Granulocyte Percent A 0.4 % (0-0.5); Lymphocytes Absolute Auto 2.11 K/mm3 (0.9-3.2); Lymphocytes Percent Auto 18.8 % (18.3-44.2); Mean Corpuscular HGB Conc 29.4 g/dl (32-36); Mean Corpuscular Hemoglobin 28.9 pg (26-34); Mean Corpuscular Volume 98.4 fl (80-100); Mean Platelet Volume 10.7 fl (7.4-10.4); Monocytes Absolute Auto 0.9 K/mm3 (0.1-0.6); Monocytes Percent Auto 8.2 % (2.6-8.5); Platelet Count Result 289 k/mm3 (150-375); Red Blood Count 3.04 M/mm3 (4.2-5.4); White Blood Count 11.2 K/mm3 (4.5-10.0)
[2023-09-05 06:54] LABS: Anion Gap 9 mmol/L (8-16); Blood Urea Nitrogen 36 mg/dL (7-17); Calcium 9.1 mg/dL (8.4-10.2); Carbon Dioxide 24 mmol/L (22-30); Chloride 109 mmol/L (98-107); Estimated CRCL calculation 33 ml/min; Estimated Glomerular Filt Rate 39; Glucose 139 mg/dL (65-110); Phosphorus 3.2 mg/dL (2.5-4.5); Potassium 4.9 mmol/L (3.4-5.0); Sodium 142 mmol/L (137-145)
[2023-09-05 07:20] LABS: Hypochromasia 1+ (NORMAL); Ovalocytes 1+ (NORMAL); Platelet Estimate Adequate (Adequate); Schistocytes None Seen (NORMAL)
[2023-09-05] MEDS: MIDODRINE HCL 10 MG TABLET PO ×3 (08:56→16:45)
[2023-09-05] MEDS: CEFEPIME 1 GM/NS 50 ML 1 GM/50 ML BAG IVPB (08:56)
[2023-09-05] MEDS: TOLNAFTATE 1% POWDER 45 GM BTL 1 APPLIC TOPICAL ×2 (08:57→19:44)
[2023-09-05 09:00] LABS: Glucose Point of Care 145 mg/dl (65-105)
[2023-09-05] MEDS: PANTOPRAZOLE SODIUM IV 40 MG VIAL IV PUSH ×2 (09:00→19:44)
--- NOTE | 2023-09-05 11:15 | PC.NURSE ---
Addendum entered by Alexx Jason RN 09/05/23 12:15: Patient complaining of nausea, Zofran IVP given. No emesis noted. Dr. Marcus notified. Original Note: Patient complaining of nausea, Zofran IVP given. No emesis noted. Dr. Marcusnotified.
[2023-09-05] MEDS: ONDANSETRON INJ 4 MG/2 ML VIAL IV PUSH (11:18)
[2023-09-05] MEDS: FUROSEMIDE INJ 40 MG/4 ML VIAL IV PUSH ×2 (11:42→16:45)
--- NOTE | 2023-09-05 11:50 | PC.NURSE ---
Dr. Marcus, and Dr. Rowe at bedside.
[2023-09-05 12:17] LABS: Glucose Point of Care 147 mg/dl (65-105)
--- NOTE | 2023-09-05 12:17 | P.PNNP_ITS ---
Progress Note: A&P Assessment and Plan (1) BRITTANI (acute kidney injury): Code(s): N17.9 - Acute kidney failure, unspecified Status: Acute Assessment and Plan: * Acute kidney injury * multifactorial etiology: * hypotension/hemodynamic instability/shock * pre-renal factors * infection/sepsis (UTI) * ARB therapy prior to admission * pre-renal factors * evaluation to date: * CT scan without obstruction with ureteral stent in place * urine eletrolyte non-prerenal * urine eosinophils negative * CPK normal * creatinine has improved to 1.4 * off ivfs. * Unfortunately the patient looks volume overloaded. Perhaps the creatinine as as good as it is because of dilution from volume overload. She may need to have a higher creatinine to stay out of heart failure. * I agree with giving her some diuretics. * Discussed with and Dr Nicole (2) Stage 3b chronic kidney disease: Code(s): N18.32 - Chronic kidney disease, stage 3b Status: Acute Assessment and Plan: * baseline creatinine ~ 1.0 - 1.5mg/dl recently; although has been as high as 1.7mg/dl * this causes her to fluctuate betweem CKD stage 3A and stage 3B * presumably due to diabetes, hypertension, vascular disease, recurrent UTIs, and age (3) Hyperkalemia: Code(s): E87.5 - Hyperkalemia Status: Acute Assessment and Plan: * resolved (4) Septic shock: Code(s): A41.9 - Sepsis, unspecified organism; R65.21 - Severe sepsis with septic shock Status: Acute Assessment and Plan: * Blood pressure is better * off norepinephrine. * blood and urine cultures negative * on cefipime (5) History of recurrent UTIs: Code(s): Z87.440 - Personal history of urinary (tract) infections Status: Acute Assessment and Plan: * presumably precipitated by presence of right ureteral stent * Urology following * on cefipime (6) Anemia: Code(s): D64.9 - Anemia, unspecified Status: Acute Assessment and Plan: * due to Brittani, CKD, chronic disease, anticoagulation, and acute illness * iron studies along with B12 + folate okay * hb natasha from 6.6 to 8.1 and today is 8.8 * check tomorrow * PRBC transfusion per protocol (7) Insulin dependent type 2 diabetes mellitus: Code(s): E11.9 - Type 2 diabetes mellitus without complications; Z79.4 - meterman (current) use of insulin Status: Chronic Assessment and Plan: * follow accu-cheks * glycemic control per patient financial advocate/hospitalists Subjective Date/time seen: 09/05/23 12:17 Interval history: Patient is awake. Somewhat short of breath. Exam Narrative: General: elderly but WD/WN female in NAD Heart: normal S1 and S2; no rub or gallop Lungs: Decreased breath sounds at the bases Abdomen: soft, nontender, nondistended, positive bowel sounds Extremities: no cyanosis or clubbing; 1+ edema Skin: no rash Objective Data Vital Signs Vital Signs: Vital Signs - 24 hr 09/04/23 12:45 09/04/23 13:50 09/04/23 13:53 Temperature Pulse Rate 63 73 71 Respiratory Rate 24 H 22 H 20 Blood Pressure Pulse Oximetry 100 93 Oxygen Delivery Nasal Cannula Nasal Cannula Oxygen Flow Rate 2 2 09/04/23 13:58 09/04/23 14:00 09/04/23 16:00
--- NOTE | 2023-09-05 12:17 | PM.PNNEP ---
Progress Note: A&P Assessment and Plan (1) BRITTANI (acute kidney injury): Code(s): N17.9 - Acute kidney failure, unspecified Status: Acute Assessment and Plan: Acute kidney injury multifactorial etiology: hypotension/hemodynamic instability/shock pre-renal factors infection/sepsis (UTI) ARB therapy prior to admission pre-renal factors evaluation to date: CT scan without obstruction with ureteral stent in place urine eletrolyte non-prerenal urine eosinophils negative CPK normal creatinine has improved to 1.4 off ivfs. Unfortunately the patient looks volume overloaded. Perhaps the creatinine as as good as it is because of dilution from volume overload. She may need to have a higher creatinine to stay out of heart failure. I agree with giving her some diuretics. Discussed with and Dr Nicole (2) Stage 3b chronic kidney disease: Code(s): N18.32 - Chronic kidney disease, stage 3b Status: Acute Assessment and Plan: baseline creatinine ~ 1.0 - 1.5mg/dl recently; although has been as high as 1.7mg/dl this causes her to fluctuate betweem CKD stage 3A and stage 3B presumably due to diabetes, hypertension, vascular disease, recurrent UTIs, and age (3) Hyperkalemia: Code(s): E87.5 - Hyperkalemia Status: Acute Assessment and Plan: resolved (4) Septic shock: Code(s): A41.9 - Sepsis, unspecified organism; R65.21 - Severe sepsis with septic shock Status: Acute Assessment and Plan: Blood pressure is better off norepinephrine. blood and urine cultures negative on cefipime (5) History of recurrent UTIs: Code(s): Z87.440 - Personal history of urinary (tract) infections Status: Acute Assessment and Plan: presumably precipitated by presence of right ureteral stent Urology following on cefipime (6) Anemia: Code(s): D64.9 - Anemia, unspecified Status: Acute Assessment and Plan: due to Brittani, CKD, chronic disease, anticoagulation, and acute illness iron studies along with B12 + folate okay hb natasha from 6.6 to 8.1 and today is 8.8 check tomorrow PRBC transfusion per protocol (7) Insulin dependent type 2 diabetes mellitus: Code(s): E11.9 - Type 2 diabetes mellitus without complications; Z79.4 - intermediate manager (current) use of insulin Status: Chronic Assessment and Plan: follow accu-cheks glycemic control per engraver letter/hospitalists Subjective Date/time seen: 09/05/23 12:17 Interval history: Patient is awake. Somewhat short of breath. Exam Narrative: General: elderly but WD/WN female in NAD Heart: normal S1 and S2; no rub or gallop Lungs: Decreased breath sounds at the bases Abdomen: soft, nontender, nondistended, positive bowel sounds Extremities: no cyanosis or clubbing; 1+ edema Skin: no rash Objective Data Vital Signs Vital Signs: Vital Signs - 24 hr 09/04/23 12:45 09/04/23 13:50 09/04/23 13:53 Temperature Pulse Rate 63 73 71 Respiratory Rate 24 H 22 H 20 Blood Pressure Pulse Oximetry 100 93 Oxygen Delivery Nasal Cannula Nasal Cannula Oxygen Flow Rate 2 2 09/04/23 13:58 09/04/23 14:00 09/04/23 16:00 Temperature Pulse Rate 67 60 67 Respiratory Rate 21 H Blood Pressure Pulse Oximetry Oxygen Delivery Oxygen Flow Rate 09/04/23 16:00 09/04/23 16:00 09/04/23 18:00 Temperature 98.1 F Pulse Rate 73 76 70 Respiratory Rate 18 Blood Pressure 123/56 L Pulse Oximetry 94 95 Oxygen Delivery Nasal Cannula Oxygen Flow Rate 2 09/04/23 20:00 09/04/23 20:00 09/04/23 20:00 Temperature 98.0 F Pulse Rate 71 69 Respiratory Rate 20 Blood Pressure 118/63 Pulse Oximetry 99 99 Oxygen Delivery Nasal Cannula Oxygen Flow Rate 2 09/04/23 22:00 09/04/23 22:36 09/05/23 00:00 Temperature 98.6 F Pulse Rate 67 70 69 Respiratory Rate 19 Blood
[2023-09-05 12:31] LABS: NT Pro B Type Natriuretic Pept 11600 pg/mL (19.9-100)
--- NOTE | 2023-09-05 13:18 | PCPTNOTE ---
1308 Attempted to evaluate patient, but declines bed mobility, sitting EOB, or getting OOB and up into a chair. Physical therapy will attempt again tomorrow
--- NOTE | 2023-09-05 13:43 | PM.IMPN ---
Progress Note: A&P Assessment and Plan (1) Acute on chronic anemia: Code(s): D64.9 - Anemia, unspecified Status: Acute (2) History of recurrent UTIs: Code(s): Z87.440 - Personal history of urinary (tract) infections Status: Acute (3) Abnormal urinalysis: Code(s): R82.90 - Unspecified abnormal findings in urine Status: Acute (4) Hypotension: Code(s): I95.9 - Hypotension, unspecified Status: Acute (5) Acute kidney injury superimposed on CKD: Code(s): N17.9 - Acute kidney failure, unspecified; N18.9 - Chronic kidney disease, unspecified Status: Acute (6) Heart failure with preserved ejection fraction: Code(s): I50.30 - Unspecified diastolic (congestive) heart failure Status: Acute (7) Sepsis: Qualifiers: Sepsis type: sepsis due to unspecified organism Sepsis acute organ dysfunction status: with acute organ dysfunction Severe sepsis acute organ dysfunction type: acute respiratory failure Acute respiratory failure type: with hypoxia Severe sepsis shock status: with septic shock Qualified Code(s): A41.9 - Sepsis, unspecified organism; R65.21 - Severe sepsis with septic shock; J96.01 - Acute respiratory failure with hypoxia Code(s): A41.9 - Sepsis, unspecified organism Status: Acute (8) Paroxysmal atrial fibrillation: Code(s): I48.0 - Paroxysmal atrial fibrillation Status: Acute (9) Insulin dependent type 2 diabetes mellitus: Code(s): E11.9 - Type 2 diabetes mellitus without complications; Z79.4 - 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 She was recently diagnosed with sepsis due to infected ureteral stone and had a stent placed. She was then admitted again last July with UTI pneumonia and the discharged home on linezolid for VRE. She has been living with the son and [id number] since she has been weak. Home health saw the patient and her blood pressure was low so she was brought into the ED. She was admitted for septic shock due to UTI with ureteral stent in place on 09/01/2023. #Septic shock -received large volume fluid resuscitation. Resolved, Levophed discontinued. #Complicated UTI and a patient with recurrent UTIs -on 09/03 urology remove the right ureteral stent. Does have a remaining stones so she is at risk and should follow up with Urology. -on 08/01 she had vancomycin-resistant Enterococcus faecium grown in the urine. She has since been switched from linezolid to cefepime and her septic shock improved so we will continue that and if she is stable tomorrow we will attempt to deescalate. -monitor leukocytosis which is mild on 09/05 #HARMONY on CKD -appreciate nephrology recommendations -multifactorial with presenting septic shock, infection, ARB therapy -on 09/05 her serum creatinine is improved to 1.3 but we may have to accept a higher baseline as she is currently very overloaded and required some diuresis. #Acute hyperkalemia -resolved. Continue to monitor #Insulin-dependent diabetes mellitus -Accu-Cheks and insulin sliding scale -as she begins to eat more reinstitute her home dosing #nausea -she has poor oral intake but no vomiting. Possibly some bowel edema, continue to monitor and re-evaluate after diuresis -she is also on Protonix #Acute on chronic anemia -multifactorial. However, she did require 1 unit PRBC for hemoglobin of 6.6 on 08/10
--- NOTE | 2023-09-05 14:49 | PCOTNOTE ---
Attempted to see pt for Occupational therapy treatment. Pt refused to participate in therapeutic activities and/or strengthening due to being too tired . RN states that pt completed self care tasks prior to therapy session. Pt is educated on the importance of participation in therapy for increase independence with daily occupations however continues to decline attempt. Will continue per poc duration/frequency tomorrow.
[2023-09-05 17:36] LABS: Glucose Point of Care 167 mg/dl (65-105)
[2023-09-05 21:06] LABS: Glucose Point of Care 161 mg/dl (65-105)
[2023-09-06] VITALS (15 sets, daily range): BP systolic 118–139; BP diastolic 58–101; PULSE 68–78; RESP 16–24; TEMP 36.4–36.9; O2SAT 91–100
[2023-09-06 04:51] LABS: Basophils Absolute Auto 0.1 K/mm3 (0.0-0.1); Basophils Percent Auto 0.5 % (0.2-1.2); Eosinophils Absolute Auto 0.1 K/mm3 (0-0.3); Eosinophils Percent Auto 0.6 % (0-4.4); Immature Granulocyte Absolute 0.05 K/mm3 (0.00-0.031); Immature Granulocyte Percent A 0.4 % (0-0.5); Lymphocytes Absolute Auto 1.98 K/mm3 (0.9-3.2); Lymphocytes Percent Auto 17.7 % (18.3-44.2); Mean Corpuscular Hemoglobin 28.8 pg (26-34); Mean Corpuscular Volume 99.4 fl (80-100); Mean Platelet Volume 10.6 fl (7.4-10.4); Monocytes Absolute Auto 0.9 K/mm3 (0.1-0.6); Monocytes Percent Auto 8.1 % (2.6-8.5); Neutrophils Absolute Auto 8.1 K/mm3 (1.3-6.7); Neutrophils Percent Auto 72.7 % (45.5-73.1); Platelet Count Result 276 k/mm3 (150-375); Red Blood Count 3.12 M/mm3 (4.2-5.4); Red Cell Distribution Width 19.9 % (11.5-14.5); White Blood Count 11.2 K/mm3 (4.5-10.0)
[2023-09-06 05:00] LABS: Alanine Aminotransferase 170 U/L (6-35); Albumin Level 3.9 g/dL (3.5-5.1); Alkaline Phosphatase 80 U/L (38-126); Anion Gap 8 mmol/L (8-16); Aspartate Amino Transferase 215 U/L (14-36); Bilirubin,Total 1.4 mg/dL (0.2-1.3); Blood Urea Nitrogen 40 mg/dL (7-17); Calcium 9.6 mg/dL (8.4-10.2); Carbon Dioxide 27 mmol/L (22-30); Chloride 107 mmol/L (98-107); Estimated CRCL calculation 30 ml/min; Estimated Glomerular Filt Rate 36; Glucose 149 mg/dL (65-110); Magnesium 1.9 mg/dL (1.6-2.3); Potassium 4.4 mmol/L (3.4-5.0); Sodium 142 mmol/L (137-145)
[2023-09-06 05:15] LABS: Platelet Estimate Adequate (Adequate)
[2023-09-06 05:16] LABS: Procalcitonin 0.2 ng/mL
[2023-09-06 05:17] LABS: Anisocytosis 1+ (NORMAL); Hypochromasia 1+ (NORMAL); Large Platelets Present; Microcytosis 1+ (NORMAL); Ovalocytes 1+ (NORMAL); Poikilocytosis 1+ (NORMAL); Schistocytes None Seen (NORMAL)
[2023-09-06] MEDS: CENTRAL LINE FLUSH 10 ML IV PUSH ×3 (05:32→20:20)
[2023-09-06] MEDS: ONDANSETRON INJ 4 MG/2 ML VIAL IV PUSH ×2 (05:37→19:15)
[2023-09-06 07:43] LABS: Glucose Point of Care 149 mg/dl (65-105)
[2023-09-06] MEDS: CEFEPIME 1 GM/NS 50 ML 1 GM/50 ML BAG IVPB (08:34)
[2023-09-06] MEDS: PANTOPRAZOLE SODIUM IV 40 MG VIAL IV PUSH ×2 (08:35→20:20)
[2023-09-06] MEDS: FUROSEMIDE INJ 40 MG/4 ML VIAL IV PUSH ×2 (08:35→17:04)
[2023-09-06] MEDS: TOLNAFTATE 1% POWDER 45 GM BTL 1 APPLIC TOPICAL ×2 (08:35→20:20)
--- NOTE | 2023-09-06 10:44 | P.PNNP_ITS ---
Progress Note: A&P Assessment and Plan (1) BRITTANI (acute kidney injury): Code(s): N17.9 - Acute kidney failure, unspecified Status: Acute Assessment and Plan: * improving * multifactorial etiology: * hypotension/hemodynamic instability/shock * pre-renal factors * infection/sepsis (UTI) * ARB therapy prior to admission * pre-renal factors * evaluation to date: * CT scan without obstruction with ureteral stent in place * urine electrolytes non-prerenal * urine eosinophils negative * CPK normal * on diuretic therapy at this time * follow repeat labs and UOP (2) Stage 3b chronic kidney disease: Code(s): N18.32 - Chronic kidney disease, stage 3b Status: Acute Assessment and Plan: * baseline creatinine ~ 1.0 - 1.5mg/dl recently; although has been as high as 1.7mg/dl * this causes her to fluctuate betweem CKD stage 3A and stage 3B * presumably due to diabetes, hypertension, vascular disease, recurrent UTIs, and age (3) Hyperkalemia: Code(s): E87.5 - Hyperkalemia Status: Acute Assessment and Plan: * resolved (4) Septic shock: Code(s): A41.9 - Sepsis, unspecified organism; R65.21 - Severe sepsis with septic shock Status: Acute Assessment and Plan: * resolving/resolved * blood pressure is better/stable * off vasopressor therapy * blood and urine cultures negative * on antibiotics (5) History of recurrent UTIs: Code(s): Z87.440 - Personal history of urinary (tract) infections Status: Acute Assessment and Plan: * presumably precipitated by presence of right ureteral stent * s/p ureteral stent removal * Urology following * on antibiotics (6) Anemia: Code(s): D64.9 - Anemia, unspecified Status: Acute Assessment and Plan: * due to Brittani, CKD, chronic disease, anticoagulation, and acute illness * iron studies along with B12 + folate okay * s/p PRBC transfusion * follow trend of H/H (7) Insulin dependent type 2 diabetes mellitus: Code(s): E11.9 - Type 2 diabetes mellitus without complications; Z79.4 - terminal carman (current) use of insulin Status: Chronic Assessment and Plan: * follow accu-cheks * glycemic control per hospitalists Will continue to follow. Subjective Date/time seen: 09/06/23 10:44 Interval history: Follow-up for acute kidney injury/acute renal failure on chronic kidney disease. Chart reviewed since last seen -- initiated on diuretic therapy due to evidence of volume overload; renal function seems to be tolerating this intervention; no acute distress but not very conversive at the time of my visit. Exam Narrative: General: elderly but WD/WN female in NAD Heart: normal S1 and S2; no rub Lungs: decreased breath sounds at the bases Abdomen: soft, nontender, nondistended, positive bowel sounds Extremities: no cyanosis or clubbing; 1+ edema Skin: no nodules Objective Data Vital Signs Vital Signs: Vital Signs Temp Pulse Resp BP Pulse Ox O2 Del Method O2 Flow Rate 09/06/23 10:00 72 09/06/23 08:00 75 23 H 100 Autopap 09/06/23 08:00 75 09/06/23 08:09 97.5 F L 75 23 H 139/76 100 09/06/23 05:39 75 09/06/23 04:00 76 09/06/23 04:00 98.3 F 73 24 H 133/101 H
--- NOTE | 2023-09-06 10:44 | PM.PNNEP ---
Progress Note: A&P Assessment and Plan (1) BRITTANI (acute kidney injury): Code(s): N17.9 - Acute kidney failure, unspecified Status: Acute Assessment and Plan: improving multifactorial etiology: hypotension/hemodynamic instability/shock pre-renal factors infection/sepsis (UTI) ARB therapy prior to admission pre-renal factors evaluation to date: CT scan without obstruction with ureteral stent in place urine electrolytes non-prerenal urine eosinophils negative CPK normal on diuretic therapy at this time follow repeat labs and UOP (2) Stage 3b chronic kidney disease: Code(s): N18.32 - Chronic kidney disease, stage 3b Status: Acute Assessment and Plan: baseline creatinine ~ 1.0 - 1.5mg/dl recently; although has been as high as 1.7mg/dl this causes her to fluctuate betweem CKD stage 3A and stage 3B presumably due to diabetes, hypertension, vascular disease, recurrent UTIs, and age (3) Hyperkalemia: Code(s): E87.5 - Hyperkalemia Status: Acute Assessment and Plan: resolved (4) Septic shock: Code(s): A41.9 - Sepsis, unspecified organism; R65.21 - Severe sepsis with septic shock Status: Acute Assessment and Plan: resolving/resolved blood pressure is better/stable off vasopressor therapy blood and urine cultures negative on antibiotics (5) History of recurrent UTIs: Code(s): Z87.440 - Personal history of urinary (tract) infections Status: Acute Assessment and Plan: presumably precipitated by presence of right ureteral stent s/p ureteral stent removal Urology following on antibiotics (6) Anemia: Code(s): D64.9 - Anemia, unspecified Status: Acute Assessment and Plan: due to Brittani, CKD, chronic disease, anticoagulation, and acute illness iron studies along with B12 + folate okay s/p PRBC transfusion follow trend of H/H (7) Insulin dependent type 2 diabetes mellitus: Code(s): E11.9 - Type 2 diabetes mellitus without complications; 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 Subjective Date/time seen: 09/06/23 10:44 Interval history: Follow-up for acute kidney injury/acute renal failure on chronic kidney disease. Chart reviewed since last seen -- initiated on diuretic therapy due to evidence of volume overload; renal function seems to be tolerating this intervention; no acute distress but not very conversive at the time of my visit. Exam Narrative: General: elderly but WD/WN female in NAD Heart: normal S1 and S2; no rub Lungs: decreased breath sounds at the bases Abdomen: soft, nontender, nondistended, positive bowel sounds Extremities: no cyanosis or clubbing; 1+ edema Skin: no nodules Objective Data Vital Signs Vital Signs: Vital Signs Temp Pulse Resp BP Pulse Ox O2 Del Method O2 Flow Rate 09/06/23 10:00 72 09/06/23 08:00 75 23 H 100 Autopap 09/06/23 08:00 75 09/06/23 08:09 97.5 F L 75 23 H 139/76 100 09/06/23 05:39 75 09/06/23 04:00 76 09/06/23 04:00 98.3 F 73 24 H 133/101 H 97 09/06/23 03:17 73 20 98 Autopap 3 09/05/23 20:33 76 20 91 Nasal Cannula 2 09/06/23 02:32 78 91 Autopap 09/06/23 02:00 74 09/06/23 00:00 71 09/06/23 00:00 98.5 F 70 19 124/66 91 09/05/23 23:32 76 21 H 98 Autopap 3 09/05/23 22:40 75 91 Autopap 09/05/23 22:00 83 09/05/23 20:00 70 09/05/23 20:00 71 19 97 Nasal Cannula 2 09/05/23 21:05 74 20 130/83 94 09/05/23 19:54 98.3 F 72 25 H 160/140 H 94 09/05/23 18:00 71 09/05/23 16:00 95 Nasal Cannula 2 09/05/23 16:00 69 09/05/23 16:00 98.1 F 75 24 H 136/70 93 Intake/Output Intake/
--- NOTE | 2023-09-06 10:47 | PCPTNOTE ---
Attempted PT evaluation, pt refused and would not give a reason as to why she would not participate in skilled therapy. RN present for refusal. Will contact hospitalist.
[2023-09-06 11:52] LABS: Glucose Point of Care 147 mg/dl (65-105)
--- NOTE | 2023-09-06 11:59 | PCOTNOTE ---
Patient refused treatment this session. Patient was educated on importance of participating in therapy services. Patient continued to decline. RN notified.
--- NOTE | 2023-09-06 16:42 | PM.IMPN ---
Progress Note: A&P Assessment and Plan (1) Acute on chronic anemia: Code(s): D64.9 - Anemia, unspecified Status: Acute (2) History of recurrent UTIs: Code(s): Z87.440 - Personal history of urinary (tract) infections Status: Acute (3) Abnormal urinalysis: Code(s): R82.90 - Unspecified abnormal findings in urine Status: Acute (4) Hypotension: Code(s): I95.9 - Hypotension, unspecified Status: Acute (5) Acute kidney injury superimposed on CKD: Code(s): N17.9 - Acute kidney failure, unspecified; N18.9 - Chronic kidney disease, unspecified Status: Acute (6) Heart failure with preserved ejection fraction: Code(s): I50.30 - Unspecified diastolic (congestive) heart failure Status: Acute (7) Sepsis: Qualifiers: Sepsis type: sepsis due to unspecified organism Sepsis acute organ dysfunction status: with acute organ dysfunction Severe sepsis acute organ dysfunction type: acute respiratory failure Acute respiratory failure type: with hypoxia Severe sepsis shock status: with septic shock Qualified Code(s): A41.9 - Sepsis, unspecified organism; R65.21 - Severe sepsis with septic shock; J96.01 - Acute respiratory failure with hypoxia Code(s): A41.9 - Sepsis, unspecified organism Status: Acute (8) Paroxysmal atrial fibrillation: Code(s): I48.0 - Paroxysmal atrial fibrillation Status: Acute (9) Insulin dependent type 2 diabetes mellitus: Code(s): E11.9 - Type 2 diabetes mellitus without complications; Z79.4 - manager terminal (current) use of insulin Status: Chronic (10) Septic shock: Code(s): A41.9 - Sepsis, unspecified organism; R65.21 - Severe sepsis with septic shock Status: Acute Plan 83-year-old female with a history of nephrolithiasis, chronic kidney disease, recurrent UTIs status post ureteral stent, hypertension, hyperlipidemia, insulin-dependent diabetes mellitus, paroxysmal atrial fibrillation on Eliquis, sick sinus syndrome status post permanent pacemaker insertion, SUNNY on CPAP, chronic anemia, diastolic heart failure, hepatic steatosis, morbid obesity, pulmonary hypertension. She was recently diagnosed with sepsis due to infected ureteral stone and had a stent placed. She was then admitted again last July with UTI pneumonia and the discharged home on linezolid for VRE. She has been living with the son and [id number] since she has been weak. Home health saw the patient and her blood pressure was low so she was brought into the ED. She was admitted for septic shock due to UTI with ureteral stent in place on 09/01/2023. On 09/06 - The patient's daughter and sister present in the room during evaluation. They helped to provide some history. The patient has had depression but no suicidal ideation for few months at least. Some medications were adjusted by the PCP but they do not seem to have taken effect. I advised the patient we could try to treat her depression ongoing but she refuses to do that as well. She certainly is competent to make decisions for herself. The patient herself is refusing all therapies and appears quite lethargic and has a flat affect. Extensive questioning conducted and the patient is unwilling to move forward with therapies although when asked about comfort care/removal of current therapies she is undecided. Unfortunately we cannot do much at the moment considering her unwillingness. She does have transaminitis and elevated total bilirubin. Since she complains of abdominal discomfort and poor appetite we could try to check a lipase with the morning labs if she lets us. Further imaging is a consideration as well. Nonetheless, we will revisit her goals of care in the morning. Cancel GI consult in the meantime and give her clear liquid diet. #Septic shock -received large volume fluid resuscitation. Resolved, Levophed discontinued. #Complicated UTI and a patient with recurrent UTI
[2023-09-06 16:45] LABS: Glucose Point of Care 150 mg/dl (65-105)
[2023-09-06] MEDS: MIDODRINE HCL 10 MG TABLET PO (17:04)
[2023-09-06] MEDS: PROCHLORPERAZINE EDISYLATE 10 MG/2 ML VIAL IV PUSH (20:20)
[2023-09-06 23:57] LABS: Glucose Point of Care 130 mg/dl (65-105)
[2023-09-07] VITALS (12 sets, daily range): BP systolic 93–132; BP diastolic 58–94; PULSE 61–78; RESP 17–22; TEMP 36.6–36.8; O2SAT 89–97
[2023-09-07] MEDS: PROCHLORPERAZINE EDISYLATE 10 MG/2 ML VIAL IV PUSH (03:08)
[2023-09-07 05:27] LABS: Basophils Absolute Auto 0.1 K/mm3 (0.0-0.1); Basophils Percent Auto 0.7 % (0.2-1.2); Eosinophils Absolute Auto 0.2 K/mm3 (0-0.3); Hematocrit 29.4 % (37.0-47.0); Hemoglobin 8.8 g/dL (12.0-15.0); Immature Granulocyte Absolute 0.04 K/mm3 (0.00-0.031); Immature Granulocyte Percent A 0.4 % (0-0.5); Lymphocytes Absolute Auto 1.91 K/mm3 (0.9-3.2); Lymphocytes Percent Auto 19.5 % (18.3-44.2); Mean Corpuscular HGB Conc 29.9 g/dl (32-36); Mean Corpuscular Hemoglobin 29.5 pg (26-34); Mean Corpuscular Volume 98.7 fl (80-100); Mean Platelet Volume 10.4 fl (7.4-10.4); Monocytes Absolute Auto 1.2 K/mm3 (0.1-0.6); Monocytes Percent Auto 11.9 % (2.6-8.5); Neutrophils Absolute Auto 6.4 K/mm3 (1.3-6.7); Neutrophils Percent Auto 65.5 % (45.5-73.1); Platelet Count Result 260 k/mm3 (150-375); Red Blood Count 2.98 M/mm3 (4.2-5.4); Red Cell Distribution Width 20.1 % (11.5-14.5); White Blood Count 9.8 K/mm3 (4.5-10.0)
[2023-09-07 05:44] LABS: Alanine Aminotransferase 155 U/L (6-35); Albumin Level 3.5 g/dL (3.5-5.1); Alkaline Phosphatase 71 U/L (38-126); Anion Gap 7 mmol/L (8-16); Aspartate Amino Transferase 120 U/L (14-36); Bilirubin,Total 1.2 mg/dL (0.2-1.3); Blood Urea Nitrogen 44 mg/dL (7-17); Calcium 9.5 mg/dL (8.4-10.2); Carbon Dioxide 30 mmol/L (22-30); Chloride 106 mmol/L (98-107); Estimated CRCL calculation 33 ml/min; Estimated Glomerular Filt Rate 39; Glucose 131 mg/dL (65-110); Lipase 31 U/L (23-300); Magnesium 1.7 mg/dL (1.6-2.3); Potassium 3.6 mmol/L (3.4-5.0); Sodium 143 mmol/L (137-145)
[2023-09-07] MEDS: CENTRAL LINE FLUSH 10 ML IV PUSH (05:52)
[2023-09-07 06:13] LABS: Toxigenic C. Diff NEGATIVE (NEGATIVE)
[2023-09-07 06:25] LABS: Ovalocytes 1+ (NORMAL); Platelet Estimate Adequate (Adequate); Schistocytes None Seen (NORMAL); Stomatocytes 1+ (NORMAL)
[2023-09-07 06:26] LABS: Hypochromasia 2+ (NORMAL); Polychromasia 1+ (NORMAL)
[2023-09-07 08:46] LABS: Glucose Point of Care 114 mg/dl (65-105)
[2023-09-07] MEDS: FUROSEMIDE INJ 40 MG/4 ML VIAL IV PUSH ×2 (08:48→17:06)
[2023-09-07] MEDS: CEFEPIME 1 GM/NS 50 ML 1 GM/50 ML BAG IVPB (08:48)
[2023-09-07] MEDS: PANTOPRAZOLE SODIUM IV 40 MG VIAL IV PUSH ×2 (08:48→20:24)
[2023-09-07] MEDS: TOLNAFTATE 1% POWDER 45 GM BTL 1 APPLIC TOPICAL ×2 (08:48→20:24)
[2023-09-07] MEDS: MIDODRINE HCL 10 MG TABLET PO ×3 (08:48→17:06)
--- NOTE | 2023-09-07 10:16 | PM.PNNEP ---
Progress Note: A&P Assessment and Plan (1) BRITTANI (acute kidney injury): Code(s): N17.9 - Acute kidney failure, unspecified Status: Acute Assessment and Plan: improving/resolved multifactorial etiology: hypotension/hemodynamic instability/shock pre-renal factors infection/sepsis (UTI) ARB therapy prior to admission pre-renal factors evaluation to date: CT scan without obstruction with ureteral stent in place urine electrolytes non-prerenal urine eosinophils negative CPK normal on diuretic therapy at this time follow repeat labs and UOP (2) Stage 3b chronic kidney disease: Code(s): N18.32 - Chronic kidney disease, stage 3b Status: Acute Assessment and Plan: baseline creatinine ~ 1.0 - 1.5mg/dl recently; although has been as high as 1.7mg/dl this causes her to fluctuate betweem CKD stage 3A and stage 3B presumably due to diabetes, hypertension, vascular disease, recurrent UTIs, and age (3) Hyperkalemia: Code(s): E87.5 - Hyperkalemia Status: Acute Assessment and Plan: resolved (4) Septic shock: Code(s): A41.9 - Sepsis, unspecified organism; R65.21 - Severe sepsis with septic shock Status: Acute Assessment and Plan: resolving/resolved blood pressure is better/stable off vasopressor therapy blood and urine cultures negative on antibiotics (5) History of recurrent UTIs: Code(s): Z87.440 - Personal history of urinary (tract) infections Status: Acute Assessment and Plan: presumably precipitated by presence of right ureteral stent s/p ureteral stent removal Urology following on antibiotics (6) Anemia: Code(s): D64.9 - Anemia, unspecified Status: Acute Assessment and Plan: due to Brittani, CKD, chronic disease, anticoagulation, and acute illness iron studies along with B12 + folate okay s/p PRBC transfusion follow trend of H/H (7) Insulin dependent type 2 diabetes mellitus: Code(s): E11.9 - Type 2 diabetes mellitus without complications; Z79.4 - platform 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 Subjective Date/time seen: 09/07/23 10:16 Interval history: Follow-up for acute kidney injury/acute renal failure on chronic kidney disease. Tolerating diuretic therapy with relative stability in renal function; H/H stable since PRBC transfusion; stable hemodynamics noted as well; no other issues/events overnight or earlier this AM. Exam Narrative: General: elderly but WD/WN female in NAD Heart: normal S1 and S2; no rub Lungs: decreased breath sounds at the bases Abdomen: soft, nontender, nondistended, positive bowel sounds Extremities: no cyanosis or clubbing; 1+ edema Skin: warm and dry Objective Data Vital Signs Vital Signs: Vital Signs Temp Pulse Resp BP Pulse Ox O2 Del Method O2 Flow Rate 09/07/23 10:00 74 09/07/23 08:00 98 F 76 19 127/60 89 L 09/07/23 08:00 76 09/07/23 06:00 75 09/07/23 04:00 76 09/07/23 05:21 76 20 115/61 96 09/07/23 04:00 74 20 95 Nasal Cannula 3 09/07/23 02:00 73 09/07/23 00:00 75 09/07/23 00:00 98.3 F 75 22 H 130/94 H 94 09/06/23 23:10 70 16 97 Nasal Cannula 3 09/06/23 22:00 68 09/06/23 20:00 76 09/06/23 20:00 74 19 97 Nasal Cannula 3 09/06/23 20:00 98.5 F 74 19 137/70 97 09/06/23 16:00 75 21 H 94 Autopap 09/06/23 16:00 75 09/06/23 16:00 97.6 F 74 21 H 118/58 L 94 09/06/23 14:00 69 Intake/Output Intake/Output: Intake & Output 09/04/23 09/05/23 09/06/23 09/07/23 23:59 23:59 23:59 23:59 Intake Total 1280 370 170 900 Output Total 500 700 700 650 Balance 780 330 -530 250 Meds/Resu
--- NOTE | 2023-09-07 10:16 | P.PNNP_ITS ---
Progress Note: A&P Assessment and Plan (1) BRITTANI (acute kidney injury): Code(s): N17.9 - Acute kidney failure, unspecified Status: Acute Assessment and Plan: * improving/resolved * multifactorial etiology: * hypotension/hemodynamic instability/shock * pre-renal factors * infection/sepsis (UTI) * ARB therapy prior to admission * pre-renal factors * evaluation to date: * CT scan without obstruction with ureteral stent in place * urine electrolytes non-prerenal * urine eosinophils negative * CPK normal * on diuretic therapy at this time * follow repeat labs and UOP (2) Stage 3b chronic kidney disease: Code(s): N18.32 - Chronic kidney disease, stage 3b Status: Acute Assessment and Plan: * baseline creatinine ~ 1.0 - 1.5mg/dl recently; although has been as high as 1.7mg/dl * this causes her to fluctuate betweem CKD stage 3A and stage 3B * presumably due to diabetes, hypertension, vascular disease, recurrent UTIs, and age (3) Hyperkalemia: Code(s): E87.5 - Hyperkalemia Status: Acute Assessment and Plan: * resolved (4) Septic shock: Code(s): A41.9 - Sepsis, unspecified organism; R65.21 - Severe sepsis with septic shock Status: Acute Assessment and Plan: * resolving/resolved * blood pressure is better/stable * off vasopressor therapy * blood and urine cultures negative * on antibiotics (5) History of recurrent UTIs: Code(s): Z87.440 - Personal history of urinary (tract) infections Status: Acute Assessment and Plan: * presumably precipitated by presence of right ureteral stent * s/p ureteral stent removal * Urology following * on antibiotics (6) Anemia: Code(s): D64.9 - Anemia, unspecified Status: Acute Assessment and Plan: * due to Brittani, CKD, chronic disease, anticoagulation, and acute illness * iron studies along with B12 + folate okay * s/p PRBC transfusion * follow trend of H/H (7) Insulin dependent type 2 diabetes mellitus: Code(s): E11.9 - Type 2 diabetes mellitus without complications; 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 Subjective Date/time seen: 09/07/23 10:16 Interval history: Follow-up for acute kidney injury/acute renal failure on chronic kidney disease. Tolerating diuretic therapy with relative stability in renal function; H/H stable since PRBC transfusion; stable hemodynamics noted as well; no other issues/events overnight or earlier this AM. Exam Narrative: General: elderly but WD/WN female in NAD Heart: normal S1 and S2; no rub Lungs: decreased breath sounds at the bases Abdomen: soft, nontender, nondistended, positive bowel sounds Extremities: no cyanosis or clubbing; 1+ edema Skin: warm and dry Objective Data Vital Signs Vital Signs: Vital Signs Temp Pulse Resp BP Pulse Ox O2 Del Method O2 Flow Rate 09/07/23 10:00 74 09/07/23 08:00 98 F 76 19 127/60 89 L 09/07/23 08:00 76 09/07/23 06:00 75 09/07/23 04:00 76 09/07/23 05:21 76 20 115/61 96 09/07/23 04:00 74 20 95 Hemant
--- NOTE | 2023-09-07 12:36 | PM.IMPN ---
Progress Note: A&P Assessment and Plan (1) Acute on chronic anemia: Code(s): D64.9 - Anemia, unspecified Status: Acute (2) History of recurrent UTIs: Code(s): Z87.440 - Personal history of urinary (tract) infections Status: Acute (3) Abnormal urinalysis: Code(s): R82.90 - Unspecified abnormal findings in urine Status: Acute (4) Hypotension: Code(s): I95.9 - Hypotension, unspecified Status: Acute (5) Acute kidney injury superimposed on CKD: Code(s): N17.9 - Acute kidney failure, unspecified; N18.9 - Chronic kidney disease, unspecified Status: Acute (6) Heart failure with preserved ejection fraction: Code(s): I50.30 - Unspecified diastolic (congestive) heart failure Status: Acute (7) Sepsis: Qualifiers: Sepsis type: sepsis due to unspecified organism Sepsis acute organ dysfunction status: with acute organ dysfunction Severe sepsis acute organ dysfunction type: acute respiratory failure Acute respiratory failure type: with hypoxia Severe sepsis shock status: with septic shock Qualified Code(s): A41.9 - Sepsis, unspecified organism; R65.21 - Severe sepsis with septic shock; J96.01 - Acute respiratory failure with hypoxia Code(s): A41.9 - Sepsis, unspecified organism Status: Acute (8) Paroxysmal atrial fibrillation: Code(s): I48.0 - Paroxysmal atrial fibrillation Status: Acute (9) Insulin dependent type 2 diabetes mellitus: Code(s): E11.9 - Type 2 diabetes mellitus without complications; Z79.4 - manager intermediate (current) use of insulin Status: Chronic (10) Septic shock: Code(s): A41.9 - Sepsis, unspecified organism; R65.21 - Severe sepsis with septic shock Status: Acute Plan 83-year-old female with a history of nephrolithiasis, chronic kidney disease, recurrent UTIs status post ureteral stent, hypertension, hyperlipidemia, insulin-dependent diabetes mellitus, paroxysmal atrial fibrillation on Eliquis, sick sinus syndrome status post permanent pacemaker insertion, SUNNY on CPAP, chronic anemia, diastolic heart failure, hepatic steatosis, morbid obesity, pulmonary hypertension. She was recently diagnosed with sepsis due to infected ureteral stone and had a stent placed. She was then admitted again last July with UTI pneumonia and the discharged home on linezolid for VRE. She has been living with the son and [id number] since she has been weak. Home health saw the patient and her blood pressure was low so she was brought into the ED. She was admitted for septic shock due to UTI with ureteral stent in place on 09/01/2023. On 09/06 - The patient's daughter and sister present in the room during evaluation. They helped to provide some history. The patient has had depression but no suicidal ideation for few months at least. Some medications were adjusted by the PCP but they do not seem to have taken effect. I advised the patient we could try to treat her depression ongoing but she refuses to do that as well. She certainly is competent to make decisions for herself. The patient herself is refusing all therapies and appears quite lethargic and has a flat affect. Extensive questioning conducted and the patient is unwilling to move forward with therapies although when asked about comfort care/removal of current therapies she is undecided. Unfortunately we cannot do much at the moment considering her unwillingness. She does have transaminitis and elevated total bilirubin. Since she complains of abdominal discomfort and poor appetite we could try to check a lipase with the morning labs if she lets us. Further imaging is a consideration as well. Nonetheless, we will revisit her goals of care in the morning. Cancel GI consult in the meantime and give her clear liquid diet. On 09/07 the patient still appears to be wanting to give up but she cannot make decision concretely about hospice care. She does not want furthe
[2023-09-07 12:37] LABS: Glucose Point of Care 135 mg/dl (65-105)
[2023-09-07 17:36] LABS: Glucose Point of Care 129 mg/dl (65-105)
[2023-09-07 20:28] LABS: Glucose Point of Care 188 mg/dl (65-105)
--- NOTE | 2023-09-07 22:32 | PC.NURSE ---
Report given to Daiana OTOOLE, all belongings packed. to room 348
--- NOTE | 2023-09-07 22:39 | PC.NURSE ---
Pt arrived to room 348 report was received from Tay OTOOLE
[2023-09-08 04:17] VITALS: BP 126/58; PULSE 62; RESP 20; TEMP 36.4; O2SAT 94
[2023-09-08 06:03] LABS: Basophils Absolute Auto 0.1 K/mm3 (0.0-0.1); Basophils Percent Auto 1.1 % (0.2-1.2); Eosinophils Absolute Auto 0.4 K/mm3 (0-0.3); Eosinophils Percent Auto 4.1 % (0-4.4); Hematocrit 30.4 % (37.0-47.0); Hemoglobin 8.7 g/dL (12.0-15.0); Immature Granulocyte Absolute 0.05 K/mm3 (0.00-0.031); Immature Granulocyte Percent A 0.5 % (0-0.5); Lymphocytes Absolute Auto 3.12 K/mm3 (0.9-3.2); Lymphocytes Percent Auto 30.4 % (18.3-44.2); Mean Corpuscular HGB Conc 28.6 g/dl (32-36); Mean Corpuscular Volume 101.3 fl (80-100); Mean Platelet Volume 10.9 fl (7.4-10.4); Monocytes Absolute Auto 1.4 K/mm3 (0.1-0.6); Monocytes Percent Auto 13.8 % (2.6-8.5); Neutrophils Absolute Auto 5.1 K/mm3 (1.3-6.7); Neutrophils Percent Auto 50.1 % (45.5-73.1); Nucleated Red Blood Cells Perc 0.2 % (0.0-0.2); Platelet Count Result 260 k/mm3 (150-375); Red Cell Distribution Width 20.1 % (11.5-14.5); White Blood Count 10.3 K/mm3 (4.5-10.0)
[2023-09-08 06:19] LABS: Alanine Aminotransferase 121 U/L (6-35); Albumin Level 3.6 g/dL (3.5-5.1); Alkaline Phosphatase 69 U/L (38-126); Anion Gap 10 mmol/L (8-16); Aspartate Amino Transferase 73 U/L (14-36); Bilirubin,Total 1.4 mg/dL (0.2-1.3); Blood Urea Nitrogen 43 mg/dL (7-17); Calcium 9.4 mg/dL (8.4-10.2); Carbon Dioxide 28 mmol/L (22-30); Chloride 102 mmol/L (98-107); Estimated CRCL calculation 35 ml/min; Estimated Glomerular Filt Rate 43; Glucose 120 mg/dL (65-110); Magnesium 1.6 mg/dL (1.6-2.3); Potassium 3.6 mmol/L (3.4-5.0); Sodium 140 mmol/L (137-145)
[2023-09-08 07:27] VITALS: O2SAT 98
[2023-09-08 08:08] LABS: Anisocytosis 2+ (NORMAL); Hypochromasia 1+ (NORMAL); Microcytosis 1+ (NORMAL); Ovalocytes 1+ (NORMAL); Platelet Estimate Adequate (Adequate); Schistocytes None Seen (NORMAL)
[2023-09-08 08:22] LABS: Glucose Point of Care 123 mg/dl (65-105)
[2023-09-08] MEDS: MIDODRINE HCL 10 MG TABLET PO ×3 (09:05→17:01)
[2023-09-08] MEDS: CEFEPIME 1 GM/NS 50 ML 1 GM/50 ML BAG IVPB (09:05)
[2023-09-08] MEDS: FUROSEMIDE INJ 40 MG/4 ML VIAL IV PUSH ×2 (09:05→17:01)
[2023-09-08] MEDS: PANTOPRAZOLE SODIUM IV 40 MG VIAL IV PUSH ×2 (09:05→20:25)
[2023-09-08 09:32] VITALS: BMI 45.1
[2023-09-08 12:01] LABS: Glucose Point of Care 158 mg/dl (65-105)
[2023-09-08 14:00] VITALS: BP 153/64; PULSE 63; RESP 16; TEMP 36.6; O2SAT 95
[2023-09-08 17:55] LABS: Glucose Point of Care 148 mg/dl (65-105)
--- NOTE | 2023-09-08 18:52 | PM.IMPN ---
Progress Note: A&P Assessment and Plan (1) Acute on chronic anemia: Code(s): D64.9 - Anemia, unspecified Status: Acute (2) History of recurrent UTIs: Code(s): Z87.440 - Personal history of urinary (tract) infections Status: Acute (3) Abnormal urinalysis: Code(s): R82.90 - Unspecified abnormal findings in urine Status: Acute (4) Hypotension: Code(s): I95.9 - Hypotension, unspecified Status: Acute (5) Acute kidney injury superimposed on CKD: Code(s): N17.9 - Acute kidney failure, unspecified; N18.9 - Chronic kidney disease, unspecified Status: Acute (6) Heart failure with preserved ejection fraction: Code(s): I50.30 - Unspecified diastolic (congestive) heart failure Status: Acute (7) Sepsis: Qualifiers: Sepsis type: sepsis due to unspecified organism Sepsis acute organ dysfunction status: with acute organ dysfunction Severe sepsis acute organ dysfunction type: acute respiratory failure Acute respiratory failure type: with hypoxia Severe sepsis shock status: with septic shock Qualified Code(s): A41.9 - Sepsis, unspecified organism; R65.21 - Severe sepsis with septic shock; J96.01 - Acute respiratory failure with hypoxia Code(s): A41.9 - Sepsis, unspecified organism Status: Acute (8) Paroxysmal atrial fibrillation: Code(s): I48.0 - Paroxysmal atrial fibrillation Status: Acute (9) Insulin dependent type 2 diabetes mellitus: Code(s): E11.9 - Type 2 diabetes mellitus without complications; Z79.4 - pc technician (current) use of insulin Status: Chronic (10) Septic shock: Code(s): A41.9 - Sepsis, unspecified organism; R65.21 - Severe sepsis with septic shock Status: Acute Plan 83-year-old female with a history of nephrolithiasis, chronic kidney disease, recurrent UTIs status post ureteral stent, hypertension, hyperlipidemia, insulin-dependent diabetes mellitus, paroxysmal atrial fibrillation on Eliquis, sick sinus syndrome status post permanent pacemaker insertion, SUNNY on CPAP, chronic anemia, diastolic heart failure, hepatic steatosis, morbid obesity, pulmonary hypertension. She was recently diagnosed with sepsis due to infected ureteral stone and had a stent placed. She was then admitted again last July with UTI pneumonia and the discharged home on linezolid for VRE. She has been living with the son and [id number] since she has been weak. Home health saw the patient and her blood pressure was low so she was brought into the ED. She was admitted for septic shock due to UTI with ureteral stent in place on 09/01/2023. #Septic shock -received large volume fluid resuscitation. Resolved, Levophed discontinued. #Complicated UTI and a patient with recurrent UTIs -on 09/03 urology remove the right ureteral stent. Does have a remaining stones so she is at risk and should follow up with Urology. -on 08/01 she had vancomycin-resistant Enterococcus faecium grown in the urine. She has since been switched from linezolid to cefepime and her septic shock improved so we will continue that and if she is stable tomorrow we will attempt to deescalate. -monitor leukocytosis which is mild on 09/05 -continue cefepime for 7 day course. Stop date entered on 09/09 #HARMONY on CKD -appreciate nephrology recommendations -multifactorial with presenting septic shock, infection, ARB therapy -her serum creatinine is improved. We may have to accept a higher baseline as she is currently very overloaded and required some diuresis. #Acute hyperkalemia -resolved. Continue to monitor #Insulin-dependent diabetes mellitus -Accu-Cheks and insulin sliding scale -as she begins to eat more reinstitute her home dosing #nausea -improving -she is also on Protonix #Acute on chronic anemia -multifactorial. However, she did require 1 unit PRBC for hemoglobin of 6.6 on 09/04. Stool occult positive. She does not want an endoscopy. Ad
[2023-09-08 20:00] VITALS: O2SAT 98
[2023-09-08] MEDS: TOLNAFTATE 1% POWDER 45 GM BTL 1 APPLIC TOPICAL (20:27)
[2023-09-08 21:03] VITALS: PULSE 65; O2SAT 92
[2023-09-08 22:00] VITALS: BP 131/54; PULSE 63; RESP 18; TEMP 36.1; O2SAT 96
[2023-09-08 23:43] LABS: Glucose Point of Care 171 mg/dl (65-105)
[2023-09-09 06:00] VITALS: BP 108/45; PULSE 82; RESP 21; TEMP 36.2; O2SAT 100
[2023-09-09 08:44] LABS: Glucose Point of Care 135 mg/dl (65-105)
[2023-09-09] MEDS: CEFEPIME 1 GM/NS 50 ML 1 GM/50 ML BAG IVPB (09:18)
[2023-09-09] MEDS: MIDODRINE HCL 10 MG TABLET PO ×3 (09:19→18:06)
[2023-09-09] MEDS: PANTOPRAZOLE SODIUM IV 40 MG VIAL IV PUSH ×2 (09:19→21:19)
[2023-09-09] MEDS: TOLNAFTATE 1% POWDER 45 GM BTL 1 APPLIC TOPICAL ×2 (09:28→21:19)
[2023-09-09] MEDS: FUROSEMIDE 20 MG TABLET PO (09:55)
--- NOTE | 2023-09-09 10:51 | PM.IMPN ---
Progress Note: A&P Assessment and Plan (1) Acute on chronic anemia: Code(s): D64.9 - Anemia, unspecified Status: Acute (2) History of recurrent UTIs: Code(s): Z87.440 - Personal history of urinary (tract) infections Status: Acute (3) Abnormal urinalysis: Code(s): R82.90 - Unspecified abnormal findings in urine Status: Acute (4) Hypotension: Code(s): I95.9 - Hypotension, unspecified Status: Acute (5) Acute kidney injury superimposed on CKD: Code(s): N17.9 - Acute kidney failure, unspecified; N18.9 - Chronic kidney disease, unspecified Status: Acute (6) Heart failure with preserved ejection fraction: Code(s): I50.30 - Unspecified diastolic (congestive) heart failure Status: Acute (7) Sepsis: Qualifiers: Acute respiratory failure type: with hypoxia Sepsis acute organ dysfunction status: with acute organ dysfunction Sepsis type: sepsis due to unspecified organism Severe sepsis acute organ dysfunction type: acute respiratory failure Severe sepsis shock status: with septic shock Qualified Code(s): A41.9 - Sepsis, unspecified organism; R65.21 - Severe sepsis with septic shock; J96.01 - Acute respiratory failure with hypoxia Code(s): A41.9 - Sepsis, unspecified organism Status: Acute (8) Paroxysmal atrial fibrillation: Code(s): I48.0 - Paroxysmal atrial fibrillation Status: Acute (9) Insulin dependent type 2 diabetes mellitus: Code(s): E11.9 - Type 2 diabetes mellitus without complications; Z79.4 - terminal clerk (current) use of insulin Status: Chronic (10) Septic shock: Code(s): A41.9 - Sepsis, unspecified organism; R65.21 - Severe sepsis with septic shock Status: Acute Plan 83-year-old female with a history of nephrolithiasis, chronic kidney disease, recurrent UTIs status post ureteral stent, hypertension, hyperlipidemia, insulin-dependent diabetes mellitus, paroxysmal atrial fibrillation on Eliquis, sick sinus syndrome status post permanent pacemaker insertion, SUNNY on CPAP, chronic anemia, diastolic heart failure, hepatic steatosis, morbid obesity, pulmonary hypertension. She was recently diagnosed with sepsis due to infected ureteral stone and had a stent placed. She was then admitted again last July with UTI pneumonia and the discharged home on linezolid for VRE. She has been living with the son and [id number] since she has been weak. Home health saw the patient and her blood pressure was low so she was brought into the ED. She was admitted for septic shock due to UTI with ureteral stent in place on 09/01/2023. #Septic shock -received large volume fluid resuscitation. Resolved, Levophed discontinued. #Complicated UTI and a patient with recurrent UTIs -on 09/03 urology remove the right ureteral stent. Does have a remaining stones so she is at risk and should follow up with Urology. -on 08/01 she had vancomycin-resistant Enterococcus faecium grown in the urine. She has since been switched from linezolid to cefepime and her septic shock improved so we will continue that and if she is stable tomorrow we will attempt to deescalate. -monitor leukocytosis which is mild on 09/05 -continue cefepime for 7 day course. Stop date entered on 09/09 #HARMONY on CKD -appreciate nephrology recommendations -multifactorial with presenting septic shock, infection, ARB therapy -her serum creatinine is improved. We may have to accept a higher baseline as she is currently very overloaded and required some diuresis. #Acute hyperkalemia -resolved. Continue to monitor #Insulin-dependent diabetes mellitus -Accu-Cheks and insulin sliding scale -as she begins to eat more reinstitute her home dosing #nausea -improving -she is also on Protonix #Acute on chronic anemia -multifactorial. However, she did require 1 unit PRBC for hemoglobin of 6.6 on 09/04. Stool occult positive. She does not want an endoscopy. Ad
[2023-09-09 11:13] LABS: Basophils Absolute Auto 0.1 K/mm3 (0.0-0.1); Basophils Percent Auto 0.8 % (0.2-1.2); Eosinophils Absolute Auto 0.4 K/mm3 (0-0.3); Eosinophils Percent Auto 3.8 % (0-4.4); Hematocrit 31.3 % (37.0-47.0); Hemoglobin 9.1 g/dL (12.0-15.0); Immature Granulocyte Absolute 0.06 K/mm3 (0.00-0.031); Immature Granulocyte Percent A 0.6 % (0-0.5); Lymphocytes Absolute Auto 2.83 K/mm3 (0.9-3.2); Mean Corpuscular HGB Conc 29.1 g/dl (32-36); Mean Corpuscular Hemoglobin 28.9 pg (26-34); Mean Corpuscular Volume 99.4 fl (80-100); Mean Platelet Volume 10.4 fl (7.4-10.4); Monocytes Absolute Auto 1.1 K/mm3 (0.1-0.6); Monocytes Percent Auto 11.5 % (2.6-8.5); Neutrophils Percent Auto 53.3 % (45.5-73.1); Nucleated Red Blood Cells Perc 0.2 % (0.0-0.2); Platelet Count Result 285 k/mm3 (150-375); Red Blood Count 3.15 M/mm3 (4.2-5.4); Red Cell Distribution Width 20.7 % (11.5-14.5); White Blood Count 9.4 K/mm3 (4.5-10.0)
[2023-09-09 11:22] LABS: Anion Gap 9 mmol/L (8-16); Blood Urea Nitrogen 41 mg/dL (7-17); Calcium 9.3 mg/dL (8.4-10.2); Carbon Dioxide 30 mmol/L (22-30); Chloride 101 mmol/L (98-107); Estimated CRCL calculation 32 ml/min; Estimated Glomerular Filt Rate 39; Glucose 171 mg/dL (65-110); Potassium 3.5 mmol/L (3.4-5.0); Sodium 140 mmol/L (137-145)
[2023-09-09 12:25] LABS: Hypochromasia 1+ (NORMAL); Platelet Estimate Adequate (Adequate); Schistocytes None Seen (NORMAL); Stomatocytes 1+ (NORMAL)
[2023-09-09 12:26] LABS: Anisocytosis 2+ (NORMAL)
[2023-09-09 12:27] LABS: Glucose Point of Care 170 mg/dl (65-105)
[2023-09-09 15:22] VITALS: BP 138/76; PULSE 71; TEMP 36.6; O2SAT 97
[2023-09-09 17:41] LABS: Glucose Point of Care 143 mg/dl (65-105)
[2023-09-09 22:00] VITALS: BP 138/60; PULSE 65; RESP 20; TEMP 36.8; O2SAT 98
[2023-09-09 23:30] VITALS: PULSE 71; O2SAT 97
[2023-09-09 23:47] LABS: Glucose Point of Care 170 mg/dl (65-105)
[2023-09-10 06:00] VITALS: BP 142/51; PULSE 63; RESP 20; TEMP 36.2; O2SAT 98
[2023-09-10 07:53] VITALS: O2SAT 92
[2023-09-10 08:34] LABS: Glucose Point of Care 143 mg/dl (65-105)
[2023-09-10] MEDS: FUROSEMIDE 20 MG TABLET PO (09:02)
[2023-09-10] MEDS: MIDODRINE HCL 10 MG TABLET PO ×2 (09:02→12:39)
[2023-09-10] MEDS: TOLNAFTATE 1% POWDER 45 GM BTL 1 APPLIC TOPICAL (09:04)
--- NOTE | 2023-09-10 09:04 | PM.IMPN ---
Progress Note: A&P Assessment and Plan (1) Acute on chronic anemia: Code(s): D64.9 - Anemia, unspecified Status: Acute (2) History of recurrent UTIs: Code(s): Z87.440 - Personal history of urinary (tract) infections Status: Acute (3) Abnormal urinalysis: Code(s): R82.90 - Unspecified abnormal findings in urine Status: Acute (4) Hypotension: Code(s): I95.9 - Hypotension, unspecified Status: Acute (5) Acute kidney injury superimposed on CKD: Code(s): N17.9 - Acute kidney failure, unspecified; N18.9 - Chronic kidney disease, unspecified Status: Acute (6) Heart failure with preserved ejection fraction: Code(s): I50.30 - Unspecified diastolic (congestive) heart failure Status: Acute (7) Sepsis: Qualifiers: Acute respiratory failure type: with hypoxia Sepsis acute organ dysfunction status: with acute organ dysfunction Sepsis type: sepsis due to unspecified organism Severe sepsis acute organ dysfunction type: acute respiratory failure Severe sepsis shock status: with septic shock Qualified Code(s): A41.9 - Sepsis, unspecified organism; R65.21 - Severe sepsis with septic shock; J96.01 - Acute respiratory failure with hypoxia Code(s): A41.9 - Sepsis, unspecified organism Status: Acute (8) Paroxysmal atrial fibrillation: Code(s): I48.0 - Paroxysmal atrial fibrillation Status: Acute (9) Insulin dependent type 2 diabetes mellitus: Code(s): E11.9 - Type 2 diabetes mellitus without complications; Z79.4 - supervisor intermediates (current) use of insulin Status: Chronic (10) Septic shock: Code(s): A41.9 - Sepsis, unspecified organism; R65.21 - Severe sepsis with septic shock Status: Acute Plan 83-year-old female with a history of nephrolithiasis, chronic kidney disease, recurrent UTIs status post ureteral stent, hypertension, hyperlipidemia, insulin-dependent diabetes mellitus, paroxysmal atrial fibrillation on Eliquis, sick sinus syndrome status post permanent pacemaker insertion, SUNNY on CPAP, chronic anemia, diastolic heart failure, hepatic steatosis, morbid obesity, pulmonary hypertension. She was recently diagnosed with sepsis due to infected ureteral stone and had a stent placed. She was then admitted again last July with UTI pneumonia and the discharged home on linezolid for VRE. She has been living with the son and [id number]-[id number]-[id number] since she has been weak. Home health saw the patient and her blood pressure was low so she was brought into the ED. She was admitted for septic shock due to UTI with ureteral stent in place on 09/01/2023. #Septic shock -received large volume fluid resuscitation. Resolved, Levophed discontinued. #Complicated UTI and a patient with recurrent UTIs -on 09/03 urology remove the right ureteral stent. Does have a remaining stones so she is at risk and should follow up with Urology. -on 08/01 she had vancomycin-resistant Enterococcus faecium grown in the urine. She has since been switched from linezolid to cefepime and her septic shock improved so we will continue that and if she is stable tomorrow we will attempt to deescalate. -monitor leukocytosis which is mild on 09/05 -continue cefepime for 7 day course. Stop date entered on 09/09 #HARMONY on CKD -appreciate nephrology recommendations -multifactorial with presenting septic shock, infection, ARB therapy -her serum creatinine is improved. We may have to accept a higher baseline as she is currently very overloaded and required some diuresis. 2/2: BUN 37, creatinine 1.2, creatinine below the baseline, acute renal failure has resolved #Acute hyperkalemia -resolved. Continue to monitor corrected #Insulin-dependent diabetes mellitus -Accu-Cheks and insulin sliding scale -as she begins to eat more reinstitute her home dosing #nausea -improving -she is also on Protonix 2/2 resolved c/w protonix 40 mg qd po #Acute on chronic anemia
[2023-09-10 09:20] VITALS: O2SAT 92
[2023-09-10 10:47] LABS: Basophils Absolute Auto 0.1 K/mm3 (0.0-0.1); Basophils Percent Auto 0.8 % (0.2-1.2); Eosinophils Absolute Auto 0.4 K/mm3 (0-0.3); Eosinophils Percent Auto 5.1 % (0-4.4); Hematocrit 32.9 % (37.0-47.0); Hemoglobin 9.7 g/dL (12.0-15.0); Immature Granulocyte Absolute 0.08 K/mm3 (0.00-0.031); Immature Granulocyte Percent A 0.9 % (0-0.5); Lymphocytes Absolute Auto 2.39 K/mm3 (0.9-3.2); Lymphocytes Percent Auto 28.2 % (18.3-44.2); Mean Corpuscular HGB Conc 29.5 g/dl (32-36); Mean Corpuscular Hemoglobin 29.4 pg (26-34); Mean Corpuscular Volume 99.7 fl (80-100); Mean Platelet Volume 10.4 fl (7.4-10.4); Monocytes Absolute Auto 0.9 K/mm3 (0.1-0.6); Monocytes Percent Auto 10.3 % (2.6-8.5); Neutrophils Absolute Auto 4.6 K/mm3 (1.3-6.7); Neutrophils Percent Auto 54.7 % (45.5-73.1); Nucleated Red Blood Cells Perc 0.4 % (0.0-0.2); Platelet Count Result 296 k/mm3 (150-375); Red Cell Distribution Width 21.3 % (11.5-14.5); White Blood Count 8.5 K/mm3 (4.5-10.0)
[2023-09-10 10:59] LABS: Anion Gap 9 mmol/L (8-16); Blood Urea Nitrogen 37 mg/dL (7-17); Calcium 9.3 mg/dL (8.4-10.2); Carbon Dioxide 31 mmol/L (22-30); Chloride 101 mmol/L (98-107); Estimated CRCL calculation 35 ml/min; Estimated Glomerular Filt Rate 43; Glucose 176 mg/dL (65-110); Potassium 3.3 mmol/L (3.4-5.0); Sodium 141 mmol/L (137-145)
[2023-09-10 11:07] LABS: Anisocytosis 1+ (NORMAL); Hypochromasia 1+ (NORMAL); Microcytosis 1+ (NORMAL); Ovalocytes 1+ (NORMAL); Platelet Estimate Adequate (Adequate); Schistocytes None Seen (NORMAL)
[2023-09-10 12:12] LABS: Glucose Point of Care 176 mg/dl (65-105)
--- NOTE | 2023-09-10 13:09 | PM.DS ---
DS: Admitting Diagnosis Discharge Date 09/10/23 Admitting Diagnosis (1) Acute on chronic anemia: ?Code(s): D64.9 - Anemia, unspecified ?Status:?Acute (2) History of recurrent UTIs: ?Code(s): Z87.440 - Personal history of urinary (tract) infections ?Status:?Acute (3) Abnormal urinalysis: ?Code(s): R82.90 - Unspecified abnormal findings in urine ?Status:?Acute (4) Hypotension: ?Code(s): I95.9 - Hypotension, unspecified ?Status:?Acute (5) Acute kidney injury superimposed on CKD: ?Code(s): N17.9 - Acute kidney failure, unspecified; N18.9 - Chronic kidney disease, unspecified ?Status:?Acute (6) Heart failure with preserved ejection fraction: ?Code(s): I50.30 - Unspecified diastolic (congestive) heart failure ?Status:?Acute (7) Sepsis: ?Qualifiers: DS: Discharge Diagnosis Discharge Diagnosis (1) Acute on chronic anemia: Code(s): D64.9 - Anemia, unspecified Status: Acute (2) History of recurrent UTIs: Code(s): Z87.440 - Personal history of urinary (tract) infections Status: Acute (3) Abnormal urinalysis: Code(s): R82.90 - Unspecified abnormal findings in urine Status: Acute (4) Hypotension: Code(s): I95.9 - Hypotension, unspecified Status: Acute (5) Acute kidney injury superimposed on CKD: Code(s): N17.9 - Acute kidney failure, unspecified; N18.9 - Chronic kidney disease, unspecified Status: Acute (6) Heart failure with preserved ejection fraction: Code(s): I50.30 - Unspecified diastolic (congestive) heart failure Status: Acute (7) Sepsis: Qualifiers: Acute respiratory failure type: with hypoxia Sepsis acute organ dysfunction status: with acute organ dysfunction Sepsis type: sepsis due to unspecified organism Severe sepsis acute organ dysfunction type: acute respiratory failure Severe sepsis shock status: with septic shock Qualified Code(s): A41.9 - Sepsis, unspecified organism; R65.21 - Severe sepsis with septic shock; J96.01 - Acute respiratory failure with hypoxia Code(s): A41.9 - Sepsis, unspecified organism Status: Acute (8) Paroxysmal atrial fibrillation: Code(s): I48.0 - Paroxysmal atrial fibrillation Status: Acute (9) Insulin dependent type 2 diabetes mellitus: Code(s): E11.9 - Type 2 diabetes mellitus without complications; Z79.4 - skilled nursing (current) use of insulin Status: Chronic (10) Septic shock: Code(s): A41.9 - Sepsis, unspecified organism; R65.21 - Severe sepsis with septic shock Status: Acute DS: Summary Hospital Course Hospital Course: 83-year-old female with a history of nephrolithiasis, chronic kidney disease, recurrent UTIs status post ureteral stent, hypertension, hyperlipidemia, insulin-dependent diabetes mellitus, paroxysmal atrial fibrillation on Eliquis, sick sinus syndrome status post permanent pacemaker insertion, SUNNY on CPAP, chronic anemia, diastolic heart failure, hepatic steatosis, morbid obesity, pulmonary hypertension. She was recently diagnosed with sepsis due to infected ureteral stone and had a stent placed. She was then admitted again last July with UTI pneumonia and the discharged home on linezolid for VRE. She has been living with the son and [id number] since she has been weak. [facility] saw the patient and her blood pressure was low so she was brought into the ED. She was admitted for septic shock due to UTI with ureteral stent in place on 09/01/2023. #Septic shock -received large volume fluid resuscitation. Resolved, Levophed discontinued. #Complicated UTI and a patient with recurrent UTIs -on 09/03 urology remove the right ureteral stent. Does have a remaining stones so she is at risk and should follow up with Urology. -on 08/01 she had vancomycin-resistant Enterococcus faecium grown in the urine. She has since been switched from linezolid to cefepime and her
[2023-09-10 13:23] LABS: SARS-CoV-2 RNA PCR Negative (Negative)
== END 2023-09-10 14:30 | DRG 698 ==
LOC: ANHED 14:26 → ANHIMU 22:13 → ANHICU 09-02 03:52 → ANH3MED 09-07 22:38
PROVIDERS: Emergency Medicine; General Practice; Internal Medicine; Internal Medicine Nephrology; Nurse Practitioner; Physician Assistant; Admitting Provider Student in an Organized Health Care Education/Training Program; Emergency Provider Student in an Organized Health Care Education/Training Program; PCP Family Medicine Adolescent Medicine; Visit Provider Hospitalist
DX: T83.593A Infection and inflammatory reaction due to other urinary stents, initial encounter (principal); A41.9 Sepsis, unspecified organism; I50.33 Acute on chronic diastolic (congestive) heart failure; R65.21 Severe sepsis with septic shock; N39.0 Urinary tract infection, site not specified; N17.9 Acute kidney failure, unspecified; Z68.41 Body mass index [BMI] 40.0-44.9, adult; I13.0 Hypertensive heart and chronic kidney disease with heart failure and stage 1 through stage 4 chronic kidney disease, or unspecified chronic kidney disease; Z20.822 Contact with and (suspected) exposure to COVID-19; E78.2 Mixed hyperlipidemia; E66.01 Morbid (severe) obesity due to excess calories; D63.1 Anemia in chronic kidney disease; E11.22 Type 2 diabetes mellitus with diabetic chronic kidney disease; Z87.440 Personal history of urinary (tract) infections; N18.32 Chronic kidney disease, stage 3b; I48.0 Paroxysmal atrial fibrillation; G47.33 Obstructive sleep apnea (adult) (pediatric); D64.89 Other specified anemias; T45.525A Adverse effect of antithrombotic drugs, initial encounter; L89.319 Pressure ulcer of right buttock, unspecified stage; E86.0 Dehydration; E87.5 Hyperkalemia; K76.0 Fatty (change of) liver, not elsewhere classified; Z96.653 Presence of artificial knee joint, bilateral; Z79.01 Long term (current) use of anticoagulants; Z90.49 Acquired absence of other specified parts of digestive tract; Z79.4 Long term (current) use of insulin; Z95.0 Presence of cardiac pacemaker; Z87.891 Personal history of nicotine dependence; Z87.442 Personal history of urinary calculi; F32.A Depression, unspecified
CPT/HCPCS: 36415; 36430; 71045; 74176; 80048; 80053; 81001; 82274; 82550; 82570; 82607; 82728; 82746; 82948; 83540; 83550; 83605; 83690; 83735; 83880; 84100; 84132; 84145; 84300; 84443; 84484; 84540; 85014; 85018; 85025; 85027; 85610; 85730; 85999; 86706; 86850; 86900; 86901; 86920; 87040; 87086; 87340; 87493; 87635; 87637; 87641; 93005; 94640; 96361; 96365; 96375; 97110; 97161; 97165; 97530; 97535; 99285; A9270; C1751; C9113; J0612; J0692; J0696; J0780; J1815; J1940; J2020; J2185; J2405; J7030; J7050; J7120; P9016; P9047